=== PATIENT | female | born 1980 | race Caucasian/White ===

== ENCOUNTER → 2016-04-05 | Outpatient (CLI) | payer BC, MEDICAID ==
[~2016-04-05] MED LIST: /PANT40TA PO; ACET50TA PO; ANTACHW5 PO; ANUS2.5C2 TOP; COLA50CA3 PO; IBUP600T26 PO; IBUP80TA PO; LOPERAMIDE PO; MOM30SS PO; PNV-CAP5 PO; PROTPAK PO; SUBO8TA PO
[2016-04-05 14:05] LABS: BASO % 0.4 % (0.0-1.0); EOS # 0.2 K/mm3 (0.0-0.50); EOS % 2.6 % (0.0-3.0); LARGE UNSTAINED CELL # 0.1 K/mm3 (0.0-0.4); LARGE UNSTAINED CELL % 2.3 % (0.0-4.0); LYMPH # 1.2 K/mm3 (1.5-4.5); LYMPH % 20.7 % (24.0-44.0); MEAN CORPUSCULAR HEMOGLOBIN 27.8 pg (27.0-33.0); MEAN CORPUSCULAR HGB CONC 32.7 g/dl (32.0-36.5); MEAN CORPUSCULAR VOLUME 84.9 fl (80.0-96.0); MONO # 0.3 K/mm3 (0.0-0.8); MONO % 5.7 % (0.0-5.0); NEUTROPHILS % 68.2 % (36.0-66.0); PLATELET COUNT, AUTOMATED 328 k/mm3 (150-450); RED CELL DISTRIBUTION WIDTH 13.7 % (11.5-14.5); WHITE BLOOD COUNT 5.8 K/mm3 (4.0-10.0)
[2016-04-05 14:21] LABS: ALBUMIN 4.1 GM/DL (3.2-5.2); ALBUMIN/GLOBULIN RATIO 1.11 (1.00-1.93); ALKALINE PHOSPHATASE 82 U/L (45-117); ALT/SGPT 83 U/L (12-78); ANION GAP 8 MEQ/L (8-16); AST/SGOT 45 U/L (15-37); BILIRUBIN,TOTAL 0.5 MG/DL (0.2-1.0); BLOOD UREA NITROGEN 11 MG/DL (7-18); CALCIUM LEVEL 9.4 MG/DL (8.5-10.1); CARBON DIOXIDE LEVEL 27 MEQ/L (21-32); CHLORIDE LEVEL 104 MEQ/L (98-107); CREATININE FOR GFR 0.71 MG/DL (0.55-1.02); GLOMERULAR FILTRATION RATE > 60.0 (>60); GLUCOSE, FASTING 85 MG/DL (70-105); POTASSIUM SERUM 4.1 MEQ/L (3.5-5.1); SODIUM LEVEL 139 MEQ/L (136-145); TOTAL PROTEIN 7.8 GM/DL (6.4-8.2)
[2016-04-09 00:06] LABS: HEPATITIS C QUANTITATION 123460 IU/mL (.); HEPATITIS C VIRUS GENOTYPE 1b (.)
== END ==
LOC: M SMT 10:38
PROVIDERS: ATTEND Internal Medicine Infectious Disease
DX: B18.2 Chronic viral hepatitis C (principal)

== ENCOUNTER → 2016-04-05 | Outpatient (CLI) | payer BC, MEDICAID | LOC: M SMT 10:34 | PROVIDERS: ATTEND Advanced Practice Midwife | DX: N91.0 Primary amenorrhea (principal) ==

== ENCOUNTER → 2016-04-07 | Outpatient (REF) | payer BC, MEDICAID | LOC: M LABSMT 13:23 | PROVIDERS: ATTEND Internal Medicine Infectious Disease | DX: B18.2 Chronic viral hepatitis C (principal) ==

== ENCOUNTER → 2016-04-07 | Outpatient (REF) | payer BC, MEDICAID | LOC: M LABSMT 13:22 | PROVIDERS: ATTEND Advanced Practice Midwife | DX: N91.0 Primary amenorrhea (principal) ==

== ENCOUNTER → 2016-04-25 | Outpatient (CLI) | payer BC, MEDICAID ==
[2016-04-25 15:43] LABS: BASO # 0.1 K/mm3 (0.0-0.2); BASO % 1.5 % (0.0-1.0); EOS # 0.1 K/mm3 (0.0-0.50); EOS % 1.6 % (0.0-3.0); LARGE UNSTAINED CELL # 0.1 K/mm3 (0.0-0.4); LARGE UNSTAINED CELL % 1.7 % (0.0-4.0); LYMPH # 1.4 K/mm3 (1.5-4.5); LYMPH % 14.6 % (24.0-44.0); MEAN CORPUSCULAR HEMOGLOBIN 27.9 pg (27.0-33.0); MEAN CORPUSCULAR VOLUME 84.5 fl (80.0-96.0); MONO # 0.5 K/mm3 (0.0-0.8); NEUTROPHILS # 6.5 K/mm3 (1.8-7.7); NEUTROPHILS % 74.6 % (36.0-66.0); PLATELET COUNT, AUTOMATED 294 k/mm3 (150-450); RED CELL DISTRIBUTION WIDTH 15.1 % (11.5-14.5)
[2016-04-26 09:48] LABS: CONTROL LINE INT CTR LINE PRESENT; HIV SCRN NEGATIVE (NEGATIVE); HIV SCRN1 NEGATIVE (NEGATIVE)
[2016-04-26 15:16] LABS: HBsAg Prenatal NEGATIVE (NEGATIVE); WHITE BLOOD COUNT 8.6 K/mm3 (4.0-10.0)
== END ==
LOC: M LAB 14:36
PROVIDERS: ATTEND Advanced Practice Midwife
DX: Z34.81 Encounter for supervision of other normal pregnancy, first trimester (principal)

== ENCOUNTER → 2016-06-02 | Outpatient (CLI) | payer BC | LOC: M SMT 10:14 | PROVIDERS: ATTEND Advanced Practice Midwife | DX: O09.521 Supervision of elderly multigravida, first trimester (principal) ==

== ENCOUNTER 2016-06-30 13:02 | Day surgery (SDC) | payer BC ==
[2016-06-30] MEDS ORDERED: NEXI20CA PO (14:00)
[2016-06-30] MEDS ORDERED: PRENTAB52 PO (14:00)
[2016-06-30] MEDS ORDERED: FIOR1CAP PO (14:00)
[2016-06-30] MEDS ORDERED: LIDOCAINE 1% SDV INJ 30 ML VIAL As Ordered ONE (16:46)
[2016-06-30 17:13] LABS: MEAN CORPUSCULAR HGB CONC 33.7 g/dl (32.0-36.5); RED CELL DISTRIBUTION WIDTH 13.5 % (11.5-14.5); WHITE BLOOD COUNT 6.2 K/mm3 (4.0-10.0)
[2016-06-30] MEDS ORDERED: fentaNYL 100 MCG/2 ML INJECTION (J3010) As Ordered ONE (17:24)
[2016-06-30] MEDS ORDERED: MIDAZOLAM INJ 2 MG/2 ML VIAL (J2250) As Ordered ONE (17:24)
[2016-06-30] MEDS ORDERED: PROPOFOL 200 MG/20 ML VIAL As Ordered ONE (17:24)
[2016-06-30] MEDS ORDERED: ONDANSETRON 4MG/2ML VIAL (J2405) As Ordered ONE (17:24)
[2016-06-30] MEDS ORDERED: LIDOCAINE 2% INJ 100 MG/5 ML SDV (FOR ANES.) As Ordered ONE (17:25)
[2016-06-30] MEDS ORDERED: dexameTHASONE 4 MG/ML 1ML VIAL (J1100) As Ordered ONE (17:25)
[2016-06-30] MEDS ORDERED: KETOROLAC 60 MG/2 ML VIAL (J1885) As Ordered ONE (17:25)
[2016-06-30] MEDS ORDERED: RHOGAM 300 MCG (1500 IU) INJ (J2790) IM SCH (18:00)
[2016-06-30] MEDS ORDERED: ACETAMINOPHEN TAB 650MG DOSE (2X325MG) As Ordered ONE (18:13)
[2016-06-30] MEDS ORDERED: ONDANSETRON 4MG/2ML VIAL (J2405) IV PRN (18:30)
[2016-06-30] MEDS ORDERED: METOCLOPRAMIDE INJ 10MG/2ML VIAL (J2765) IV PRN (18:30)
[2016-06-30] MEDS ORDERED: fentaNYL 100 MCG/2 ML INJECTION (J3010) IV PRN (18:30)
[2016-06-30] MEDS ORDERED: ACETAMINOPHEN TAB 650MG DOSE (2X325MG) PO SCH (18:30)
[2016-06-30] MEDS ORDERED: LR 1,000 ML IV SCH (18:30)
[2016-06-30] MEDS: PERCOCET 5MG/325MG TAB PO PRN ×2 (18:58→19:30)
[2016-06-30] MEDS ORDERED: ePHEDrine SULFATE 25 MG/5 ML(5MG/ML) SYRINGE As Ordered ONE (19:36)
--- NOTE | 2016-06-30 20:48 | RO ---
DATE OF PROCEDURE: 06/30/2016 PREPROCEDURE DIAGNOSIS: Intrauterine embryonic demise. POSTPROCEDURE DIAGNOSIS: Intrauterine embryonic demise. PROCEDURE PERFORMED: Dilatation with sharp suction curettage. SURGEON: Yecenia Jaramillo MD MANAGER ELECTRICAL: None. ANESTHESIA: General endotracheal anesthesia. ESTIMATED BLOOD LOSS: 100 mL. IV FLUIDS: 800 mL. URINE OUTPUT: 25 mL of lactated Ringer solution. SPECIMENS: Intrauterine contents. DESCRIPTION OF PROCEDURE: After informed consent was obtained and written consent was reviewed, the patient was brought to the operating room where general endotracheal anesthesia was obtained. She was then placed in the lithotomy position and was prepped and draped in a normal sterile fashion. A time-out in the operating room was then performed, identifying the patient, procedure to be performed, as well as drug allergies. A bivalve speculum was placed revealing the cervix, the anterior lip of the cervix was grasped with a single toothed tenaculum. The uterus was then sounded to 14 cm. It was then sequentially dilated using Lucila dilators. A #12 suction curette was then advanced through the cervix os to the level of the fundus. This was attached to suction. Suction was deployed, and the uterus was curetted in a 360 degree fashion. A large amount of tissue was obtained. The suction curette was then removed. A Xavier Stone forceps were then advanced through the cervical os where there was tissue, which was teased from the cervical os and that was sent as well to pathology. A sharp curette was then advanced through the cervical os to the level of the fundus and the uterus was curetted in a 360 degree fashion. A third pass with the suction curette was then performed, productive of only a minimum amount of blood. The instruments were then removed from the patient's vagina. Single toothed tenaculum was removed. The tenaculum sites were noted to be hemostatic. Speculum was removed. In and out catheter was then performed productive of 25 mL of clear urine. The patient was then taken out of lithotomy position and was awakened from general anesthesia and taken to recovery in stable condition. Counts were correct.
[2016-06-30 22:00] VITALS: BP 125/69
[2016-06-30 22:30] VITALS: BP 106/66
[2016-06-30 23:00] VITALS: BP 102/61
[2016-06-30] MEDS: KETOROLAC 30 MG/ML VIAL (J1885) IV SCH (23:02)
[2016-07-01] VITALS: BP 99/57
[2016-07-01] MEDS: PERCOCET 5MG/325MG TAB PO PRN ×2 (00:26→09:06)
[2016-07-01 01:00] VITALS: BP 103/56
[2016-07-01 02:00] VITALS: BP 100/58
[2016-07-01 03:00] VITALS: BP 101/58
[2016-07-01] MEDS: KETOROLAC 30 MG/ML VIAL (J1885) IV SCH (05:07)
[2016-07-01 06:00] VITALS: BP 97/54
[2016-07-01 06:06] VITALS: BP 100/58
[2016-07-01] MEDS ORDERED: IBUP800T23 PO (07:35)
[2016-07-01] MEDS ORDERED: PERCOCET PO (07:37)
== END 2016-07-01 09:25 | disposition home or self-care (01) ==
LOC: M SDC 13:02 → M MSPAV 21:44 → M SDC 07-01 09:25
PROVIDERS: ATTEND Obstetrics & Gynecology
DX: O02.1 Missed abortion (principal); J45.909 Unspecified asthma, uncomplicated; B18.2 Chronic viral hepatitis C; K21.9 Gastro-esophageal reflux disease without esophagitis; D86.9 Sarcoidosis, unspecified; Z86.59 Personal history of other mental and behavioral disorders

== ENCOUNTER 2016-07-06 22:38 | Emergency (ER) | payer BC, MEDICAID ==
[~2016-07-06] VITALS: Ht 157.5 cm; Wt 65.8 kg
[~2016-07-06 22:38] MED LIST changes: -PERC5TAB6 PO; -TRAM50TA2 PO
[2016-07-06] MEDS ORDERED: TRAM50TA2 PO (22:49)
[2016-07-07] MEDS ORDERED: NS 1,000 ML IV ONE
[2016-07-07 00:20] LABS: BASO % 0.2 % (0.0-1.0); EOS # 0.3 K/mm3 (0.0-0.50); EOS % 4.4 % (0.0-3.0); LARGE UNSTAINED CELL # 0.1 K/mm3 (0.0-0.4); LARGE UNSTAINED CELL % 1.4 % (0.0-4.0); LYMPH # 1.2 K/mm3 (1.5-4.5); LYMPH % 15.9 % (24.0-44.0); MEAN CORPUSCULAR HEMOGLOBIN 27.9 pg (27.0-33.0); MEAN CORPUSCULAR HGB CONC 31.7 g/dl (32.0-36.5); MEAN CORPUSCULAR VOLUME 88.1 fl (80.0-96.0); MONO # 0.4 K/mm3 (0.0-0.8); MONO % 6.2 % (0.0-5.0); NEUTROPHILS # 4.9 K/mm3 (1.8-7.7); NEUTROPHILS % 71.9 % (36.0-66.0); PLATELET COUNT, AUTOMATED 319 k/mm3 (150-450); RED CELL DISTRIBUTION WIDTH 14.4 % (11.5-14.5); WHITE BLOOD COUNT 6.8 K/mm3 (4.0-10.0)
[2016-07-07] MEDS ORDERED: MORPHINE 4 MG/ML 1ML SYRINGE IV ONE (01:00)
[2016-07-07 01:20] LABS: ANION GAP 6 MEQ/L (8-16); BLOOD UREA NITROGEN 6 MG/DL (7-18); CARBON DIOXIDE LEVEL 27 MEQ/L (21-32); CHLORIDE LEVEL 108 MEQ/L (98-107); CREATININE FOR GFR 0.59 MG/DL (0.55-1.02); GLOMERULAR FILTRATION RATE > 60.0 (>60); GLUCOSE, FASTING 82 MG/DL (70-105); HCG, SERUM QUANTITATIVE 70 MIU/ML; POTASSIUM SERUM 3.5 MEQ/L (3.5-5.1); SODIUM LEVEL 141 MEQ/L (136-145)
[2016-07-07] MEDS ORDERED: PERC5TAB6 PO (01:42)
[2016-07-07] MEDS ORDERED: miSOPROStol 200 MCG TAB (S0191) PR ONE (01:45)
[2016-07-07 02:08] VITALS: BP 134/86
== END 2016-07-07 02:10 | disposition home or self-care (01) ==
LOC: M ED 07-07 00:04
DX: N92.0 Excessive and frequent menstruation with regular cycle (principal)

== ENCOUNTER → 2016-07-06 | Outpatient (CLI) | payer BC, MEDICAID ==
[~2016-07-06] MED LIST changes: +FIOR1CAP PO; +IBUP800T23 PO; +NEXI20CA PO; +PERC5TAB6 PO; +PERCOCET PO; +PRENTAB52 PO; +TRAM50TA2 PO
--- NOTE | 2016-07-06 16:25 | REP ---
PELVIC ULTRASOUND: Real-time sonographic evaluation of the pelvis was performed utilizing transabdominal and endovaginal technique. The bladder is empty. The uterus is enlarged measuring 13.4 x 8.3 x 11.2 cm. A large amount of complex echotexture within the endometrial cavity is consistent with hematoma status-post dilatation and curettage. Some degree of retained products of conception can not be excluded. Right ovary could not be visualized. Left ovary measures 2.4 x 1.6 x 1.9 cm, with no torsion. There is blood flow seen in the left ovary with duplex Doppler evaluation, RI of 0.59. No free fluid is seen. IMPRESSION: Large amount of heterogenous echotexture in the endometrial cavity, likely represents clot but some degree of retained products of conception can not be excluded. Normal left ovary with no torsion. Right ovary could not be visualized. Signed by Esa Marquez MD 07/07/2016 03:19 P
== END ==
LOC: M RAD 15:25
PROVIDERS: ATTEND Obstetrics & Gynecology
DX: N85.2 Hypertrophy of uterus (principal); R10.32 Left lower quadrant pain

== ENCOUNTER → 2016-07-17 | Outpatient (REF) | payer BC, MEDICAID ==
[~2016-07-17] MED LIST changes: +PERC5TAB6 PO; +TRAM50TA2 PO
[2016-07-17 13:32] LABS: MEAN CORPUSCULAR HEMOGLOBIN 27.2 pg (27.0-33.0); MEAN CORPUSCULAR HGB CONC 31.1 g/dl (32.0-36.5); MEAN CORPUSCULAR VOLUME 87.5 fl (80.0-96.0); RED CELL DISTRIBUTION WIDTH 13.2 % (11.5-14.5); WHITE BLOOD COUNT 4.4 K/mm3 (4.0-10.0)
== END ==
LOC: M LABSMT 12:54
PROVIDERS: ATTEND Obstetrics & Gynecology
DX: O02.1 Missed abortion (principal)

== ENCOUNTER 2016-07-28 13:04 | Emergency (ER) | payer BC, MEDICAID ==
[~2016-07-28] VITALS: Ht 160 cm; Wt 63.5 kg
[2016-07-28 13:04] VITALS: BP 164/95
[2016-07-28] MEDS ORDERED: OXYCODONE (13:13)
[2016-07-28] MEDS ORDERED: ONDANSETRON 4MG/2ML VIAL (J2405) IV ONE (13:45)
[2016-07-28] MEDS ORDERED: NS 1,000 ML IV ONE (13:45)
[2016-07-28] MEDS ORDERED: MORPHINE 4 MG/ML 1ML SYRINGE IV PRN (13:45)
[2016-07-28 14:20] LABS: BASO % 0.8 % (0.0-1.0); EOS # 0.3 K/mm3 (0.0-0.50); EOS % 6.8 % (0.0-3.0); LARGE UNSTAINED CELL # 0.1 K/mm3 (0.0-0.4); LARGE UNSTAINED CELL % 2.2 % (0.0-4.0); LYMPH # 0.9 K/mm3 (1.5-4.5); LYMPH % 19.2 % (24.0-44.0); MEAN CORPUSCULAR HEMOGLOBIN 26.3 pg (27.0-33.0); MEAN CORPUSCULAR HGB CONC 31.1 g/dl (32.0-36.5); MEAN CORPUSCULAR VOLUME 84.6 fl (80.0-96.0); MONO # 0.3 K/mm3 (0.0-0.8); NEUTROPHILS # 2.8 K/mm3 (1.8-7.7); NEUTROPHILS % 64.1 % (36.0-66.0); PLATELET COUNT, AUTOMATED 281 k/mm3 (150-450); RED CELL DISTRIBUTION WIDTH 13.3 % (11.5-14.5); WHITE BLOOD COUNT 4.3 K/mm3 (4.0-10.0)
[2016-07-28 14:37] LABS: ANION GAP 5 MEQ/L (8-16); BLOOD UREA NITROGEN 5 MG/DL (7-18); CALCIUM LEVEL 8.7 MG/DL (8.5-10.1); CARBON DIOXIDE LEVEL 25 MEQ/L (21-32); CHLORIDE LEVEL 111 MEQ/L (98-107); CREATININE FOR GFR 0.62 MG/DL (0.55-1.02); GLOMERULAR FILTRATION RATE > 60.0 (>60); GLUCOSE, FASTING 87 MG/DL (70-105); POTASSIUM SERUM 4.2 MEQ/L (3.5-5.1); SODIUM LEVEL 141 MEQ/L (136-145)
[2016-07-28 15:21] LABS: HCG, SERUM QUANTITATIVE 3 MIU/ML
--- NOTE | 2016-07-28 19:31 | REP ---
PELVIC ULTRASOUND: Real-time sonographic evaluation of the pelvis was performed utilizing transabdominal and endovaginal technique. The urinary bladder is collapsed. The uterus measures 8.2 x 5.4 x 6.9 cm. Endometrial thickness is 9 mm. Right ovary measures 2.4 x 2.7 x 1.7 cm. Left ovary measures 4.5 x 3.9 x 3.7 cm and contains a complex cyst measuring 3.1 x 3.2 x 3.4 cm. There is trace free fluid. There is no evidence of ovarian torsion with blood flow seen in each ovary with duplex Doppler evaluation, RI right ovary 0.55 and left ovary 0.35. IMPRESSION: Complex cyst left ovary 3.4 cm in maximum diameter. No torsion. Trace free fluid. Signed by Esa Marquez MD 08/01/2016 03:58 P
== END 2016-07-28 15:53 | disposition home or self-care (01) ==
LOC: M ED 13:39
DX: N83.202 Unspecified ovarian cyst, left side (principal); J45.909 Unspecified asthma, uncomplicated; N30.10 Interstitial cystitis (chronic) without hematuria; G40.909 Epilepsy, unspecified, not intractable, without status epilepticus; N73.9 Female pelvic inflammatory disease, unspecified; K76.9 Liver disease, unspecified; F41.9 Anxiety disorder, unspecified; F32.9 Major depressive disorder, single episode, unspecified; D75.9 Disease of blood and blood-forming organs, unspecified; Z86.14 Personal history of Methicillin resistant Staphylococcus aureus infection; Z79.899 Other long term (current) drug therapy
CPT/HCPCS: 76830; 76856; 80048; 81001; 84702; 85025; 93976; 96374; 96375; 99282; J2405

== ENCOUNTER → 2016-08-09 | Outpatient (CLI) | payer BC, MEDICAID ==
[~2016-08-09] MED LIST changes: +OXYCODONE
[2016-08-09 12:47] LABS: FOLLICLE STIMULATING HORMONE 8.4 mIU/mL; LUTEINIZING HORMONE 6.6 mIU/mL
[2016-08-09 12:50] LABS: FREE T4 1.04 NG/DL (0.76-1.46)
--- NOTE | 2016-08-09 13:26 | REP ---
Hysterosonography: History: Recurrent loss. Procedure: Transvaginal sonography is performed at real time and in my presence during the injection of saline through an endometrial catheter. The endometrial catheter was placed by the referring ordnance handler Dr. Jaramillo. Multiple sonographic images are acquired. Findings: There is a irregular somewhat linear hyperechoic structure projecting into the endometrial fluid from the right fundal wall of the endometrial cavity consistent with a small synechia. This measures approximately 8 mm in greatest dimension. No mass or polyp is seen. Impression: Small 8 mm echogenic structure projecting into the right fundal endometrial cavity consistent with a small synechia. Signed by Grupo Bashir MD 08/09/2016 01:31 P
== END ==
LOC: M RADPRO 11:34
PROVIDERS: ATTEND Obstetrics & Gynecology
DX: N96 Recurrent pregnancy loss (principal)

== ENCOUNTER → 2016-08-15 | Outpatient (REF) | payer BC, MEDICAID | LOC: M LAB REF 12:07 | PROVIDERS: ATTEND Physician Assistant Medical | DX: J02.9 Acute pharyngitis, unspecified (principal) ==

== ENCOUNTER 2016-09-11 10:37 | Emergency (ER) | payer BC, MEDICAID ==
[~2016-09-11] VITALS: Ht 160 cm; Wt 61.5 kg
[~2016-09-11 10:37] MED LIST changes: +IBUP1TAB7 PO; -IBUP800T23 PO; +PERC5TAB12 PO; -PERC5TAB6 PO
[2016-09-11] MEDS ORDERED: ONDA4TAB6 (10:48)
[2016-09-11] MEDS ORDERED: BUTA-198 (10:48)
[2016-09-11] MEDS ORDERED: NS 500 ML IV ONE (13:45)
[2016-09-11] MEDS ORDERED: MORPHINE 2 MG/ML 1ML SYRINGE IV ONE (13:45)
[2016-09-11 14:28] LABS: CONTROL LINE HCG INT CTR LINE PRESENT
[2016-09-11 14:31] LABS: BASO % 0.7 % (0.0-1.0); EOS # 0.1 K/mm3 (0.0-0.50); EOS % 1.8 % (0.0-3.0); LARGE UNSTAINED CELL # 0.1 K/mm3 (0.0-0.4); LARGE UNSTAINED CELL % 1.5 % (0.0-4.0); LYMPH # 2.2 K/mm3 (1.5-4.5); LYMPH % 32.3 % (24.0-44.0); MEAN CORPUSCULAR HEMOGLOBIN 24.9 pg (27.0-33.0); MEAN CORPUSCULAR HGB CONC 30.8 g/dl (32.0-36.5); MEAN CORPUSCULAR VOLUME 80.9 fl (80.0-96.0); MONO # 0.5 K/mm3 (0.0-0.8); NEUTROPHILS # 3.7 K/mm3 (1.8-7.7); NEUTROPHILS % 56.8 % (36.0-66.0); PLATELET COUNT, AUTOMATED 329 k/mm3 (150-450); RED CELL DISTRIBUTION WIDTH 15.3 % (11.5-14.5); WHITE BLOOD COUNT 6.5 K/mm3 (4.0-10.0)
[2016-09-11 14:36] LABS: ALBUMIN/GLOBULIN RATIO 1.21 (1.00-1.93); ALKALINE PHOSPHATASE 67 U/L (45-117); ALT/SGPT 23 U/L (12-78); ANION GAP 4 MEQ/L (8-16); AST/SGOT 15 U/L (15-37); BILIRUBIN,DIRECT < 0.1 MG/DL (0.0-0.2); BILIRUBIN,TOTAL 0.4 MG/DL (0.2-1.0); BLOOD UREA NITROGEN 9 MG/DL (7-18); CARBON DIOXIDE LEVEL 31 MEQ/L (21-32); CHLORIDE LEVEL 104 MEQ/L (98-107); CREATININE FOR GFR 0.65 MG/DL (0.55-1.02); GLOMERULAR FILTRATION RATE > 60.0 (>60); GLUCOSE, FASTING 89 MG/DL (70-105); POTASSIUM SERUM 3.5 MEQ/L (3.5-5.1); SODIUM LEVEL 139 MEQ/L (136-145); TOTAL PROTEIN 7.3 GM/DL (6.4-8.2)
[2016-09-11] MEDS ORDERED: OXYC1TAB23 PO (15:09)
[2016-09-11] MEDS ORDERED: IBUP-1114 PO (15:09)
--- NOTE | 2016-09-11 15:26 | REP ---
PELVIC ULTRASOUND: Real-time sonographic evaluation of the pelvis performed utilizing transabdominal and endovaginal technique. The bladder measures 0.8 x 1.7 x 3.9 cm. The uterus measures 8.6 x 6.0 x 5.7 cm. Endometrial thickness is 15 mm. There is no endometrial fluid collection. The right ovary measures 2.4 x 1.9 x 2.0 cm. Left ovary measures 3.9 x 3.0 x 2.6 cm. Small cyst or dominant follicle in the left ovary has a maximum diameter of 2.6 cm. There is no other evidence of adnexal mass or free fluid. There is no evidence of ovarian torsion, with blood flow seen in each ovary with duplex Doppler evaluation. IMPRESSION: Small cyst or dominant follicle left ovary 2.6 cm in maximum diameter. No free fluid or torsion. Signed by Esa Marquez MD 09/11/2016 08:20 P
[2016-09-11] MEDS ORDERED: KETOROLAC 30 MG/ML VIAL (J1885) IV ONE (15:30)
[2016-09-11 15:34] VITALS: BP 138/86
[2016-10-24] MEDS ORDERED: NEXI40CA PO (13:21)
[2016-10-24] MEDS ORDERED: TRIA1CR TOP (13:21)
[2016-10-24] MEDS ORDERED: VENL37.598 PO (13:21)
== END 2016-09-11 15:36 | disposition home or self-care (01) ==
LOC: M ED 11:37
DX: N83.292 Other ovarian cyst, left side (principal); D86.89 Sarcoidosis of other sites; N30.10 Interstitial cystitis (chronic) without hematuria; Z79.3 Long term (current) use of hormonal contraceptives; Z79.899 Other long term (current) drug therapy
CPT/HCPCS: 76830; 76856; 80048; 80076; 81001; 83690; 84703; 85025; 87086; 87210; 87491; 87591; 93976; 96374; 96375; 99284; J1885

== ENCOUNTER 2016-10-05 09:02 | Emergency (ER) | payer BC, MEDICAID ==
[~2016-10-05] VITALS: Ht 157.5 cm; Wt 61.3 kg
[~2016-10-05 09:02] MED LIST changes: +BUTA-198; +IBUP-1114 PO; +ONDA4TAB6; +OXYC1TAB23 PO
[2016-10-05 10:54] VITALS: BP 141/78
[2016-10-24] MEDS ORDERED: NEXI40CA PO (13:21)
[2016-10-24] MEDS ORDERED: TRIA1CR TOP (13:21)
[2016-10-24] MEDS ORDERED: VENL37.598 PO (13:21)
== END 2016-10-05 11:00 | disposition home or self-care (01) ==
LOC: M ED 09:02
DX: F32.9 Major depressive disorder, single episode, unspecified (principal); K90.0 Celiac disease; Z79.899 Other long term (current) drug therapy

== ENCOUNTER 2016-11-02 08:04 | Outpatient (CLI) | payer BC, MEDICAID ==
[~2016-11-02] VITALS: Ht 160 cm; Wt 58.5 kg
[~2016-11-02 08:04] MED LIST changes: +NEXI40CA PO; +TRIA1CR TOP; +VENL37.598 PO
[2016-11-02] MEDS ORDERED: NS 1,000 ML IV SCH (08:15)
[2016-11-02] MEDS ORDERED: LIDOCAINE 2% INJ 100 MG/5 ML SDV (FOR ANES.) As Ordered ONE (10:21)
[2016-11-02] MEDS ORDERED: PROPOFOL 200 MG/20 ML VIAL As Ordered ONE ×2 (10:21→10:27)
--- NOTE | 2016-11-02 10:48 | ROOR ---
Patient Name: Maryanne Quiñones Procedure Date: 11/02/2016 10:14 AM Date of : 1980 Age: 36 Room: [facility] Gender: Female Note Status: Finalized Procedure: Upper GI endoscopy Indications: Suspected celiac disease Providers: Navin Roe MD Referring MD: SHAYAN CALDERA MD Requesting Provider: Medicines: Monitored Anesthesia Care Complications: No immediate complications. Procedure: Pre-Anesthesia Assessment: - Prior to the procedure, a History and Physical was performed, and patient medications and allergies were reviewed. The patient is competent. The risks and benefits of the procedure and the sedation options and risks were discussed with the patient. All questions were answered and informed consent was obtained. Patient identification and proposed procedure were verified by the physician, the nurse and the checkerer hand in the procedure room. Mental Status Examination: alert and oriented. Airway Examination: normal oropharyngeal airway and neck mobility. Respiratory Examination: clear to auscultation. CV Examination: normal. Prophylactic Antibiotics: The patient does not require prophylactic antibiotics. Prior Anticoagulants: The patient has taken no previous anticoagulant or antiplatelet agents. ASA Grade Assessment: II - A patient with mild systemic disease. After reviewing the risks and benefits, the patient was deemed in satisfactory condition to undergo the procedure. The anesthesia plan was to use monitored anesthesia care (MAC). Immediately prior to administration of medications, the patient was re-assessed for adequacy to receive sedatives. The heart rate, respiratory rate, oxygen saturations, blood pressure, adequacy of pulmonary ventilation, and response to care were monitored throughout the procedure. The physical status of the patient was re-assessed after the procedure. The Endoscope was introduced through the mouth, and advanced to the second part of duodenum. The upper GI endoscopy was accomplished without difficulty. The patient tolerated the procedure well. Findings: LA Grade A (one or more mucosal breaks less than 5 mm, not extending between tops of 2 mucosal folds) esophagitis with no bleeding was found in the distal esophagus. Biopsies were taken with a cold forceps for histology. Two biopsies were obtained with cold forceps for histology in the middle third of the esophagus. Verification of patient identification for the specimen was done by the physician and nurse using the patient's name, date and medical record number. Estimated blood loss was minimal. Diffuse mild inflammation characterized by erythema and granularity was found in the gastric body and in the gastric antrum. Biopsies were taken with a cold forceps for Helicobacter pylori testing. No gross lesions were noted in the duodenal bulb and in the second portion of the duodenum. Biopsies for histology were taken with a cold forceps for evaluation of celiac disease. Impression: - LA Grade A reflux esophagitis. Biopsied. - Gastritis. Biopsied. - No gross lesions in the duodenal bulb and in the second portion of the duodenum. Biopsied. - Biopsies performed in the middle third of the esophagus. Recommendation: - Patient has a contact number available for emergencies. The signs and symptoms of potential delayed complications were discussed with the patient. Return to normal activities tomorrow. Written discharge instructions were provided to the patient. - Resume previous diet. - Continue present medications. - Await pathology results. - Telephone GI clinic for pathology results in 1 week. Navin Roe MD Navin Roe MD 11/02/2016 10:47:19 AM This report has been signed electronically. Number of Addenda: 0 Note Initiated On: 11/02/2016 10:14 AM Estimated Blood Loss: Estimated blood loss was minimal.
[2016-11-02] MEDS ORDERED: ONDANSETRON 4MG/2ML VIAL (J2405) As Ordered ONE (10:57)
[2016-11-02 11:15] VITALS: BP 144/93
[2016-11-03] MEDS ORDERED: ZOFR8TAB4 PO (08:26)
[2016-11-03] MEDS ORDERED: AMIT25TA PO (08:26)
[2016-11-03] MEDS ORDERED: TOPA50TA8 PO (11:08)
== END 2016-11-02 11:25 | disposition home or self-care (01) ==
LOC: M OPP 08:04
PROVIDERS: ATTEND Internal Medicine Gastroenterology
DX: R12 Heartburn (principal); K21.0 Gastro-esophageal reflux disease with esophagitis; K29.70 Gastritis, unspecified, without bleeding; R21 Rash and other nonspecific skin eruption; F32.9 Major depressive disorder, single episode, unspecified; J45.909 Unspecified asthma, uncomplicated; D86.9 Sarcoidosis, unspecified; D64.9 Anemia, unspecified; Z87.442 Personal history of urinary calculi; B18.2 Chronic viral hepatitis C; Z87.891 Personal history of nicotine dependence; Z79.899 Other long term (current) drug therapy; Z80.8 Family history of malignant neoplasm of other organs or systems
CPT/HCPCS: 43239; 88305; J2405

== ENCOUNTER 2016-11-03 08:08 | Emergency (ER) | payer BC, MEDICAID ==
[~2016-11-03] VITALS: Ht 160 cm; Wt 58.2 kg
[2016-11-03] MEDS ORDERED: ZOFR8TAB4 PO (08:26)
[2016-11-03] MEDS ORDERED: AMIT25TA PO (08:26)
[2016-11-03 09:51] LABS: EOS # 0.1 K/mm3 (0.0-0.50); EOS % 2.1 % (0.0-3.0); LARGE UNSTAINED CELL # 0.1 K/mm3 (0.0-0.4); LARGE UNSTAINED CELL % 1.9 % (0.0-4.0); LYMPH # 0.7 K/mm3 (1.5-4.5); LYMPH % 20.3 % (24.0-44.0); MEAN CORPUSCULAR HEMOGLOBIN 26.2 pg (27.0-33.0); MEAN CORPUSCULAR HGB CONC 32.5 g/dl (32.0-36.5); MEAN CORPUSCULAR VOLUME 80.6 fl (80.0-96.0); MONO # 0.2 K/mm3 (0.0-0.8); MONO % 4.9 % (0.0-5.0); NEUTROPHILS # 2.6 K/mm3 (1.8-7.7); NEUTROPHILS % 69.9 % (36.0-66.0); PLATELET COUNT, AUTOMATED 264 k/mm3 (150-450); RED CELL DISTRIBUTION WIDTH 15.9 % (11.5-14.5); WHITE BLOOD COUNT 3.7 K/mm3 (4.0-10.0)
--- NOTE | 2016-11-03 09:59 | REP ---
CT Head without contrast HISTORY: Headache COMPARISON: 01/05/2011 There is no intraparenchymal hemorrhage, acute infarct, mass or midline shift. The ventricular system is normal in appearance. There is no extra cerebral collection. There is no fracture. The visualized sinuses are clear. IMPRESSION: There is no intracranial lesion. Signed by Luis Fernando Marcus MD 11/03/2016 09:50 A
[2016-11-03 10:15] LABS: ERYTHROCYTE SEDIMENTATION RATE 13 mm/hr (0-20)
[2016-11-03] MEDS ORDERED: KETOROLAC 30 MG/ML VIAL (J1885) IV ONE (10:15)
[2016-11-03] MEDS ORDERED: METOCLOPRAMIDE INJ 10MG/2ML VIAL (J2765) IV ONE (10:15)
[2016-11-03] MEDS ORDERED: NS 1,000 ML IV ONE (10:15)
[2016-11-03 10:19] LABS: ANION GAP 6 MEQ/L (8-16); BLOOD UREA NITROGEN 6 MG/DL (7-18); CALCIUM LEVEL 8.6 MG/DL (8.5-10.1); CARBON DIOXIDE LEVEL 27 MEQ/L (21-32); CHLORIDE LEVEL 109 MEQ/L (98-107); CREATININE FOR GFR 0.58 MG/DL (0.55-1.02); GLOMERULAR FILTRATION RATE > 60.0 (>60); GLUCOSE, FASTING 84 MG/DL (70-105); POTASSIUM SERUM 4.5 MEQ/L (3.5-5.1); SODIUM LEVEL 142 MEQ/L (136-145)
[2016-11-03] MEDS ORDERED: TOPA50TA8 PO (11:08)
[2016-11-03] MEDS ORDERED: TOPIRAMATE (TopAMAX) 25 MG TAB PO ONE (11:15)
[2016-11-03 11:22] VITALS: BP 149/86
== END 2016-11-03 11:25 | disposition home or self-care (01) ==
LOC: M ED 08:08
DX: G43.909 Migraine, unspecified, not intractable, without status migrainosus (principal); Z79.899 Other long term (current) drug therapy
CPT/HCPCS: 70450; 80048; 85025; 85652; 86140; 96374; 96375; 99283; J1885; J2765

== ENCOUNTER → 2016-11-08 | Outpatient (REF) | payer BC, MEDICAID ==
[~2016-11-08] MED LIST changes: +AMIT25TA PO; +ASPI1TAB PO; +BUPR2SUB SL; +DICL10TA PO; +FOLI1TAB4 PO; +LEVOTAB10 PO; +MACR100C43 PO; +PREN1TAB11 PO; +TOPA50TA8 PO; +ZOFR8TAB4 PO
== END ==
LOC: M LAB REF 17:40
PROVIDERS: ATTEND Advanced Practice Midwife
DX: Z12.4 Encounter for screening for malignant neoplasm of cervix (principal)

== ENCOUNTER → 2016-11-24 | Outpatient (CLI) | payer BC, MEDICAID | LOC: M SMT 08:03 | PROVIDERS: ATTEND Obstetrics & Gynecology | DX: Z32.01 Encounter for pregnancy test, result positive (principal) ==

== ENCOUNTER → 2017-01-03 | Outpatient (CLI) | payer MEDICAID ==
[2017-01-03 13:39] LABS: MEAN CORPUSCULAR HGB CONC 32.3 g/dl (32.0-36.5); MEAN CORPUSCULAR VOLUME 86.7 fl (80.0-96.0); RED CELL DISTRIBUTION WIDTH 15.9 % (11.5-14.5); WHITE BLOOD COUNT 5.6 10^3/uL (4.0-10.0)
[2017-01-03 15:42] LABS: ALBUMIN 3.3 GM/DL (3.2-5.2); ALBUMIN/GLOBULIN RATIO 1.18 (1.00-1.93); ALKALINE PHOSPHATASE 53 U/L (45-117); ALT/SGPT 44 U/L (12-78); ANION GAP 6 MEQ/L (8-16); AST/SGOT 28 U/L (15-37); BILIRUBIN,TOTAL 0.4 MG/DL (0.2-1.0); BLOOD UREA NITROGEN 8 MG/DL (7-18); CALCIUM LEVEL 8.8 MG/DL (8.5-10.1); CARBON DIOXIDE LEVEL 26 MEQ/L (21-32); CHLORIDE LEVEL 106 MEQ/L (98-107); CREATININE FOR GFR 0.45 MG/DL (0.55-1.02); GLOMERULAR FILTRATION RATE > 60.0 (>60); GLUCOSE, FASTING 87 MG/DL (70-105); HCG, SERUM QUANTITATIVE 168057 MIU/ML; POTASSIUM SERUM 4.2 MEQ/L (3.5-5.1); SODIUM LEVEL 138 MEQ/L (136-145); TOTAL PROTEIN 6.1 GM/DL (6.4-8.2)
[2017-01-03 16:02] LABS: BASO % 0.7 % (0.0-1.0); EOS # 0.2 10^3/uL (0.0-0.50); EOS % 3.1 % (0.0-3.0); IMMATURE GRANULOCYTE % 0.4 % (0-0); LYMPH # 0.9 10^3/uL (1.5-4.5); MONO # 0.4 10^3/uL (0.0-0.8); MONO % 7.9 % (0.0-5.0); NEUTROPHILS % 71.9 % (36.0-66.0)
== END ==
LOC: M SMT 08:28
PROVIDERS: ATTEND Family Medicine
DX: F11.20 Opioid dependence, uncomplicated (principal)

== ENCOUNTER → 2017-01-17 | Outpatient (REF) | payer MEDICAID ==
[2017-01-17 11:47] LABS: BASO % 0.5 % (0.0-1.0); EOS # 0.2 10^3/uL (0.0-0.50); EOS % 3.2 % (0.0-3.0); IMMATURE GRANULOCYTE % 0.2 % (0-0); LYMPH # 1.1 10^3/uL (1.5-4.5); LYMPH % 18.8 % (24.0-44.0); MEAN CORPUSCULAR HEMOGLOBIN 28.8 pg (27.0-33.0); MEAN CORPUSCULAR HGB CONC 33.1 g/dl (32.0-36.5); MEAN CORPUSCULAR VOLUME 87.2 fl (80.0-96.0); MONO # 0.4 10^3/uL (0.0-0.8); NEUTROPHILS # 3.9 10^3/uL (1.8-7.7); NEUTROPHILS % 70.3 % (36.0-66.0); PLATELET COUNT, AUTOMATED 250 10^3/uL (150-450); RED CELL DISTRIBUTION WIDTH 15.5 % (11.5-14.5); WHITE BLOOD COUNT 5.6 10^3/uL (4.0-10.0)
[2017-01-17 13:42] LABS: HBsAg Prenatal NEGATIVE (NEGATIVE)
== END ==
LOC: M LABDRAW1 10:38
PROVIDERS: ATTEND Obstetrics & Gynecology
DX: Z36.89 Encounter for other specified antenatal screening (principal); Z3A.11 11 weeks gestation of pregnancy

== ENCOUNTER 2017-01-31 11:29 | Emergency (ER) | payer MEDICAID ==
[~2017-01-31] VITALS: Ht 160 cm; Wt 59.1 kg
[~2017-01-31 11:29] MED LIST changes: -ASPI1TAB PO; -BUPR2SUB SL; -DICL10TA PO; -FOLI1TAB4 PO; -LEVOTAB10 PO; -MACR100C43 PO; -PREN1TAB11 PO
[2017-01-31] MEDS ORDERED: PREN1TAB11 PO (11:43)
[2017-01-31] MEDS ORDERED: ASPI1TAB PO (11:43)
[2017-01-31] MEDS ORDERED: LEVOTAB10 PO (11:43)
[2017-01-31] MEDS ORDERED: FOLI1TAB4 PO (11:43)
[2017-01-31] MEDS ORDERED: BUPR2SUB SL (11:43)
[2017-01-31] MEDS ORDERED: DICL10TA PO (11:43)
[2017-01-31] MEDS ORDERED: ONDANSETRON 4MG/2ML VIAL (J2405) IV ONE (13:00)
[2017-01-31] MEDS ORDERED: NS 1,000 ML IV ONE (13:00)
[2017-01-31 13:26] LABS: BASO % 0.7 % (0.0-1.0); EOS # 0.1 10^3/uL (0.0-0.50); EOS % 2.1 % (0.0-3.0); IMMATURE GRANULOCYTE % 0.3 % (0-0); LYMPH # 1.4 10^3/uL (1.5-4.5); LYMPH % 22.5 % (24.0-44.0); MEAN CORPUSCULAR HEMOGLOBIN 29.4 pg (27.0-33.0); MEAN CORPUSCULAR VOLUME 86.6 fl (80.0-96.0); MONO # 0.4 10^3/uL (0.0-0.8); MONO % 7.3 % (0.0-5.0); NEUTROPHILS # 4.1 10^3/uL (1.8-7.7); NEUTROPHILS % 67.1 % (36.0-66.0); PLATELET COUNT, AUTOMATED 251 10^3/uL (150-450); RED CELL DISTRIBUTION WIDTH 14.5 % (11.5-14.5); WHITE BLOOD COUNT 6.1 10^3/uL (4.0-10.0)
[2017-01-31] MEDS ORDERED: NITROFURANTOIN (MACROBID) 100 MG CAP PO ONE (14:45)
[2017-01-31 14:59] LABS: ANION GAP 8 MEQ/L (8-16); BLOOD UREA NITROGEN 7 MG/DL (7-18); CALCIUM LEVEL 8.1 MG/DL (8.5-10.1); CARBON DIOXIDE LEVEL 25 MEQ/L (21-32); CHLORIDE LEVEL 108 MEQ/L (98-107); CREATININE FOR GFR 0.34 MG/DL (0.55-1.02); GLOMERULAR FILTRATION RATE > 60.0 (>60); GLUCOSE, FASTING 70 MG/DL (70-105); POTASSIUM SERUM 3.7 MEQ/L (3.5-5.1); SODIUM LEVEL 141 MEQ/L (136-145)
[2017-01-31] MEDS ORDERED: MACR100C43 PO (15:16)
[2017-01-31 15:19] VITALS: BP 119/68
== END 2017-01-31 15:21 | disposition home or self-care (01) ==
LOC: M ED 11:29
DX: N39.0 Urinary tract infection, site not specified (principal); J45.909 Unspecified asthma, uncomplicated; B18.2 Chronic viral hepatitis C; Z79.899 Other long term (current) drug therapy; Z79.82 Long term (current) use of aspirin; Z87.891 Personal history of nicotine dependence
CPT/HCPCS: 36415; 80048; 81001; 83690; 85025; 87086; 96374; 99284; J2405

== ENCOUNTER → 2017-03-07 | Outpatient (CLI) | payer OTHER ==
[~2017-03-07] MED LIST changes: +ASPI1TAB PO; +BUPR2SUB SL; +DICL10TA PO; +FOLI1TAB4 PO; +LEVOTAB10 PO; +MACR100C43 PO; +PREN1TAB11 PO
--- NOTE | 2017-03-07 10:45 | REP ---
Obstetric ultrasound for anatomy: There is a single intrauterine gestation. position is variable. motion and cardiac activity. The heart rate is 147 beats per minute. The placenta is anterior. There is no placenta previa or abruptio. Placenta demonstrates grade zero maturity. Subjectively the amniotic fluid volume is normal. The cervix measures 4.2 cm in length. Gestational Age: By LMP: 18 w 6.0 NEHA 08/04/2017 By First US: None By Today's US: 18 w 5.0 NEHA of 08/03/2017 Weight: 269 gm/ 0.0 lbs, 9.0 oz Wt% 62 % for 18 w 4.0 d The following anatomic structures are identified and are unremarkable: Intracranial lateral ventricles, choroid plexus, cisterna magna, cerebellum, face, upper lip, facial profile, lungs, four-chamber heart, cardiac right and left ventricular outflow tracts, diaphragm, stomach, cord insertion, three-vessel cord, kidneys, bladder, spine and upper lower extremities. No anomalies are identified. Signed by Esa Zayas MD 03/07/2017 10:36 A
== END ==
LOC: M SMT 08:14
PROVIDERS: ATTEND Specialist
DX: Z34.82 Encounter for supervision of other normal pregnancy, second trimester (principal)

== ENCOUNTER → 2017-03-13 | Outpatient (CLI) | payer OTHER ==
[2017-03-13 18:11] LABS: ALBUMIN 3.2 GM/DL (3.2-5.2); ALBUMIN/GLOBULIN RATIO 1.07 (1.00-1.93); ALKALINE PHOSPHATASE 53 U/L (45-117); ALT/SGPT 25 U/L (12-78); ANION GAP 7 MEQ/L (8-16); AST/SGOT 21 U/L (7-37); BILIRUBIN,TOTAL 0.4 MG/DL (0.2-1.0); BLOOD UREA NITROGEN 7 MG/DL (7-18); CALCIUM LEVEL 8.4 MG/DL (8.5-10.1); CARBON DIOXIDE LEVEL 28 MEQ/L (21-32); CHLORIDE LEVEL 105 MEQ/L (98-107); CREATININE FOR GFR 0.47 MG/DL (0.55-1.02); GLOMERULAR FILTRATION RATE > 60.0 (>60); GLUCOSE, FASTING 87 MG/DL (70-105); POTASSIUM SERUM 3.9 MEQ/L (3.5-5.1); SODIUM LEVEL 140 MEQ/L (136-145); TOTAL PROTEIN 6.2 GM/DL (6.4-8.2)
== END ==
LOC: M SMT 14:44
PROVIDERS: ATTEND Obstetrics & Gynecology
DX: Z34.82 Encounter for supervision of other normal pregnancy, second trimester (principal)

== ENCOUNTER 2017-04-24 14:06 | Outpatient (CLI) | payer OTHER ==
[2017-04-24 15:34] LABS: HEMATOCRIT 33.4 % (36.0-47.0); HEMOGLOBIN 11.4 g/dl (12.0-16.0); MEAN CORPUSCULAR HEMOGLOBIN 31.6 pg (27.0-33.0); MEAN CORPUSCULAR HGB CONC 34.1 g/dl (32.0-36.5); MEAN CORPUSCULAR VOLUME 92.5 fl (80.0-96.0); PLATELET COUNT, AUTOMATED 254 10^3/uL (150-450); RED BLOOD COUNT 3.61 10^6/uL (4.00-5.40); RED CELL DISTRIBUTION WIDTH 13.3 % (11.5-14.5); WHITE BLOOD COUNT 6.4 10^3/uL (4.0-10.0)
[2017-04-24 16:24] LABS: INFLUENZA A AMPLIFICATION NEGATIVE (NEGATIVE); INFLUENZA B AMPLIFICATION NEGATIVE (NEGATIVE)
[2017-04-24] MEDS ORDERED: OSELTAMIVIR PHOSPHATE 75 MG CAP (TAMIFLU) PO ×2 (21:00)
== END 2017-04-24 16:50 | disposition home or self-care (01) ==
LOC: M LDO 14:06
DX: O99.89 Other specified diseases and conditions complicating pregnancy, childbirth and the puerperium (principal); Z3A.25 25 weeks gestation of pregnancy; B18.2 Chronic viral hepatitis C; R10.9 Unspecified abdominal pain; R42 Dizziness and giddiness
CPT/HCPCS: 85027

== ENCOUNTER → 2017-05-07 | Outpatient (CLI) | payer OTHER ==
[2017-05-07 13:40] LABS: HEMATOCRIT 34.9 % (36.0-47.0); HEMOGLOBIN 11.7 g/dl (12.0-16.0); MEAN CORPUSCULAR HGB CONC 33.5 g/dl (32.0-36.5); MEAN CORPUSCULAR VOLUME 95.4 fl (80.0-96.0); PLATELET COUNT, AUTOMATED 246 10^3/uL (150-450); RED BLOOD COUNT 3.66 10^6/uL (4.00-5.40); RED CELL DISTRIBUTION WIDTH 13.7 % (11.5-14.5); WHITE BLOOD COUNT 7.9 10^3/uL (4.0-10.0)
[2017-05-07 14:24] LABS: GLUCOSE CHALLENGE TEST 1 HOUR 80 MG/DL (LESS THAN 140)
[2017-05-08 08:41] LABS: TYPE AND SCREEN 1 1
== END ==
LOC: M SMT 08:27
PROVIDERS: Pediatrics
DX: Z34.82 Encounter for supervision of other normal pregnancy, second trimester (principal)
CPT/HCPCS: 82950

== ENCOUNTER → 2017-06-12 | Outpatient (CLI) | payer OTHER ==
[2017-06-12 13:30] LABS: HEMATOCRIT 36.2 % (36.0-47.0); HEMOGLOBIN 12.4 g/dl (12.0-16.0); MEAN CORPUSCULAR HEMOGLOBIN 32.5 pg (27.0-33.0); MEAN CORPUSCULAR HGB CONC 34.3 g/dl (32.0-36.5); PLATELET COUNT, AUTOMATED 239 10^3/uL (150-450); RED BLOOD COUNT 3.81 10^6/uL (4.00-5.40); RED CELL DISTRIBUTION WIDTH 13.4 % (11.5-14.5); WHITE BLOOD COUNT 7.8 10^3/uL (4.0-10.0)
[2017-06-12 13:44] LABS: ALBUMIN/GLOBULIN RATIO 0.91 (1.00-1.93); ALKALINE PHOSPHATASE 111 U/L (45-117); ALT/SGPT 18 U/L (12-78); AST/SGOT 17 U/L (7-37); BILIRUBIN,DIRECT 0.3 MG/DL (0.0-0.2); BILIRUBIN,TOTAL 0.9 MG/DL (0.2-1.0); TOTAL PROTEIN 6.3 GM/DL (6.4-8.2)
== END ==
LOC: M SMT 11:04
DX: O26.893 Other specified pregnancy related conditions, third trimester (principal); Z3A.00 Weeks of gestation of pregnancy not specified
CPT/HCPCS: 80076

== ENCOUNTER 2017-07-16 11:56 | Inpatient (IN) | payer OTHER ==
[2017-07-16] MEDS: miSOPROStol 50 MCG 1/2 TAB (S0191) PO ×2 (13:17→17:25)
[2017-07-16 13:24] LABS: HEMATOCRIT 30.7 % (36.0-47.0); HEMOGLOBIN 10.8 g/dl (12.0-15.5); MEAN CORPUSCULAR HGB CONC 35.2 g/dl (32.0-36.5); MEAN CORPUSCULAR VOLUME 93.9 fl (80.0-96.0); PLATELET COUNT, AUTOMATED 172 10^3/uL (150-450); RED BLOOD COUNT 3.27 10^6/uL (4.00-5.40); RED CELL DISTRIBUTION WIDTH 13.2 % (11.5-14.5); WHITE BLOOD COUNT 6.1 10^3/uL (4.0-10.0)
[2017-07-16] MEDS ORDERED: OXYTOCIN 30 UNITS IN 0.9% NaCl 500ML IV BAG (J2590) As Ordered (21:23)
[2017-07-16] MEDS: LR 1,000 ML IV (21:36)
[2017-07-16] MEDS: OXYTOCIN DRIP 30 UNITS in APPROPRIATE DILUENT 1 EA IV (21:36)
[2017-07-16] MEDS ORDERED: FENTANYL 2MCG/ML ROPIVACAINE 0.2% IN 0.9% NACL 200ML IVBAG As Ordered (22:11)
[2017-07-17] MEDS ORDERED: DOCUSATE SODIUM 100 MG CAP PO (02:30)
[2017-07-17] MEDS ORDERED: MEASLES,MUMPS,RUBELLA VACCINE INJ (MMR-II) (90707) SC (02:30)
[2017-07-17] MEDS ORDERED: DIBUCAINE 1% OINTMENT 30GM TOP (02:30)
[2017-07-17] MEDS ORDERED: ONDANSETRON 4MG/2ML VIAL (J2405) IV (02:30)
[2017-07-17] MEDS ORDERED: RHOGAM 300 MCG (1500 IU) INJ (J2790) IM (02:30)
[2017-07-17] MEDS ORDERED: ACETAMINOPHEN 500 MG TAB PO (02:30)
[2017-07-17] MEDS ORDERED: METHYLERGONOVINE MALEATE 0.2 MG TAB PO (02:30)
[2017-07-17] MEDS: OXYTOCIN DRIP 30 UNITS in APPROPRIATE DILUENT 1 EA IV (02:52)
[2017-07-17] MEDS: IBUPROFEN 600 MG TAB PO ×3 (03:10→20:33)
[2017-07-17] MEDS: PRENATAL VITAMINS CHEWABLE TABLET PO (09:00)
[2017-07-17] MEDS: BUPRENORPHINE/NALOXONE 2-0.5MG SUBLINGUAL TABLET(SUBOXONE) SL (09:00)
[2017-07-18] MEDS: PRENATAL VITAMINS CHEWABLE TABLET PO (09:29)
[2017-07-18] MEDS: BUPRENORPHINE/NALOXONE 2-0.5MG SUBLINGUAL TABLET(SUBOXONE) SL (09:29)
[2017-07-18] MEDS: IBUPROFEN 600 MG TAB PO (09:56)
== END 2017-07-18 11:00 | disposition home or self-care (01) | DRG 560 ==
LOC: M LDI 11:56 → M OBS 07-17 05:00
PROVIDERS: Advanced Practice Midwife
PROC: 3E033VJ Introduction of Other Hormone into Peripheral Vein, Percutaneous Approach (ICD-10-PCS; 2017-07-16)
PROC: 10E0XZZ Delivery of Products of Conception, External Approach (ICD-10-PCS; principal; 2017-07-17)
DX: O26.62 Liver and biliary tract disorders in childbirth (principal); K83.1 Obstruction of bile duct; O98.42 Viral hepatitis complicating childbirth; O09.523 Supervision of elderly multigravida, third trimester; Z37.0 Single live birth; Z3A.37 37 weeks gestation of pregnancy; B18.2 Chronic viral hepatitis C; Z79.899 Other long term (current) drug therapy

== ENCOUNTER 2017-08-12 11:41 | Emergency (ER) | payer OTHER | END 2017-08-12 14:05 | disposition home or self-care (01) | LOC: M ED 11:41 | DX: L03.113 Cellulitis of right upper limb (principal); J45.909 Unspecified asthma, uncomplicated; K21.9 Gastro-esophageal reflux disease without esophagitis; B19.20 Unspecified viral hepatitis C without hepatic coma; D64.9 Anemia, unspecified; F41.9 Anxiety disorder, unspecified; F33.9 Major depressive disorder, recurrent, unspecified; N73.9 Female pelvic inflammatory disease, unspecified; Z87.19 Personal history of other diseases of the digestive system; Z79.899 Other long term (current) drug therapy | CPT/HCPCS: 93971 ==

== ENCOUNTER 2017-08-13 09:28 | Emergency (ER) | payer OTHER ==
[2017-08-13 10:50] LABS: BASO # 0.1 10^3/uL (0.0-0.2); BASO % 1.3 % (0.0-1.0); EOS # 0.5 10^3/uL (0.0-0.50); EOS % 8.7 % (0.0-3.0); HEMATOCRIT 39.8 % (36.0-47.0); HEMOGLOBIN 13.7 g/dl (12.0-15.5); IMMATURE GRANULOCYTE % 0.4 % (0-3.0); LYMPH # 1.2 10^3/uL (1.5-4.5); LYMPH % 22.5 % (24.0-44.0); MEAN CORPUSCULAR HEMOGLOBIN 32.1 pg (27.0-33.0); MEAN CORPUSCULAR HGB CONC 34.4 g/dl (32.0-36.5); MEAN CORPUSCULAR VOLUME 93.2 fl (80.0-96.0); MONO # 0.4 10^3/uL (0.0-0.8); MONO % 7.5 % (0.0-5.0); NEUTROPHILS # 3.1 10^3/uL (1.8-7.7); NEUTROPHILS % 59.6 % (36.0-66.0); PLATELET COUNT, AUTOMATED 204 10^3/uL (150-450); RED BLOOD COUNT 4.27 10^6/uL (4.00-5.40); RED CELL DISTRIBUTION WIDTH 11.4 % (11.5-14.5); WHITE BLOOD COUNT 5.2 10^3/uL (4.0-10.0)
[2017-08-13] MEDS: NS 1,000 ML IV (11:03)
[2017-08-13 11:27] LABS: ANION GAP 2 MEQ/L (8-16); BLOOD UREA NITROGEN 6 MG/DL (7-18); CALCIUM LEVEL 8.5 MG/DL (8.5-10.1); CARBON DIOXIDE LEVEL 34 MEQ/L (21-32); CHLORIDE LEVEL 107 MEQ/L (98-107); CREATININE FOR GFR 0.69 MG/DL (0.55-1.30); GLOMERULAR FILTRATION RATE > 60.0 (>60); GLUCOSE, FASTING 79 MG/DL (70-100); POTASSIUM SERUM 4.2 MEQ/L (3.5-5.1); SODIUM LEVEL 143 MEQ/L (136-145)
== END 2017-08-13 11:47 | disposition home or self-care (01) ==
LOC: M ED 09:28
DX: L03.113 Cellulitis of right upper limb (principal); J45.909 Unspecified asthma, uncomplicated; B18.2 Chronic viral hepatitis C; K90.0 Celiac disease; K21.9 Gastro-esophageal reflux disease without esophagitis; F41.9 Anxiety disorder, unspecified; Z79.2 Long term (current) use of antibiotics; Z98.890 Other specified postprocedural states; Z87.19 Personal history of other diseases of the digestive system; Z86.69 Personal history of other diseases of the nervous system and sense organs; Z79.899 Other long term (current) drug therapy
CPT/HCPCS: 80048

== ENCOUNTER → 2017-09-19 | Outpatient (REF) | payer OTHER ==
[2017-09-19 11:51] LABS: ALBUMIN 3.3 GM/DL (3.2-5.2); ALBUMIN/GLOBULIN RATIO 1.22 (1.00-1.93); ALKALINE PHOSPHATASE 75 U/L (45-117); ALT/SGPT 85 U/L (12-78); AST/SGOT 61 U/L (7-37); BILIRUBIN,DIRECT 0.2 MG/DL (0.0-0.2); BILIRUBIN,TOTAL 0.7 MG/DL (0.2-1.0)
== END ==
LOC: M SFHCPLAZ 09:48
DX: B18.2 Chronic viral hepatitis C (principal)
CPT/HCPCS: 80076

== ENCOUNTER → 2017-10-08 | Outpatient (REF) | payer OTHER | LOC: M SFHCPLAZ 08:43 | DX: B18.2 Chronic viral hepatitis C (principal) ==

== ENCOUNTER → 2017-10-08 | Outpatient (REF) | payer OTHER ==
[2017-10-08 12:26] LABS: ALBUMIN 3.3 GM/DL (3.2-5.2); ALBUMIN/GLOBULIN RATIO 1.14 (1.00-1.93); ALKALINE PHOSPHATASE 86 U/L (45-117); ALT/SGPT 37 U/L (12-78); AST/SGOT 25 U/L (7-37); BILIRUBIN,DIRECT 0.1 MG/DL (0.0-0.2); BILIRUBIN,TOTAL 0.4 MG/DL (0.2-1.0); TOTAL PROTEIN 6.2 GM/DL (6.4-8.2)
[2017-10-11 14:41] LABS: HEPATITIS C QUANTITATION HCV Not Detected IU/mL (.)
== END ==
LOC: M LABDRAW1 08:58
DX: B18.2 Chronic viral hepatitis C (principal)

== ENCOUNTER → 2017-10-19 | Outpatient (CLI) | payer OTHER | LOC: M WUC 16:37 | DX: M25.521 Pain in right elbow (principal) | CPT/HCPCS: 73080 ==

== ENCOUNTER → 2017-10-25 | Outpatient (REF) | payer OTHER ==
[2017-10-25 16:11] LABS: BASO # 0.1 10^3/uL (0.0-0.2); BASO % 1.2 % (0.0-1.0); EOS # 0.3 10^3/uL (0.0-0.50); EOS % 6.6 % (0.0-3.0); HEMOGLOBIN 12.7 g/dl (12.0-15.5); LYMPH # 1.3 10^3/uL (1.5-4.5); LYMPH % 31.2 % (24.0-44.0); MEAN CORPUSCULAR HEMOGLOBIN 31.1 pg (27.0-33.0); MEAN CORPUSCULAR HGB CONC 34.3 g/dl (32.0-36.5); MEAN CORPUSCULAR VOLUME 90.7 fl (80.0-96.0); MONO # 0.4 10^3/uL (0.0-0.8); MONO % 8.7 % (0.0-5.0); NEUTROPHILS # 2.2 10^3/uL (1.8-7.7); NEUTROPHILS % 52.3 % (36.0-66.0); PLATELET COUNT, AUTOMATED 236 10^3/uL (150-450); RED BLOOD COUNT 4.08 10^6/uL (4.00-5.40); RED CELL DISTRIBUTION WIDTH 11.5 % (11.5-14.5); WHITE BLOOD COUNT 4.2 10^3/uL (4.0-10.0)
[2017-10-25 16:35] LABS: ALBUMIN 3.2 GM/DL (3.2-5.2); ALBUMIN/GLOBULIN RATIO 1.19 (1.00-1.93); ALKALINE PHOSPHATASE 71 U/L (45-117); ALT/SGPT 33 U/L (12-78); ANION GAP 5 MEQ/L (8-16); AST/SGOT 21 U/L (7-37); BILIRUBIN,TOTAL 0.4 MG/DL (0.2-1.0); BLOOD UREA NITROGEN 8 MG/DL (7-18); CALCIUM LEVEL 8.4 MG/DL (8.5-10.1); CARBON DIOXIDE LEVEL 31 MEQ/L (21-32); CHLORIDE LEVEL 105 MEQ/L (98-107); CREATININE FOR GFR 0.64 MG/DL (0.55-1.30); FREE T3 2.4 PG/ML (2.2-4.0); FREE T4 0.76 NG/DL (0.76-1.46); GLOMERULAR FILTRATION RATE > 60.0 (>60); GLUCOSE, FASTING 83 MG/DL (70-100); POTASSIUM SERUM 4.2 MEQ/L (3.5-5.1); SODIUM LEVEL 141 MEQ/L (136-145); TOTAL PROTEIN 5.9 GM/DL (6.4-8.2)
[2017-10-26 08:57] LABS: THYROID PEROXIDASE ANTIBODY < 28.0 U/ML (<60.0)
[2017-10-27 14:10] LABS: THRYOGLOBULIN ANTIBODIES (ATA) < 1.0 IU/mL (0.0-0.9); THYROGLOBULIN QUANTITATIVE 14.6 ng/mL (1.5-38.5)
[2017-10-30 00:07] LABS: THYROID STIMULATING IMMUNOGLOB <0.10 IU/L (0.00-0.55)
== END ==
LOC: M LABDRAW1 15:49
DX: R53.83 Other fatigue (principal)
CPT/HCPCS: 84443

== ENCOUNTER 2017-11-03 11:58 | Emergency (ER) | payer OTHER | END 2017-11-03 12:51 | disposition home or self-care (01) | LOC: M ED 11:58 | DX: K62.89 Other specified diseases of anus and rectum (principal); G89.29 Other chronic pain; R10.9 Unspecified abdominal pain; Z79.899 Other long term (current) drug therapy | CPT/HCPCS: 99282 ==

== ENCOUNTER → 2017-11-15 | Outpatient (CLI) | payer OTHER | LOC: M RAD 06:37 | DX: R10.30 Lower abdominal pain, unspecified (principal); Z90.49 Acquired absence of other specified parts of digestive tract | CPT/HCPCS: 76700 ==

== ENCOUNTER → 2017-11-16 | Outpatient (CLI) | payer OTHER | LOC: M RAD 11:01 | DX: R10.30 Lower abdominal pain, unspecified (principal) | CPT/HCPCS: 76856 ==

== ENCOUNTER 2017-11-23 06:48 | Day surgery (SDC) | payer OTHER ==
[2017-11-23] MEDS ORDERED: LIDOCAINE 2% INJ 100 MG/5 ML SDV (FOR ANES.) As Ordered (06:59)
[2017-11-23] MEDS ORDERED: PROPOFOL 200 MG/20 ML VIAL As Ordered ×2 (06:59→07:51)
[2017-11-23] MEDS: NS 1,000 ML IV (07:13)
== END 2017-11-23 08:27 | disposition home or self-care (01) ==
LOC: M OPP 06:48
DX: K92.1 Melena (principal); K64.8 Other hemorrhoids; K57.32 Diverticulitis of large intestine without perforation or abscess without bleeding; Z86.19 Personal history of other infectious and parasitic diseases; K90.0 Celiac disease; K21.9 Gastro-esophageal reflux disease without esophagitis; R12 Heartburn; D64.9 Anemia, unspecified; Z86.14 Personal history of Methicillin resistant Staphylococcus aureus infection; L30.9 Dermatitis, unspecified; F41.9 Anxiety disorder, unspecified; F32.9 Major depressive disorder, single episode, unspecified; G43.909 Migraine, unspecified, not intractable, without status migrainosus; F43.10 Post-traumatic stress disorder, unspecified; R56.9 Unspecified convulsions; J45.909 Unspecified asthma, uncomplicated; D86.9 Sarcoidosis, unspecified; R91.8 Other nonspecific abnormal finding of lung field; R06.83 Snoring; Z87.891 Personal history of nicotine dependence; F19.21 Other psychoactive substance dependence, in remission; Z79.899 Other long term (current) drug therapy
CPT/HCPCS: 45378

== ENCOUNTER → 2018-01-22 | Outpatient (CLI) | payer OTHER | LOC: M WUC 16:30 | DX: R05 Cough (principal); S29.012A Strain of muscle and tendon of back wall of thorax, initial encounter; X58.XXXA Exposure to other specified factors, initial encounter; Y92.89 Other specified places as the place of occurrence of the external cause | CPT/HCPCS: 71101 ==

== ENCOUNTER → 2018-03-06 | Outpatient (CLI) | payer OTHER ==
[2018-03-06 14:03] LABS: CONTROL LINE MONO RF C INT CTR LINE PRESENT; MONO REFLEX EBV COMP NEGATIVE (NEGATIVE)
[2018-03-06 14:34] LABS: ALBUMIN 3.6 GM/DL (3.2-5.2); ALBUMIN/GLOBULIN RATIO 1.29 (1.00-1.93); ALKALINE PHOSPHATASE 90 U/L (45-117); ALT/SGPT 27 U/L (12-78); AST/SGOT 20 U/L (7-37); BILIRUBIN,DIRECT < 0.1 MG/DL (0.0-0.2); BILIRUBIN,TOTAL 0.3 MG/DL (0.2-1.0); TOTAL PROTEIN 6.4 GM/DL (6.4-8.2)
[2018-03-06 14:53] LABS: HEPATITIS C VIRUS ABY INDEX > 11.0 INDEX (<0.8)
[2018-03-11 14:12] LABS: HCV RNA NAA QUALITATIVE Negative (Negative)
== END ==
LOC: M SMT 08:51
DX: B19.20 Unspecified viral hepatitis C without hepatic coma (principal); R59.0 Localized enlarged lymph nodes
CPT/HCPCS: 80076

== ENCOUNTER 2018-04-24 08:21 | Day surgery (SDC) | payer OTHER ==
[~2018-04-24] VITALS: Ht 160 cm; Wt 64.9 kg
[~2018-04-24 08:21] MED LIST changes: +BACT800T5 PO; +BETA0.053 EX; +BUPREN/NALOX; +CLEO300C2 PO; +COLA100C5 PO; +CVS8.6TA5 PO; +EFFE75CA2 PO; +EUCR2OIN; +EUCR2OIN EX; +FOLI1TAB11 PO; -FOLI1TAB4 PO; +GLYCOPYRROLATE INJ 0.2 MG/ML 2 ML VIAL As Ordered ONE; +IMIT50TA PO; +LIDOCAINE 2% INJ 100 MG/5 ML SDV (FOR ANES.) As Ordered ONE; +MAGN250T7 PO; +MAPA500T2 PO; +MAVY1TAB; +MIDAZOLAM INJ 2 MG/2 ML VIAL (J2250) As Ordered ONE; +MIRA3350 PO; +NEOSTIGMINE 10 MG/10 ML VIAL (J2710) As Ordered ONE; +ONDANSETRON 4MG/2ML VIAL (J2405) As Ordered ONE; +PANT40TA3; +PROPOFOL 200 MG/20 ML VIAL As Ordered ONE; +PROT1TAB2 PO; +ROCURONIUM BROMIDE 50 MG/5 ML VIAL As Ordered ONE; +SUBO2MIS SL; +SUBO8MIS SL; +TOPA100T12 PO; +TYLE325T5 PO; +VENL37.52 PO; +VENL75CA47 PO; +VITA500T PO; +ZOFR4TAB16 PO; +ZOFR8TAB22 PO; -ZOFR8TAB4 PO; +dexameTHASONE 4 MG/ML 1ML VIAL (J1100) As Ordered ONE; +fentaNYL 100 MCG/2 ML INJECTION (J3010) As Ordered ONE
[2018-04-24 08:47] LABS: HEMATOCRIT 36.7 % (36.0-47.0); HEMOGLOBIN 12.2 g/dl (12.0-15.5); MEAN CORPUSCULAR HEMOGLOBIN 28.7 pg (27.0-33.0); MEAN CORPUSCULAR HGB CONC 33.2 g/dl (32.0-36.5); MEAN CORPUSCULAR VOLUME 86.4 fl (80.0-96.0); PLATELET COUNT, AUTOMATED 264 10^3/uL (150-450); RED BLOOD COUNT 4.25 10^6/uL (4.00-5.40); WHITE BLOOD COUNT 3.8 10^3/uL (4.0-10.0)
[2018-04-24] MEDS ORDERED: AMOX500C PO (09:16)
[2018-04-24 09:32] LABS: URINE PREG TEST NEGATIVE (NEGATIVE)
[2018-04-24] MEDS ORDERED: BUPIVACAINE HCL 0.25% 30 ML VIAL As Ordered ONE (10:09)
[2018-04-24] MEDS ORDERED: LR 1,000 ML IV ONE (10:15)
[2018-04-24] MEDS ORDERED: OXYC1TAB23 PO (10:15)
[2018-04-24] MEDS ORDERED: IBUP-1022 PO (10:17)
[2018-04-24] MEDS ORDERED: KETOROLAC 60 MG/2 ML VIAL (J1885) As Ordered ONE (10:50)
[2018-04-24] MEDS ORDERED: HYDROMORPHONE HCL 0.5 MG/ 0.5 ML SYRINGE (J1170 PER 1) IV PRN (11:45)
[2018-04-24] MEDS ORDERED: PERCOCET 5MG/325MG TAB PO PRN ×2 (11:45)
[2018-04-24] MEDS ORDERED: LR 1,000 ML IV SCH ×2 (11:45)
[2018-04-24] MEDS ORDERED: ONDANSETRON 4MG/2ML VIAL (J2405) IV PRN (11:45)
[2018-04-24] MEDS: fentaNYL 100 MCG/2 ML INJECTION (J3010) IV PRN ×4 (11:48→12:08)
[2018-04-24 14:00] VITALS: BP 156/89
--- NOTE | 2018-04-24 14:47 | RO ---
DATE OF PROCEDURE: 04/24/2018 PREPROCEDURE DIAGNOSIS: Undesired fertility. POSTPROCEDURE DIAGNOSIS: Undesired fertility. PROCEDURE: Laparoscopic left salpingectomy. SURGEON: Luis Fernando Guthrie MD AIRCRAFT INSTRUMENT REPAIRER: ANESTHESIA: General endotracheal. ESTIMATED BLOOD LOSS: 10 mL. URINE OUTPUT: 50 mL. FINDINGS: Normal pelvis, surgically absent right fallopian tube from prior surgery, normal upper abdomen. DESCRIPTION OF PROCEDURE: The patient was taken to the operating room where general endotracheal anesthesia was induced. She was prepped and draped in a sterile fashion in the dorsal lithotomy position. Rutherford catheter was placed. A sponge stick was placed in the vagina. A periumbilical incision was made with a scalpel. A Veress needle was placed through this incision while tenting up on the skin of the abdomen. The intra-abdominal location of the Veress needle was assessed with the use of a saline filled syringe. A pneumoperitoneum was created. The Veress needle was removed. A 5 mm trocar was placed through this incision. Two 5 mm suprapubic ports were placed under direct visualization without difficulty. A 5 mm scope was used. The left fallopian was grasped with the fimbriated end. A LigaSure device was used to coagulate and incise broad ligament attachments to the tube. The tube was amputated near its origin. The tube was removed through the suprapubic port. Pneumoperitoneum was released and all instruments were removed. The skin was closed with #4-0 Monocryl subcuticular sutures. Sponge, instrument and needle counts were correct. [facility]
== END 2018-04-24 14:25 | disposition home or self-care (01) ==
LOC: M SDC 08:21
PROVIDERS: ATTEND Specialist
DX: Z30.2 Encounter for sterilization (principal); G43.909 Migraine, unspecified, not intractable, without status migrainosus; K57.30 Diverticulosis of large intestine without perforation or abscess without bleeding; K21.9 Gastro-esophageal reflux disease without esophagitis; R39.15 Urgency of urination; K90.0 Celiac disease; L30.9 Dermatitis, unspecified; M12.9 Arthropathy, unspecified; F32.9 Major depressive disorder, single episode, unspecified; F43.10 Post-traumatic stress disorder, unspecified; J45.909 Unspecified asthma, uncomplicated; R06.83 Snoring; T88.59XD Other complications of anesthesia, subsequent encounter; Z79.899 Other long term (current) drug therapy; Z79.891 Long term (current) use of opiate analgesic; Z87.891 Personal history of nicotine dependence; Z86.19 Personal history of other infectious and parasitic diseases; Z86.2 Personal history of diseases of the blood and blood-forming organs and certain disorders involving the immune mechanism; Z86.14 Personal history of Methicillin resistant Staphylococcus aureus infection; Z86.59 Personal history of other mental and behavioral disorders
CPT/HCPCS: 36415; 58661; 84703; 85027; 88302; J1100; J1885; J2250; J2405; J2710; J3010

== ENCOUNTER → 2018-05-15 | Outpatient (CLI) | payer OTHER ==
[~2018-05-15] MED LIST changes: +AMOX500C PO; -GLYCOPYRROLATE INJ 0.2 MG/ML 2 ML VIAL As Ordered ONE; +IBUP-1022 PO; -LIDOCAINE 2% INJ 100 MG/5 ML SDV (FOR ANES.) As Ordered ONE; -MIDAZOLAM INJ 2 MG/2 ML VIAL (J2250) As Ordered ONE; -NEOSTIGMINE 10 MG/10 ML VIAL (J2710) As Ordered ONE; -ONDANSETRON 4MG/2ML VIAL (J2405) As Ordered ONE; -PROPOFOL 200 MG/20 ML VIAL As Ordered ONE; -ROCURONIUM BROMIDE 50 MG/5 ML VIAL As Ordered ONE; -dexameTHASONE 4 MG/ML 1ML VIAL (J1100) As Ordered ONE; -fentaNYL 100 MCG/2 ML INJECTION (J3010) As Ordered ONE
--- NOTE | 2018-05-17 10:09 | SLEEPHOME ---
DATE OF STUDY: 05/15/2018 ORDERED BY: Dr. Jiménez Diagnostic home sleep testing was performed due to concern for the obstructive sleep apnea syndrome in this patient with excessive somnolence and nonrestorative sleep and snoring who has comorbidities of asthma and sarcoidosis. For testing, a nocturnal T3 respiratory monitoring device was used. Continuous record was made of pulse, oxygen saturation, airflow, chest and abdominal strain and body position. 9 hours and 59 minutes of data were reviewed. Of these, 6 hours and 13 minutes were marked time in bed. During the interval marked time in bed there were 59 respiratory events identified of 10 seconds in duration or greater for a respiratory event index of 9.7. The events were both obstructive and central, all told there were 30 of 59 respiratory events in the central and mixed category. The patient's baseline pulse rate was not recorded as the oximetry probe became dislodged. Saturation was not recorded either. Testing was performed in both supine and nonsupine positions. IMPRESSION: Abnormal home sleep testing with repetitive respiratory events and respiratory event index of 9.5 is consistent with the obstructive sleep apnea syndrome. RECOMMENDATIONS: Based on the frequency of central and mixed apneas, a more complex disorder may be present and referral for formal sleep evaluation and in laboratory pressure titration are recommended. cc: Mabel Peters DO
== END ==
LOC: M SLEEP HO 12:32
PROVIDERS: ATTEND Internal Medicine Pulmonary Disease
DX: G47.30 Sleep apnea, unspecified (principal)

== ENCOUNTER → 2018-05-15 | Outpatient (CLI) | payer OTHER ==
--- NOTE | 2018-05-16 04:26 | REP ---
Clinical: Sarcoidosis. Technique: Axial noncontrast images from the thoracic inlet to the upper abdomen with coronal and sagittal re-formations. Automated dose lowering technique and adjustments according to patient size were utilized during acquisition. Comparison: 07/06/2015 Findings: The bilateral lung irby are relatively well aerated, symmetric and essentially clear. A small area of scarring is identified in the right apex (images 16-21). No acute consolidation, significant nodule or mass lesion appreciated. Tracheobronchial tree is patent. No obvious axillary, hilar, or mediastinal adenopathy. Thoracic aorta, pulmonary vasculature and heart/pericardium appear normal. Surrounding musculoskeletal structures are intact. Limited upper abdomen demonstrates normal bilateral adrenal glands. Impression: No acute mediastinal or pleuroparenchymal process appreciated. Electronically Signed by Ramon Suárez MD 05/16/2018 04:17 A
== END ==
LOC: M RAD 13:15
PROVIDERS: ATTEND Internal Medicine Pulmonary Disease
DX: D86.0 Sarcoidosis of lung (principal)

== ENCOUNTER → 2018-06-07 | Outpatient (CLI) | payer OTHER ==
--- NOTE | 2018-06-11 16:17 | SLEEPCENT ---
DATE OF PROCEDURE: 06/07/2018 ORDERED BY: Joanna Jiménez MD Nocturnal polysomnography was performed for the titration of pressure therapy in this patient with obstructive sleep apnea syndrome based on clinical grounds supported by home testing revealing a respiratory event index of 9.4. For testing the patient was fit with a Respironics Meche View full face mask of small size; 5 cm of water pressure were applied to the circuit and the lights were extinguished. 8 hours and 9 minutes of data were reviewed. There were 426 minutes of sleep identified. Sleep latency was mildly prolonged at 10.5 minutes. Rapid eye movement (REM) latency was normal at 98 minutes. Sleep architecture was fair. Poor progression was noted later in the study. Overall sleep efficiency was 89%. The electrocardiogram showed a sinus rhythm with an average heart rate of 80 beats per minute. EEG showed normal waveforms for awake and sleep. Respiratory events were reasonably palliated with 6 cm of water and remaining measures of sleep physiology were fairly normal. IMPRESSION: Obstructive sleep apnea syndrome (G47.33). RECOMMENDATIONS: Nightly use of pressure therapy 6 cm of water.
== END ==
LOC: M SLEEP 19:31
PROVIDERS: ATTEND Internal Medicine Pulmonary Disease
DX: G47.33 Obstructive sleep apnea (adult) (pediatric) (principal)

== ENCOUNTER → 2018-07-25 | Outpatient (CLI) | payer OTHER ==
[~2018-07-25] MED LIST changes: -/PANT40TA PO; -ACET50TA PO; -ASPI1TAB PO; +ASPI81TA26 PO; -CVS8.6TA5 PO; +MAPA500T17 PO; +SENN-85 PO; +TRIA0.1C60 TOP; -TRIA1CR TOP
[2018-07-25 19:05] LABS: BASO # 0.1 10^3/uL (0.0-0.2); BASO % 1.1 % (0.0-1.0); EOS # 0.4 10^3/uL (0.0-0.50); EOS % 9.1 % (0.0-3.0); HEMATOCRIT 33.5 % (36.0-47.0); HEMOGLOBIN 10.5 g/dl (12.0-15.5); LYMPH # 1.1 10^3/uL (1.5-4.5); LYMPH % 24.7 % (24.0-44.0); MEAN CORPUSCULAR HEMOGLOBIN 26.9 pg (27.0-33.0); MEAN CORPUSCULAR HGB CONC 31.3 g/dl (32.0-36.5); MEAN CORPUSCULAR VOLUME 85.7 fl (80.0-96.0); MONO # 0.5 10^3/uL (0.0-0.8); MONO % 11.5 % (0.0-5.0); NEUTROPHILS # 2.5 10^3/uL (1.8-7.7); NEUTROPHILS % 53.4 % (36.0-66.0); PLATELET COUNT, AUTOMATED 274 10^3/uL (150-450); RED BLOOD COUNT 3.91 10^6/uL (4.00-5.40); WHITE BLOOD COUNT 4.6 10^3/uL (4.0-10.0)
[2018-07-25 19:21] LABS: ALBUMIN 3.4 GM/DL (3.2-5.2); ALT/SGPT 25 U/L (12-78); BILIRUBIN,TOTAL 0.3 MG/DL (0.2-1.0); BLOOD UREA NITROGEN 7 MG/DL (7-18); CALCIUM LEVEL 8.4 MG/DL (8.5-10.1); CARBON DIOXIDE LEVEL 30 MEQ/L (21-32); CHLORIDE LEVEL 107 MEQ/L (98-107); CREATININE FOR GFR 0.58 MG/DL (0.55-1.30); GLOMERULAR FILTRATION RATE > 60.0 (>60); GLUCOSE, FASTING 89 MG/DL (70-100); SODIUM LEVEL 140 MEQ/L (136-145); TOTAL PROTEIN 6.3 GM/DL (6.4-8.2)
== END ==
LOC: M LABDRWAD 16:17
PROVIDERS: ATTEND Family Medicine
DX: R53.83 Other fatigue (principal)

== ENCOUNTER → 2018-08-15 | Outpatient (CLI) | payer OTHER ==
--- NOTE | 2018-08-15 10:17 | REP ---
RIGHT ELBOW, FOUR VIEWS: HISTORY: Swelling. There is no acute fracture or dislocation. The joint space is normal in appearance. IMPRESSION: There is no acute fracture or dislocation. Electronically Signed by Luis Fernando Marcus MD 08/15/2018 10:25 A
== END ==
LOC: M SMT 08:49 → M WUC 08:49
PROVIDERS: ATTEND Family Medicine
DX: R22.31 Localized swelling, mass and lump, right upper limb (principal)

== ENCOUNTER → 2019-01-02 | Outpatient (CLI) | payer OTHER ==
[~2019-01-02] MED LIST changes: +ARMO250T PO; +FERR325T3 PO; +FLUO10CA8 PO; +MOVA1TAB2 PO; +PRED10TA2 PO
--- NOTE | 2019-01-06 09:46 | EEG ---
DATE OF EE01/02/2019 REFERRING PHYSICIAN: Dr. Joanna Jiménez DIAGNOSIS: Transient alteration of illness. EEG# [id number] HISTORY: Patient is a 39-year-old woman who has history of sleep apnea and uses continuous positive airway pressure (CPAP). She becomes extremely tired in the day and continues to fall asleep while driving and daily activities. This EEG was done to rule out epileptic potential. She is currently taking Claritin, Protonix, Provigil. TECHNICAL DESCRIPTION: This digital EEG was recorded by 21 scalp ear and two EKG electrodes and was reviewed in bipolar and referential montages following reformatting in 10-20 international electrode placement system. INTERPRETATION: The patient was noted to be in awake and drowsy states during this EEG. Resting awake background rhythm consisted of well-formed posterior dominant rhythm with anterior/posterior gradient comprising of 11 Hz alpha activity measuring 15-80 microvolts in amplitude which was symmetric and reactive to eye opening. Attenuation of posterior dominant rhythm was seen during transition into drowsiness. Anteriorly low voltage and mixed frequency activity was noted. Stage I and II sleep were reviewed and were symmetric bilaterally. Hyperventilation elicited mild theta slowing of background rhythm. Photic stimulation elicited symmetric photic driving especially at mid frequencies. EKG revealed normal sinus rhythm. No focal, lateralizing or epileptiform abnormalities were seen. No clinical or electrographic seizures were recorded. CONCLUSION: This EEG in awake, drowsy states, stage I and II sleep is within normal limits.
== END ==
LOC: M SLEEP 08:16
PROVIDERS: ATTEND Internal Medicine Pulmonary Disease
DX: R40.4 Transient alteration of awareness (principal); G47.33 Obstructive sleep apnea (adult) (pediatric); G47.10 Hypersomnia, unspecified

== ENCOUNTER → 2019-01-14 | Outpatient (CLI) | payer OTHER ==
--- NOTE | 2019-01-20 08:42 | SLEEPMSLT ---
DATE OF POLYSOMNOGRAPHY : 01/14/2019 REFERRING PHYSICIAN: Dr. Puga INTERPRETATION: Overnight polysomnography was performed for evaluation of excessive daytime sleepiness. A total 8 hours and 39 minutes of data was reviewed with total sleep time 489 minutes with normal sleep onset latency and high sleep efficiency. The oxygen saturation remained 92% or above throughout the study. Minimal snoring was noted. EEG remained normal throughout. EKG revealed normal sinus rhythm. There were no significant respiratory arousals, respiratory events or periodic limb movements of sleep. CONCLUSION: Minimal snoring, no polysomnographic evidence of sleep apnea or periodic limb movements of sleep. DATE OF MULTIPLE SLEEP LATENCY TEST: 01/15/2019 REFERRING PHYSICIAN: Dr. Puga INTERPRETATION: After overnight polysomnography a multiple sleep latency test was performed and patient was given four nap opportunities and patient fell asleep in all four naps with mean sleep latency 1.5 minutes, and patient had rapid eye movement (REM) sleep in second and third naps. CONCLUSION: This is an abnormal multiple sleep latency test consistent with excessive daytime sleepiness such as seen in narcolepsy. Clinical correlation is recommended.
== END ==
LOC: M SLEEP 19:16
PROVIDERS: ATTEND Physician Assistant Medical
DX: G47.10 Hypersomnia, unspecified (principal)

== ENCOUNTER → 2019-02-05 | Outpatient (CLI) | payer OTHER ==
[2019-02-05 14:54] LABS: BASO % 1.3 % (0.0-1.0); EOS % 1.3 % (0.0-3.0); HEMOGLOBIN 12.1 g/dl (12.0-15.5); MEAN CORPUSCULAR HEMOGLOBIN 29.7 pg (27.0-33.0); MEAN CORPUSCULAR HGB CONC 32.7 g/dl (32.0-36.5); MEAN CORPUSCULAR VOLUME 90.7 fl (80.0-96.0); MONO # 0.2 10^3/uL (0.0-0.8); MONO % 7.1 % (0.0-5.0); NEUTROPHILS # 1.7 10^3/uL (1.5-8.5); PLATELET COUNT, AUTOMATED 272 10^3/uL (150-450); RED BLOOD COUNT 4.08 10^6/uL (4.00-5.40)
[2019-02-05 14:55] LABS: ALBUMIN 4.1 GM/DL (3.2-5.2); ALT/SGPT 23 U/L (12-78); BILIRUBIN,TOTAL 0.6 MG/DL (0.2-1.0); BLOOD UREA NITROGEN 6 MG/DL (7-18); CALCIUM LEVEL 9.2 MG/DL (8.5-10.1); CARBON DIOXIDE LEVEL 29 MEQ/L (21-32); CHLORIDE LEVEL 106 MEQ/L (98-107); CREATININE FOR GFR 0.67 MG/DL (0.55-1.30); GLOMERULAR FILTRATION RATE > 60.0 (>60); GLUCOSE, FASTING 95 MG/DL (70-100); IRON (FE) 93 UG/DL (50-170); PERCENT SATURATION 34.7 % (13.2-45.0); POTASSIUM SERUM 3.8 MEQ/L (3.5-5.1); SODIUM LEVEL 140 MEQ/L (136-145); TOTAL IRON BINDING CAPACITY 268 UG/DL (250-450); TOTAL PROTEIN 7.2 GM/DL (6.4-8.2)
[2019-02-05 15:03] LABS: TOTAL 25(OH) VITAMIN D 22.1 NG/ML (30.0-100.0); VITAMIN B12 LEVEL 664 PG/ML (247-911)
== END ==
LOC: M WUC 12:34
PROVIDERS: ATTEND Family Medicine
DX: R53.83 Other fatigue (principal); D50.9 Iron deficiency anemia, unspecified; G47.419 Narcolepsy without cataplexy

== ENCOUNTER → 2019-02-05 | Outpatient (CLI) | payer OTHER ==
[2019-02-05 14:48] LABS: BASO % 1.3 % (0.0-1.0); EOS # 0.1 10^3/uL (0.0-0.5); HEMATOCRIT 35.8 % (36.0-47.0); HEMOGLOBIN 12.1 g/dl (12.0-15.5); LYMPH % 33.2 % (24.0-44.0); MEAN CORPUSCULAR HEMOGLOBIN 30.2 pg (27.0-33.0); MEAN CORPUSCULAR HGB CONC 33.8 g/dl (32.0-36.5); MEAN CORPUSCULAR VOLUME 89.3 fl (80.0-96.0); MONO # 0.2 10^3/uL (0.0-0.8); MONO % 7.6 % (0.0-5.0); NEUTROPHILS # 1.7 10^3/uL (1.5-8.5); NEUTROPHILS % 55.6 % (36.0-66.0); PLATELET COUNT, AUTOMATED 281 10^3/uL (150-450); RED BLOOD COUNT 4.01 10^6/uL (4.00-5.40)
[2019-02-05 14:52] LABS: HEMATOCRIT 35.8 % (36.0-47.0)
[2019-02-05 15:02] LABS: ALT/SGPT 21 U/L (12-78); BILIRUBIN,TOTAL 0.6 MG/DL (0.2-1.0); BLOOD UREA NITROGEN 6 MG/DL (7-18); CALCIUM LEVEL 9.2 MG/DL (8.5-10.1); CARBON DIOXIDE LEVEL 29 MEQ/L (21-32); CHLORIDE LEVEL 105 MEQ/L (98-107); CREATININE FOR GFR 0.68 MG/DL (0.55-1.30); FREE T3 2.4 PG/ML (2.2-4.0); FREE T4 0.99 NG/DL (0.76-1.46); GLOMERULAR FILTRATION RATE > 60.0 (>60); GLUCOSE, FASTING 99 MG/DL (70-100); POTASSIUM SERUM 3.8 MEQ/L (3.5-5.1); SODIUM LEVEL 140 MEQ/L (136-145); TOTAL PROTEIN 7.1 GM/DL (6.4-8.2)
[2019-02-05 15:05] LABS: THYROGLOBULIN ANTIBODY < 15.0 U/ML (<60.0); THYROID PEROXIDASE ANTIBODY < 28.0 U/ML (<60.0); TOTAL 25(OH) VITAMIN D 23.8 NG/ML (30.0-100.0); VITAMIN B12 LEVEL 697 PG/ML (247-911)
== END ==
LOC: M WUC 12:20
PROVIDERS: ATTEND Nurse Practitioner Pediatrics
DX: F41.1 Generalized anxiety disorder (principal); F33.1 Major depressive disorder, recurrent, moderate; K90.0 Celiac disease; D86.0 Sarcoidosis of lung; D86.89 Sarcoidosis of other sites

== ENCOUNTER → 2019-11-11 | Outpatient (CLI) | payer BC ==
[~2019-11-11] MED LIST changes: +ADDE1TAB14 PO; +ADDE30CA3 PO; +FLUO10CA16 PO; -FLUO10CA8 PO; -MOVA1TAB2 PO; +NALO25TA PO; +OXYC1TAB23; +PANT40TA29; -PANT40TA3; +PITO17.8 PO; +PREVTAB2; +RITA10TA PO; +VITA-243 PO; -VITA500T PO
--- NOTE | 2019-12-23 09:50 | REP ---
PELVIC ULTRASOUND FOR PELVIC PAIN INCLUDING TRANSABDOMINAL, ENDOVAGINAL, AND DOPPLER ULTRASOUND ASSESSMENT Delay in reporting results from hospital computer system malfunction from [employer]. COMPARISON: None. FINDINGS: The uterus is anteverted and normal size measuring 8.0 x 4.5 x 6.0 cm. There is a mild heterogeneity of the myometrium, possibly representing a diffusely fibroid uterus. No distinct focal fibroids are identified. The endometrium is not thickenrd measuring 7 mm. The endometrium has a trilaminar appearance compatible with the proliferative phase of the menstrual cycle. The right ovary measures 2.7 x 2.2 x 2.1 cm and is normal size. There is no dominant mass or cyst. There are multiple small follicles. There is vascular flow with the Doppler resistive index of the parenchymal arteries measuring 0.58. The left ovary measures 2.4 x 1.8 x 1.8 cm and is normal size. There is no dominant mass or cyst. There are multiple small follicles. There is vascular flow with the Doppler resistive index in the parenchymal arteries measuring 0.46. There is no free fluid in the pelvis. IMPRESSION: Essentially negative pelvic ultrasound except that the myometrium is mildly heterogeneous. MTDD
== END ==
LOC: M WHC 11:28
PROVIDERS: ATTEND Specialist
DX: R10.2 Pelvic and perineal pain (principal)

== ENCOUNTER → 2020-04-20 | Outpatient (REF) | payer BC, OTHER ==
[~2020-04-20] MED LIST changes: -AMIT25TA PO; +AMIT25TA17 PO
== END ==
LOC: M SFHCWAGY 13:41
PROVIDERS: ATTEND Nurse Practitioner Family
DX: R35.0 Frequency of micturition (principal)

== ENCOUNTER 2020-05-20 12:23 | Emergency (ER) | payer OTHER, BC ==
[~2020-05-20] VITALS: Ht 160 cm; Wt 46.1 kg
--- OUTSIDE RECORDS SUMMARY | 2020-05-20 12:31 | CCD | Summary of Care ---
Author Author [facility] Address Unknown Phone Unavailable Care Team Providers Care Store Warehouse Associate Name Role Phone FranMabel PCP Reason for Visit * Reason Comments Insomnia Encounter Details Care Team Description Date Type Department Lino Noonan MD [facility] [place] [address] Primary narcolepsy without cataplexy (Pr imary Dx) 04/02/2020 Telemedicine [facility] Neurology a [address] 4[address], [address] [place] [address] Allergies Comments Active Allergy Reactions Severity Noted Date Kidney Stones Armodafinil Other (See Medium 07/22/2019 Comments) documented as of this encounter (statuses as of 04/02/2020) Medications End Date Status Medication Sig Dispensed Refills Start Date Active Crisaborole (EUCRISA) 2 % Apply 0 OINT topically as needed Active Pantoprazole Sodium 40 MG Take 40 mg by 0 Oral Tablet Delayed mouth as Release (PROTONIX) needed Active Ondansetron HCl 4 MG Oral Take 4 mg by 0 Tablet (ZOFRAN) mouth every 8 (eight) hours as needed for Nausea Active Wakix 17.8 MG Oral Tablet Take 2 0 07/24 tablets by 0 mouth daily Active Amphetamine-Dextroampheta Take 1 tablet 30 tablet 0 mine 10 MG Oral Tablet by mouth 0 (ADDERALL (10MG)) daily , Max Daily Dose: 10 mg Additional Information Patient not taking. Reported on 09/17/2019 12:47 PM Active Albuterol Sulfate HFA 108 Inhale 2 0 05/24 (90 Base) MCG/ACT puffs into 0 Inhalation Aerosol the lungs as Solution (PROVENTIL HFA) needed Active Amphetamine-Dextroampheta Take 1 tablet 30 tablet 0 mine 10 MG Oral Tablet by mouth 0 (ADDERALL (10MG)) daily , Max Daily Dose: 10 mg Additional Information Patient not taking. Reported on 12/29/2019 10:21 AM Active Methylphenidate HCl 10 MG Take one tab 15 tablet 0 Oral Tablet (RITALIN) in AM on 0 weekends (2 days), as needed Active Methylphenidate HCl ER Take 1 30 capsule 0 (LA) 20 MG Oral Capsule capsule by 0 Extended Release 24 Hour mouth every (Ritalin LA) morning , Max Daily Dose: 20 mg Active Methylphenidate HCl 10 MG Take 1 tablet 30 tablet 0 Oral Tablet (Ritalin) by mouth 0 daily Every afternoon, Max Daily Dose: 10 mg Active Methylphenidate HCl ER Take 1 30 capsule 0 (LA) 30 MG Oral Capsule capsule by 0 Extended Release 24 Hour mouth every (RITALIN LA) morning , Max Daily Dose: 30 mg 03/01/2021 Active Solriamfetol HCl 75 MG Take 1 tablet 15 tablet 0 1 Oral Tablet by mouth 0 (SUNOSI)Indications: daily , Max Narcolepsy Daily Dose: 75 mg Indications: Recurring Sleep Episodes During the Day Active Amphetamine-Dextroampheta Take 1 tablet 30 tablet 0 mine 20 MG Oral Tablet by mouth 0 (ADDERALL) daily In the afternoon, Max Daily Dose: 20 mg Active Amphetamine-Dextroamphet Take 1 30 capsule 0 1 ER 30 MG Oral Capsule capsule by 0 Extended Release 24 Hour mouth every (ADDERALL XR (30MG)) morning , Max Daily Dose: 30 mg 03/11/2021 Active Solriamfetol HCl 150 MG Take 1 tablet 30 tablet 5 Oral Tablet by mouth 0 (SUNOSI)Indications: daily , Max Narcolepsy Daily Dose: 150 mg Indications: Recurring Sleep Episodes During the Day 05/02/2020 Active Amphetamine-Dextroampheta Take 1 tablet 30 tablet 0 mine 10 MG Oral Tablet by mouth 1 (ADDERALL (10MG)) daily , Max Daily Dose: 10 mg 04/02/2020 Discontinued (Reorder) Amphetamine-Dextroampheta Take 1 tablet 30 tablet 0 mine 10 MG Oral Tablet by mouth 0 (ADDERALL (10MG)) daily , Max Daily Dose: 10 mg documented as of this encounter (statuses as of 04/02/2020) Active Problems Problem Noted Date Apnea 06/06/2019 Primary narcolepsy without cataplexy 06/06/2019 documented as of this encounter (statuses as of 04/02/2020) Social History Date Tobacco Use Types Packs/Day Years Used Never Smoker Smokeless Tobacco: Never Used Drinks/Week oz/Week Comments Alcohol Use Not Currently Sex Assigned at Date Recorded Not on file Date Recorded COVID-19 Exposure Response 04/02/2020 7:59 AM EST In the last month, have you been in contact with Erika ble to assess someone who was confirmed or suspected to have Coronavirus / COVID-19? documented as of this encounter Last Filed Vital Signs Not on filedocumented in this encounter Patient Instructions * Patient Instructions* Keon Jay MD - 04/02/2020 11:15 AM EST ASSESSMENT 1. Compliant with CPAP 6 cm H2O 2. Sleepiness has improved modestly 3. No cataplexy 4. Might consider Xyway in future. PLAN 1. Continue CPAP= 6 cm 2. Continue Pitolisant 75 mg in am 3. Stop Adderall xr 30 mg in am 4. Start Adderall ir 10 mg in morning (prescription sent) to cover morning com mute. 5. Continue Adderall ir 20 mg in afternoon. 6. RTC July 2020 documented in this encounter Progress Notes * Keon Jay MD - 04/02/2020 11:15 AM EST After connecting through [employer], patient was identified by name and date of b irth. Patient was then informed that this was a Telehealth visit and that the ex am was being conducted confidentially over secure lines. All setup measures to a ssure confidentiality such as closing doors were taken. Patient acknowledged con sent and understanding of privacy and security of the Telehealth visit, and gave permission to have the rest of the clinical team be present if needed. I inform ed the patient that I have reviewed the record in [facility] and presented the opportu nity for the patient to ask questions regarding the visit today. The patient agr eed to participate. Reason for Visit:Follow up for narcolepsy and sleep apnea Last visit:12/29/2019 Goes to bed at [id number], applies CPAP =6 cm (Pt is 100% compliant) . Falls as leep in 5 minutes . Short awakenings during the night .No snores . No la pses in respiration . No restlessness at night . Vivid dreams as before . No talking, walking in sleep . No grinding of teeth . Occasional jerking of legs . Gets up at 0600 feeling refreshed. Takes pitolisant 75 mg and S unosi 150 mg at 6 AM. She stopped taking adderall xr 30 mg in morning since it m akes her very jittery. No headaches on awakening . Sleepiness during daytime h ours . Takes Adderall 20 mg in afternoon. Occasionally falling asleep talkin g to people, on the phone, not driving . Naps 5 days/week , last 15 min at 1 130. No cataplexy. EPWORTH SLEEPINESS SCALE Chance of dozing or falling asleep: 0 1 2 3 Sitting and reading -2 Watching TV -2 Sitting inactive in public place -1 Passenger in a car for one hour -3 Lying down in afternoon -3 Sitting and talking to someone 0 Sitting quietly after lunch (no alcohol) -2 Stopping for few minutes in traffic while driving -1 ESS =14 (last 16) REVIEW OF SYSTEMS: Completed and attached PAST MEDICAL HISTORY: Past Medical History: Diagnosis Date Rectal prolapse PAST SURGICAL HISTORY Past Surgical History: Procedure Laterality Date STOMACH SURGERY 12/03/2019 rectal prolaspe repair PAST SOCIAL HISTORY: Social History Socioeconomic History Marital status: Spouse name: Not on file Number of children: Not on file Years of education: Not on file Highest education level: Not on file Occupational History Not on file Social Needs Financial resource strain: Not on file Food insecurity Worry: Not on file Inability: Not on file Transportation needs Medical: Not on file Non-medical: Not on file Tobacco Use Smoking status: Never Smoker Smokeless tobacco: Never Used Substance and Sexual Activity Alcohol use: Not Currently Drug use: Not Currently Sexual activity: Yes Partners: Male Lifestyle Physical activity Days per week: Not on file Minutes per session: Not on file Stress: Not on file Relationships Social connections Talks on phone: Not on file Gets together: Not on file Attends confucianism service: Not on file Active member of club or organization: Not on file Attends meetings of clubs or organizations: Not on file Relationship status: Not on file Intimate partner violence Fear of current or ex partner: Not on file Emotionally abused: Not on file Physically abused: Not on file Forced sexual activity: Not on file Other Topics Concern Not on file Social History Narrative Not on file FAMILY HISTORY: Family History Problem Relation Age of Onset Hypertension Mother Rheum arthritis Mother Cancer Mother skin Heart disease Father Hypertension Father High cholesterol Father No Known Problems Sister No Known Problems Sister ALLERGIES: --------- Allergies Allergen Reactions Armodafinil Other (See Comments) Kidney Stones MEDICATIONS Current Outpatient Medications Medication Sig Dispense Refill Albuterol Sulfate HFA 108 (90 Base) MCG/ACT Inhalation Aerosol Solution ( PROVENTIL HFA) Inhale 2 puffs into the lungs as needed Amphetamine-Dextroamphet ER 30 MG Oral Capsule Extended Release 24 Hour ( ADDERALL XR (30MG)) Take 1 capsule by mouth every morning , Max Daily Dose: 30 m g 30 capsule 0 Amphetamine-Dextroamphetamine 10 MG Oral Tablet (ADDERALL (10MG)) Take 1 tablet by mouth daily , Max Daily Dose: 10 mg (Patient not taking: Reported on ) 30 tablet 0 Amphetamine-Dextroamphetamine 10 MG Oral Tablet (ADDERALL (10MG)) Take 1 tablet by mouth daily , Max Daily Dose: 10 mg (Patient not taking: Reported on ) 30 tablet 0 Amphetamine-Dextroamphetamine 10 MG Oral Tablet (ADDERALL (10MG)) Take 1 tablet by mouth daily , Max Daily Dose: 10 mg (Patient not taking: Reported on ) 30 tablet 0 Amphetamine-Dextroamphetamine 20 MG Oral Tablet (ADDERALL) Take 1 tablet by mouth daily In the afternoon, Max Daily Dose: 20 mg 30 tablet 0 Crisaborole (EUCRISA) 2 % OINT Apply topically as needed Methylphenidate HCl 10 MG Oral Tablet (RITALIN) Take one tab in AM on (2 days), as needed 15 tablet 0 Methylphenidate HCl 10 MG Oral Tablet (Ritalin) Take 1 tablet by mouth da nadya Every afternoon, Max Daily Dose: 10 mg 30 tablet 0 Methylphenidate HCl ER (LA) 20 MG Oral Capsule Extended Release 24 Hour ( Ritalin LA) Take 1 capsule by mouth every morning , Max Daily Dose: 20 mg 30 cap annita 0 Methylphenidate HCl ER (LA) 30 MG Oral Capsule Extended Release 24 Hour ( RITALIN LA) Take 1 capsule by mouth every morning , Max Daily Dose: 30 mg 30 cap annita 0 Ondansetron HCl 4 MG Oral Tablet (ZOFRAN) Take 4 mg by mouth every 8 (eig ht) hours as needed for Nausea Pantoprazole Sodium 40 MG Oral Tablet Delayed Release (PROTONIX) Take 40 mg by mouth as needed Solriamfetol HCl 150 MG Oral Tablet (SUNOSI) Take 1 tablet by mouth daily , Max Daily Dose: 150 mg Indications: Recurring Sleep Episodes During the Day 30 tablet 5 Solriamfetol HCl 75 MG Oral Tablet (SUNOSI) Take 1 tablet by mouth daily , Max Daily Dose: 75 mg Indications: Recurring Sleep Episodes During the Day 15 tablet 0 Wakix 17.8 MG Oral Tablet Take 2 tablets by mouth daily No current facility-administered medications for this visit. EXAM INSPECTION: General exam : comfortable at rest, alert and oriented, HEENT : normal; EOM normal. Conjunctivae are clear, not pale, not congested. Oropharynx is normal. Extremities : There is no edema Neuro INSPECTION General: AxO x 3 Speech: normal fluency, comprehension and repetition CN: I: not tested II: Pupils equal III, IV, : EOMI, normal palpebral fissure V: v1, v2, v3: normal pin prick, light touch (per patient) VII: symmetrical face b/l, no facial droop VIII: normal b/l hearing, no nystagmus IX, X: symmetrical elevation of pharyngeal arches, no dysphonia or dysphagia (pe r patient) XI: normal shoulder shrug b/l, symmetrical head turn XII: tongue protrudes in midline, no atrophy or fasciculations, no weakness Motor: No abnormal movements Sensory: intact to light touch (per patient). Tingling in toes Coordination: Normal FNF, HKS Gait: normal gait ASSESSMENT 1. Compliant with CPAP 6 cm H2O 2. Sleepiness has improved modestly 3. No cataplexy 4. Might consider Xyway in future. PLAN 1. Continue CPAP= 6 cm 2. Continue Pitolisant 75 mg in am 3. Stop Adderall xr 30 mg in am 4. Start Adderall ir 10 mg in morning (prescription sent) to cover morning com mute. 5. Continue Adderall ir 20 mg in afternoon. 6. RTC July 2020 Patient was seen and discussed with Dr. Noonan, who agrees with the above asse ssment and plan. I saw and evaluated the patient. I agree with the findings and the plan of care as documented in the resident's note. Jin Noonan MD documented in this encounter Plan of Treatment Health Maintenance Due Date Last Done Comments MMR Vaccines (1 of - 1982 Standard series) Varicella Vaccines (1 of 1982 2 - 2-dose childhood series) DTaP,Tdap,and Td Vaccines 01/02/1988 (1 - Tdap) HIV Screening 1994 Cervical Cancer Screening 2002 5 years Influenza Vaccine 12/25/2019 Pneumococcal Vaccine: 65+ 2046 Years (1 of 1 - PPSV23) HIB Vaccines Aged Out No longer eligible based on patient's age to complete this topic Hepatitis A Vaccines Aged Out No longer eligibl e based on patient's age to complete this topic Hepatitis B Vaccines Aged Out No longer eligibl e based on patient's age to complete this topic IPV Vaccines Aged Out No longer eligible based on patient's age to complete this topic Pneumococcal Vaccine: Aged Out No longer eligib le based on patient's age to Pediatrics (0 to 5 Years) complete this topic and At-Risk Patients (6 to 64 Years) documented as of this encounter Results Not on filedocumented in this encounter Visit Diagnoses Diagnosis Primary narcolepsy without cataplexy - Primary documented in this encounter
--- OUTSIDE RECORDS SUMMARY | 2020-05-20 12:31 | CCD ---
Author Author [facility] Organization [facility] Address Unknown Phone Unavailable Care Team Providers Care Energy And Conservation Technician Name Role Phone Genet Gann Unavailable PROBLEMS Type Condition ICD9-CM Code LDR24-CY Code Onset Dates Condition S tatus SNOMED Code Notes Problem UTI (urinary tract infection) N39.0 Active 68 849294 Problem Episodic cluster headache, not intractable G44.019 Active 054567029 Problem Chronic hepatitis C B18.2 Active 883879875 Problem Gastroesophageal reflux disease without esophagitis K21.9 Active 430463234 Problem Narcotic dependence, in remission F19.21 Active 148842711 Problem OAB (overactive bladder) N32.81 Active 6177474 02 ALLERGIES Allergen (clinical drug ingredient) Drug/Non Drug Allergy do cumented on EMR Reaction Allergy Type Onset Date Status Environmental? eyes swell Non Drug Allergy Acti ve ENCOUNTERS from 1981 to 2020-04-22 Encounter Location Date Provider Diagnosis [facility] [address] [place] [id number] Mar, Genet Dawkinsney Urinary frequency R3 5.0 ; Pelvic pressure in female R10.2 and Vaginal odor N89.8 IMMUNIZATIONS Vaccine Route Administration Date Status Hepatitis A Adult 1.0mL (Havrix) IM Intramuscular Dec 08, 2013 Administered Hepatitis A Adult 1.0mL (Havrix) IM Intramuscular June 09, 2013 Administered Influenza (6mo & up) Fluzone IM Intramuscular Dec 08, 2013 Ad ministered SOCIAL HISTORY Tobacco Use: Social History Observation Description Date Details (start date - stop date) Former Smoker Sex Assigned At : Social History Observation Description Sex Assigned At Unknown Education: Question Answer Notes Level of Education: Finished High School Cheondoism: Question Answer Notes Cheondoism 33 None Sexual Hx: Question Answer Notes Had sex in the last 12 months (vaginal, oral, or anal)? Yes LMP: 02/2016 with Men only Use protection? No Alcohol Screening: Question Answer Notes Did you have a drink containing alcohol in the past year? No Points 0 Interpretation Negative Tobacco Use: Question Answer Notes Are you a: former smoker How long has it been since you last smoked? 6-12 months REASON FOR REFERRAL No Information VITAL SIGNS Weight 102 lbs Mar, Weight-kg 46.27 kg Mar, Height 62 in Mar, BMI 18.65 kg/m2 Mar, Blood pressure systolic 104 mm Hg Mar, Blood pressure diastolic 73 mm Hg Mar, MEDICATIONS Medication SIG (Take, Route, Frequency, Duration) Notes Start Da te End Date Status Suboxone 8-2 MG (Schedule III Drug) DISSOLVE 1.25 FILM UNDER THE TONGUE DAILY MAXIMUM DAILY DOSE 1.25 FILM Sublingual for 29 Not-Taking Adderall 20 MG 1 tablet Orally Twice a day Active Sunosi 150 MG 1 tablet in the morning Orally Once a day Active Effexor XR 37.5 MG 1 capsule with food Orally Once a day Not-Taking Mavyret 8 Week Carton 100 mg / 40 mg 3 tab Orally Once Daily for 28 day(s) Not-Taking Levocetirizine Dihydrochloride 5 MG 1 tablet in the evening Oral ly Once a day Not-Taking Wakix 17.8 MG 2 tablet in the morning Orally Once a day Active Cipro 500 MG 1 tablet Orally every 12 hrs for 3 days 2020 Active Protonix 40 MG TAKE ONE TABLET BY MOUTH EVERY DAY for 30 Not-Taking Zofran 4 MG 1 tablet Orally Once a day Active Imitrex 25 mg 1 tablet as needed for heada susan/migrane Orally one tablet PRN at onset of migraine, may take additional tab 2 hours later, MDD 2 tabs for 14 day(s) Jan, Active Adderall XR 20 MG 1 capsule in the morning Orally Once a day Active Effexor XR 75 MG 1 capsule with food Orally Once a day Not-Taking PROCEDURES No Information RESULTS Component Value Reference Range Urinalysis, no Micro Reviewed date:04/20/2020 11:11:37 Interpretation:Negative Performing Lab:[facility], [place] [address] Spec gravity 1.025 1.002 - 1.035 pH 5 5.0 - 9.0 Leukocyte neg Negative - Nitrate neg Negative - Protein trace Negative - mg/dl Glucose normal Negative - mg/dl Ketones neg Negative - mg/dl Urobili normal Normal - mg/dl Bilirubin neg Negative - Blood neg Negative - Internal QC Acceptable (Y/N) yes WET PREP Reviewed date:04/20/2020 10:57:39 Interpretation:Normal Performing Lab:[facility], [place] [address] whiff n Clue Cells n PH 4.5 Trichomoniads n WET PREP Hypae n Lactobacillus pos RBC n WBC pos URINE CULTURE Reviewed date:04/21/2020 16:10:09 Interpretation:Negative Performing Lab:[facility], [facility] [address] [facility] [id number] , ,[place] [address] REASON FOR VISIT INF? MEDICAL (GENERAL) HISTORY Type Description Date Medical History asthma Medical History Esophageal reflux Medical History sarcoidosis involving lung and liver SP mediastinoscopy Medical History chronic hepatitis C genotype 1B viral load less than 800,000 treated for 2 months with interferon and ribavirin 2006, 09/17/2017 Mavyret for 8 weeks Medical History history of IV drug use Medical History Migraines Dr Mcdowell Medical History Seasonal allergies Surgical History laparotomy- R tube removed Surgical History mediastinal Biopsy Dr Darell Valles 2006 Surgical History gallbladder removed Surgical History urethra stretched Surgical History EGD and colonoscopy Dr Cordero 2011 Surgical History Leep 01/2015 Surgical History rectal prolapse repair 12/13 Surgical History ectopic in left tube apparentl y tube absent 2001 Hospitalization History surgery related Hospitalization History related to childbirth x2 Hospitalization History rectal prolapse repair Goals Section No Information Health Concerns No Information MEDICAL EQUIPMENT No Information MENTAL STATUS No Information FUNCTIONAL STATUS No Information ASSESSMENTS Encounter Date Diagnosis Assessment Notes Treatment Notes Treatm ent Clinical Notes Mar, Urinary frequency (ICD-10 - R35.0) Side effects and usage of med discussed ,take OTC IB or tylenol for pain .ER if severe pain or worsening symptoms Mar, Pelvic pressure in female (ICD-10 - R10.2) Mar, Vaginal odor (ICD-10 - N89.8) PLAN OF TREATMENT Medication Medication Name Sig Start Date Stop Date Cipro 500 MG 1 tablet Orally every 12 hrs for 3 days Mar, Treatment Notes Assessment Notes Clinical Notes Urinary frequency Side effects and usa ge of med discussed ,take OTC IB or tylenol for pain .ER if severe pain or worsening symptoms Insurance Providers Payer Name Payer Address Payer Phone Insured Name Patient Relati onship to Insured Coverage Start Date Coverage End Date [employer] PPO [id number] [id number] [place] self
--- OUTSIDE RECORDS SUMMARY | 2020-05-20 12:32 | CCD ---
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 Objective 2: Maryanne will identify in therapy underlying motives and reinforcement of negative behavior she wishes to change (behavior of compulsive over eating). Objective 3: Maryanne will learn and implement strategy of challenging destorted belief system that she needs to compulsively eat when tempted to engage in compulsive overeating. Objective 4: Maryanne will develope and implement positive daily coping strategies and utilize them on a daily basis to cope with anxiety and depressive symptoms. Objective 5: Maryanne will report a decrease in PHQ-9 and YADY-7 score of 2 points within 90 days MH New Patient with Grace Gunter [facility] 07/16/2018 Behavioral Health Treatment Duration 90 days MH New P atient with Grace Gunter [facility] 07/16/2018 Behavioral Health Treatment Frequency six sessions/12w eeks New Patient with Grace Gunter [facility] 07/16/2018 Behavioral Health Treatment Plan Initiated 07/16/2018 M H New Patient with Grace Gunter [facility] 07/16/2018 Ordered Clinical summary transmitted to referring provider electronically or receiving provider electronically through [employer] Same Day Acute with Mabel L Ray DO 06/20/2018 Return to the clinic if condition worsens or new sympt oms arise Same Day Acute with Mabel L Ray DO 06/20/2018 Ordered Clinical summary transmitted to referring provider electronically or receiving provider electronically through [employer] [facility] SUBOXONE with Mabel L Ray DO 05/31/2018 Ordered return to the clinic if condition worsens or n ew symptoms arise SUBOXONE with Mabel L Ray DO 05/31/2018 Ordered Clinical summary transmitted to referring provider electronically or receiving provider electronically through [employer] SUBOXONE with Mabel L Ray DO 05/02/2018 Ordered return to the clinic if condition worsens or n ew symptoms arise SUBOXONE with Mabel L Ray DO 05/02/2018 Ordered Clinical summary transmitted to referring provider electronically or receiving provider electronically through [employer] SUBOXONE with Mabel L Ray DO 04/04/2018 Ordered return to the clinic if condition worsens or n ew symptoms arise SUBOXONE with Mabel L Ray DO 04/04/2018 Ordered Clinical summary transmitted to referring provider electronically or receiving provider electronically through [employer] [facility] SUBOXONE with Mabel L Ray DO 03/06/2018 Ordered return to the clinic if condition worsens or n ew symptoms arise SUBOXONE with Mabel L Ray DO 03/06/2018 Ordered Clinical summary transmitted to referring provider electronically or receiving provider electronically through [employer] [facility] SUBOXONE with Mabel L Ray DO 02/06/2018 Ordered return to the clinic if condition worsens or n ew symptoms arise SUBOXONE with Mabel L Ray DO 02/06/2018 Ordered Clinical summary transmitted to referring provider electronically or receiving provider electronically through [employer] [facility] SUBOXONE with Mabel L Ray DO 01/09/2018 Ordered return to the clinic if condition worsens or n ew symptoms arise SUBOXONE with Mabel L Ray DO 01/09/2018 Ordered Clinical summary transmitted to referring provider electronically or receiving provider electronically through [employer] [facility] SUBOXONE with Mabel L Ray DO 12/19/2017 Ordered return to the clinic if condition worsens or n ew symptoms arise SUBOXONE with Mabel L Ray DO 12/19/2017 Ordered Clinical summary transmitted to referring provider electronically or receiving provider electronically through [employer] [facility] SUBOXONE with Mable L Ray DO 11/21/2017 Ordered return to the clinic if condition worsens or n ew symptoms arise SUBOXONE with Mabel L Ray DO 11/21/2017 Ordered Clinical summary transmitted to referring provider electronically or receiving provider electronically through [employer] [facility] SUBOXONE with Mabel L Ray DO 10/24/2017 Ordered return to the clinic if condition worsens or n ew symptoms arise SUBOXONE with Mabel L Ray DO 10/24/2017 Ordered Clinical summary transmitted to referring provider electronically or receiving provider electronically through [employer] [facility] SUBOXONE with Mabel L Ray DO 09/27/2017 Ordered return to the clinic if condition worsens or n ew symptoms arise SUBOXONE with Mabel L Ray DO 09/27/2017 Ordered Clinical summary transmitted to referring provider electronically or receiving provider electronically through [employer] [facility] SUBOXONE with Mabel L Ray DO 08/29/2017 Ordered return to the clinic if condition worsens or n ew symptoms arise SUBOXONE with Mabel L Ray DO 08/29/2017 Ordered Clinical summary transmitted to referring provider electronically or receiving provider electronically through [employer] [facility] SUBOXONE with Mabel L Ray DO 08/15/2017 Ordered return to the clinic if condition worsens or n ew symptoms arise SUBOXONE with Mabel L Ray DO 08/15/2017 Ordered Clinical summary transmitted to referring provider electronically or receiving provider electronically through [employer] [facility] SUBOXONE with Mabel L Ray DO 07/04/2017 Ordered return to the clinic if condition worsens or n ew symptoms arise SUBOXONE with Mabel L Ray DO 07/04/2017 Instructions for patient The Buprenor phine-Naloxone program was described in detail, including starting buprenorphine-naloxone at a dose equivalent to how much opioid has been used and the plan for decreasing the dose gradually over time. Overall plan is to decrease medication every 4-8 weeks until down to maintenance of one 8-2mg tablet or film, then hanging out on that for 3-6 months and then decreasing again gradually to get down to one 2-0.5mg tablet or film. The 2-0.5mg dose can be maintained until a decision is made to get off buprenorphine-naloxone altogether, at which time dose will be decreased every 4- 8 weeks until off. After care with naltrexone/vivitrol also discussed. Counseled that there will be a urine drug screen with most visits. Visits will be weekly to begin with and less frequent with time once urine drug screens are clean, down to every 3 weeks once on one 8-2mg buprenorphine-naloxone and then 4 weeks when down to one 2-0.5mg tablet or film. Urine drug screens will be observed until they are clean, then random. Be acutely aware of the four ways of being kicked out of the program: 1) Test positive for methadone on a urine drug screen; 2) No-show for appointment; 3) Failure to attain consistently clean urine drug screens over time; 4) Selling or facilitating the sale of controlled substances of any kind. This program strongly encourages participation in shelly th a formal outpatient group chemical dependence program (such as [facility], [facility], [facility], [place] or [facility]) and attending Narcotics Anonymous (NA) or Alcoholics Anonymous (AA) meetings. Please be advised that some medical insurance (such as [place] [employer] and [facility] Medicaid) require outpatient drug treatment for them to agree to pay for your buprenorphine-naloxone. Even if not required, though, the success rate for staying drug free is the best with the combination of buprenorphine-naloxone, NA meetings and outpatient drug treatment groups. Most outpatient drug treatment programs are 6 months long, then you graduate. [facility], an exception, continues for as long as you are on buprenorphine-naloxone, since it is only one day a week. Also counseled that attending NA meetings is a requirement and attending outpatient drug rehab, such as at [facility], [place], [facility] or [facility] is a strong recommendation. Given zero dollar copay card (if using name brand medication) and patient education material SUBOXONE with Mabel L Ray DO 06/06/2017 Ordered Clinical summary transmitted to referring provider electronically or receiving provider electronically through [employer] SUBOXONE with Mabel L Ray DO 06/06/2017 Ordered return to the clinic if condition worsens or n ew symptoms arise SUBOXONE with Mabel L Ray DO 06/06/2017 Ordered Clinical summary transmitted to referring provider electronically or receiving provider electronically through [employer] [facility] SUBOXONE with Mabel L Ray DO 05/09/2017 Ordered return to the clinic if condition worsens or n ew symptoms arise SUBOXONE with Mabel L Ray DO 05/09/2017 Ordered return to the clinic if condition worsens or n ew symptoms arise SUBOXONE with Mabel L Ray DO 04/18/2017 Ordered return to the clinic if condition worsens or n ew symptoms arise SUBOXONE with Mabel L Ray DO 03/21/2017 Ordered return to the clinic if condition worsens or n ew symptoms arise SUBOXONE with Mabel L Ray DO 02/21/2017 Ordered return to the clinic if condition worsens or n ew symptoms arise SUBOXONE with Mabel L Ray DO 01/24/2017 Ordered return to the clinic if condition worsens or n ew symptoms arise SUBOXONE with Mabel L Ray DO 01/10/2017 Instructions for patient The Buprenor phine-Naloxone program was described in detail, including starting buprenorphine-naloxone at a dose equivalent to how much opioid has been used and the plan for decreasing the dose gradually over time. Overall plan is to decrease medication every 4-8 weeks until down to maintenance of one 8-2mg tablet or film, then hanging out on that for 3-6 months and then decreasing again gradually to get down to one 2-0.5mg tablet or film. The 2-0.5mg dose can be maintained until a decision is made to get off buprenorphine-naloxone altogether, at which time dose will be decreased every 4- 8 weeks until off. After care with naltrexone/vivitrol also discussed. Counseled that there will be a urine drug screen with most visits. Visits will be weekly to begin with and less frequent with time once urine drug screens are clean, down to every 3 weeks once on one 8-2mg buprenorphine-naloxone and then 4 weeks when down to one 2-0.5mg tablet or film. Urine drug screens will be observed until they are clean, then random. Be acutely aware of the four ways of being kicked out of the program: 1) Test positive for methadone on a urine drug screen; 2) No-show for appointment; 3) Failure to attain consistently clean urine drug screens over time; 4) Selling or facilitating the sale of controlled substances of any kind. This program strongly encourages participation in shelly th a formal outpatient group chemical dependence program (such as [facility], [facility], [facility], [facility] or [facility]) and attending Narcotics Anonymous (NA) or Alcoholics Anonymous (AA) meetings. Please be advised that some medical insurance (such as [place] Medicaid and [facility] Medicaid) require outpatient drug treatment for them to agree to pay for your buprenorphine-naloxone. Even if not required, though, the success rate for staying drug free is the best with the combination of buprenorphine-naloxone, NA meetings and outpatient drug treatment groups. Most outpatient drug treatment programs are 6 months long, then you graduate. [facility], an exception, continues for as long as you are on buprenorphine-naloxone, since it is only one day a week. Also counseled that attending NA meetings is a requirement and attending outpatient drug rehab, such as at [facility], [facility] or [facility] is a strong recommendation. Given zero dollar copay card (if using name brand medication) and patient education material SUBOXONE with Mabel Peters DO 01/03/2017 Ordered return to the clinic if condition worsens or n ew symptoms arise SUBOXONE with Mabel Peters DO 01/03/2017 Instructions for patient The Buprenor phine-Naloxone program was described in detail, including starting buprenorphine-naloxone at a dose equivalent to how much opioid has been used and the plan for decreasing the dose gradually over time. Overall plan is to decrease medication every 4-8 weeks until down to maintenance of one 8-2mg tablet or film, then hanging out on that for 3-6 months and then decreasing again gradually to get down to one 2-0.5mg tablet or film. The 2-0.5mg dose can be maintained until a decision is made to get off buprenorphine-naloxone altogether, at which time dose will be decreased every 4- 8 weeks until off. After care with naltrexone/vivitrol also discussed. Counseled that there will be a urine drug screen with most visits. Visits will be weekly to begin with and less frequent with time once urine drug screens are clean, down to every 3 weeks once on one 8-2mg buprenorphine-naloxone and then 4 weeks when down to one 2-0.5mg tablet or film. Urine drug screens will be observed until they are clean, then random. Be acutely aware of the four ways of being kicked out of the program: 1) Test positive for methadone on a urine drug screen; 2) No-show for appointment; 3) Failure to attain consistently clean urine drug screens over time; 4) Selling or facilitating the sale of controlled substances of any kind. This program strongly encourages participation in shelly th a formal outpatient group chemical dependence program (such as [facility], [facility], [facility], [facility] or [facility]) and attending Narcotics Anonymous (NA) or Alcoholics Anonymous (AA) meetings. Please be advised that some medical insurance (such as [place] [employer] and [facility] Medicaid) require outpatient drug treatment for them to agree to pay for your buprenorphine-naloxone. Even if not required, though, the success rate for staying drug free is the best with the combination of buprenorphine-naloxone, NA meetings and outpatient drug treatment groups. Most outpatient drug treatment programs are 6 months long, then you graduate. [facility], an exception, continues for as long as you are on buprenorphine-naloxone, since it is only one day a week. Also counseled that attending NA meetings is a requirement and attending outpatient drug rehab, such as at [facility], [place], [facility] or [facility] is a strong recommendation. Given zero dollar copay card (if using name brand medication) and patient education material SUBOXONE with Mabel Peters DO 12/27/2016 Ordered return to the clinic if condition worsens or n ew symptoms arise SUBOXONE with Mabel Peters DO 12/27/2016 Assessments Includes: Assessments for all patient encounters Findings Encounter Date Opioid dependence Sublocade was admi nistered subcutaneously into the right lower quadrant of patient's abdomen. She was advised to call with any injection site reaction including pain, bruising or redness at the site. She was scheduled to come back for her next Sublocade injection in 4 weeks Sublocade with Mabel Peters DO 02/25/2020 Raynaud's syndrome I reviewed iesha washington's medication list and do not believe any of her current prescribed medications that she is taking could be causing the symptoms. I advised that she has a syndrome called Raynaud's. I explained the importance of keeping her hands and feet warm enough, at all times, even when inside this may require her to wear gloves. We talked about wearing very good warm socks and good footwear. I advised she could start amlodipine 5 mg once a day to help with the symptoms but if the medication starts to make her dizzy or lightheaded she needs to stop taking it and let me know Telephonic Encounter with Mabel Peters DO 02/17/2020 Opioid dependence Patient Cody blocade was administered in the left lower quadrant of her abdomen subcutaneously in the office today. She tolerated the injection well. She was advised to call the office if she experiences any side effects such as redness, pain or severe bruising at the injection site. She was advised to contact the office with any withdrawal symptoms or any illicit drug use prior to her next visit Sublocade with Mabel Peters DO 01/21/2020 Anemia Patient receives iron infusions through [facility] SUBOXONE with Mabel Peters DO 01/08/2020 Narcolepsy Patient is followed at [facility] by narcolepsy specialist and is on stimulant medication for this condition SUBOXONE with Mabel Peters DO 01/08/2020 Opioid dependence You have been advise d how to take your suboxone film: DO NOT take more or less than what has been prescribed to you. 1) Moisten your mouth by taking a sip of water 2) Open the foil pouch 3) Hold the film between 2 fingers on the outside edges 4) Place the film under your tongue (If taking more than one film, place the second film on the opposite side) 5) Leave the films in place until completely dissolved 6) DO not chew, swallow or talk until the film has completely dissolved 7) If you miss a dose of your suboxone, skip it and take the next dose the next time you are due to have your suboxone (DO NOT double up on your dose) 8) DO NOT stop your medicaiton all of a sudden without consulting me, you could become very sick from withdrawl symptoms Injecting Suboxone could lead to serious withdrawl symptoms. Injecting Suboxone or combining Suboxone with alcohol or benzodiazepines or sedatives (xanax, ativan, valium, ect) could lead to overdose, loss of consciousness and . If you become or start while on suboxone, you must let me know. Taking suboxone before driving or operating machFligooery could lead to an accident causing injury or to yourself or someone else. Make sure you know how it makes you feel before you drive or operate machienery. Keep your suboxone out of the reach of children. They could if they ingest it by accident. Patient is very interested in the Sublocade shot. I advised the plan will be for her to take Suboxone for 2 weeks while we get the Sublocade injection approved by her insurance. She would prefer Sublocade because she was able to taper off of the Sublocade before. She really prefers not to be on anything but found that she needed to take something when she found herself having withdrawal symptoms after recently being treated for pain control after her rectal surgery. SUBOXONE with Mabel Peters DO 01/08/2020 Rectal prolapse Chart Update with Rosanne Lake NP 12/04 Iron deficiency anemia Medication Order with Mabel Peters DO 11/25/2019 Cervicalgia Chronic Disease Follow-up with Mabel Peters DO 09/16/2019 Chronic daily headache Chronic Disease Follow-up with Mabel Peters DO 09/16/2019 Depression : stable, denies thoughts of harm to self/o thers Chronic Disease Follow-up with Mabel Peters DO 09/16/2019 Drug-induced constipation : pt reports improvement Chr onic Disease Follow-up with Mabel Peters DO 09/16/2019 Eczema : increased sx but managed with current medicat ion creams Chronic Disease Follow-up with Mabel Peters DO 09/16/2019 Migraine headache : Patient requested a referral to her current neurologist so he can help with her migraine headaches Chronic Disease Follow-up with Mabel Peters DO 09/16/2019 Myalgia and myositis Patient is agreeab le to having lab work done due to having an increase in muscle pains recently Chronic Disease Follow-up with Mabel Peters DO 09/16/2019 Narcolepsy : still an issue, sees neurol juanita 09/17/19 Greater than 40 minutes spent in the office and coordinating care Chronic Disease Follow-up with Mabel Peters DO 09/16/2019 Occipital neuralgia I believe patient's worsening headaches over the past 3 weeks are actually due to occipital neuralgia. I explained the disease process for this disorder. Patient admitted that her previous neurologist has given her injections for this condition in the past. I recommended physical therapy to try to relieve the compression coming from her neck and the muscle tension in her neck. I advised that if her headaches are not significantly better after 2 to 3 weeks of physical therapy then she needs to call my office and at that point she may need to be referred for injections for occipital neuralgia at either pain management or neurology Chronic Disease Follow-up with Mabel Peters DO 09/16/2019 Rectal prolapse : Patient was re-referred to aminah ravi for management Chronic Disease Follow-up with Mabel Peters DO 09/16/2019 Dermatitis Primary Care Telehealth FaceTime with Cindy Lake NP 07/16/2019 Headache syndromes Primary Care Telehealth FaceTime with Cindy Lake NP 07/16/2019 Asthmatic bronchitis Acute with Mabel Peters DO 06/11/2019 Narcolepsy I advised patient that I believe she has a viral bronchitis. Given her history of asthma I stressed the importance of using her rescue inhaler every 4 hours for any shortness of breath, wheezing or coughing. I advised that she rest and drink plenty of fluids. I advised that if she develops any worsening respiratory symptoms to go directly to the emergency room and if she is not better by the end of the week to come back for reevaluation. She was advised to continue her Adderall for her narcolepsy. She saw her narcolepsy specialist at [facility] recently but she was not happy with that visit because he wanted her to have an overnight sleep study at his sleep lab. She is already done a home sleep study and because she lives far away and does not have transportation and has young children at home having an overnight sleep study is going to be very difficult for her. She may request a referral to an alternate narcolepsy specialist in hopes that they will not require her to have an overnight sleep study Acute with Mabel Peters DO 06/11/2019 Obstructive sleep apnea Acute with Mabel Peters DO 0 Hypersomnia Medication Follow-up with Mabel Pop O 05/08/2019 Narcolepsy adderall is helping; has f/u at [facility] next month. I'm hoping that the specialist will help her to be able to find another medication that will be helpful since she is losing too much weight on Adderall. So far, she has tried and failed on modafinil, methylphenidate, xyrem, armodafinil, solriamfetol for her narcolepsy Medication Follow-up with Mabel Peters DO 05/08/2019 Obstructive sleep apnea managed by pulmonary Medicati on Follow-up with Mabel Peters DO 05/08/2019 Opioid dependence in remission; of MAT since Dec 2018 Medication Follow-up with Mabel Peters DO 05/08/2019 Narcolepsy At this point I feel rene ent's nausea vomiting, weight loss and loss of appetite is due to her Adderall. I have decided to change her medication to Ritalin 20 mg twice a day since she has tried 10 mg twice a day in the past without symptom relief for her narcolepsy. At this point, patient has ultra so tried and failed on modafinil, Sunosi, armodafinil and now Adderall as potential treatments for her narcolepsy. She needs to see a narcolepsy specialist which I will place a referral for. She has a follow-up appointment with me in approximately 2 to 3 weeks. She was advised to call or come back to the office with any new or worsening concerns before then Walk-In with Mabel Peters DO 03/28/2019 Vomiting Walk-In with Mabel Peters DO 03/28/2019 Narcolepsy Chart Update with Mabel Peters DO 2018 Anxiety disorder NOS Behavioral Health- Discontin ue Services with Grace Gunter [facility] 01/28/2019 Behavioral Health Treatment Plan Behavioral Health- Di scontinue Services with Grace PETERSW 01/28/2019 Depression Behavioral Health- Discontinue Services with Grace Gunter [facility] 01/28/2019 Anemia Sublocade with Mabel Peters DO 9 Fatigue Sublocade with Mabel Freddie Peters DO 9 Iron deficiency anemia Sublocade with Mabel L Ray DO 2018 Narcolepsy Sublocade with Mabel L Ray DO 9 Opioid dependence Patient was given a Sublocade injection today in her right upper quadrant of her abdomen. She was advised to call with any side effects or with withdrawal symptoms over the next 4 weeks. She will continue to follow- up with neurology for her narcolepsy and epilepsy work-up. She is aware she is not allowed to drive until her excessive daytime sleepiness improves. She has been taken out of work and right now there is no plan for her to return to work. I did ask her to have her lab work rechecked because that has not been checked in a while and she was found to be anemic in the past. Greater than 40 minutes spent [id number] and coordinating care today. Sublocade with Mabel Freddie Peters DO 12/25/2018 Epilepsy and recurrent seizures Chart Update with Mabel hogan DO 12/05/2018 Narcolepsy Sublocade with Mabel Ravi Fran DO 9 Obstructive sleep apnea Sublocade with Mabel Freddie Peters DO 11/20 Opioid dependence Patient has a CPAP machine which she is working with her neurologist to have titrated. She is also working with neurology to find a treatment plan for her narcolepsy. Patient was given her Sublocade injection in the office today. She was advised to call with any symptoms of an injection site reaction. She was advised to call with any withdrawal symptoms. The plan will be to administer her second Sublocade injection in 4 weeks. Sublocade with Mabel Freddie Peters DO 11/20/2018 Anxiety disorder NOS Behavioral Health 2 Wk Follow-up with Donn Gunter [facility] 11/12/2018 Behavioral Health Treatment Plan Behavioral Health 2 W k Follow-up with Grace Gunter [facility] 11/12/2018 Depression Behavioral Health 2 Wk Follow-up with Duglas Gunter [facility] 11/12/2018 Hematuria Symptoms improving since they initially started 3 weeks ago. May have passed a stone which would explain hematuria. I advised she contact my office if she has any worsening flank pain at which point she will need a CT to look for a stone SUBOXONE with Mabel Freddie Peters DO 10/25/2018 Opioid dependence Withdrawl symptoms uncontrolled on 6mg suboxne daily. Advised she increase dose to 8mg daily. Will plan for sublocade next visit since suboxone doesnt' seem to be working well for her and she is unable to wean down on the dose. SUBOXONE with Mabel Freddie Fran DO 10/25/2018 Anxiety disorder NOS Behavioral Health 2 Wk Follow-up with Donn Gunter [facility] 10/04/2018 Behavioral Health Treatment Plan Behavioral Health 2 W k Follow-up with Grace Gunter [facility] 10/04/2018 Depression Behavioral Health 2 Wk Follow-up with Duglas Gunter [facility] 10/04/2018 Binge eating disorder Psych 6 wk Follow up with Annalisa choi NP 10/03/2018 Moderate recurrent major depression Psych 6 wk Follow up with Annalisa Aldridgere [facility] 10/03/2018 Depression SUBOXONE with Mabel L Fran DO 09/27/2018 Hypersomnia SUBOXONE with Mabel L Ray DO 09/27/2018 Iron deficiency anemia SUBOXONE with Mabel L Fran DO 019 Nontropical (celiac) sprue SUBOXONE with Mabel L Ray DO 07/2018 Opioid dependence Patient will akua nue her 6 mg dose of Suboxone. She will refrain from illicit drug use while in this program. Her hypersomnia and daytime somnolence has improved since being started on a stimulant medication by her head silverman. She is receiving her last iron transfusion today by hematology for her iron deficiency anemia. She is currently not being compliant with her celiac diet, and was encouraged to try to be more compliant with this type of diet because I think she will feel better if she can adhere to a celiac diet. I explained her that celiac's disease has mood symptoms associated with it as well and may be contributing to her depression. SUBOXONE with Mabel Freddie Peters DO 09/27/2018 Anxiety disorder NOS Behavioral Health 1 Month Fo llow-up with Grace Gunter [facility] 09/13/2018 Behavioral Health Treatment Plan Behavioral Health 1 M onth Follow-up with Grace Gunter [facility] 09/13/2018 Depression Behavioral Health 1 Month Follow-up with Grace Gunter [facility] 09/13/2018 Anxiety disorder NOS Behavioral Health 1 Month Fo llow-up with Grace Gunter [facility] 08/30/2018 Behavioral Health Treatment Plan Behavioral Health 1 M onth Follow-up with Grace Gunter [facility] 08/30/2018 Depression Behavioral Health 1 Month Follow-up with Grace Gunter [facility] 08/30/2018 Depression SUBOXONE with Mabel Peters DO 08/29/2018 Drug-induced constipation SUBOXONE with Mabel Peters DO 08/2018 Iron deficiency anemia Patient is go ing to be referred to GI in [place] to see if they can help with her chronic constipation and rectal prolapse. Colorectal has refused to help with this when she saw them in February 2018. Patient's depression and anxiety are now being managed by behavioral health. She has been taken off her Effexor and now is only on Prozac. She has an upcoming appointment with hematology for an iron transfusion for her iron deficiency anemia. Patient's armodafinil is helping with her narcolepsy but she feels that it wears off before the end of the day. I advised that she increase the dose to 250 mg once a day. Patient will continue 6 mg of Suboxone daily and I will see her back in 4 weeks. Greater than 40 minutes spent [id number] and coordinating care SUBOXONE with Mabel Peters DO 08/29/2018 Narcolepsy SUBOXONE with Mabel Peters DO 08/29/2018 Opioid dependence SUBOXONE with Mabel Peters DO 08/2018 Binge eating disorder Psych Evaluation with Annalisa Messer [facility] 08/22/2018 Moderate recurrent major depression Psych Evaluation with Jami Messer [facility] 08/22/2018 Assessment of skin lump on the right upper arm Medicat ion Order with Mabel Peters DO 08/06/2018 Assessment of skin lump on the right upper arm Chart U pdate with Mabel Peters DO 07/31/2018 Iron deficiency anemia Chart Update with Mabel Peters DO 05/2018 Assessment of dysuria UA neg in office today. No sx of UTI. Possible vaginitis SUBOXONE with Mabel Peters DO 07/25/2018 Assessment of skin lump on the right upp er arm Advised ultrasound of RUE nodule appreciated near anticubital fossa. Possible sarcoid nodule, or calcified scar tissue SUBOXONE with Mabel Peters DO 07/25/2018 Chronic constipation Has tried and fail ed multiple medications for this, has seen GI, nothing helping SUBOXONE with Mabel Peters DO 07/25/2018 Depression Is now seeing counselor and has psychiatric appt at the end of this month. Trying to wean off Effexor due to drug interactions with other meds SUBOXONE with Mabel Peters DO 07/25/2018 Fatigue will check labs today, including mono SUBOXONE with Mabel Ravi Ray DO 07/25/2018 Narcolepsy Advsied she start Provigil once daily to help with narcolepsy symptoms. Nothing else has helped. She is falling asleep while driving which is dangerous. Advised her of possible SANDERSON such as anxiety, insomnia, SANDERSON, abdominal pain, decreased appetite. >40 min spent [id number] and coordinating care. 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 I advised that her excessive daytime sleepiness is likely due to a drug interactions between her Suboxone, Topamax and Effexor. I advised that I believe she needs to stop the Topamax immediately and wean herself down on her Effexor to 37.5 mg for 1 week and then off. I then think we need to reassess her excessive fatigue and depressive symptoms to see what the next best step is. If she still is having narcolepsy, she may benefit from a stimulant medication daily like Provigil. I am also get her get her back into counseling for depression hopefully. Patient was advised not to drive if she feels she cannot stay awake while enough to drive Same Day Acute with Mabel Ravi Ray DO 06/20/2018 Obstructive sleep apnea Same Day Acute with Mabel L Ray DO 06/20/2018 Anxiety disorder of unknown (axis III) etiology SUBOXONE wit h Mabel Peters DO 05/31/2018 Depression SUBOXONE with Mabel L Ray DO 05/31/2018 Drug-induced constipation SUBOXONE with Mabel L Ray DO 10/2018 Obstructive sleep apnea SUBOXONE with Mabel L Ray DO 2018 Opioid dependence Patient will refrain from illicit drug use while in this program and will take her Suboxone as prescribed. Patient will continue to follow with pulmonary to be set up on a CPAP machine for her sleep apnea. Patient will continue Movantik for her drug-induced constipation. Patient will continue her Effexor for her anxiety and depression. Patient is requested a referral to mental health in [place] since she had difficulty with her appointment here to see mental health today. SUBOXONE with Mabel L Ray DO 05/31/2018 Drug-induced constipation SUBOXONE with Mabel L Ray DO 09/2018 Opioid dependence I advised patient that we will try lactulose for constipation. Her insurance is requiring her to try this medication before they will approve paying for Movantik or Amitiza. I advised that I think this medication is going to give her stomach pain and diarrhea. I advised her to only take 15 mL once a day and to stop it for any severe abdominal pain or excessive diarrhea. Patient will continue taking 6 mg of Suboxone daily. She will refrain from illicit drug use while in this program. I will see her back in 1 month. SUBOXONE with Mabel L Ray DO 05/02/2018 Rectal prolapse SUBOXONE with Mabel L Ray DO 05/02/2018 Chronic constipation SUBOXONE with Mabel L Ray DO 9 Depression SUBOXONE with Mabel L Ray DO 04/04/2018 Fatigue SUBOXONE with Mabel L Ray DO 04/04/2018 Opioid dependence SUBOXONE with Mabel L Ray DO 04/04/2018 Opioid dependence You have been advise d how to take your suboxone film: DO NOT take more or less than what has been prescribed to you. 1) Moisten your mouth by taking a sip of water 2) Open the foil pouch 3) Hold the film between 2 fingers on the outside edges 4) Place the film under your tongue (If taking more than one film, place the second film on the opposite side) 5) Leave the films in place until completely dissolved 6) DO not chew, swallow or talk until the film has completely dissolved 7) If you miss a dose of your suboxone, skip it and take the next dose the next time you are due to have your suboxone (DO NOT double up on your dose) 8) DO NOT stop your medicaiton all of a sudden without consulting me, you could become very sick from withdrawl symptoms Injecting Suboxone could lead to serious withdrawl symptoms. Injecting Suboxone or combining Suboxone with alcohol or benzodiazepines or sedatives (xanax, ativan, valium, ect) could lead to overdose, loss of consciousness and . If you become or start while on suboxone, you must let me know. Taking suboxone before driving or operating [employer] could lead to an accident causing injury or to yourself or someone else. Make sure you know how it makes you feel before you drive or operate [employer]. Keep your suboxone out of the reach of children. They could if they ingest it by accident. I explained patient that I am not comfortable prescribing another medication for her fatigue. Her fatigue is likely multifactorial. She has 5 children and works a full-time job. She has a chronic medical conditions which likely contribute to her fatigue. She recently got over mono. I advised that she see psychiatry to see if the fatigue was actually the result of untreated depressio n. Patient denies any other signs or symptoms of depression. Patient will continue 6 mg of Suboxone daily and I will see her back in 4 weeks. SUBOXONE with Mabel Peters DO 04/04/2018 Opioid dependence You have been advise d how to take your suboxone film: DO NOT take more or less than what has been prescribed to you. 1) Moisten your mouth by taking a sip of water 2) Open the foil pouch 3) Hold the film between 2 fingers on the outside edges 4) Place the film under your tongue (If taking more than one film, place the second film on the opposite side) 5) Leave the films in place until completely dissolved 6) DO not chew, swallow or talk until the film has completely dissolved 7) If you miss a dose of your suboxone, skip it and take the next dose the next time you are due to have your suboxone (DO NOT double up on your dose) 8) DO NOT stop your medicaiton all of a sudden without consulting me, you could become very sick from withdrawl symptoms Injecting Suboxone could lead to serious withdrawl symptoms. Injecting Suboxone or combining Suboxone with alcohol or benzodiazepines or sedatives (xanax, ativan, valium, ect) could lead to overdose, loss of consciousness and . If you become or start while on suboxone, you must let me know. Taking suboxone before driving or operating machienery could lead to an accident causing injury or to yourself or someone else. Make sure you know how it makes you feel before you drive or operate machienery. Keep your suboxone out of the reach of children. They could if they ingest it by accident. Patient will continue 8 mg of Suboxone and I will see her back in 4 weeks. She will refrain from illicit drug use while in this program. SUBOXONE with Mabel Peters DO 03/06/2018 Chronic constipation SUBOXONE with Mabel Peters DO 8 Opioid dependence You have been advise d how to take your suboxone film: DO NOT take more or less than what has been prescribed to you. 1) Moisten your mouth by taking a sip of water 2) Open the foil pouch 3) Hold the film between 2 fingers on the outside edges 4) Place the film under your tongue (If taking more than one film, place the second film on the opposite side) 5) Leave the films in place until completely dissolved 6) DO not chew, swallow or talk until the film has completely dissolved 7) If you miss a dose of your suboxone, skip it and take the next dose the next time you are due to have your suboxone (DO NOT double up on your dose) 8) DO NOT stop your medicaiton all of a sudden without consulting me, you could become very sick from withdrawl symptoms Injecting Suboxone could lead to serious withdrawl symptoms. Injecting Suboxone or combining Suboxone with alcohol or benzodiazepines or sedatives (xanax, ativan, valium, ect) could lead to overdose, loss of consciousness and . If you become or start while on suboxone, you must let me know. Taking suboxone before driving or operating machienery could lead to an accident causing injury or to yourself or someone else. Make sure you know how it makes you feel before you drive or operate machienery. Keep your suboxone out of the reach of children. They could if they ingest it by accident. Patient asked me to try to get her Emilie Tis approved by her insurance company. I advised I would try. Apparently, the colorectal surgeon she saw try to do a prior off for a but it was denied. Patient will continue her current dose of Suboxone. She cannot wean her dose at this time because she is too overwhelmed with her children. I will see her in 1 month and she will call me before then with any new or worsening symptoms. SUBOXONE with Mabel Peters DO 02/06/2018 Rectal prolapse SUBOXONE with Mabel Peters DO 02/06/2018 Opioid dependence You have been advise d how to take your suboxone film: DO NOT take more or less than what has been prescribed to you. 1) Moisten your mouth by taking a sip of water 2) Open the foil pouch 3) Hold the film between 2 fingers on the outside edges 4) Place the film under your tongue (If taking more than one film, place the second film on the opposite side) 5) Leave the films in place until completely dissolved 6) DO not chew, swallow or talk until the film has completely dissolved 7) If you miss a dose of your suboxone, skip it and take the next dose the next time you are due to have your suboxone (DO NOT double up on your dose) 8) DO NOT stop your medicaiton all of a sudden without consulting me, you could become very sick from withdrawl symptoms Injecting Suboxone could lead to serious withdrawl symptoms. Injecting Suboxone or combining Suboxone with alcohol or benzodiazepines or sedatives (xanax, ativan, valium, ect) could lead to overdose, loss of consciousness and . If you become or start while on suboxone, you must let me know. Taking suboxone before driving or operating [employer] could lead to an accident causing injury or to yourself or someone else. Make sure you know how it makes you feel before you drive or operate [employer]. Keep your suboxone out of the reach of children. They could if they ingest it by accident. Patient will continue 8 mg of Suboxone daily. She will refrain from illicit drug use while in this program. I will see her back in 4 weeks. Her plan is to wean to 6 mg next month. SUBOXONE with Mabel Peters DO 01/09/2018 Assessment of solitary pulmonary nodule seen on PET scan 12/06/17; followed by thoracic surgery SUBOXONE with Mabel Peters DO 12/19/2017 Ingrowing toenail Patient has multiple ingrowing nails on both feet. Would like to see jesus, whom she has seen before for them SUBOXONE with Mabel Peters DO 12/19/2017 Opioid dependence You have been advise d how to take your suboxone film: DO NOT take more or less than what has been prescribed to you. 1) Moisten your mouth by taking a sip of water 2) Open the foil pouch 3) Hold the film between 2 fingers on the outside edges 4) Place the film under your tongue (If taking more than one film, place the second film on the opposite side) 5) Leave the films in place until completely dissolved 6) DO not chew, swallow or talk until the film has completely dissolved 7) If you miss a dose of your suboxone, skip it and take the next dose the next time you are due to have your suboxone (DO NOT double up on your dose) 8) DO NOT stop your medicaiton all of a sudden without consulting me, you could become very sick from withdrawl symptoms Injecting Suboxone could lead to serious withdrawl symptoms. Injecting Suboxone or combining Suboxone with alcohol or benzodiazepines or sedatives (xanax, ativan, valium, ect) could lead to overdose, loss of consciousness and . If you become or start while on suboxone, you must let me know. Taking suboxone before driving or operating machienery could lead to an accident causing injury or to yourself or someone else. Make sure you know how it makes you feel before you drive or operate machienery. Keep your suboxone out of the reach of children. They could if they ingest it by accident. Patient will refrain from illicit drug use while this program. She will continue 8 mg of Suboxone daily. I will see her back in 3 weeks because I am not here in 4. SUBOXONE with Mabel Peters DO 12/19/2017 Rectal prolapse Recently saw GI and had a colonoscopy, they didnt' have any recommendations for her. Will refer to her colorectal to see if they can help her SUBOXONE with Mabel Peters DO 12/19/2017 Chronic constipation Patient does not w ant anything more for her constipation at this point. She has to do cleanout for colonoscopy later this week, and states that should resolve her constipation SUBOXONE with Mabel L Ray DO 11/21/2017 Lung mass SUBOXONE with Mabeldomo Peters DO 11/21/2017 Opioid dependence You have been advise d how to take your suboxone film: DO NOT take more or less than what has been prescribed to you. 1) Moisten your mouth by taking a sip of water 2) Open the foil pouch 3) Hold the film between 2 fingers on the outside edges 4) Place the film under your tongue (If taking more than one film, place the second film on the opposite side) 5) Leave the films in place until completely dissolved 6) DO not chew, swallow or talk until the film has completely dissolved 7) If you miss a dose of your suboxone, skip it and take the next dose the next time you are due to have your suboxone (DO NOT double up on your dose) 8) DO NOT stop your medicaiton all of a sudden without consulting me, you could become very sick from withdrawl symptoms Injecting Suboxone could lead to serious withdrawl symptoms. Injecting Suboxone or combining Suboxone with alcohol or benzodiazepines or sedatives (xanax, ativan, valium, ect) could lead to overdose, loss of consciousness and . If you become or start while on suboxone, you must let me know. Taking suboxone before driving or operating machienery could lead to an accident causing injury or to yourself or someone else. Make sure you know how it makes you feel before you drive or operate machienery. Keep your suboxone out of the reach of children. They could if they ingest it by accident. Patient is not able to wean her Suboxone dose at this time. She will continue 8 mg daily. I will see her back in 4 weeks. She will refrain from illicit drug use while in this program. Greater than 40 minutes spent [id number] and coordinating care today. SUBOXONE with Mabel Peters DO 11/21/2017 Rectal prolapse Is being evaluated by Carlie Thakur. Patient states that she will not be getting surgery yet, that surgery would be a last resort SUBOXONE with Mabel Peters DO 11/21/2017 Sarcoidosis History of, new lung mass s een on CT scan done at [facility] about 2 weeks ago. I have really made referrals to pulmonology and thoracic surgery for potential biopsy of this mass. Patient has had to have masses biopsied in the past which were confirmed to be sarcoid lesions SUBOXONE with Mabel Peters 11/21/2017 Bursitis of elbow I advised the patient take Aleve twice a day instead of prescription strength ibuprofen 4 times a day. I think that this will be better for her stomach symptoms. She is also finding relief from an elbow sleeve SUBOXONE with Mabel Peters 10/24/2017 Depression Currently well controlled on Effexor SUBOXONE wi th Mabel Peters DO 10/24/2017 Fatigue Patient wants her thyroid check ed so I advised that it is okay to do this SUBOXONE with Mabel Peters 10/24/2017 Opioid dependence You have been advise d how to take your suboxone film: DO NOT take more or less than what has been prescribed to you. 1) Moisten your mouth by taking a sip of water 2) Open the foil pouch 3) Hold the film between 2 fingers on the outside edges 4) Place the film under your tongue (If taking more than one film, place the second film on the opposite side) 5) Leave the films in place until completely dissolved 6) DO not chew, swallow or talk until the film has completely dissolved 7) If you miss a dose of your suboxone, skip it and take the next dose the next time you are due to have your suboxone (DO NOT double up on your dose) 8) DO NOT stop your medicaiton all of a sudden without consulting me, you could become very sick from withdrawl symptoms Injecting Suboxone could lead to serious withdrawl symptoms. Injecting Suboxone or combining Suboxone with alcohol or benzodiazepines or sedatives (xanax, ativan, valium, ect) could lead to overdose, loss of consciousness and . If you become or start while on suboxone, you must let me know. Taking suboxone before driving or operating [employer] could lead to an accident causing injury or to yourself or someone else. Make sure you know how it makes you feel before you drive or operate [employer]. Keep your suboxone out of the reach of children. They could if they ingest it by accident. I advised the patient that her Suboxone may be causing her headaches and I recommended she wean her dose from 10 mg daily to 80 mg daily. She is agreeable to doing this. SUBOXONE with Mabel Peters DO 10/24/2017 Cellulitis of the right arm Hx of MRSA in the past, advised Bactrim twice daily for 10 days. Advised her to call if not improving SUBOXONE with Mabel Peters DO 09/27/2017 Depression Currently controlled on Effe xor daily. Patient is happy that she is now back to work SUBOXONE with Mabel Peters DO 09/27/2017 Eczema Advised to limit contact wtih de tergents and water during the day. 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 Advisd if she cannot get this to clear up, she is going to keep getting cellulitis SUBOXONE with Mabel Peters DO 09/27/2017 Hepatitis, C virus currently on treatment SUBOXONE with Marlene Peters DO 09/27/2017 Opioid dependence You have been advise d how to take your suboxone film: DO NOT take more or less than what has been prescribed to you. 1) Moisten your mouth by taking a sip of water 2) Open the foil pouch 3) Hold the film between 2 fingers on the outside edges 4) Place the film under your tongue (If taking more than one film, place the second film on the opposite side) 5) Leave the films in place until completely dissolved 6) DO not chew, swallow or talk until the film has completely dissolved 7) If you miss a dose of your suboxone, skip it and take the next dose the next time you are due to have your suboxone (DO NOT double up on your dose) 8) DO NOT stop your medicaiton all of a sudden without consulting me, you could become very sick from withdrawl symptoms Injecting Suboxone could lead to serious withdrawl symptoms. Injecting Suboxone or combining Suboxone with alcohol or benzodiazepines or sedatives (xanax, ativan, valium, ect) could lead to overdose, loss of consciousness and . If you become or start while on suboxone, you must let me know. Taking suboxone before driving or operating [employer] could lead to an accident causing injury or to yourself or someone else. Make sure you know how it makes you feel before you drive or operate [employer]. Keep your suboxone out of the reach of children. They could if they ingest it by accident. Patient was advised to continue 10mg suboxone daily. I will see her back in 4 weeks. SUBOXONE with Mabel Peters DO 09/27/2017 Cellulitis of the right arm Completely reoslved since last visit. I advised I think her residual pain in her right forearm is a tendonitis. I adivsed rest, ice and ibuprofen as needed. I will check DDimer to make sure no blood clot. Patient had an ultrasound of her RUE at urgent care when initially seen for cellulitis which was neg for blood clot she tells me SUBOXONE with Mabel Peters DO 08/29/2017 Depression Improving. Patient requeste d to incraese her effexor to 112.5mg daily. Advised to call with any worsening depression or side effects listed below, as discussed in office today SUBOXONE with Mabel Peters DO 08/29/2017 Hepatitis, C virus will check labs and will refer to infectious disease in [place] for treatment SUBOXONE with Mabel Peters DO 08/29/2017 Opioid dependence You have been advise d how to take your suboxone film: DO NOT take more or less than what has been prescribed to you. 1) Moisten your mouth by taking a sip of water 2) Open the foil pouch 3) Hold the film between 2 fingers on the outside edges 4) Place the film under your tongue (If taking more than one film, place the second film on the opposite side) 5) Leave the films in place until completely dissolved 6) DO not chew, swallow or talk until the film has completely dissolved 7) If you miss a dose of your suboxone, skip it and take the next dose the next time you are due to have your suboxone (DO NOT double up on your dose) 8) DO NOT stop your medicaiton all of a sudden without consulting me, you could become very sick from withdrawl symptoms Injecting Suboxone could lead to serious withdrawl symptoms. Injecting Suboxone or combining Suboxone with alcohol or benzodiazepines or sedatives (xanax, ativan, valium, ect) could lead to overdose, loss of consciousness and . If you become or start while on suboxone, you must let me know. Taking suboxone before driving or operating [employer] could lead to an accident causing injury or to yourself or someone else. Make sure you know how it makes you feel before you drive or operate [employer]. Keep your suboxone out of the reach of children. They could if they ingest it by accident. Patient was advised to increase her suboxone from 8mg daily to 10mg daily. Plan is to wean dose back down in 3mo. She was advised to refrain from any illicit drug use while in this program. I will see her back in 4 weeks. SUBOXONE with Mabel Peters DO 08/29/2017 Pain in right arm SUBOXONE with Mabel Freddie Peters DO 08/29/2017 Cellulitis of the right arm resolving; continue bactrim twice daily until entire prescription has been completed SUBOXONE with Mabel Peters DO 08/15/2017 Depression Patient requested her Effexo r to be increased today. Hx of depression in the past. Denies any thoughts of suicide or homicide. [place] [facility] taking care of her children SUBOXONE with Mabel Peters DO 08/15/2017 Opioid dependence You have been advise d how to take your suboxone film: DO NOT take more or less than what has been prescribed to you. 1) Moisten your mouth by taking a sip of water 2) Open the foil pouch 3) Hold the film between 2 fingers on the outside edges 4) Place the film under your tongue (If taking more than one film, place the second film on the opposite side) 5) Leave the films in place until completely dissolved 6) DO not chew, swallow or talk until the film has completely dissolved 7) If you miss a dose of your suboxone, skip it and take the next dose the next time you are due to have your suboxone (DO NOT double up on your dose) 8) DO NOT stop your medicaiton all of a sudden without consulting me, you could become very sick from withdrawl symptoms Injecting Suboxone could lead to serious withdrawl symptoms. Injecting Suboxone or combining Suboxone with alcohol or benzodiazepines or sedatives (xanax, ativan, valium, ect) could lead to overdose, loss of consciousness and . If you become or start while on suboxone, you must let me know. Taking suboxone before driving or operating [employer] could lead to an accident causing injury or to yourself or someone else. Make sure you know how it makes you feel before you drive or operate [employer]. Keep your suboxone out of the reach of children. They could if they ingest it by accident. Patient was advised to take suboxone 8mg daily because she is no longer and is not . She was advised not to use any illicit drugs while in this program. I will see her back in 2 weeks. Her dose was increased due to increased risk of relapse since increased stress since delivery and skin infection SUBOXONE with Mabel Peters DO 08/15/2017 Opioid dependence You have been advise d how to take your suboxone film: DO NOT take more or less than what has been prescribed to you. 1) Moisten your mouth by taking a sip of water 2) Open the foil pouch 3) Hold the film between 2 fingers on the outside edges 4) Place the film under your tongue (If taking more than one film, place the second film on the opposite side) 5) Leave the films in place until completely dissolved 6) DO not chew, swallow or talk until the film has completely dissolved 7) If you miss a dose of your suboxone, skip it and take the next dose the next time you are due to have your suboxone (DO NOT double up on your dose) 8) DO NOT stop your medicaiton all of a sudden without consulting me, you could become very sick from withdrawl symptoms Injecting Suboxone could lead to serious withdrawl symptoms. Injecting Suboxone or combining Suboxone with alcohol or benzodiazepines or sedatives (xanax, ativan, valium, ect) could lead to overdose, loss of consciousness and . If you become or start while on suboxone, you must let me know. Taking suboxone before driving or operating [employer]ienery could lead to an accident causing injury or to yourself or someone else. Make sure you know how it makes you feel before you drive or operate machienery. Keep your suboxone out of the reach of children. They could if they ingest it by accident. Patient will continue 5mg buprenorphine daily. I will see her back in 4 weeks. SUBOXONE with Mabel Peters DO 07/04/2017 wiill be induced in the next 2 weeks SUBOXONE wit h Mabel Peters DO 07/04/2017 Opioid dependence You have been advise d how to take your suboxone film: DO NOT take more or less than what has been prescribed to you. 1) Moisten your mouth by taking a sip of water 2) Open the foil pouch 3) Hold the film between 2 fingers on the outside edges 4) Place the film under your tongue (If taking more than one film, place the second film on the opposite side) 5) Leave the films in place until completely dissolved 6) DO not chew, swallow or talk until the film has completely dissolved 7) If you miss a dose of your suboxone, skip it and take the next dose the next time you are due to have your suboxone (DO NOT double up on your dose) 8) DO NOT stop your medicaiton all of a sudden without consulting me, you could become very sick from withdrawl symptoms Injecting Suboxone could lead to serious withdrawl symptoms. Injecting Suboxone or combining Suboxone with alcohol or benzodiazepines or sedatives (xanax, ativan, valium, ect) could lead to overdose, loss of consciousness and . If you become or start while on suboxone, you must let me know. Taking suboxone before driving or operating machienery could lead to an accident causing injury or to yourself or someone else. Make sure you know how it makes you feel before you drive or operate machienery. Keep your suboxone out of the reach of children. They could if they ingest it by accident. Patient will continue 5mg buprenorphine daily. I will see her back in 4 weeks. SHe will refrain from any illicit drug use while in this program. SUBOXONE with Mabel Peters DO 06/06/2017 seeing OB provider SUBOXONE with Mabel Peters DO 06/06/2017 Opioid dependence You have been advise d how to take your suboxone film: DO NOT take more or less than what has been prescribed to you. 1) Moisten your mouth by taking a sip of water 2) Open the foil pouch 3) Hold the film between 2 fingers on the outside edges 4) Place the film under your tongue (If taking more than one film, place the second film on the opposite side) 5) Leave the films in place until completely dissolved 6) DO not chew, swallow or talk until the film has completely dissolved 7) If you miss a dose of your suboxone, skip it and take the next dose the next time you are due to have your suboxone (DO NOT double up on your dose) 8) DO NOT stop your medicaiton all of a sudden without consulting me, you could become very sick from withdrawl symptoms Injecting Suboxone could lead to serious withdrawl symptoms. Injecting Suboxone or combining Suboxone with alcohol or benzodiazepines or sedatives (xanax, ativan, valium, ect) could lead to overdose, loss of consciousness and . If you become or start while on suboxone, you must let me know. Taking suboxone before driving or operating machienery could lead to an accident causing injury or to yourself or someone else. Make sure you know how it makes you feel before you drive or operate machienery. Keep your suboxone out of the reach of children. They could if they ingest it by accident. I advised she continue taking 5mg of buprenorphine daily. I will see her back in 4 weeks. She will refrain from any illicit drug use while in this program. SUBOXONE with Mabel Peters DO 05/09/2017 27 weeks; following with OB provider SUBOXONE janet h Mabel Peters DO 05/09/2017 Diarrhea Likely due to recent use of co conut oil as a laxative. Advised she eat a bland diet and drink plenty of fluids and let me know if she doesn't improve in 2-3 days SUBOXONE with Mabel Peters DO 04/18/2017 Eustachian tube dysfunction of the right ear Adivsed flonase nasal spray daily both nostrils until resolved. Advised her not to stick anything in her ears SUBOXONE with Mabel Peters DO 04/18/2017 Opioid dependence You have been advise d how to take your suboxone film: DO NOT take more or less than what has been prescribed to you. 1) Moisten your mouth by taking a sip of water 2) Open the foil pouch 3) Hold the film between 2 fingers on the outside edges 4) Place the film under your tongue (If taking more than one film, place the second film on the opposite side) 5) Leave the films in place until completely dissolved 6) DO not chew, swallow or talk until the film has completely dissolved 7) If you miss a dose of your suboxone, skip it and take the next dose the next time you are due to have your suboxone (DO NOT double up on your dose) 8) DO NOT stop your medicaiton all of a sudden without consulting me, you could become very sick from withdrawl symptoms Injecting Suboxone could lead to serious withdrawl symptoms. Injecting Suboxone or combining Suboxone with alcohol or benzodiazepines or sedatives (xanax, ativan, valium, ect) could lead to overdose, loss of consciousness and . If you become or start while on suboxone, you must let me know. Taking suboxone before driving or operating machienery could lead to an accident causing injury or to yourself or someone else. Make sure you know how it makes you feel before you drive or operate machienery. Keep your suboxone out of the reach of children. They could if they ingest it by accident. Patient is willing to wean her dose to 5mg of suboxone daily. I will see her back in 4 weeks. She will refrain from illicit drug use while in this program. SUBOXONE with Mabel Peters DO 04/18/2017 Currently 24 weeks, managed by OB in [facility] own SUBOXONE with Mabel Freddie Peters DO 04/18/2017 Opioid dependence You have been advise d how to take your suboxone film: DO NOT take more or less than what has been prescribed to you. 1) Moisten your mouth by taking a sip of water 2) Open the foil pouch 3) Hold the film between 2 fingers on the outside edges 4) Place the film under your tongue (If taking more than one film, place the second film on the opposite side) 5) Leave the films in place until completely dissolved 6) DO not chew, swallow or talk until the film has completely dissolved 7) If you miss a dose of your suboxone, skip it and take the next dose the next time you are due to have your suboxone (DO NOT double up on your dose) 8) DO NOT stop your medicaiton all of a sudden without consulting me, you could become very sick from withdrawl symptoms Injecting Suboxone could lead to serious withdrawl symptoms. Injecting Suboxone or combining Suboxone with alcohol or benzodiazepines or sedatives (xanax, ativan, valium, ect) could lead to overdose, loss of consciousness and . If you become or start while on suboxone, you must let me know. Taking suboxone before driving or operating machienery could lead to an accident causing injury or to yourself or someone else. Make sure you know how it makes you feel before you drive or operate machienery. Keep your suboxone out of the reach of children. They could if they ingest it by accident. Patient will continue 6mg buprenorphine daily. I will see her back in 4 weeks. She will consider weaning to 5mg buprenorphine next visit. She will refrain from any illicit drug use while in this program. SUBOXONE with Mabel Peters DO 03/21/2017 currently managed by OB provider SUBOXONE with Germán Peters DO 03/21/2017 Arthralgia of the right knee/patella/tib ia/fibula ; likely has a medical meniscal injury/ possible small tear. I advsied knee strengthening exercises at home. NO NSAIDS due to . No imaging would be indicated at this point SUBOXONE with Mabel Peters DO 02/21/2017 GERD advised Zantac twice daily; iesha washing[place] requested nexium or prilosec as she has been taking this OTC in mary past, and I advised her that nexium and prilosec are not safe in SUBOXONE with Mabel Petesr DO 02/21/2017 Opioid dependence You have been advise d how to take your suboxone film: DO NOT take more or less than what has been prescribed to you. 1) Moisten your mouth by taking a sip of water 2) Open the foil pouch 3) Hold the film between 2 fingers on the outside edges 4) Place the film under your tongue (If taking more than one film, place the second film on the opposite side) 5) Leave the films in place until completely dissolved 6) DO not chew, swallow or talk until the film has completely dissolved 7) If you miss a dose of your suboxone, skip it and take the next dose the next time you are due to have your suboxone (DO NOT double up on your dose) 8) DO NOT stop your medicaiton all of a sudden without consulting me, you could become very sick from withdrawl symptoms Injecting Suboxone could lead to serious withdrawl symptoms. Injecting Suboxone or combining Suboxone with alcohol or benzodiazepines or sedatives (xanax, ativan, valium, ect) could lead to overdose, loss of consciousness and . If you become or start while on suboxone, you must let me know. Taking suboxone before driving or operating [employer] could lead to an accident causing injury or to yourself or someone else. Make sure you know how it makes you feel before you drive or operate [employer]. Keep your suboxone out of the reach of children. They could if they ingest it by accident. Patient will continue 6mg buprenorphine daily. I will see her back in 4 weeks. She plans to wean her dose to 4mg before delivery to reduce chances of withdrawl syndrome as much as possible. She will refrain from any illicit drug use while in this program. SUBOXONE with Mabel Peters DO 02/21/2017 managed by OB provider SUBOXONE with Mabel Peters DO 02/21/2017 Opioid dependence You have been advise d how to take your suboxone film: DO NOT take more or less than what has been prescribed to you. 1) Moisten your mouth by taking a sip of water 2) Open the foil pouch 3) Hold the film between 2 fingers on the outside edges 4) Place the film under your tongue (If taking more than one film, place the second film on the opposite side) 5) Leave the films in place until completely dissolved 6) DO not chew, swallow or talk until the film has completely dissolved 7) If you miss a dose of your suboxone, skip it and take the next dose the next time you are due to have your suboxone (DO NOT double up on your dose) 8) DO NOT stop your medicaiton all of a sudden without consulting me, you could become very sick from withdrawl symptoms Injecting Suboxone could lead to serious withdrawl symptoms. Injecting Suboxone or combining Suboxone with alcohol or benzodiazepines or sedatives (xanax, ativan, valium, ect) could lead to overdose, loss of consciousness and . If you become or start while on suboxone, you must let me know. Taking suboxone before driving or operating [employer] could lead to an accident causing injury or to yourself or someone else. Make sure you know how it makes you feel before you drive or operate [employer]. Keep your suboxone out of the reach of children. They could if they ingest it by accident. Patient will continue 6mg buprenorphine daily. I will see her back in 4 weeks. She will refrain from any illicit drug use while in this program. SUBOXONE with Mabel Peters DO 01/24/2017 Acute pharyngitis Advised rest, plenty of fluids and tylenol as needed. If not better in 1 week, patient advised to call my office SUBOXONE with Mabel Peters DO 01/10/2017 Opioid dependence You have been advise d how to take your suboxone film: DO NOT take more or less than what has been prescribed to you. 1) Moisten your mouth by taking a sip of water 2) Open the foil pouch 3) Hold the film between 2 fingers on the outside edges 4) Place the film under your tongue (If taking more than one film, place the second film on the opposite side) 5) Leave the films in place until completely dissolved 6) DO not chew, swallow or talk until the film has completely dissolved 7) If you miss a dose of your suboxone, skip it and take the next dose the next time you are due to have your suboxone (DO NOT double up on your dose) 8) DO NOT stop your medicaiton all of a sudden without consulting me, you could become very sick from withdrawl symptoms Injecting Suboxone could lead to serious withdrawl symptoms. Injecting Suboxone or combining Suboxone with alcohol or benzodiazepines or sedatives (xanax, ativan, valium, ect) could lead to overdose, loss of consciousness and . If you become or start while on suboxone, you must let me know. Taking suboxone before driving or operating [employer] could lead to an accident causing injury or to yourself or someone else. Make sure you know how it makes you feel before you drive or operate [employer]. Keep your suboxone out of the reach of children. They could if they ingest it by accident. Patient was advised to refrain from any illict drug use while in this program. I will see her back in 2 weeks. She will continue taking buprenorphine 6mg daily. SUBOXONE with Mabel Peters DO 01/10/2017 ; 11 weeks, managed by OB provider SUBOXONE with Elliott Peters DO 01/10/2017 Opioid dependence You have been advise d how to take your suboxone film: DO NOT take more or less than what has been prescribed to you. 1) Moisten your mouth by taking a sip of water 2) Open the foil pouch 3) Hold the film between 2 fingers on the outside edges 4) Place the film under your tongue (If taking more than one film, place the second film on the opposite side) 5) Leave the films in place until completely dissolved 6) DO not chew, swallow or talk until the film has completely dissolved 7) If you miss a dose of your suboxone, skip it and take the next dose the next time you are due to have your suboxone (DO NOT double up on your dose) 8) DO NOT stop your medicaiton all of a sudden without consulting me, you could become very sick from withdrawl symptoms Injecting Suboxone could lead to serious withdrawl symptoms. Injecting Suboxone or combining Suboxone with alcohol or benzodiazepines or sedatives (xanax, ativan, valium, ect) could lead to overdose, loss of consciousness and . If you become or start while on suboxone, you must let me know. Taking suboxone before driving or operating [employer] could lead to an accident causing injury or to yourself or someone else. Make sure you know how it makes you feel before you drive or operate [employer]ien[employer]. Keep your suboxone out of the reach of children. They could if they ingest it by accident. Patient will continue 6mg buprenorphine daily. she will refrain from inna illicit drug use while in this program. I will see her back next day. SUBOXONE with Mabel Peters DO 01/03/2017 about 10 weeks SUBOXONE with Mabel Peters DO 12/24 Opioid dependence You have been advise d how to take your suboxone film: DO NOT take more or less than what has been prescribed to you. 1) Moisten your mouth by taking a sip of water 2) Open the foil pouch 3) Hold the film between 2 fingers on the outside edges 4) Place the film under your tongue (If taking more than one film, place the second film on the opposite side) 5) Leave the films in place until completely dissolved 6) DO not chew, swallow or talk until the film has completely dissolved 7) If you miss a dose of your suboxone, skip it and take the next dose the next time you are due to have your suboxone (DO NOT double up on your dose) 8) DO NOT stop your medicaiton all of a sudden without consulting me, you could become very sick from withdrawl symptoms Injecting Suboxone could lead to serious withdrawl symptoms. Injecting Suboxone or combining Suboxone with alcohol or benzodiazepines or sedatives (xanax, ativan, valium, ect) could lead to overdose, loss of consciousness and . If you become or start while on suboxone, you must let me know. Taking suboxone before driving or operating [employer]ien[employer] could lead to an accident causing injury or to yourself or someone else. Make sure you know how it makes you feel before you drive or operate [employer]. Keep your suboxone out of the reach of children. They could if they ingest it by accident. Patient was adivsed to start on 6mg buprenorpine daily. I will see her back in 1 week. She will refrain from any illicit drug use while in this program. >50 min spent [id number] and coordinating care today, most of which was spent on the phone with the pharmacists at two pharmacies trying to figure out how to get her buprenorphine covered and pharmacists stating it will need a prior auth. Patient does't have $ to cover more than one day of this prescription. SUBOXONE with Mabel Peters DO 12/27/2016 Post-traumatic stress disorder advised referral for gregg ramey SUBOXONE with Mabel Peters DO 12/27/2016 patient is seeing OB/ RESEARCH SCIENTIST through [facility] SUBOXONE with Mabel Peters DO 12/27/2016 Instructions Instructions not supported for this document typeNo Instructions Recorded Medical Equipment - Implanted Devices Includes: Current and historical DevicesNo Medical Equipment Recorded Medications Includes: Current and historical Medications Current Medications (continue as prescribed) Imitrex 25 MG Oral Tablet 02/25/2020 Provider: Mabel Peters DO Diagnosis: as directed; 1 tab PO at onset of migraine, may repeat dose in 2 hours, MDD=2 Sublocade 100 MG/0.5ML Subcutaneous Solution Prefilled Syrin ge 02/25/2020 Provider: Mabel Pteers DO Diagnosis: as directed; 100mg SC Q28 days to be administered in physici an office Ondansetron 8 MG Oral Tablet Disintegrating 02/25/2020 Provider: Mabel Peters DO Diagnosis: as directed; 1 tab PO Q8hr PRN nausea amLODIPine Besylate 5 MG Oral Tablet 02/17/2020 Pro vider: Mabel Peters DO Diagnosis: once a day Amphetamine-Dextroamphet ER 30 MG Oral Capsule Extende d Release 24 Hour 02/09/2020 Provider: Diagnosis: Amphetamine-Dextroamphetamine 20 MG Oral Tablet 02/09/2020 Provider: Diagnosis: Wakix 17.8 MG Oral Tablet 02/04/2020 Provider: Diagnosis: Sublocade 300 MG/1.5ML Subcutaneous Solution Prefilled Syrin ge 01/12/2020 Provider: Mabel Peters DO Diagnosis: as directed; 1.5ML SC in physician office, MDD=1.5mL Ventolin HFA 108 (90 Base) MCG/ACT Inhalation Aerosol Soluti on 06/11/2019 Provider: Mabel Peters DO Diagnosis: Unspecified asthma, uncomplicated as directed; 2 puffs INH Q4hr PRN SOB/ coughing Eucrisa 2% External Ointment 11/21/2017 Provider: Diagnosis: Past Medications on file Methylphenidate HCl ER (XR) 30 MG Oral Capsule Extende d Release 24 Hour 01/21/2020 - 02/17/2020 Provider: Diagnosis: Ondansetron 8 MG Oral Tablet Disintegrating 01/13/2020 - 04/2019 Provider: Roasnne Lake NP Diagnosis: as directed; 1 tab PO Q8hr PRN nausea Imitrex 25 MG Oral Tablet 01/13/2020 - 02/25/2020 Provider: Rosanne Lake NP Diagnosis: as directed; 1 tab PO at onset of migraine, may repeat dose in 2 hours, MDD=2 Betamethasone Dipropionate 0.05% External Cream 01/13/2020 - 02/12/2020 Provider: Rosanne Lake NP Diagnosis: Dermatitis, unspecif ied as directed; apply twice daily for 2 weeks then use sparring ly as needed Methylphenidate HCl 10 MG Oral Tablet 01/09/2020 - 0 Provider: Diagnosis: Linzess 145 MCG Oral Capsule 01/08/2020 - 02/17/2020 Provide r: Diagnosis: Suboxone 8-2 MG Sublingual Film 01/08/2020 - 01/22/2020 Prov ider: Mabel Peters DO Diagnosis: as directed; dissolve 1.5 films under tongue daily: MDD=12mg Amphetamine-Dextroamphet ER 30 MG Oral Capsule Extende d Release 24 Hour 12/23/2019 - 02/17/2020 Provider: Diagnosis: Methylphenidate HCl 10 MG Oral Tablet 12/23/2019 - 0 Provider: Diagnosis: Amphetamine-Dextroamphetamine 20 MG Oral Tablet 12/15/2019 - 02/17/2020 Provider: Diagnosis: Ondansetron 8 MG Oral Tablet Disintegrating 12/09/2019 - Provider: Rosanne Lake STORE PROMOTER Diagnosis: as directed; 1 tab PO Q8hr PRN nausea Iron 325 (65 Fe) MG Oral Tablet 11/25/2019 - 11/25/2019 Prov ider: Mabel Peters DO Diagnosis: twice a day Imitrex 25 MG Oral Tablet 09/17/2019 - 01/13/2020 Provider: Mabel Peters DO Diagnosis: as directed; 1 tab PO at onset of migraine, may repeat dose in 2 hours, MDD=2 Ondansetron 8 MG Oral Tablet Disintegrating 09/17/2019 - Provider: Mabel Peters DO Diagnosis: as directed; 1 tab PO Q8hr PRN nausea Protriptyline HCl 5 MG Oral Tablet 08/22/2019 - 09/16/2019 P rovider: Diagnosis: at lunch time per neurology Pitolisant HCl 17.8 MG Oral Tablet 08/22/2019 - 02/17/2020 P rovider: Diagnosis: per neurology Betamethasone Dipropionate 0.05% External Cream 07/16/2019 - 01/13/2020 Provider: Rosanne Lake NP Diagnosis: Dermatitis, unspecif ied as directed; apply twice daily for 2 weeks then use sparring ly as needed Nuvigil 150 MG Oral Tablet 07/14/2019 - 08/22/2019 Provider: Diagnosis: prescribed by neurology at [facility] Adderall XR 20 MG Oral Capsule Extended Release 24 Hour 11/2019 - 07/14/2019 Provider: Mabel Peters DO Diagnosis: twice a day; MDD=2; Albuterol Sulfate 108 (90 Base) MCG/ACT Inhalation Aerosol Powder Breath Activated 06/11/2019 - 02/17/2020 Provider: Diagnosis: inhaler 90 mcg PRN for coughing/wheezing from ALR Ondansetron 8 MG Oral Tablet Disintegrating 05/30/2019 - Provider: Mabel Peters DO Diagnosis: as directed; 1 tab PO Q8hr PRN nausea Adderall XR 20 MG Oral Capsule Extended Release 24 Hour 07/2019 - 07/03/2019 Provider: Mabel Peters DO Diagnosis: twice a day; MDD=2; please fill 06/05/19 Adderall XR 20 MG Oral Capsule Extended Release 24 Hour 04/26 - 05/29/2019 Provider: Mabel Peters DO Diagnosis: twice a day; MDD=2; please fill 05/07/19 Adderall XR 20 MG Oral Capsule Extended Release 24 Hour 03/26 - 05/06/2019 Provider: Mabel Peters DO Diagnosis: twice a day; MDD=2; Ritalin 20 MG Oral Tablet 03/28/2019 - 04/08/2019 Provider: Mabel Peters DO 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 twice a day; with food, MDD=2 Adderall XR 20 MG Oral Capsule Extended Release 24 Hour 1206/2018 - 04/08/2019 Provider: Mabel Peters DO Diagnosis: twice a day; MDD=2; do not fill until 03/08/19 PROzac 20 MG Oral Capsule 02/12/2019 - 03/28/2019 Provider: Diagnosis: Xyrem 500 MG/ML Oral Solution 02/12/2019 - 03/28/2019 Provid er: Diagnosis: total of 2.25gm twice daily Adderall XR 20 MG Oral Capsule Extended Release 24 Hour 01/24 - 02/26/2019 Provider: Mabel Peters DO Diagnosis: twice a day; MDD=2 PROzac 10 MG Oral Capsule 01/30/2019 - 02/12/2019 Provider: Diagnosis: Ritalin 10 MG Oral Tablet 01/30/2019 - 02/07/2019 Provider: Diagnosis: Sublocade 100 MG/0.5ML Subcutaneous Solution Prefilled Syringe 12/25/2018 - 03/28/2019 Provider: Mabel Peters DO Diagnosis: as directed; to be injected SC at my office Armodafinil 250MG Oral Tablet 11/20/2018 - 01/30/2019 Provid er: Diagnosis: Sublocade 300MG/1.5ML Subcutaneous Solution Prefilled Syringe 11/20/2018 - 12/25/2018 Provider: Mabel Peters DO Diagnosis: as directed; to be administered SC in office Claritin 10MG Oral Capsule 11/20/2018 - 03/28/2019 Provider: Mabel Peters DO Diagnosis: once a day Solriamfetol 150MG Oral Tablet 11/17/2018 - 11/20/2018 Provi mag: Diagnosis: predniSONE 20MG Oral Tablet 11/14/2018 - 12/25/2018 Provider : Diagnosis: Modafinil 200MG Oral Tablet 11/01/2018 - 11/20/2018 Provider : Diagnosis: Sublocade 300MG/1.5ML Subcutaneous Solution Prefilled Syringe 10/28/2018 - 11/20/2018 Provider: Mabel Peters DO Diagnosis: as directed; to be administered SC in office Levocetirizine Dihydrochloride 5MG Oral Tablet 10/25/2018 - 03/28/2019 Provider: Diagnosis: Suboxone 8-2MG Sublingual Film 10/25/2018 - 11/20/2018 Provi mag: Mabel Peters DO Diagnosis: Opioid dependence, u ncomplicated once a day; dissolve 1 film under tongue daily; MDD=8mg Provigil 200MG Oral Tablet 10/25/2018 - 11/01/2018 Provider: Diagnosis: MiraLax Oral Packet 10/22/2018 - 03/28/2019 Provider: Diagnosis: per GI Linzess 290MCG Oral Capsule 10/22/2018 - 03/28/2019 Provider : Diagnosis: per GI PROzac 20MG Oral Capsule 10/03/2018 - 12/25/2018 Provider: Annalisa MURDOCK Diagnosis: one daily MDD 20 mg Provigil 100MG Oral Tablet 09/27/2018 - 10/25/2018 Provider: Diagnosis: prescribed by Dr. Jiménez Suboxone 8-2MG Sublingual Film 09/27/2018 - 12/30/2018 Provi mag: Mabel Peters DO Diagnosis: Dissolve 3/4 film under tongue daily. MDD=6mg Venofer 20MG/ML Intravenous Solution 09/19/2018 - 10/25/2018 Provider: Diagnosis: 3 times weekly infusions; follows with hematology-Dr. Jv garcia Provigil 100MG Oral Tablet 09/17/2018 - 09/27/2018 Provider: Diagnosis: prescribed by Dr. Jiménez Ondansetron 4MG Oral Tablet Disintegrating 08/30/2018 - 05/2019 Provider: Diagnosis: 1 tab every 8hs PRN for nausea-by neurology Suboxone 8-2MG Sublingual Film 08/29/2018 - 09/27/2018 Provi mag: Mabel Peters DO Diagnosis: Dissolve 3/4 film under tongue daily. MDD=6mg Armodafinil 250MG Oral Tablet 08/29/2018 - 09/27/2018 Provid er: Mabel Peters DO Diagnosis: once a day; MDD=1 Suboxone 8-2MG Sublingual Film 08/22/2018 - 08/29/2018 Provi mag: Scotty De Jesus MD Diagnosis: Dissolve 3/4 film under tongue daily. MDD=6mg [id number] PROzac 10MG Oral Capsule 08/22/2018 - 10/14/2018 Provider: Annalisa MURDOCK Diagnosis: one daily MDD 10 mg Suboxone 8-2 MG SL FILM 08/22/2018 - 12/30/2018 Provider: Diagnosis: Once a day, Dissolve 3/4 film under tongue daily. 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 once a day; QAM; MDD=1 Suboxone 8-2MG Sublingual Film 07/25/2018 - 12/30/2018 Provi mag: Mabel Peters DO Diagnosis: once a day; dissolve 3/4 film under tongue daily; MDD=6mg; Effexor XR 37.5MG Oral Capsule Extended Release 24 Hour 06/24 - 08/01/2018 Provider: Mabel Peters DO Diagnosis: once a day Effexor XR 37.5MG Oral Capsule Extended Release 24 Hour 0 11/2018 - 08/29/2018 Provider: Mabel Peters DO Diagnosis: once a day; tapering dose Suboxone 8-2MG Sublingual Film 06/20/2018 - 07/25/2018 Provi mag: Mabel Peters DO Diagnosis: once a day; dissolve 3/4 film under ton urszula daily; MDD=6mg; do not fill until 06/27/18 Effexor XR 37.5MG Oral Capsule Extended Release 24 Hour 05/25 - 08/29/2018 Provider: Mabel L Ray DO Diagnosis: once a day; for taper Levocetirizine Dihydrochloride 5MG Oral Tablet 06/17/2018 - 11/20/2018 Provider: Diagnosis: SUMAtriptan Succinate 50MG Oral Tablet 06/16/2018 - 03/28/19 20 Provider: Diagnosis: Suboxone 8-2MG Sublingual Film 05/31/2018 - 06/20/2018 Provi mag: Mabel Peters DO Diagnosis: once a day; dissolve 3/4 film under tongue daily; MDD=6mg Movantik 25MG Oral Tablet 05/27/2018 - 10/25/2018 Provider: Mabel Peters DO Diagnosis: Opioid dependence, u ncomplicated once a day Movantik 25 MG OR TABS 05/27/2018 - 06/20/2018 Provider: Diagnosis: Opioid dependence, u ncomplicated Suboxone 8-2MG Sublingual Film 05/02/2018 - 05/31/2018 Provi mag: Mabel Peters DO Diagnosis: once a day; dissolve 3/4 film under tongue daily; MDD=6mg Lactulose 10GM/15ML Oral Solution 05/02/2018 - 06/20/2018 Pr ovider: Mabel Peters DO Diagnosis: Drug induced constip ation as directed; 15mL PO daily PRN constipation Amoxicillin 500MG Oral Capsule 04/18/2018 - 08/29/2018 Provi mag: Keven Dumont DDS Diagnosis: take 1 tab every 8 hours until gone Ibuprofen 800MG Oral Tablet 04/12/2018 - 03/28/2019 Provider : Keven Dumont DDS Diagnosis: take 1 tab every 6-8 hours as needed for pain Suboxone 8-2MG Sublingual Film 04/04/2018 - 05/02/2018 Provi mag: Mabel Peters DO Diagnosis: once a day; dissolve 1 film under tongue daily; MDD=8mg Colace 100MG Oral Capsule 04/04/2018 - 07/25/2018 Provider: Mabel Peters DO Diagnosis: twice a day Colace 100MG Oral Capsule 04/04/2018 - 04/04/2018 Provider: Mabel Peters DO Diagnosis: twice a day Movantik 25MG Oral Tablet 03/30/2018 - 05/02/2018 Provider: Mabel Peters DO Diagnosis: once a day Suboxone 8-2MG Sublingual Film 03/06/2018 - 04/04/2018 Provi mag: Mabeldomo Peters DO Diagnosis: once a day; dissolve 1 film under tongue daily; MDD=8mg Suboxone 8-2MG Sublingual Film 02/06/2018 - 03/06/2018 Provi mag: Mabel Peters Diagnosis: once a day; dissolve 1 film under tongue daily; MDD=8mg EQ Senna-S 8.6-50MG Oral Tablet 02/06/2018 - 06/20/2018 Prov ider: Mabel Peters DO Diagnosis: Opioid dependence, u ncomplicated 2 twice a day Amitiza 24MCG Oral Capsule 02/06/2018 - 04/04/2018 Provider: Mabel Peters DO Diagnosis: Constipation, unspec ified twice a day Effexor XR 75MG Oral Capsule Extended Release 24 Hour 2017 - 07/02/2018 Provider: Mabel Peters DO Diagnosis: once a day; Suboxone 8-2MG Sublingual Film 01/09/2018 - 02/06/2018 Provi mag: Mabel Ravi Fran BORREGO Diagnosis: once a day; dissolve 1 film under tongue daily; MDD=8mg Topiramate 100MG Oral Tablet 01/08/2018 - 06/20/2018 Provide r: Diagnosis: Topiramate 25MG Oral Tablet 01/08/2018 - 02/06/2018 Provider : Diagnosis: Suboxone 8-2MG Sublingual Film 12/19/2017 - 01/09/2018 Provi mag: Mabel Ravi Fran BORREGO Diagnosis: once a day; dissolve 1 film under tongue daily; MDD=8mg Suboxone 8-2MG Sublingual Film 11/21/2017 - 12/19/2017 Provi mag: Mabel Freddie Peters DO Diagnosis: once a day; dissolve 1 film under tongue daily; MDD=8mg CVS Senna 8.6MG Oral Tablet 11/21/2017 - 07/25/2018 Provider : Diagnosis: Previfem 0.25-35MG-MCG Oral Tablet 11/16/2017 - 06/20/2018 P rovider: Diagnosis: Suboxone 8-2MG Sublingual Film 10/24/2017 - 11/21/2017 Provi mag: Mabel Peters DO Diagnosis: once a day; dissolve 1 film under tongue daily; MDD=8mg Protonix 40MG Oral Tablet Delayed Release 10/24/2017 - 09/15 Provider: Diagnosis: Bactrim DS 800-160MG Oral Tablet 09/27/2017 - 10/18/2017 Pro vider: Mabel Peters DO Diagnosis: Cellulitis of right upper limb twice a day with food Suboxone 8-2MG Sublingual Film 09/27/2017 - 10/24/2017 Provi mag: Mabel Freddie Fran BORREGO Diagnosis: once a day; dissolve 1.25 film under tongue daily; MDD=10mg Effexor XR 75MG Oral Capsule Extended Release 24 Hour 2017 - 02/06/2018 Provider: Mabel Peters DO Diagnosis: once a day; with 37.5mg dose for total of 112mg daily Effexor XR 37.5MG Oral Capsule Extended Release 24 Hour 07/2017 - 12/19/2017 Provider: Mabel Peters DO Diagnosis: as directed; with 75mg dose for total of 112.5mg daily Mavyret 100-40MG Oral Tablet 09/13/2017 - 11/21/2017 Provide r: Diagnosis: 3 pills QHS Effexor XR 37.5MG Oral Capsule Extended Release 24 Hour 08/2017 - 09/27/2017 Provider: Mabel Peters DO Diagnosis: as directed; with 75mg dose for total of 112.5mg daily Suboxone 8-2MG Sublingual Film 08/29/2017 - 09/27/2017 Provi mag: Mabel Peters DO Diagnosis: once a day; dissolve 1.25 film under tongue daily; MDD=10mg Suboxone 8-2MG Sublingual Film 08/15/2017 - 08/29/2017 Provi mag: Mabel Peters DO Diagnosis: once a day; dissolve 1 film under tongue daily; MDD=8mg Effexor XR 75MG Oral Capsule Extended Release 24 Hour 2017 - 09/27/2017 Provider: Mabel Peters DO Diagnosis: once a day Sulfamethoxazole-Trimethoprim 400-80MG Oral Tablet - 08/29/2017 Provider: Diagnosis: Buprenorphine HCl 2MG Sublingual Tablet Sublingual - 10/25/2018 Provider: Mabel Peters DO Diagnosis: as directed; dissovle 2.5 tabs under tongue daily; MDD=5mg; Effexor XR 37.5MG Oral Capsule Extended Release 24 Hour 06/24 - 08/29/2017 Provider: Mabel Peters DO Diagnosis: once a day; do not start until after delivery Buprenorphine HCl 2MG Sublingual Tablet Sublingual - 07/18/2017 Provider: Mabel Peters DO Diagnosis: as directed; dissovle 2.5 tabs under tongue daily; MDD=5mg; Buprenorphine HCl 2MG Sublingual Tablet Sublingual 07/04/2017 Provider: Mabel Peters DO Diagnosis: as directed; dissovle 2.5 tabs under tongue daily; MDD=5mg; Buprenorphine HCl 2MG Sublingual Tablet Sublingual 06/06/2017 Provider: Mabel Peters DO Diagnosis: as directed; dissovle 2.5 tabs under ton urszula daily; MDD=5mg; do not fill until 05/16/17 Buprenorphine HCl 2MG Sublingual Tablet Sublingual 05/09/2017 Provider: Mabel Peters DO Diagnosis: as directed; dissovle 2.5 tabs under ton urszula daily; MDD=5mg; do not fill until 05/16/17 Buprenorphine HCl 2MG Sublingual Tablet Sublingual 05/09/2017 Provider: Mabel Peters DO Diagnosis: as directed; dissovle 2.5 tabs under tongue daily; MDD=5mg Aspirin 81MG Oral Tablet Delayed Release 04/18/2017 - 2017 Provider: Diagnosis: Buprenorphine HCl 2MG Sublingual Tablet Sublingual 04/18/2017 Provider: Mabel Peters DO Diagnosis: as directed; dissovle 3 tabs under tongue daily; MDD=6mg Buprenorphine HCl 2MG Sublingual Tablet Sublingual - 03/21/2017 Provider: Mabel Peters DO Diagnosis: as directed; dissovle 3 tabs under tongue daily; MDD=6mg Buprenorphine HCl 2MG Sublingual Tablet Sublingual 02/21/2017 Provider: Mabel Peters DO Diagnosis: as directed; dissovle 3 tabs under tongue daily; MDD=6mg Zantac 150MG Oral Tablet 02/21/2017 - 11/21/2017 Provider: Mabel Peters DO Diagnosis: twice a day Buprenorphine HCl 2MG Sublingual Tablet Sublingual - 02/21/2017 Provider: Mabel Peters DO Diagnosis: as directed; dissovle 3 tabs under tongue daily; MDD=6mg MiraLax Oral Powder 01/10/2017 - 12/19/2017 Provider: Mabel Peters DO Diagnosis: as directed; 17gm PO daily dissolved in 8oz of water daily Buprenorphine HCl 2MG Sublingual Tablet Sublingual - 01/24/2017 Provider: Mabel Peters DO Diagnosis: as directed; dissovle 3 tabs under tongue daily; MDD=6mg Leeton Saline Nasal Gel 01/10/2017 - 03/28/2019 Provider: Mabel Peters DO Diagnosis: as directed; 2 sprays each nostril tid PRN Colace 100MG Oral Capsule 01/10/2017 - 04/04/2018 Provider: Mabel Peters DO Diagnosis: twice a day Buprenorphine HCl 2MG Sublingual Tablet Sublingual - 01/10/2017 Provider: Mabel Peters DO Diagnosis: as directed; dissovle 3 tabs under tongue daily; MDD=6mg MiraLax Oral Powder 01/03/2017 - 01/10/2017 Provider: Mabel Peters DO Diagnosis: as directed; 17gm PO daily dissolved in 8oz of water daily Colace 100MG Oral Capsule 01/03/2017 - 01/10/2017 Provider: Mabel Peters DO Diagnosis: twice a day Buprenorphine HCl 2MG Sublingual Tablet, sublingual 12/29/19 - 10/25/2018 Provider: Mabel Peters DO Diagnosis: Opioid dependence, u ncomplicated as directed: dissolve 3 tabs under tongue daily MDD=6mg Buprenorphine HCl 2 MG SL SUBL 12/28/2016 - 10/25/2018 Provi mag: Diagnosis: Opioid dependence, u ncomplicated as directed: dissolve 3 tabs under tongue daily MDD=6mg HM Vitamin B6 100MG Oral Tablet 12/27/2016 - 08/29/2017 Prov ider: Diagnosis: Buprenorphine HCl 2MG Sublingual Tablet, sublingual 12/28/19 - 01/03/2017 Provider: Mabel Peters DO Diagnosis: as directed; dissovle 3 tabs under tongue daily; MDD=6mg Diclegis 10-10MG Oral Tablet, enteric coated 12/27/2016 - Provider: Yecenia Jaramillo MD OBGYN Diagnosis: 2 at bedtime and one at the start of the day Levocetirizine Dihydrochloride 5MG Oral Tablet 12/27/2016 - 10/25/2018 Provider: Diagnosis: Betamethasone Dipropionate 0.05% External Cream 12/27/2016 - 03/28/2019 Provider: Diagnosis: Buprenorphine HCl 2MG Sublingual Tablet, sublingual 12/28/19 17 - 12/27/2016 Provider: Mabel Peters DO Diagnosis: as directed; dissovle 3 tabs under tongue daily; MDD=6mg Unisom 25MG Oral Tablet 12/27/2016 - 08/29/2017 Provider: Diagnosis: Folic Acid 800MCG Oral Tablet 12/27/2016 - 08/29/2017 Provid er: Diagnosis: OTC /Folic Acid Oral Tablet 12/27/2016 - 08/29/2017 Prov ider: Diagnosis: OTC Omeprazole Magnesium 20.6 (20 Base)MG Oral Capsule, de layed-release 12/27/2016 - 08/29/2017 Provider: Diagnosis: OTC Aspirin 81MG Oral Tablet, chewable 12/27/2016 - 04/18/2017 P evonder: Diagnosis: OTC Acetaminophen 500MG Oral Tablet 12/27/2016 - 03/28/2019 Prov ider: Diagnosis: as needed OTC Medications Administered Includes: Administered Medications in patient's chart Medications Administered Diagnosis Date Provi mag Sublocade 300 MG/1.5ML SC SOSY 02/25/2020 Mabel Peters DO RLQ Sublocade 300 MG/1.5ML SC SOSY 01/21/2020 Mabel Peters DO LLQ abd Sublocade 300 MG/1.5ML SC SOSY 12/25/2018 Mabel Peters DO RUQ Sublocade 300 MG/1.5ML SC SOS Opioid dependence, uncomplicate d 11/20/2018 Mabel Peters DO RLQ abd Vital Signs Includes: Vital Signs from 02/24/2019 through 02/25/2020 Vital Name 02/25/2020 03:18P 02/17/2020 07:59A 01/21/2020 03:56P 01/08/2020 10:41A 09/16/2019 10:13A Blood Pressure Sitting L 110/70 116/78 124/88 BP Cuff Size Regular Regular Regular Regular Pulse Rate-Sitting (bpm) 80 92 81 78 Respiration Rate (breaths/min) 17 18 16 16 Temp-Tympanic (F) 98.5 97.4 97.4 Weight (lb) 107 103.5 107 114 Pain Level 0 0 0 5 4 Oxygen Saturation (%) 99 99 97 97 Flow Rate (l/min) (None (Room Air)) (None (Room Air)) ( None (Room Air)) (None (Room Air)) FiO2 (%) 21 21 21 21 Blood Pressure Sitting R 118/80 Pulse Rhythm Regular Temp-Temporal 97.6 Height (in) 62.5 Body Mass Index (kg/m2) 2 0.5 Body Surface Area (m2) 1. 51 Note: Unable to obtain all vitals due to covid 19 pandemic Temperature assessed by anaesthetic technician. Suresh KHAN Temperature assessment done by Bo ravi LPN Vital Name 07/16/2019 10:14A 06/11/2019 02:56P 05/08/2019 04:34P 03/28/2019 08:52A Blood Pressure Sitting L 128/78 112/84 128/78 BP Cuff Size Regular Regular Large Pulse Rate-Sitting (bpm) 83 83 87 Respiration Rate (breaths/min) 18 18 18 Temp-Tympanic (F) 98.5 98 98.3 Weight (lb) 108 113 120.6 Pain Level 7 0 0 0 Oxygen Saturation (%) 99 98 98 Flow Rate (l/min) (None (Room Air)) (None (Room Air)) ( None (Room Air)) FiO2 (%) 21 21 21 Pulse Rhythm Regular Results Includes: Results from 02/24/2019 through 02/25/2020 [facility] Toxicology Results [facility] Ordered by Mabel Peters DO on 01/21/2020 Collected: 01/21/2020 Reported: 01/31/2020 [address] [facility], [address], [place], [address] Creatinine 171.5 mg/dL (>20.00) N (Normal) Nitrite 177.6 mcg/mL (<200) N (Normal) pH 7.0 (4.50 - 9.00) N (Normal) Barbiturates 0 ng/mL (200) N (Normal) Benzodiazepines 0 ng/mL (50) N (Normal) Cocaine Metabolites 0 ng/mL (150) N (Normal) Meprobamate 0 ng/mL (100) N (Normal) Tramadol 0 ng/mL (100) N (Normal) Meperidine Metabolite 0 ng/mL (100) N (Normal) Fentanyl 0 ng/mL (2) N (Normal) Methadone 0 ng/mL (150) N (Normal) Opiates - Basic 0 ng/mL (100) N (Normal) Oxycodone/Oxymorphone 0 ng/mL (100) N (Normal) 6-Acetylmorphine (Heroin) 0 ng/mL (10) N (Normal) Phencyclidine (PCP) 0 ng/mL (25) N (Normal) Propoxyphene 0 ng/mL (300) N (Normal) Marijuana Metabolite 0 ng/mL (20) N (Normal) Amphetamine 0 ng/mL (300/100) A (Abnormal) Note: Inconsistent Prescribed drug was n ot detected. Methamphetamine 0 ng/mL (300/100) N (Normal) Methylphenidate Metabolite >1500 ng/mL (10) N (Normal) Note: Consistent Prescribed drug was det ected. Gabapentin 0 ng/mL (500) N (Normal) Pregabalin 0 ng/mL (500) N (Normal) Tapentadol 0 ng/mL (100) N (Normal) MDA 0 ng/mL (300/200) N (Normal) MDMA 0 ng/mL (300/200) N (Normal) MDEA 0 ng/mL (300/200) N (Normal) Norbuprenorphine 981.4 ng/mL (5) N (Normal) Note: Consistent Prescribed drug was det ected. Buprenorphine 522.2 ng/mL (5) N (Normal) Note: Consistent Prescribed drug was det ected. Reviewed by Mabel Peters DO on 0; All test results are final unless otherwise noted. [facility] Toxicology Results [facility] Ordered by Mabel Peters DO on 01/08/2020 Collected: 01/08/2020 Reported: 01/13/[address] [place] [address], [address], [place], [address] Amphetamine 2579 ng/mL (100) N (Normal) Note: Consistent Prescribed drug was det ected. Methamphetamine 0 ng/mL (100) N (Normal) Methylphenidate Metabolite 11.9 ng/mL (10) N (Normal) Note: Consistent Prescribed drug was det ected. Reviewed by Mabel Peters DO on 0; All test results are final unless otherwise noted. CBC w/ Auto Diff [facility] Ordered by Mabel Peters DO on 09/16/[address] [facility], [place], [address] Collected: 11/21/2019 Reported: 11/21/2019 tel:[phone] BASO # (AUTO) 0.05 10\\^3/uL (0.00-0.20) N (Normal) Note: Responsible Observer: BASO # (AUTO ) BASO # (AUTO) 100.1500 (A) BASO % (AUTO) 1.0 % (0.0-2.0) N (Normal) Note: Responsible Observer: BASO % (AUTO ) BASO % (AUTO) 100.1250 (A) EOS # (AUTO) 0.19 10\\^3/uL (0.00-1.10) N (Normal) Note: Responsible Observer: EOS # (AUTO) EOS # (AUTO) 100.1450 (A) EOS % (AUTO) 3.9 % (0.0-11.0) N (Normal) Note: Responsible Observer: EOS % (AUTO) EOS % (AUTO) 100.1200 (A) GRAN # (AUTO) 2.97 10\\^3/uL (1.50-6.50) N (Normal) Note: Responsible Observer: GRAN # (AUTO ) GRAN #(AUTO) 100.1325 (A) GRAN % (AUTO) 60.9 % (42.0-75.0) N (Normal) Note: Responsible Observer: GRAN % (AUTO ) GRAN % (AUTO) 100.1000 (A) HEMATOCRIT 34.1 % (35.0-46.0) L (Low) Note: Responsible Observer: HCT HEMATOCR IT 100.0400 (A) HEMOGLOBIN 11.5 G/DL (11.5-15.6) N (Normal) Note: Responsible Observer: HGB HEMOGLOB IN 100.0300 (A) IG # (AUTO) 0.0 10\\^3/uL (<0.5) None Note: Responsible Observer: IG # (AUTO) IG # (AUTO) 100.1260 (A) LYMPH # (AUTO) 1.3 k/uL (1.0-5.0) N (Normal) Note: Responsible Observer: LYMPH # (AUT O) LYMPH # (AUTO) 100.1350 (A) LYMPH % (AUTO) 26.8 % (20.0-51.0) N (Normal) Note: Responsible Observer: LYMPH % (AUT O) LYMPH % (AUTO) 100.1100 (A) MCH 28.3 PG (27.0-34.0) N (Normal) Note: Responsible Observer: MCH MCH 100 .0600 (A) MCHC 33.7 G/DL (32-36) N (Normal) Note: Responsible Observer: MCHC MCHC 1 00.0650 (A) MCV 84.0 FL (80.0-100.0) N (Normal) Note: Responsible Observer: MCV MCV 100 .0550 (A) MONO # (AUTO) 0.36 k/uL (0.20-1.50) N (Normal) Note: Responsible Observer: MONO # (AUTO ) MONO # (AUTO) 100.1400 (A) MONO % (AUTO) 7.4 % (2.0-15.0) N (Normal) Note: Responsible Observer: MONO % (AUTO ) MONO% (AUTO) 100.1150 (A) MPV 10.2 FL (8.7-13.2) N (Normal) Note: Responsible Observer: MPV MPV 100 .0950 (A) PLATELET COUNT 257 10\\^3/uL (130-400) N (Normal) Note: Responsible Observer: PLT PLATELET COUNT 100.0850 (A) RED BLOOD COUNT 4.06 10\\^6/uL (3.90-5.20) N (Normal) Note: Responsible Observer: RBC RED BLOO D COUNT 100.0250 (A) RDW 13.1 % (11.5-14.5) N (Normal) Note: Responsible Observer: RDW RDW 100 .0700 (A) WHITE BLOOD COUNT 4.88 10\\^3/uL (4.00-10.50) N (Normal) Note: Responsible Observer: WBC WHITE BL OOD COUNT 100.0150 (A) Reviewed by Mabel Peters DO on 0; All test results are final unless otherwise noted. COMPREHENSIVE METABOLIC PANEL [facility] Ordered by Mabel Peters DO on 09/16/[address] [place], [address] Collected: 11/21/2019 Reported: 11/21/2019 tel:[phone] Note: Has Patient Fasted For The Past 12 Hours? N ALB/GLOB RATIO 2.3 G/DL (1.0-3.0) N (Normal) Note: Responsible Observer: A/G RATIO AL B/GLOB RATIO 300.4100 (A) ALBUMIN 3.9 G/DL (3.0-5.1) N (Normal) Note: Responsible Observer: ALB ALBUMIN 300.3900 (A) ALKALINE PHOSPHATASE 49 U/L (40-140) N (Normal) Note: Responsible Observer: ALK PHOS ALK JACI PHOSPHATASE 300.3110 (A) ALT 12 U/L (5-48) N (Normal) Note: Responsible Observer: ALT/SGPT ALT 300.3100 (A) AST 11 U/L (5-40) N (Normal) Note: Responsible Observer: AST/SGOT AST 300.3050 (A) BUN/CREAT RATIO 15 (8-36) N (Normal) Note: Responsible Observer: BUN/CREAT RA TREVER BUN/CREAT RATIO 300.0450 (A) BILIRUBIN,TOTAL 0.3 MG/DL (0.1-1.3) N (Normal) Note: Responsible Observer: TOTAL BILI T OTAL BILIRUBIN 300.2700 (A) BLOOD UREA NITRO 9 MG/DL (7-25) N (Normal) Note: Responsible Observer: BUN BLOOD UR EA NITROGEN 300.0350 (A) CA 8.8 MG/DL (8.7-10.5) N (Normal) Note: Responsible Observer: CA CALCIUM 300.2200 (A) CHLORIDE 105 MEQ/L (94-110) N (Normal) Note: Responsible Observer: CL CHLORIDE 300.0200 (A) CARBON DIOXIDE 27 MEQ/L (22-33) N (Normal) Note: Responsible Observer: CO2 CARBON D IOXIDE 300.0250 (A) CREATININE 0.6 MG/DL (0.6-1.4) N (Normal) Note: Responsible Observer: CREAT CREATI NINE 300.0400 (A) ANION GAP 13 (5-16) N (Normal) Note: Responsible Observer: ANION GAP AN ION GAP 300.0300 (A) GFR > 90.0 ML/MIN None Note: Stage G1 - Normal or high kidney function The GFR is an estimate of the Glomerular Filtration Rate. It is an aid to assess a patient's renal function. It is not a conclusive diagnosis of kidney disease. GFR normal is >=90 The MDRD GFR calculation is considered valid between the ages of 18 and 75 years only.Responsible Observer: GFR GFR 300.0410 (A) GLOBULIN 1.7 G/DL (1.5-3.5) N (Normal) Note: Responsible Observer: GLOB GLOBULI N 300.4050 (A) GLUCOSE 88 MG/DL (70-100) N (Normal) Note: Responsible Observer: GLU GLUCOSE 300.0500 (A) POTASSIUM 3.9 MEQ/L (3.5-5.3) N (Normal) Note: Responsible Observer: K POTASSIUM 300.0150 (A) SODIUM 141 MEQ/L (135-145) N (Normal) Note: Responsible Observer: NA SODIUM 3 00.0100 (A) TOTAL PROTEIN 5.6 G/DL (5.9-8.3) L (Low) Note: Responsible Observer: TP TOTAL PRO TEIN 300.3750 (A) Reviewed by Mabel Peters DO on 0; All test results are final unless otherwise noted. IRON [facility] Ordered by Mabel Peters DO on 09/16/[address] [place], [address] Collected: 11/21/2019 Reported: 11/21/2019 tel:[phone] Note: Has Patient Fasted For The Past 12 Hours? N IRON 37 UG/DL (35-150) N (Normal) Note: Responsible Observer: FE IRON 300 .2400 (A) Reviewed by Mabel Peters DO on 0; All test results are final unless otherwise noted. CREATINE KINASE [facility] Ordered by Mabeldomo Peters DO on 09/16/[address] [place], [address] Collected: 11/21/2019 Reported: 11/21/2019 tel:[phone] Note: Has Patient Fasted For The Past 12 Hours? N CREATINE KINASE 53 U/L (0-265) N (Normal) Note: Responsible Observer: CK CREATINE KINASE 300.3300 (A) Reviewed by Mabel Peters DO on 0; All test results are final unless otherwise noted. [facility] Ordered by Mabeldomo Peters DO on 09/16/[address] [place], [address] Collected: 11/21/2019 Reported: 11/21/2019 tel:[phone] Note: Has Patient Fasted For The Past 12 Hours? N TSH 2.088 uIU/ML (0.470-4.200) N (Normal) Note: Patients should not be tested for 72 hours post fluorescein dye angiography. A false depression of result may occur.Responsible Observer: TSH TSH 300.5500 (A) Reviewed by Mabel Peters DO on 0; All test results are final unless otherwise noted. Lyme Total Ab w/ Reflex,S [facility] Ordered by Mabeldomo Peters DO on 09/16/[address] [place], [address] Collected: 11/21/2019 Reported: 11/24/2019 tel:[phone] Lyme IgG/IgM Ab,S <0.91 ISR (0.00-0.90) None Note: N egative <0.91 Equivocal 0.91 - 1.09 Positive >1.09 Performed at: RN - [facility] [address] [id number] Transitional Nurse: Maria Luisa Juarez MD, Phone: [phone] CDC Recommendations for Lyme Disease Testing 1.The Western Blot should not be run without first performing an EIA or IFA. 2.The Western Blot should not be run if the EIA or IFA tests are negative. 3.A positive IgM Western Blot is only meaningful during the first 4 weeks of illness 4.If the patient has been ill for longer than 4-6 weeks and the IgG Western Blot test is negative, it is unlikely that the patient has Lyme disease, even if the IgM immunoblot is positive.Responsible Observer: Lyme IgG/IgM Ab Lyme IgG/IgM Ab,S [id number] 326.2625 (A) Reviewed by Maebl Peters DO on 0; All test results are final unless otherwise noted. Reported Physicians [facility] Ordered by Mabel Freddie Peters DO on 09/16/[address] [place], [address] Collected: 11/21/2019 Reported: 11/24/2019 tel:[phone] Reported Physicians See Note None Note: Reported Physicians:Ordering: Mabel Peters LAtjaylinding: Mabel Peters Reviewed by Mabel Peters DO on 0; All test results are final unless otherwise noted. CBC w/ Auto Diff [facility] Ordered by Mabel Peters DO on 04/04/[address] [place], [address] Collected: 03/28/2019 Reported: 03/28/2019 tel:[phone] BASO # (AUTO) 0.05 10\\^3/uL (0.00-0.20) N (Normal) Note: Responsible Observer: BASO # (AUTO ) BASO # (AUTO) 100.1500 (A) BASO % (AUTO) 1.3 % (0.0-2.0) N (Normal) Note: Responsible Observer: BASO % (AUTO ) BASO % (AUTO) 100.1250 (A) EOS # (AUTO) 0.20 10\\^3/uL (0.00-1.10) N (Normal) Note: Responsible Observer: EOS # (AUTO) EOS # (AUTO) 100.1450 (A) EOS % (AUTO) 5.2 % (0.0-11.0) N (Normal) Note: Responsible Observer: EOS % (AUTO) EOS % (AUTO) 100.1200 (A) GRAN # (AUTO) 2.31 10\\^3/uL (1.50-6.50) N (Normal) Note: Responsible Observer: GRAN # (AUTO ) GRAN #(AUTO) 100.1325 (A) GRAN % (AUTO) 59.6 % (42.0-75.0) N (Normal) Note: Responsible Observer: GRAN % (AUTO ) GRAN % (AUTO) 100.1000 (A) HEMATOCRIT 36.8 % (35.0-46.0) N (Normal) Note: Responsible Observer: HCT HEMATOCR IT 100.0400 (A) HEMOGLOBIN 12.8 G/DL (11.5-15.6) N (Normal) Note: Responsible Observer: HGB HEMOGLOB IN 100.0300 (A) IG # (AUTO) 0.0 10\\^3/uL (<0.5) None Note: Responsible Observer: IG # (AUTO) IG # (AUTO) 100.1260 (A) IG % (AUTO) 0.3 % (1.00-5.00) None Note: Responsible Observer: IG % (AUTO) IG % (AUTO) 100.1255 (A) LYMPH # (AUTO) 1.0 k/uL (1.0-5.0) N (Normal) Note: Responsible Observer: LYMPH # (AUT O) LYMPH # (AUTO) 100.1350 (A) LYMPH % (AUTO) 25.8 % (20.0-51.0) N (Normal) Note: Responsible Observer: LYMPH % (AUT O) LYMPH % (AUTO) 100.1100 (A) MCH 30.2 PG (27.0-34.0) N (Normal) Note: Responsible Observer: MCH MCH 100 .0600 (A) MCHC 34.8 G/DL (32-36) N (Normal) Note: Responsible Observer: MCHC MCHC 1 00.0650 (A) MCV 86.8 FL (80.0-100.0) N (Normal) Note: Responsible Observer: MCV MCV 100 .0550 (A) MONO # (AUTO) 0.30 k/uL (0.20-1.50) N (Normal) Note: Responsible Observer: MONO # (AUTO ) MONO # (AUTO) 100.1400 (A) MONO % (AUTO) 7.8 % (2.0-15.0) N (Normal) Note: Responsible Observer: MONO % (AUTO ) MONO% (AUTO) 100.1150 (A) MPV 10.6 FL (8.7-13.2) N (Normal) Note: Responsible Observer: MPV MPV 100 .0950 (A) PLATELET COUNT 256 10\\^3/uL (130-400) N (Normal) Note: Responsible Observer: PLT PLATELET COUNT 100.0850 (A) RED BLOOD COUNT 4.24 10\\^6/uL (3.90-5.20) N (Normal) Note: Responsible Observer: RBC RED BLOO D COUNT 100.0250 (A) RDW 11.9 % (11.5-14.5) N (Normal) Note: Responsible Observer: RDW RDW 100 .0700 (A) WHITE BLOOD COUNT 3.87 10\\^3/uL (4.00-10.50) L (Low) Note: Responsible Observer: WBC WHITE BL OOD COUNT 100.0150 (A) Reviewed by Mabel Peters DO on 0; All test results are final unless otherwise noted. COMPREHENSIVE METABOLIC PANEL [facility] Ordered by Mabel Peters DO on 04/04/[address], [place], [address] Collected: 03/28/2019 Reported: 03/28/2019 tel:[phone] Note: Has Patient Fasted For The Past 12 Hours? N ALB/GLOB RATIO 2.4 G/DL (1.0-2.7) N (Normal) Note: Responsible Observer: A/G RATIO AL B/GLOB RATIO 300.4100 (A) ALBUMIN 4.0 G/DL (3.0-5.1) N (Normal) Note: Responsible Observer: ALB ALBUMIN 300.3900 (A) ALKALINE PHOSPHATASE 60 U/L (40-140) N (Normal) Note: Responsible Observer: ALK PHOS ALK JACI PHOSPHATASE 300.3110 (A) ALT 16 U/L (5-48) N (Normal) Note: Responsible Observer: ALT/SGPT ALT 300.3100 (A) AST 11 U/L (5-40) N (Normal) Note: Responsible Observer: AST/SGOT AST 300.3050 (A) BUN/CREAT RATIO 11 (8-36) N (Normal) Note: Responsible Observer: BUN/CREAT RA TREVER BUN/CREAT RATIO 300.0450 (A) BILIRUBIN,TOTAL 0.4 MG/DL (0.1-1.3) N (Normal) Note: Responsible Observer: TOTAL BILI T OTAL BILIRUBIN 300.2700 (A) BLOOD UREA NITRO 7 MG/DL (7-25) N (Normal) Note: Responsible Observer: BUN BLOOD UR EA NITROGEN 300.0350 (A) CA 9.2 MG/DL (8.7-10.5) N (Normal) Note: Responsible Observer: CA CALCIUM 300.2200 (A) CHLORIDE 108 MEQ/L (94-110) N (Normal) Note: Responsible Observer: CL CHLORIDE 300.0200 (A) CARBON DIOXIDE 27 MEQ/L (22-33) N (Normal) Note: Responsible Observer: CO2 CARBON D IOXIDE 300.0250 (A) CREATININE 0.6 MG/DL (0.6-1.4) N (Normal) Note: Responsible Observer: CREAT CREATI NINE 300.0400 (A) ANION GAP 11 (5-16) N (Normal) Note: Responsible Observer: ANION GAP AN ION GAP 300.0300 (A) GFR > 90.0 ML/MIN None Note: Stage G1 - Normal or high kidney function GFR normal is >=90 The MDRD GFR calculation is considered valid between the ages of 18 and 75 years only. The GFR is an estimate of the Glomerular Filtration Rate. It is considered accurate in evaluating patients with Chronic Kidney Disease,but may underestimate kidney function in Healthy Patients.Responsible Observer: GFR GFR 300.0410 (A) GLOBULIN 1.7 G/DL (1.5-3.5) N (Normal) Note: Responsible Observer: GLOB GLOBULI N 300.4050 (A) GLUCOSE 100 MG/DL (70-100) N (Normal) Note: Responsible Observer: GLU GLUCOSE 300.0500 (A) POTASSIUM 4.1 MEQ/L (3.5-5.3) N (Normal) Note: Responsible Observer: K POTASSIUM 300.0150 (A) SODIUM 142 MEQ/L (135-145) N (Normal) Note: Responsible Observer: NA SODIUM 3 00.0100 (A) TOTAL PROTEIN 5.7 G/DL (5.9-8.3) L (Low) Note: Responsible Observer: TP TOTAL PRO TEIN 300.3750 (A) Reviewed by Mabel Peters DO on 0; All test results are final unless otherwise noted. [facility] Ordered by Mabel Peters DO on 04/04/[address] [place], [address] Collected: 03/28/2019 Reported: 03/28/2019 tel:[phone] Note: Has Patient Fasted For The Past 12 Hours? N MAGNESIUM 1.9 mg/dl (1.8-2.4) N (Normal) Note: Responsible Observer: MG MAGNESIUM 300.2350 (A) Reviewed by Mabel Peters DO on 0; All test results are final unless otherwise noted. Reported Physicians [facility] Ordered by Mabeldomo Peters DO on 04/04/[address] [place], [address] Collected: 03/28/2019 Reported: 03/28/2019 tel:[phone] Reported Physicians See Note None Note: Reported Physicians:Ordering: Mabel Peters LAttending: Mabel Peters Reviewed by Mabel Peters DO on 0; All test results are final unless otherwise noted. History of Present Illness History of Present Illness not supported for this document typeNo History of Present Illness Recorded Social History Description Last Updated No secondhand cigarette smoke exposure 02/25/2020 Smoking status 02/25/2020 : Former smoker 02/25/2020 Not a smoker Greater than 30 pack years 01/21/2020 Procedures and Surgical/Medical History Includes: Procedures from 02/24/2019 through 02/25/2020 Procedures CPT-4 Diagnosis Performing Provider Service Location Service Date Influenza virus vaccine, preservative free, 6 months and up [address] Encounter for immunization Mabel Peters DO [facility] 01/21/2020 Immunization Administration (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, [place] [address] Encounter for immunization Mabel Peters DO [facility] 01/21/2020 Surgical History Last Updated History of excision of rectal procidentia 12/03/2019 History of tubal ligation 04/24/2018 01/21/2020 Medical History Last Updated History of asthma 01/21/2020 Family History Includes: Family History in patient's chartNo Family History Recorded Review of Systems Review of Systems not supported for this document typeNo Review of Systems Recorded Mental Status Mental Status not supported for this document type Description Oriented to time, place, and person Functional Status Functional Status not supported for this document typeNo Functional Status Recorded Physical Exam Physical Exam not supported for this document typeNo Physical Exam Recorded Immunizations Includes: Immunizations in patient's chart Vaccine Dose # Date Site Reaction(s) Status Source Influenza 1 12/19/2017 Right Deltoid Complete (Administere d) [facility] Influenza, seasonal, injectable 1 01/21/2020 Left Deltoid Complete (Administered) [facility] Allergies Includes: Active, inactive, and resolved Allergies Substance Type Reaction Effective Status Lactulose 10 GM/15ML Oral Solution Allergy abdominal pain, blo ating 05/16/2018 Active Encounters Includes: Encounters from 02/24/2019 through 02/25/2020 Encounter Provider Location Date Diagnosis Sublocade Mabel Peters DO [facility] 02/25/2020 Opioid De pendence Telephonic Encounter Mabeldomo Peters [facility] 02/17/2020 R aynaud's Syndrome Chart Update Rosanne Lake NP 01/29/2020 Sublocade Mabeldomo Peters [facility] 01/21/2020 Opioid De pendence Medication Order Mabel Peters DO 01/12/2020 SUBOXONE Mabeldomo Peters [facility] 01/08/2020 Opioid De pendence, Anemia, Narcolepsy Chart Update Mabeldomo Peters DO 01/06/2020 Chart Update Mabeldomo Peters DO 12/26/2019 Chart Update Rosanne Lake NP 12/09/2019 Chart Update Rosanne Lake NP 12/09/2019 Chart Update Rosanne Lake NP 12/05/2019 Rectal Prol apse Correspondence Mabel Peters DO 11/28/2019 Medication Order Mabel Peters DO 11/25/2019 Iron Def iciency Anemia Correspondence Mabel Peters DO 10/07/2019 Medication Order Mabeldomo Peters DO 09/17/2019 Chronic Disease Follow-up Mabeldomo Peters [facility] 0 Constipation Drug-induced, Depression, Eczema, Migraine Headache, Narcolepsy, Rectal Prolapse, Chronic Daily Headache, Myalgia and Myositis, Cervicalgia, Neuralgia Occipital Chart Prep Leatha Heard 08/15/2019 Primary Care Telehealth FaceTime Rosanne Lake [facility] 0 07/16/2019 Dermatitis, Headache Syndromes Medication Order Mabel Peters 07/03/2019 Acute Mabeldomo Peters [facility] 06/11/2019 Narcoleps y, Nonorganic Sleep Apnea Obstructive, Asthmatic Bronchitis Chart Update Rosanne Lake NP 06/06/2019 Medication Order Mabeldomo Peters DO 05/30/2019 Chart Update Mabel Peters DO 05/13/2019 Medication Follow-up Mabeldomo Peters [facility] 05/08/2019 S leep Disorder Hypersomnia, Narcolepsy, Nonorganic Sleep Apnea Obstructive, Opioid Dependence Chart Prep Leatha Heard 05/06/2019 Medication Order Mabeldomo Peters DO 05/06/2019 Medication Order Mabeldomo Peters DO 04/08/2019 Walk-In Mabeldomo Peters [facility] 03/28/2019 Narcoleps y, Vomiting Insurance Includes: Active Insurance Policies Plan Name Member ID Group # Subscriber Relationship Effective Da usman 1 - [employer] Plan [id number] Maryanne Walton elf 03/26/2019 - Unknown Advance Directives Includes: Current Advance Directives Directive Pat Aware Third Republican Effective Date Reviewed Status packet given Pt Bill of Rights, Priv Prac, Ad Dir Yes 05/08/2019 Current and Verified Note: Pt declined AD packet Ebola Screening Performed Yes 01/21/2020 Current and Verified Note: Within the last month, have you traveled outside of the [place]? 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 Onset 12/27/2016 Behavioral Health Treatment Plan Onset 07/16/2018 Depression Onset 12/27/2016 Opioid Dependence Onset 12/27/2016 nicotine Dependence Added 06/20/2018 Goals Includes: Active Goals Goal: Prevent relapsing on opiates Added 06/20/2018 by Provider Health Concern: Opioid Dependence Behavioral Health Treatment Plan Added 07/18/2018 by Provider Health Concerns: Anxiety Disorder of Unknown (axis Iii) Etiology, Behavioral Health Treatment Plan, Depression Interventions Includes: Interventions for active Goals Medications as prescribed; risks, benefi ts, side effects and alternatives discussed ( Suboxone ). Added 06/20/2018 Goal: Goal: Prevent relapsing on opiates Continue with addiction counseling. Added 06/20/2018 Goal: Goal: Prevent relapsing on opiates Be compliant with medication and keeping follow up appointments. Added 06/20/2018 Goal: Goal: Prevent relapsing on opiates Behavioral Health Treatment Plan Initiat ed: 07/16/18 Added 07/18/2018 Goal: Behavioral Health Treatment Plan Behavioral Health Treatment Duration: 90 days Added 07/18/2018 Goal: Behavioral Health Treatment Plan Behavioral Health Treatment Frequency: b iweekly Added 07/18/2018 Goal: Behavioral Health Treatment Plan Behavioral Health Treatment Plan Updated : 09/13/18 continue biweekly Added 09/14/2018 Goal: Behavioral Health Treatment Plan Behavioral Health Treatment Plan Discont inued: 01/27/19 Added 01/28/2019 Goal: Behavioral Health Treatment Plan Evaluations & Outcomes Includes: Evaluations & Outcomes for active Goals Goal is in progress. Added 06/20/2018 - In Progress Goal: Goal: Prevent relapsing on opiates
--- OUTSIDE RECORDS SUMMARY | 2020-05-20 12:35 | CCD ---
Author Author [facility] Organization [facility] Address Unknown Phone Unavailable Support Name Relationship Address Phone Jovanni Cedilloten Next Of Kin Unknown Unavailable [employer] Next Of Kin [address] [place] [address] JOVANNI QUIÑONES Next Of Kin [address] [place] [address] [employer] Next Of Kin [address] [place] [address] [employer] Next Of Kin [address] [place] [address] Jenny Ratliff DDS Next Of Kin [address] [place], [place] [id number] pivit Next Of Kin [address] [place] [address] Unavailable PIVOT Next Of Kin [address] [place] [address] REYNOLD TOUSSAINT Next Of Kin [address] [place] [address] [facility] Next Of Kin [address] [place] [address] ABE ZARCO Next Of Kin [address] [place] [id number] Juan Jose Vilchis Next Of Kin [address] [place] [address] [facility] [employer] Next Of Kin [address] [place] [address] [employer] Next Of Kin [address] [place] [address] SMC* Next Of Kin [address] [place] [address] LG QUIÑONES Next Of Kin [address] [place] [address] MISAEL MUHAMMAD Next Of Kin [address] [place] [address] LG QUIÑONES Next Of Kin Unknown Jovanni Quiñones ECON Unknown [phone] LG QUIÑONES ECON [address] [place] [address] [phone] Scooby TOUSSAINT ECON [address] [place] [address] Care Team Providers Care Char Filter Tank Tender Head Name Role Phone Leatha Heard Unavailable MARCIAL JANG MD Unavailable Unavailable MARCIAL JANG MD Unavailable Unavailable MARCIAL JANG MD Unavailable Unavailable MARCIAL JANG MD Unavailable Unavailable MARCIAL JANG MD Unavailable Unavailable MARCIAL JANG MD Unavailable Unavailable MARCIAL JANG MD Unavailable Unavailable MARCIAL JANG MD Unavailable Unavailable MARCIAL JANG MD Unavailable Unavailable MARCIAL JANG MD Unavailable Unavailable MARCIAL JANG MD Unavailable Unavailable MARCIAL JANG MD Unavailable Unavailable MARCIAL JANG MD Unavailable Unavailable MARCIAL JANG MD Unavailable Unavailable MARCIAL JANG MD Unavailable Unavailable MARCIAL JANG MD Unavailable Unavailable MARCIAL JANG MD Unavailable Unavailable MARCIAL JANG MD Unavailable Unavailable MARCIAL JANG MD Unavailable Unavailable MARCIAL JANG MD Unavailable Unavailable MARCIAL JANG MD Unavailable Unavailable MARCIAL JANG MD Unavailable Unavailable MARCIAL JANG MD Unavailable Unavailable MARCIAL JANG MD Unavailable Unavailable MARCIAL JANG MD Unavailable Unavailable MARCIAL JANG MD Unavailable Unavailable MARCIAL JANG MD Unavailable Unavailable MARCIAL JANG MD Unavailable Unavailable MARCIAL JANG MD Unavailable Unavailable Tim BLCAK, S Subhanir Unavailable Tim BLACK, S Subhanir Unavailable Tim BLACK, S Subhanir Unavailable Tim BLACK, S Subhanir Unavailable Tim BLACK, S Subhanir Unavailable [place] AEMT Unavailable Unavailable [place] AEMT Unavailable Unavailable Jaya, A Rosanne AEMT Unavailable Unavailable Jaya, A Rosanne AEMT Unavailable Unavailable [place], A Rosanne AEMT Unavailable Unavailable [place], A Rosanne AEMT Unavailable Unavailable [place], A Rosanne AEMT Unavailable Unavailable [place], A Rosanne AEMT Unavailable Unavailable [place], A Rosanne AEMT Unavailable Unavailable Jaya, A Rosanne AEMT Unavailable Unavailable [place], A Rosanne AEMT Unavailable Unavailable Jaya, A Rosanne AEMT Unavailable Unavailable [place], A Rosanne AEMT Unavailable Unavailable [place], A Rosanne AEMT Unavailable Unavailable [place], A Rosanne AEMT Unavailable Unavailable [place], A Rosanne AEMT Unavailable Unavailable [place], A Rosanne AEMT Unavailable Unavailable Jaya, A Rosanne AEMT Unavailable Unavailable Jaya, A Rosanne AEMT Unavailable Unavailable Jaya, A Rosanne AEMT Unavailable Unavailable Jaya, A Rosanne AEMT Unavailable Unavailable [place], A Rosanne AEMT Unavailable Unavailable Ray, L Mabel Unavailable Unavailable Ray, L Mabel Unavailable Unavailable Ray, L Mabel Unavailable Unavailable Ray, L Mabel Unavailable Unavailable Ray, L Mabel Unavailable Unavailable Ray, L Mabel Unavailable Unavailable Ray, L Mabel Unavailable Unavailable Ray, L Mabel Unavailable Unavailable Ray, L Mabel Unavailable Unavailable Ray, L Mabel Unavailable Unavailable Ray, L Mabel Unavailable Unavailable Ray, L Mabel Unavailable Unavailable Ray, L Mabel Unavailable Unavailable Ray, L Mabel Unavailable Unavailable Ray, L Mabel Unavailable Unavailable Ray, L Mabel Unavailable Unavailable Ray, L Mabel Unavailable Unavailable Ray, L Mabel Unavailable Unavailable Ray, L Mabel Unavailable Unavailable Ray, L Mabel Unavailable Unavailable Ray, L Mabel Unavailable Unavailable Ray, L Mabel Unavailable Unavailable Ray, L Mabel Unavailable Unavailable Ray, L Mabel Unavailable Unavailable Ray, L Mabel Unavailable Unavailable Ray, L Mabel Unavailable Unavailable Ray, L Mabel Unavailable Unavailable Ray, L Mabel Unavailable Unavailable Ray, L Mabel Unavailable Unavailable Ray, L Mabel Unavailable Unavailable Ray, L Mabel Unavailable Unavailable Ray, L Mabel Unavailable Unavailable Ray, L Mabel Unavailable Unavailable Ray, L Mabel Unavailable Unavailable Ray, L Mabel Unavailable Unavailable Ray, L Mabel Unavailable Unavailable Ray, L Mabel Unavailable Unavailable Ray, L Mabel Unavailable Unavailable Ray, L Mabel Unavailable Unavailable Ray, L Mabel Unavailable Unavailable Ray, L Mabel Unavailable Unavailable Ray, L Mabel Unavailable Unavailable Ray, L Mabel Unavailable Unavailable Ray, L Mabel Unavailable Unavailable Ray, L Mabel Unavailable Unavailable Ray, L Mabel Unavailable Unavailable Ray, L Mabel Unavailable Unavailable Ray, L Mabel Unavailable Unavailable Ray, L Mabel Unavailable Unavailable Ray, L Mabel Unavailable Unavailable Ray, L Mabel Unavailable Unavailable Ray, L Mabel Unavailable Unavailable Ray, L Mabel Unavailable Unavailable Ray, L Mabel Unavailable Unavailable Ray, L Mabel Unavailable Unavailable Ray, L Mabel Unavailable Unavailable Ray, L Mabel Unavailable Unavailable Ray, L Mabel Unavailable Unavailable Ray, L Mabel Unavailable Unavailable Ray, L Mabel Unavailable Unavailable Ray, L Mabel Unavailable Unavailable Ray, L Mabel Unavailable Unavailable Ray, L Mabel Unavailable Unavailable Ray, L Mabel Unavailable Unavailable Ray, L Mabel Unavailable Unavailable Ray, L Mabel Unavailable Unavailable Ray, L Mabel Unavailable Unavailable Ray, L Mabel Unavailable Unavailable Ray, L Mabel Unavailable Unavailable Ray, L Mabel Unavailable Unavailable Ray, L Mabel Unavailable Unavailable Ray, L Mabel Unavailable Unavailable Dille, E Jenny DDS Unavailable Unavailable Dille, E Jenny DDS Unavailable Unavailable Dille, E Jenny DDS Unavailable Unavailable Dille, E Jenny DDS Unavailable Unavailable Mary Jane, A Malik BLACK Unavailable Unavailable Mary Jane, A Malik MD Unavailable Unavailable Mary Jane, A Malik BLACK Unavailable Unavailable Mary Jane, A Malik BLACK Unavailable Unavailable Mary Jane, A Malik MD Unavailable Unavailable Mary Jane, A Malik MD Unavailable Unavailable Mary Jane, A Malik MD Unavailable Unavailable Mary Jane, A Malik MD Unavailable Unavailable Mary Jane, A Malik MD Unavailable Unavailable Mary Jane, A Malik BLACK Unavailable Unavailable Mary Jane, A Malik BLACK Unavailable Unavailable Mary Jane, A Malik BLACK Unavailable Unavailable Mary Jane, A Malik BLACK Unavailable Unavailable Mary Jane, A Malik MD Unavailable Unavailable Mary Jane, A Malik MD Unavailable Unavailable Mary Jane, A Malik MD Unavailable Unavailable Mary Jane, A Malik MD Unavailable Unavailable Mary Jane, A Malik MD Unavailable Unavailable Mary Jane, A Malik MD Unavailable Unavailable Mary Jane, A Malik MD Unavailable Unavailable Mary Jane, A Malik MD Unavailable Unavailable Mary Jane, A Malik MD Unavailable Unavailable Mary Jane, A Malik MD Unavailable Unavailable Mary Jane, A Malik MD Unavailable Unavailable Mary Jane, A Malik MD Unavailable Unavailable Mary Jane, A Malik MD Unavailable Unavailable Mary Jane, A Malik MD Unavailable Unavailable Mary Jane, A Malik MD Unavailable Unavailable Mary Jane, A Malik MD Unavailable Unavailable Mary Jane, A Malik MD Unavailable Unavailable Mary Jane, A Malik MD Unavailable Unavailable Mary Jane, A Malik MD Unavailable Unavailable Mary Jane, A Malik MD Unavailable Unavailable Mary Jane, A Malik MD Unavailable Unavailable Mary Jane, A Malik MD Unavailable Unavailable Mary Jane, A Malik MD Unavailable Unavailable Mary Jane, A Malik MD Unavailable Unavailable Mary Jane, A Malik MD Unavailable Unavailable Mary Jane, A Malik MD Unavailable Unavailable Mary Jane, A Malik MD Unavailable Unavailable Mary Jane, A Malik MD Unavailable Unavailable Mary Jane, A Malik MD Unavailable Unavailable Mary Jane, A Malik MD Unavailable Unavailable Mary Jane, A Malik MD Unavailable Unavailable Mary Jane, A Malik MD Unavailable Unavailable Mary Jane, A Malik MD Unavailable Unavailable Mary Jane, A Malik MD Unavailable Unavailable Mary Jane, A Malik MD Unavailable Unavailable Mary Jane, A Malik MD Unavailable Unavailable Mary Jane, A Malik MD Unavailable Unavailable Mary Jane, A Malik MD Unavailable Unavailable Mary Jane, A Malik MD Unavailable Unavailable Mary Jane, A Malik MD Unavailable Unavailable Mary Jane, A Malik MD Unavailable Unavailable Mary Jane, A Malik MD Unavailable Unavailable Mary Jane, A Malik MD Unavailable Unavailable Mary Jane, A Malik MD Unavailable Unavailable Mary Jane, A Malik MD Unavailable Unavailable Mary Jane, A Malik MD Unavailable Unavailable Mary Jane, A Malik MD Unavailable Unavailable Mary Jane, A Malik MD Unavailable Unavailable Mary Jane, A Malik MD Unavailable Unavailable Mary Jane, A Malik MD Unavailable Unavailable Mary Jane, A Malik MD Unavailable Unavailable Mary Jane, A Malik MD Unavailable Unavailable Mary Jane, A Malik MD Unavailable Unavailable Mary Jane, A Malik MD Unavailable Unavailable Mary Jane, A Malik MD Unavailable Unavailable Mary Jane, A Malik MD Unavailable Unavailable Mary Jane, A Malik MD Unavailable Unavailable Mary Jane, A Malik MD Unavailable Unavailable Mary Jane, A Malik MD Unavailable Unavailable Mary Jane, A Malik MD Unavailable Unavailable Mary Jane, A Malik MD Unavailable Unavailable Mary Jane, A Malik MD Unavailable Unavailable Mary Jane, A Malik MD Unavailable Unavailable Mary Jane, A Malik MD Unavailable Unavailable Mary Jane, A Malik MD Unavailable Unavailable Mary Jane, A Malik MD Unavailable Unavailable Mary Jane, A Malik MD Unavailable Unavailable Mary Jane, A Malik MD Unavailable Unavailable Mary Jane, A Malik MD Unavailable Unavailable Mary Jane, A Malik MD Unavailable Unavailable Mary Jane, A Malik MD Unavailable Unavailable Mary Jane, A Malik MD Unavailable Unavailable Mary Jane, A Malik MD Unavailable Unavailable Mary Jane, A Malik MD Unavailable Unavailable Mary Jane, A Malik MD Unavailable Unavailable Mary Jane, A Malik MD Unavailable Unavailable Mary Jane, A Malik MD Unavailable Unavailable Mary Jane, A Malik MD Unavailable Unavailable Mary Jane, A Malik MD Unavailable Unavailable Mary Jane, A Malik MD Unavailable Unavailable Mary Jane, A Malik MD Unavailable Unavailable Mary Jane, A Malik MD Unavailable Unavailable Mary Jane, A Malik MD Unavailable Unavailable Mary Jane, A Malik MD Unavailable Unavailable Mary Jane, A Malik MD Unavailable Unavailable Mary Jane, A Malik MD Unavailable Unavailable Mary Jane, A Malik MD Unavailable Unavailable Mary Jane, A Malik MD Unavailable Unavailable Mary Jane, A Malik MD Unavailable Unavailable Mary Jane, A Malik MD Unavailable Unavailable Mary Jane, A Malik MD Unavailable Unavailable Mary Jane, A Malik MD Unavailable Unavailable Mary Jane, A Malik MD Unavailable Unavailable Mary Jane, A Malik MD Unavailable Unavailable Mary Jane, A Malik MD Unavailable Unavailable Mary Jane, A Malik MD Unavailable Unavailable Mary Jane, A Malik MD Unavailable Unavailable Mary Jane, A Malik MD Unavailable Unavailable Mary Jane, A Malik MD Unavailable Unavailable Mary Jane, A Malik MD Unavailable Unavailable Mary Jane, A Malik MD Unavailable Unavailable Mary Jane, A Malik MD Unavailable Unavailable Mary Jane, A Malik MD Unavailable Unavailable Mary Jane, A Malik MD Unavailable Unavailable Mary Jane, A Malik MD Unavailable Unavailable Mary Jane, A Malik MD Unavailable Unavailable Mary Jane, A Malik MD Unavailable Unavailable Mary Jane, A Malik MD Unavailable Unavailable Mary Jane, A Malik MD Unavailable Unavailable Mary Jane, A Malik MD Unavailable Unavailable Mary Jane, A Malik MD Unavailable Unavailable Mary Jane, A Malik MD Unavailable Unavailable Mary Jane, A Malik MD Unavailable Unavailable Mary Jane, A Malik MD Unavailable Unavailable Mary Jane, A Amlik MD Unavailable Unavailable Mary Jane, A Malik MD Unavailable Unavailable Mary Jane, A Malik MD Unavailable Unavailable Mary Jane, A Malik MD Unavailable Unavailable Mary Jane, A Malik MD Unavailable Unavailable Mary Jane, A Malik MD Unavailable Unavailable Mary Jane, A Malik MD Unavailable Unavailable Mary Jane, A Malik MD Unavailable Unavailable Mary Jane, A Malik MD Unavailable Unavailable Mary Jane, A Malik MD Unavailable Unavailable Mary Jane, A Malik MD Unavailable Unavailable Mary Jane, A Malik MD Unavailable Unavailable Mary Jane, A Malik MD Unavailable Unavailable Mary Jane, A Mailk MD Unavailable Unavailable Mary Jane, A Malik MD Unavailable Unavailable Mary Jane, A Malik MD Unavailable Unavailable Mary Jane, A Malik MD Unavailable Unavailable Mary Jane, A Malik MD Unavailable Unavailable Mary Jane, A Malik MD Unavailable Unavailable Mary Jane, A Malik MD Unavailable Unavailable Mary Jane, A Malik MD Unavailable Unavailable Mary Jane, A Malik MD Unavailable Unavailable Mary Jane, A Malik MD Unavailable Unavailable Mary Jane, A Malik MD Unavailable Unavailable Mary Jane, A Malik MD Unavailable Unavailable Mary Jane, A Malik MD Unavailable Unavailable Mary Jane, A Malik MD Unavailable Unavailable Mary Jane, A Malik MD Unavailable Unavailable Mary Jane, A Malik MD Unavailable Unavailable Mary Jane, A Malik MD Unavailable Unavailable Mary Jane, A Malik MD Unavailable Unavailable Mary Jane, A Malik MD Unavailable Unavailable Mary Jane, A Malik MD Unavailable Unavailable Ray, L Mabel Unavailable Unavailable Ray, L Mabel Unavailable Unavailable Ray, L Mabel Unavailable Unavailable Ray, L Mabel Unavailable Unavailable Ray, L Mabel Unavailable Unavailable Ray, L Mabel Unavailable Unavailable Ray, L Mabel Unavailable Unavailable Ray, L Mabel Unavailable Unavailable Ray, L Mabel Unavailable Unavailable Ray, L Mabel Unavailable Unavailable Ray, L Mabel Unavailable Unavailable Ray, L Mabel Unavailable Unavailable Ray, L Mabel Unavailable Unavailable Ray, L Mabel Unavailable Unavailable Ray, L Mabel Unavailable Unavailable Ray, L Mabel Unavailable Unavailable Ray, L Mabel Unavailable Unavailable Ray, L Mabel Unavailable Unavailable Ray, L Mabel Unavailable Unavailable Ray, L Mabel Unavailable Unavailable Ray, L Mabel Unavailable Unavailable Ray, L Mabel Unavailable Unavailable Ray, L Mabel Unavailable Unavailable Ray, L Mabel Unavailable Unavailable Ray, L Mabel Unavailable Unavailable Ray, L Mabel Unavailable Unavailable Ray, L Mabel Unavailable Unavailable Ray, L Mabel Unavailable Unavailable Ray, L Mabel Unavailable Unavailable Ray, L Mabel Unavailable Unavailable Ray, L Mabel Unavailable Unavailable Ray, L Mabel Unavailable Unavailable Ray, L Mabel Unavailable Unavailable Ray, L Mabel Unavailable Unavailable Ray, L Mabel Unavailable Unavailable Ray, L Mabel Unavailable Unavailable Ray, L Mabel Unavailable Unavailable Ray, L Mabel Unavailable Unavailable Ray, L Mabel Unavailable Unavailable Ray, L Mabel Unavailable Unavailable Ray, L Mabel Unavailable Unavailable Ray, L Mabel Unavailable Unavailable Ray, L Mabel Unavailable Unavailable Ray, L Mabel Unavailable Unavailable Ray, L Mabel Unavailable Unavailable Ray, L Mabel Unavailable Unavailable Ray, L Mabel Unavailable Unavailable Ray, L Mabel Unavailable Unavailable Ray, L Mabel Unavailable Unavailable Ray, L Mabel Unavailable Unavailable Ray, L Mabel Unavailable Unavailable Ray, L Mabel Unavailable Unavailable Ray, L Mabel Unavailable Unavailable Ray, L Mabel Unavailable Unavailable Ray, L Mabel Unavailable Unavailable Ray, L Mabel Unavailable Unavailable Ray, L Mabel Unavailable Unavailable Ray, L Mabel Unavailable Unavailable Ray, L Mabel Unavailable Unavailable Ray, L Mabel Unavailable Unavailable Ray, L Mabel Unavailable Unavailable Ray, L Mabel Unavailable Unavailable Ray, L Mabel Unavailable Unavailable Ray, L Mabel Unavailable Unavailable Ray, L Mabel Unavailable Unavailable Ray, L Mabel Unavailable Unavailable Ray, L Mabel Unavailable Unavailable Ray, L Mabel Unavailable Unavailable Ray, L Mabel Unavailable Unavailable Ray, L Mabel Unavailable Unavailable Ray, L Mabel Unavailable Unavailable Ray, L Mabel Unavailable Unavailable Re-disclosure Warning The records that you are about to access may contain information from federally-assisted alcohol or drug abuse programs. If such information is present, then the following federally mandated warning applies: This information has been disclosed to you from records protected by federal confidentiality rules (42 CFR part 2). The federal rules prohibit you from making any further disclosure of this information unless further disclosure is expressly permitted by the written consent of the person to whom it pertains or as otherwise permitted by 42 CFR part 2. A general authorization for the release of medical or other information is NOT sufficient for this purpose. The Federal rules restrict any use of the information to criminally investigate or prosecute any alcohol or drug abuse patient.The records that you are about to access may contain highly sensitive health information, the redisclosure of which is protected by Article 27-F of the [facility] Public Health law. If you continue you may have access to information: Regarding HIV / AIDS; Provided by facilities licensed or operated by the [facility] Office of Mental Health; or Provided by the [facility] Office for People With Developmental Disabilities. If such information is present, then the following [facility] mandated warning applies: This information has been disclosed to you from confidential records which are protected by state law. State law prohibits you from making any further disclosure of this information without the specific written consent of the person to whom it pertains, or as otherwise permitted by law. Any unauthorized further disclosure in violation of state law may result in a fine or snf sentence or both. A general authorization for the release of medical or other information is NOT sufficient authorization for further disc losure. Advance Directives Directive Description Aquatics Instructor Loom Starter Status Observation Descr iption Data Source(s) Ebola Screening Performed completed Ebol a Screening Performed MARK ANTHONY ([facility]) Note: Within the last month, have you tr aveled outside of the [place]? -NO Ebola Screening Performed completed Ebol a Screening Performed MARK ANTHONY ([facility]) Note: Within the last month, have you tr aveled outside of the [place]? -NO Ebola Screening Performed completed Ebol a Screening Performed MARK ANTHONY ([facility] Note: Within the last month, have you tr aveled outside of the [place]? -NO Ebola Screening Performed completed Ebol a Screening Performed MARK ANTHONY ([facility]) Note: Within the last month, have you tr aveled outside of the [place]? -NO packet given Pt Bill of Rights, Priv Prac, Ad Dir completed packet given Pt Bill of Rights, Priv Prac, Ad Dir MARK ANTHONY ([facility]) Note: Pt declined AD packet Ebola Screening Performed completed Ebol a Screening Performed MARK ANTHONY ([facility]) Note: Within the last month, have you tr aveled outside of the [place]? -NO Ebola Screening Performed completed Ebol a Screening Performed MARK ANTHONY ([facility]) Note: Within the last month, have you tr aveled outside of the [place]? -NO Allergies and Adverse Reactions Type Description Substance Reaction Status Data Source(s ) DRUG INGREDI ARMODAFINIL ARMODAFINIL Other Med [facility] Drug Class NO KNOWN ALLERGIES NO KNOWN ALLERGIES [facility] Family History Family Member Name Family Member Gender Family Member Status Date o f Status Description Data Source(s) Unknown Unknown Problem MEDENT ([facility]) Encounters Encounter Providers Location Date Indications Data Source(s ) Outpatient Attender: MARCIAL JANG MD 08/13/2020 12:00: 00 AM [facility] [id number] [facility] [address] 04/20/2020 12:00:00 AM EST eCW1 ([facility]) Outpatient Attender: MARCIAL JANG MD [id number] 12:00:00 AM EST - 04/02/2020 02:25:25 PM EST Narcolepsy without cataplexy [facility] Narcolepsy without cataplexy Outpatient<td ID="encounterTypeDescripti onID0">Sublocade</td><td>Mabel Freddie Peters DO</td><td>[facility]</td><td>02/25/2020</td><td><content ID="encounterDiagnosisID0-0">Opioid Dependence</content></td> Attender: [facility] 02/25/2020 03:20:00 PM EST - 02/25/2020 11:59:00 PM EST Opioid Dependence MARK ANTHONY ([facility]) Opioid Dependence Outpatient<td ID="encounterTypeDescripti onID1">Telephonic Encounter</td><td>Mabeldomo Peters DO</td><td>[facility]</td><td>02/17/2020</td><td><content ID="encounterDiagnosisID1-0"> Raynaud's Syndrome</content></td> Attender: [facility] 02/17/2020 07:53:00 AM EST - 02/17/2020 09:14:35 AM EST Raynaud's SyndromeRaynaud's Syndrome MARK ANTHONY ([facility]) Raynaud's Syndrome Raynaud's Syndrome Unknown<td ID="encounterTypeDescriptionI D2">Chart Update</td><td>Rosanne Lake NP</td><td></td><td>01/29/2020</td><td></td> Attender: Rosanne Lake NP 01/29/2020 05:15:00 PM EST - 01/29/2020 11:59:00 PM EST MARK ANTHONY ([facility]) Outpatient Attender: Jenny PANIAGUA 01/26/2020 02:14:00 P M EST [facility] Outpatient<td ID="encounterTypeDescripti onID3">Sublocade</td><td>Mabel Peters DO</td><td>[facility]</td><td>01/21/2020</td><td><content ID="encounterDiagnosisID3-0">Opioid Dependence</content></td> Attender: Mabel Peters [facility] 01/21/2020 03:38:00 PM EDT - 01/21/2020 04:30:10 PM EDT Opioid DependenceOpioid DependenceOpioid DependenceOpioid Dependence MARK ANTHONY ([facility]) Opioid Dependence Opioid Dependence Opioid Dependence Opioid Dependence Outpatient Attender: Jenny Ratliff [facility] 01/20/2020 10:04:01 A M EDT [facility] Outpatient Attender: Jenny Ratliff [facility] 01/20/2020 09:24:00 A M EDT [facility] Outpatient<td ID="encounterTypeDescripti onID4">Medication Order</td><td>Mabel Peters DO</td><td></td><td>01/12/2020</td><td></td> Attender: Mabel Peters 01/12/2020 05:21:00 PM EDT - 01/12/2020 11:59:00 PM EDT JUNTURA ([facility]) Outpatient<td ID="encounterTypeDescripti onID5">SUBOXONE</td><td>Mabel Peters DO</td><td>[facility]</td><td>01/08/2020</td><td><content ID="encounterDiagnosisID5-0">Opioid Dependence</content>, <content ID="encounterDiagnosisID5-1">Anemia</content>, <content ID="encounterDiagnosisID5-2">Narcolepsy</content></td> Attender: Mabel Peters [facility] 01/08/2020 10:33:00 AM EDT - 01/08/2020 11:17:07 AM ED T AnemiaAnemiaAnemiaAnemiaAnemiaNarcolepsyNarcolepsyNarcolepsyNarcolepsyNarcolepsy DependenceOpioid DependenceOpioid DependenceOpioid DependenceOpioid Dependence MARK ANTHONY ([facility]) Anemia Anemia Anemia Anemia Anemia Narcolepsy Narcolepsy Narcolepsy Narcolepsy Narcolepsy Opioid Dependence Opioid Dependence Opioid Dependence Opioid Dependence Opioid Dependence Unknown<td ID="encounterTypeDescriptionI D6">Chart Update</td><td>Mabel Ravi Fran DO</td><td></td><td>01/06/2020</td><td></td> Attender: Mabeldomo Peters 01/06/2020 05:27:00 PM EDT - 01/06/2020 11:59:00 PM EDT MARK ANTHONY ([facility]) Outpatient Attender: MARCIAL JANG MD [id number] 12:00:00 AM EDT - 12/29/2019 11:28:09 AM EDT Narcolepsy without cataplexy [facility] Narcolepsy without cataplexy Unknown<td ID="encounterTypeDescriptionI D7">Chart Update</td><td>Mabel Freddie Peters DO</td><td></td><td>12/26/2019</td><td></td> Attender: Mabeldomo Peters 12/26/2019 06:45:00 PM EDT - 12/26/2019 11:59:00 PM EDT MARK ANTHONY ([facility]) Office Visit Attender: Malik Hinton MD [place] 12/26/2019 10:00:00 AM EDT MEDENT ([facility]) Outpatient Attender: Jenny TORREZ 12/26/2019 07:23:00 A M EDT [facility] Outpatient Attender: Jenny TORREZ 12/25/2019 10:17:01 A M EDT [facility] Outpatient Attender: Jenny TORREZ 12/25/2019 09:31:01 A M EDT [facility] Outpatient Attender: Jenny TORREZ 12/25/2019 08:51:00 A M EDT [facility] Outpatient Attender: Jenny TORREZ 12/25/2019 08:46:00 A M EDT [facility] Outpatient Attender: Jenny TORREZ 12/25/2019 08:21:01 A M EDT [facility] Outpatient Attender: Jenny TORREZ 12/25/2019 07:33:01 A M EDT [facility] Outpatient Attender: Jenny Ratliff DDS [facility] 12/25/2019 07:29:00 A M EDT [facility] Unknown<td ID="encounterTypeDescriptionI D8">Chart Update</td><td>Rosanne Lake NP</td><td></td><td>12/09/2019</td><td></td> Attender: Rosanne Lake NP 12/09/2019 04:38:00 PM EDT - 12/09/2019 11:59:00 PM EDT MARK ANTHONY ([facility]) Unknown<td ID="encounterTypeDescriptionI D9">Chart Update</td><td>Rosanne Lake NP</td><td></td><td>12/09/2019</td><td></td> Attender: Rosanen Lake NP 12/09/2019 08:02:00 AM EDT - 12/09/2019 11:59:00 PM EDT MARK ANTHONY ([facility]) Unknown<td ID="encounterTypeDescriptionI D10">Chart Update</td><td>Rosanne Lake NP</td><td></td><td>12/05/2019</td><td><content ID="ahjdlxsrhQltwphdekRL34- 0">Rectal Prolapse</content></td> Attender: Rosanne Lake NP 0 12/05/2019 11:33:00 AM EDT - 12/05/2019 11:59:00 PM EDT Rectal ProlapseRectal ProlapseRectal ProlapseRectal ProlapseRectal ProlapseRectal ProlapseRectal ProlapseRectal ProlapseRectal ProlapseRectal Prolapse MARK ANTHONY ([facility]) Rectal Prolapse Rectal Prolapse Rectal Prolapse Rectal Prolapse Rectal Prolapse Rectal Prolapse Rectal Prolapse Rectal Prolapse Rectal Prolapse Rectal Prolapse Unknown<td ID="encounterTypeDescriptionI D11">Correspondence</td><td>Mabel Peters DO</td><td></td><td>11/28/2019</td><td></td> Attender: Mabel Peters 11/28/2019 01:51:00 PM EDT - 11/28/2019 11:59:00 PM EDT [facility] Office Visit Attender: Malik Hinton MD [place] 11/28/2019 12:00:00 PM EDT MED[facility] ([facility]) Outpatient Referrer: Malik Hinton MD MOB-MOB.PAT 2019 10:23:53 AM EDT - 11/28/2019 11:19:50 AM EDT [facility] Outpatient Attender: Malik Hinton MDReferrer: Malik Hinton MD MOB-MOB.PAT 11/28/2019 09:10:28 AM EDT - 11/28/2019 10:15:51 AM EDT [facility] Outpatient<td ID="encounterTypeDescripti onID12">Medication Order</td><td>Mabel Ravi Fran DO</td><td></td><td>11/25/2019</td><td><content ID="pmdqaofslKfojxrdbhMW29-5">Iron Deficiency Anemia</content></td> Attender: Mabel Peters 11/25/2019 08:01:00 AM EDT - 11/25/2019 11:59:00 PM EDT Iron Deficiency AnemiaIron Deficiency AnemiaIron Deficiency AnemiaIron Deficiency AnemiaIron Deficiency AnemiaIron Deficiency AnemiaIron Deficiency AnemiaIron Deficiency AnemiaIron Deficiency AnemiaIron Deficiency AnemiaIron Deficiency Anemia MARK ANTHONY ([facility] Iron Deficiency Anemia Iron Deficiency Anemia Iron Deficiency Anemia Iron Deficiency Anemia Iron Deficiency Anemia Iron Deficiency Anemia Iron Deficiency Anemia Iron Deficiency Anemia Iron Deficiency Anemia Iron Deficiency Anemia Iron Deficiency Anemia Inpatient Attender: Wilner Mejía DAttender: Malik Hinton MDAdmitter: Malik Hinton MD [id number] 11/24/2019 03:39:28 PM EDT - 12/06/2019 01:53:00 PM EDT [facility] Patient discharged. Outpatient Attender: Mabel Peters 11/21/2019 02:28:00 PM EDT Lab [facility] Lab Outpatient Attender: MARCIAL JANG MD 11/14/2019 12:00: 00 AM T [facility] Outpatient Attender: Malik Cuello 11/07/2019 01:00:00 P M EDT MEDENT ([facility]) Outpatient Attender: MARCIAL JANG MD [id number] 12:00:00 AM EDT - 10/20/2019 10:09:38 AM EDT Narcolepsy without cataplexy [facility] Narcolepsy without cataplexy Unknown<td ID="encounterTypeDescriptionI D13">Correspondence</td><td>Mabel Freddie Ray DO</td><td></td><td>10/07/2019</td><td></td> Attender: Mabel Peters 10/07/2019 07:35:00 AM EDT - 10/07/2019 11:59:00 PM EDT JUNTURA ([facility]) Outpatient<td ID="encounterTypeDescripti onID14">Medication Order</td><td>Mabel Peters DO</td><td></td><td>09/17/2019</td><td></td> Attender: Mabel Peters 09/17/2019 08:48:00 AM EDT - 09/17/2019 11:59:00 PM EDT JUNTURA ([facility]) Outpatient Attender: MARCIAL JANG MD [id number] 12:00:00 AM EDT - 09/17/2019 01:53:46 PM EDT Narcolepsy without cataplexy [facility] Narcolepsy without cataplexy Outpatient<td ID="encounterTypeDescripti onID15">Chronic Disease Follow- up</td><td>Mabel Peters DO</td><td>[facility]</td><td>09/16/2019</td><td><content ID="ebvqrwtmgHqhkjnmcxZA38-2"> Constipation Drug-induced</content>, <content ID="voofiyeuiApujfpwtfLC33- 1">Depression</content>, <content ID="xgizhcdosJkkxwypmdFU99- 2">Eczema</content>, <content ID="qfptwgeoqYldhitqloPL46-1">Migraine Headache</content>, <content ID="qscihpwzyEoconokknDL59-7">Narcolepsy</content>, <content ID="jmurpnabcKdjawlxusOX71-1">Rectal Prolapse</content>, <content ID="csezbhendEpjgputwsRU20-7">Chronic Daily Headache</content>, <content ID="cghzyhwsuShasyjaflDF54-7">Myalgia and Myositis</content>, <content ID="ocmdcyggeGuycmdsaqPU86-6">Cervicalgia</content>, <content ID="bsuxypvisTmallamcjCG02-6">Neuralgia Occipital</content></td> Attender: Mabel Peters [facility] 09/16/2019 09:51:00 AM EDT - 09/16/2019 12:02:41 PM EDT Neuralgia OccipitalCervicalgiaMyalgia an d MyositisChronic Daily HeadacheNeuralgia OccipitalCervicalgiaMyalgia and MyositisChronic Daily HeadacheNeuralgia OccipitalCervicalgiaMyalgia and MyositisChronic Daily HeadacheNeuralgia OccipitalCervicalgiaMyalgia and MyositisChronic Daily HeadacheNeuralgia OccipitalCervicalgiaMyalgia and MyositisChronic Daily HeadacheNeuralgia OccipitalCervicalgiaMyalgia and MyositisChronic Daily HeadacheNeuralgia OccipitalCervicalgiaMyalgia and MyositisChronic Daily HeadacheNeuralgia OccipitalCervicalgiaMyalgia and MyositisChronic Daily HeadacheNeuralgia OccipitalCervicalgiaMyalgia and MyositisChronic Daily HeadacheNeuralgia OccipitalCervicalgiaMyalgia and MyositisChronic Daily HeadacheNeuralgia OccipitalCervicalgiaMyalgia and MyositisChronic Daily HeadacheNeuralgia OccipitalCervicalgiaMyalgia and MyositisChronic Daily HeadacheMigraine HeadacheMigraine HeadacheMigraine HeadacheMigraine Headache Migraine HeadacheMigraine HeadacheMigraine HeadacheMigraine HeadacheMigraine HeadacheMigraine HeadacheMigraine HeadacheMigraine HeadacheNarcolepsyNarcolepsyNarcolepsyNarcolepsyNarcolepsyNarcolepsyNarc olepsyNarcolepsyNarcolepsyNarcolepsyNarcolepsyNarcolepsyConstipation Drug- inducedConstipation Drug-inducedConstipation Drug-inducedConstipation Drug- inducedConstipation Drug-inducedConstipation Drug-inducedConstipation Drug-inducedConstipation Drug-inducedConstipation Drug-inducedConstipation Drug- inducedConstipation Drug-inducedConstipation Drug-inducedRectal ProlapseRectal ProlapseRectal ProlapseRectal ProlapseRectal ProlapseRectal ProlapseRectal ProlapseRectal ProlapseRectal ProlapseRectal ProlapseRectal ProlapseRectal ProlapseEczemaEczemaEczemaEczemaEczemaEczemaEczemaEczemaEczemaEczemaEczemaEczema DepressionDepressionDepressionDepressionDepressionDepressionDepressionDepression DepressionDepressionDepressionDepression MARK ANTHONY ([facility]) Neuralgia Occipital Cervicalgia Myalgia and Myositis Chronic Daily Headache Neuralgia Occipital Cervicalgia Myalgia and Myositis Chronic Daily Headache Neuralgia Occipital Cervicalgia Myalgia and Myositis Chronic Daily Headache Neuralgia Occipital Cervicalgia Myalgia and Myositis Chronic Daily Headache Neuralgia Occipital Cervicalgia Myalgia and Myositis Chronic Daily Headache Neuralgia Occipital Cervicalgia Myalgia and Myositis Chronic Daily Headache Neuralgia Occipital Cervicalgia Myalgia and Myositis Chronic Daily Headache Neuralgia Occipital Cervicalgia Myalgia and Myositis Chronic Daily Headache Neuralgia Occipital Cervicalgia Myalgia and Myositis Chronic Daily Headache Neuralgia Occipital Cervicalgia Myalgia and Myositis Chronic Daily Headache Neuralgia Occipital Cervicalgia Myalgia and Myositis Chronic Daily Headache Neuralgia Occipital Cervicalgia Myalgia and Myositis Chronic Daily Headache Migraine Headache Migraine Headache Migraine Headache Migraine Headache Migraine Headache Migraine Headache Migraine Headache Migraine Headache Migraine Headache Migraine Headache Migraine Headache Migraine Headache Narcolepsy Narcolepsy Narcolepsy Narcolepsy Narcolepsy Narcolepsy Narcolepsy Narcolepsy Narcolepsy Narcolepsy Narcolepsy Narcolepsy Constipation Drug-induced Constipation Drug-induced Constipation Drug-induced Constipation Drug-induced Constipation Drug-induced Constipation Drug-induced Constipation Drug-induced Constipation Drug-induced Constipation Drug-induced Constipation Drug-induced Constipation Drug-induced Constipation Drug-induced Rectal Prolapse Rectal Prolapse Rectal Prolapse Rectal Prolapse Rectal Prolapse Rectal Prolapse Rectal Prolapse Rectal Prolapse Rectal Prolapse Rectal Prolapse Rectal Prolapse Rectal Prolapse Eczema Eczema Eczema Eczema Eczema Eczema Eczema Eczema Eczema Eczema Eczema Eczema Depression Depression Depression Depression Depression Depression Depression Depression Depression Depression Depression Depression Outpatient Attender: MARCIAL JANG MD 08/22/2019 12:00: 00 AM [facility] Outpatient Attender: MARCIAL JANG MD [id number] 12:00:00 AM EDT - 08/20/2019 04:34:23 PM EDT Narcolepsy without cataplexy [facility] Narcolepsy without cataplexy Unknown<td ID="encounterTypeDescriptionI D16">Chart Prep</td><td>Leatha Heard</td><td></td><td>08/15/2019</td><td></td> Attender: Leatha Heard 08/15/2019 04:04:00 PM EDT - 08/15/2019 11:59:00 PM EDT JUNTURA ([facility]) Outpatient Attender: MARCIAL JANG MD 07/30/2019 12:00: 00 AM [facility] Outpatient<td ID="encounterTypeDescripti onID17">Primary Care Telehealth FaceTime</td><td>Rosanne Lake NP</td><td>[facility]</td><td>07/16/2019</td><td><content ID="rfrprsqsfWjvbdmcsxBK28- 0">Dermatitis</content>, <content ID="lhxpvxctyWkmpwnhshIX77-2">Headache Syndromes</content></td> Attender: Rosanne Lake NP [facility] 07/16/2019 10:30:00 AM EDT - 07/16/2019 10:36:33 AM EDT Headache SyndromesHeadache SyndromesHeadache SyndromesHeadache SyndromesHeadache SyndromesHeadache SyndromesHeadache SyndromesHeadache SyndromesHeadache SyndromesHeadache SyndromesHeadache SyndromesHeadache SyndromesHeadache SyndromesDermatitis DermatitisDermatitisDermatitisDermatitisDermatitisDermatitisDermatitisDermatitis DermatitisDermatitisDermatitisDermatitis MARK ANTHONY ([facility]) Headache Syndromes Headache Syndromes Headache Syndromes Headache Syndromes Headache Syndromes Headache Syndromes Headache Syndromes Headache Syndromes Headache Syndromes Headache Syndromes Headache Syndromes Headache Syndromes Headache Syndromes Dermatitis Dermatitis Dermatitis Dermatitis Dermatitis Dermatitis Dermatitis Dermatitis Dermatitis Dermatitis Dermatitis Dermatitis Dermatitis Outpatient Attender: MARCIAL JANG MD [id number] 12:00:00 AM EDT - 07/14/2019 09:52:50 AM EDT [facility] Outpatient<td ID="encounterTypeDescripti onID18">Medication Order</td><td>Mabel Peters DO</td><td></td><td>07/03/2019</td><td></td> Attender: Mabel Peters 07/03/2019 12:22:00 PM EDT - 07/03/2019 11:59:00 PM EDT [facility]) Outpatient Attender: Jenny PANIAGUA 07/01/2019 09:01:01 P M EDT [facility] Outpatient<td ID="encounterTypeDescripti onID19">Acute</td><td>Mabel Peters DO</td><td>[facility]</td><td>06/11/2019</td><td><content ID="mxeauqchrBfmxnobsgQY83-2">Narcolepsy</content>, <content ID="mjehtouplJotayxigcXH08-4">Nonorganic Sleep Apnea Obstructive</content>, <content ID="wzaqgsdofLegpgovkhBL38-9">Asthmatic Bronchitis</content></td> Attender: Mabel Peters [facility] 06/11/2019 02:47:00 PM EDT - 06/11/2019 03:40:45 PM EDT Asthmatic BronchitisAsthmatic Bronchitis Asthmatic BronchitisAsthmatic BronchitisAsthmatic BronchitisAsthmatic BronchitisAsthmatic BronchitisAsthmatic BronchitisAsthmatic BronchitisAsthmatic BronchitisAsthmatic BronchitisAsthmatic BronchitisAsthmatic BronchitisAsthmatic BronchitisNarcolepsyNarcolepsyNarcolepsyNarcolepsyNarcolepsyNarcolepsyNarcolepsy NarcolepsyNarcolepsyNarcolepsyNarcolepsyNarcolepsyNarcolepsyNarcolepsyNonorganic Sleep Apnea ObstructiveNonorganic Sleep Apnea ObstructiveNonorganic Sleep Apnea ObstructiveNonorganic Sleep Apnea ObstructiveNonorganic Sleep Apnea ObstructiveNonorganic Sleep Apnea ObstructiveNonorganic Sleep Apnea Obstruc tiveNonorganic Sleep Apnea ObstructiveNonorganic Sleep Apnea ObstructiveNonorganic Sleep Apnea ObstructiveNonorganic Sleep Apnea ObstructiveNonorganic Sleep Apnea ObstructiveNonorganic Sleep Apnea ObstructiveNonorganic Sleep Apnea Obstructive MARK ANTHONY ([facility]) Asthmatic Bronchitis Asthmatic Bronchitis Asthmatic Bronchitis Asthmatic Bronchitis Asthmatic Bronchitis Asthmatic Bronchitis Asthmatic Bronchitis Asthmatic Bronchitis Asthmatic Bronchitis Asthmatic Bronchitis Asthmatic Bronchitis Asthmatic Bronchitis Asthmatic Bronchitis Asthmatic Bronchitis Narcolepsy Narcolepsy Narcolepsy Narcolepsy Narcolepsy Narcolepsy Narcolepsy Narcolepsy Narcolepsy Narcolepsy Narcolepsy Narcolepsy Narcolepsy Narcolepsy Nonorganic Sleep Apnea Obstructive Nonorganic Sleep Apnea Obstructive Nonorganic Sleep Apnea Obstructive Nonorganic Sleep Apnea Obstructive Nonorganic Sleep Apnea Obstructive Nonorganic Sleep Apnea Obstructive Nonorganic Sleep Apnea Obstructive Nonorganic Sleep Apnea Obstructive Nonorganic Sleep Apnea Obstructive Nonorganic Sleep Apnea Obstructive Nonorganic Sleep Apnea Obstructive Nonorganic Sleep Apnea Obstructive Nonorganic Sleep Apnea Obstructive Nonorganic Sleep Apnea Obstructive Unknown<td ID="encounterTypeDescriptionI D20">Chart Update</td><td>Rosanne Lake NP</td><td></td><td>06/06/2019</td><td></td> Attender: Rosanne Lake NP 06/06/2019 10:52:00 AM EDT - 06/06/2019 11:59:00 PM EDT [facility] Outpatient Attender: MARCIAL JANG MDReferrer: Mabel vail [id number] 06/06/2019 12:00:00 AM EDT - 06/06/2019 09:40:34 AM EDT Apnea, not elsewhere classified [facility] Apnea, not elsewhere classified Outpatient<td ID="encounterTypeDescripti onID21">Medication Order</td><td>Mabel Peters DO</td><td></td><td>05/30/2019</td><td></td> Attender: Mabel Peters 05/30/2019 07:53:00 AM EST - 05/30/2019 11:59:00 PM EST MARK ANTHONY ([facility]) Unknown<td ID="encounterTypeDescriptionI D22">Chart Update</td><td>Mabel Peters DO</td><td></td><td>05/13/2019</td><td></td> Attender: Mabel Peters 05/13/2019 07:52:00 AM EST - 05/13/2019 11:59:00 PM EST MARK ANTHONY ([facility]) Outpatient<td ID="encounterTypeDescripti onID23">Medication Follow- up</td><td>Mabel Peters DO</td><td>[facility]</td><td>05/08/2019</td><td><content ID="gysqixdreMnvjsdkcqWW42-0">Sleep Disorder Hypersomnia</content>, <content ID="buwlbgrxkEwcevepoxLV41- 1">Narcolepsy</content>, <content ID="ijmyqbawrXrfjtzxvbXH65-7">Nonorganic Sleep Apnea Obstructive</content>, <content ID="fzfrjnrjpEuqqhtcgcJW88-6">Opioid Dependence</content></td> Attender: Mabel Fran [facility] 05/08/2019 04:27:00 PM EST - 05/08/2019 05:05:58 PM EST Sleep Disorder HypersomniaSleep Disorder HypersomniaSleep Disorder HypersomniaSleep Disorder HypersomniaSleep Disorder HypersomniaSleep Disorder HypersomniaSleep Disorder HypersomniaSleep Disorder HypersomniaSleep Disorder HypersomniaSleep Disorder HypersomniaSleep Disorder HypersomniaSleep Disorder HypersomniaSleep Disorder HypersomniaSleep Disorder HypersomniaSleep Disorder HypersomniaSleep Disorder HypersomniaSleep Disorder HypersomniaNarcolepsyNarcolepsyNarcolepsy NarcolepsyNarcolepsyNarcolepsyNarcolepsyNarcolepsyNarcolepsyNarcolepsyNarcolepsy NarcolepsyNarcolepsyNarcolepsyNarcolepsyNarcolepsyNarcolepsyNonorganic Sleep Apnea ObstructiveNonorganic Sleep Apnea ObstructiveNonorganic Sleep Apnea ObstructiveNonorganic Sleep Apnea ObstructiveNonorganic Sleep Apnea ObstructiveNonorganic Sleep Apnea ObstructiveNonorganic Sleep Apnea ObstructiveNonorganic Sleep Apnea ObstructiveNonorganic Sleep Apnea Obstruc tiveNonorganic Sleep Apnea ObstructiveNonorganic Sleep Apnea ObstructiveNonorganic Sleep Apnea ObstructiveNonorganic Sleep Apnea ObstructiveNonorganic Sleep Apnea ObstructiveNonorganic Sleep Apnea ObstructiveNonorganic Sleep Apnea ObstructiveNonorganic Sleep Apnea Obstructive Opioid DependenceOpioid DependenceOpioid DependenceOpioid DependenceOpioid DependenceOpioid DependenceOpioid DependenceOpioid DependenceOpioid DependenceOpioid DependenceOpioid DependenceOpioid DependenceOpioid DependenceOpioid DependenceOpioid DependenceOpioid DependenceOpioid Dependence MARK ANTHONY ([facility]) Sleep Disorder Hypersomnia Sleep Disorder Hypersomnia Sleep Disorder Hypersomnia Sleep Disorder Hypersomnia Sleep Disorder Hypersomnia Sleep Disorder Hypersomnia Sleep Disorder Hypersomnia Sleep Disorder Hypersomnia Sleep Disorder Hypersomnia Sleep Disorder Hypersomnia Sleep Disorder Hypersomnia Sleep Disorder Hypersomnia Sleep Disorder Hypersomnia Sleep Disorder Hypersomnia Sleep Disorder Hypersomnia Sleep Disorder Hypersomnia Sleep Disorder Hypersomnia Narcolepsy Narcolepsy Narcolepsy Narcolepsy Narcolepsy Narcolepsy Narcolepsy Narcolepsy Narcolepsy Narcolepsy Narcolepsy Narcolepsy Narcolepsy Narcolepsy Narcolepsy Narcolepsy Narcolepsy Nonorganic Sleep Apnea Obstructive Nonorganic Sleep Apnea Obstructive Nonorganic Sleep Apnea Obstructive Nonorganic Sleep Apnea Obstructive Nonorganic Sleep Apnea Obstructive Nonorganic Sleep Apnea Obstructive Nonorganic Sleep Apnea Obstructive Nonorganic Sleep Apnea Obstructive Nonorganic Sleep Apnea Obstructive Nonorganic Sleep Apnea Obstructive Nonorganic Sleep Apnea Obstructive Nonorganic Sleep Apnea Obstructive Nonorganic Sleep Apnea Obstructive Nonorganic Sleep Apnea Obstructive Nonorganic Sleep Apnea Obstructive Nonorganic Sleep Apnea Obstructive Nonorganic Sleep Apnea Obstructive Opioid Dependence Opioid Dependence Opioid Dependence Opioid Dependence Opioid Dependence Opioid Dependence Opioid Dependence Opioid Dependence Opioid Dependence Opioid Dependence Opioid Dependence Opioid Dependence Opioid Dependence Opioid Dependence Opioid Dependence Opioid Dependence Opioid Dependence Unknown<td ID="encounterTypeDescriptionI D24">Chart Prep</td><td>Leatha Heard</td><td></td><td>05/06/2019</td><td></td> Attender: Leatha Heard 05/06/2019 02:41:00 PM EST - 05/06/2019 11:59:00 PM EST MARK ANTHONY [facility] Outpatient<td ID="encounterTypeDescripti onID25">Medication Order</td><td>Mabel Peters DO</td><td></td><td>05/06/2019</td><td></td> Attender: Mabel Peters 05/06/2019 12:20:00 PM EST - 05/06/2019 11:59:00 PM EST MARK ANTHONY ([facility] Outpatient<td ID="encounterTypeDescripti onID26">Medication Order</td><td>Mabel Ravi Fran DO</td><td></td><td>04/08/2019</td><td></td> Attender: Mabel Fran 04/08/2019 10:16:00 AM EST - 04/08/2019 11:59:00 PM EST MARK ANTHONY ([facility]) Outpatient Attender: Mabel Fran 03/28/2019 09:52:00 AM EST lab [facility] lab Outpatient<td ID="encounterTypeDescripti onID27">Walk-In</td><td>Mabel Ravi Fran DO</td><td>[facility]</td><td>03/28/2019</td><td><content ID="ujspzzcgbGlydszmscMG20-7">Narcolepsy</content>, <content ID="pknkrtxwxNeeglbyryKJ11-2">Vomiting</content></td> Attender: Mabel Fran [facility] 03/28/2019 08:38:00 AM EST - 03/28/2019 09:38:32 AM ES T VomitingVomitingVomitingVomitingVomitingVomitingVomitingVomitingVomitingVomiting lepsyNarcolepsyNarcolepsyNarcolepsyNarcolepsy NarcolepsyNarcolepsyNarcolepsyNarcolepsyNarcolepsyNarcolepsyNarcolepsyNarcolepsy MARK ANTHONY ([facility]) Vomiting Vomiting Vomiting Vomiting Vomiting Vomiting Vomiting Vomiting Vomiting Vomiting Vomiting Vomiting Vomiting Vomiting Vomiting Vomiting Vomiting Vomiting Narcolepsy Narcolepsy Narcolepsy Narcolepsy Narcolepsy Narcolepsy Narcolepsy Narcolepsy Narcolepsy Narcolepsy Narcolepsy Narcolepsy Narcolepsy Narcolepsy Narcolepsy Narcolepsy Narcolepsy Narcolepsy Immunizations Vaccine Date Status Description Data Source(s) IIV3. This is one of two codes replacing CVX 15, which is being retired. 01/21/2020 04:24:00 PM EDT completed Influenza, seasonal, injectable 1 01/21/2020 Left Deltoid Complete (Administered) [facility] MARK ANTHONY ([facility]) Medications Medication Brand Name Start Date Product Form Dose Route Admi nistrative Instructions Pharmacy Instructions Status Indications Reaction Description Data Source(s) 20 mg 05/17/2020 12:00:00 AM EST capsule,extended releas e 24hr 30 TAKE ONE CAPSULE BY MOUTH EVERY MORNING MAXIMUM DAILY DOSE = 1 TAKE ONE CAPSULE BY MOUTH EVERY MORNING MAXIMUM DAILY DOSE = 1 SOLD: 05/17/2020 [facility] 20 mg 05/07/2020 12:00:00 AM EST tablet 24 TAKE ONE TABLET BY MOUTH EVERY DAY IN THE AFTERNOON MAXIMUM DAILY DOSE = 1 TABLET TAKE ONE TABLET BY MOUTH EVERY DAY IN THE AFTERNOON MAXIMUM DAILY DOSE = 1 TABLET SOLD: 05/07/2020 [facility] 20 mg 05/07/2020 12:00:00 AM EST tablet 6 TAKE ONE TABLET BY MOUTH EVERY DAY IN THE AFTERNOON MAXIMUM DAILY DOSE = 1 TABLET TAKE ONE TABLET BY MOUTH EVERY DAY IN THE AFTERNOON MAXIMUM DAILY DOSE = 1 TABLET SOLD: 05/07/2020 [facility] Ciprofloxacin 500 MG Oral Tablet [Cipro] Cipro 500 MG Cipro 500 MG 04/20/2020 12:00:00 AM EST 1.0 {tablet} active Ci pro 500 MG eCW1 ([facility]) 500 mg 04/20/2020 12:00:00 AM EST tablet 6 TAKE ONE TABLET BY MOUTH EVERY 12 HOURS TAKE ONE TABLET BY MOUTH EVERY 12 HOURS SOLD: 04/20/2020 [facility] 20 mg 04/17/2020 12:00:00 AM EST capsule,extended releas e 24hr 30 TAKE ONE CAPSULE BY MOUTH EVERY MORNING, MAXIMUM DAILY DOSE = 1 CAPSULE TAKE ONE CAPSULE BY MOUTH EVERY MORNING, MAXIMUM DAILY DOSE = 1 CAPSULE SOLD: 04/17/2020 [facility] Amphetamine aspartate 5 MG / Amphetamine Sulfate 5 MG / Dextroamphetamine saccharate 5 MG / Dextroamphetamine Sulfate 5 MG Oral Tablet 20 mg DEXTROAMPHETAMINE SULF-SACCHARATE/AMPHETAMINE SULF-ASPARTATE 04/07/2020 12:00:00 AM EST tablet 30 TAKE ONE TABLET BY MOUTH EVERY DAY IN AFTERNOON, MAXIMUM DAILY DOSE = 1 TABLET TAKE ONE TABLET BY MOUTH EVERY DAY IN THE [facility], MAXIMUM DAILY DOSE = 1 TABLET SOLD: 04/07/2020 [facility] 10 mg 04/02/2020 12:00:00 AM EST tablet 30 TAKE ONE TABLET BY MOUTH EVERY DAY, MAXIMUM DAILY DOSE = 1 TABLET TAKE ONE TABLET BY MOUTH EVERY DAY, MAXI MUM DAILY DOSE = 1 TABLET SOLD: 04/03/2020 [facility] Amphetamine aspartate 2.5 MG / Amphetami ne Sulfate 2.5 MG / Dextroamphetamine saccharate 2.5 MG / Dextroamphetamine Sulfate 2.5 MG Oral Tablet Amphetamine- Dextroamphetamine 10 MG Oral Tablet (ADDERALL (10MG)) Amphetamine- Dextroamphetamine 10 MG Oral Tablet (ADDERALL (10MG)) 04/02/2020 12:00:00 AM EST 10 mg Oral active Take 1 t ablet by mouth daily , Max Daily Dose: 10 mg [facility] 150 mg 03/22/2020 12:00:00 AM EST tablet 30 TAKE ONE TABLET BY MOUTH EVERY DAY, MAXIMUM DAILY DOSE = 1 TABLET TAKE ONE TABLET BY MOUTH EVERY DAY, MAXI MUM DAILY DOSE = 1 TABLET SOLD: 03/22/2020 [facility] 150 mg 03/22/2020 12:00:00 AM EST tablet 30 TAKE ONE TABLET BY MOUTH EVERY DAY, MAXIMUM DAILY DOSE = 1 TABLET TAKE ONE TABLET BY MOUTH EVERY DAY, MAXI MUM DAILY DOSE = 1 TABLET SOLD: 04/20/2020 [facility] 150 mg 03/22/2020 12:00:00 AM EST tablet 30 TAKE ONE TABLET BY MOUTH EVERY DAY, MAXIMUM DAILY DOSE = 1 TABLET TAKE ONE TABLET BY MOUTH EVERY DAY, MAXI MUM DAILY DOSE = 1 TABLET SOLD: 05/19/2020 [facility] Solriamfetol HCl 150 MG Oral Tablet (SUNOSI) [id number] 12:00:00 AM EST 150 mg Oral active Narcolepsy Take 1 tablet by mouth daily , Max Daily Dose: 150 mg Indications: Recurring Sleep Episodes During the Day [facility] Narcolepsy 20 mg 03/09/2020 12:00:00 AM EST tablet 30 TAKE ONE TABLET BY MOUTH EVERY DAY IN AFTERNOON, MAXIMUM DAILY DOSE = 1 TABLET TAKE ONE TABLET BY MOUTH EVERY DAY IN AFTERNOON, MAXIMUM DAILY DOSE = 1 TABLET SOLD: 03/09/2020 [facility] 30 mg 03/09/2020 12:00:00 AM EST capsule,extended releas e 24hr 30 TAKE ONE CAPSULE BY MOUTH EVERY MORNING, MAXIMUM DAILY DOSE = 1 CAPSULE TAKE ONE CAPSULE BY MOUTH EVERY MORNING, MAXIMUM DAILY DOSE = 1 CAPSULE SOLD: 03/09/2020 [facility] Solriamfetol HCl 75 MG Oral Tablet (SUNOSI) [id number] 03/02/2020 12:00:00 AM EST 75 mg Oral active Narcolepsy Take 1 ta blet by mouth daily , Max Daily Dose: 75 mg Indications: Recurring Sleep Episodes During the Day [facility] Narcolepsy 24 HR Amphetamine aspartate 7.5 MG / Amp hetamine Sulfate 7.5 MG / Dextroamphetamine saccharate 7.5 MG / Dextroamphetamine Sulfate 7.5 MG Extended Release Oral Capsule Amphetamine-Dextroamphet ER 30 MG Oral Capsule Extended Release 24 Hour (ADDERALL XR (30MG)) Amphetamine-Dextroamphet ER 30 MG Oral Capsule Extended Release 24 Hour (ADDERALL XR (30MG)) 03/02/2020 12:00:00 AM EST 30 mg Oral active Take 1 c apsule by mouth every morning , Max Daily Dose: 30 mg [facility] Amphetamine aspartate 5 MG / Amphetamine Sulfate 5 MG / Dextroamphetamine saccharate 5 MG / Dextroamphetamine Sulfate 5 MG Oral Tablet Amphetamine- Dextroamphetamine 20 MG Oral Tablet (ADDERALL) Amphetamine-Dextroamphetamine 20 MG Oral Tablet (ADDERALL) 03/02/2020 12:00:00 AM EST 20 mg Oral active Take 1 tablet by mouth daily In the afternoon, Max Naheed ly Dose: 20 mg [facility] 75 mg 03/02/2020 12:00:00 AM EST tablet 15 TAKE ONE TABLET BY MOUTH EVERY DAY, MAXIMUM DAILY DOSE = 1 TABLET TAKE ONE TABLET BY MOUTH EVERY DAY, MAXI MUM DAILY DOSE = 1 TABLET SOLD: 03/03/2020 [facility] 25 mg 02/26/2020 12:00:00 AM EST tablet 10 DIRECTED 1 TABLET BY MOUTH AT ONSET OF MIGRAINE MAY REPEAT DOSE IN 2 HOURS MAXIMUM DAILY DOSE = 2 DIRECTED 1 TABLET BY MOUTH AT ONSET OF MIGRAINE MAY REPEAT DOSE IN 2 HOURS MAXIMUM DAILY DOSE = 2 SOLD: 02/28/2020 [facility] 25 mg 02/26/2020 12:00:00 AM EST tablet 10 DIRECTED 1 TABLET BY MOUTH AT ONSET OF MIGRAINE MAY REPEAT DOSE IN 2 HOURS MAXIMUM DAILY DOSE = 2 DIRECTED 1 TABLET BY MOUTH AT ONSET OF MIGRAINE MAY REPEAT DOSE IN 2 HOURS MAXIMUM DAILY DOSE = 2 SOLD: 04/19/2020 [facility] Sublocade 100 MG/0.5ML Subcutaneous Solution Prefilled Syringe Sublocade 100 MG/0.5ML Subcutaneous Solution Prefilled Syringe 02/25/2020 12:00:00 AM EST active 0.5 ML buprenorphine 200 MG/ML Prefilled Syringe [Sublocade] MARK ANTHONY ([facility]) 8 mg 02/25/2020 12:00:00 AM EST tablet,disintegrating [address] ONE TABLET UNDER THE TONGUE EVERY 8 HOURS NEEDED FOR NAUSEA PLACE ONE TABLET UNDER THE TONGUE EVERY 8 HOURS NEEDED FOR NAUSEA SOLD: 05/11/2020 [facility] 8 mg 02/25/2020 12:00:00 AM EST tablet,disintegrating [address] ONE TABLET UNDER THE TONGUE EVERY 8 HOURS NEEDED FOR NAUSEA PLACE ONE TABLET UNDER THE TONGUE EVERY 8 HOURS NEEDED FOR NAUSEA SOLD: 05/02/2020 [facility] 8 mg 02/25/2020 12:00:00 AM EST tablet,disintegrating [address] ONE TABLET UNDER THE TONGUE EVERY 8 HOURS NEEDED FOR NAUSEA PLACE ONE TABLET UNDER THE TONGUE EVERY 8 HOURS NEEDED FOR NAUSEA SOLD: 04/05/2020 [facility] 8 mg 02/25/2020 12:00:00 AM EST tablet,disintegrating [address] ONE TABLET UNDER THE TONGUE EVERY 8 HOURS NEEDED FOR NAUSEA PLACE ONE TABLET UNDER THE TONGUE EVERY 8 HOURS NEEDED FOR NAUSEA SOLD: 02/28/2020 [facility] 8 mg 02/25/2020 12:00:00 AM EST tablet,disintegrating [address] ONE TABLET UNDER THE TONGUE EVERY 8 HOURS NEEDED FOR NAUSEA PLACE ONE TABLET UNDER THE TONGUE EVERY 8 HOURS NEEDED FOR NAUSEA SOLD: 03/22/2020 [facility] Sublocade 300 MG/1.5ML SC SOSY Sublocade 300 MG/1.5ML SC SOS Y 02/25/2020 12:00:00 AM EST completed 1.5 ML buprenorphine 200 MG/ML Prefilled Syringe [Sublocade] MARK ANTHONY ([facility]) Medication administered onsite RLQ 8 mg 02/25/2020 12:00:00 AM EST tablet,disintegrating [address] ONE TABLET UNDER THE TONGUE EVERY 8 HOURS NEEDED FOR NAUSEA PLACE ONE TABLET UNDER THE TONGUE EVERY 8 HOURS NEEDED FOR NAUSEA SOLD: 04/19/2020 [facility] Ondansetron 8 MG Disintegrating Oral Tab let Ondansetron 8 MG Oral Tablet Disintegrating Ondansetron 8 MG Oral Tablet Disintegrating 02/25/2020 12:00:00 AM EST active ondansetron 8 MG Disintegrating Oral Tablet MARK ANTHONY ([facility]) Sumatriptan 25 MG Oral Tablet [Imitrex] Imitrex 25 MG Oral Tablet Imitrex 25 MG Oral Tablet 02/25/2020 12:00:00 AM EST active sumatriptan 25 MG Oral Tablet [Imitrex] MARK ANTHONY ([facility]) 5 mg 02/18/2020 12:00:00 AM EST tablet 30 TAKE ONE TABLET BY MOUTH EVERY DAY TAKE ONE TABLET BY MOUTH EVERY DAY SOLD: 02/28/2020 [facility] Amlodipine 5 MG Oral Tablet amLODIPine Besylate 5 MG O ral Tablet amLODIPine Besylate 5 MG Oral Tablet 02/17/2020 12:00:00 AM EST 1 active amlodipine 5 MG Oral Tablet MARK ANTHONY ([facility]) 20 mg 02/09/2020 12:00:00 AM EST tablet 30 TAKE 1 TABLET BY MOUTH DAILY IN THE AFTERNOON MAXIMUM DAILY DOSE = 1 TAKE 1 TABLET BY MOUTH DAILY IN THE AFTERNOON MAXIMUM DAILY DOSE = 1 SOLD: 02/09/2020 [facility] 24 HR Amphetamine aspartate 7.5 MG / Amp hetamine Sulfate 7.5 MG / Dextroamphetamine saccharate 7.5 MG / Dextroamphetamine Sulfate 7.5 MG Extended Release Oral Capsule Amphetamine-Dextroamphet ER 30 MG Oral Capsule Extended Release 24 Hour Amphetamine-Dextroamphet ER 30 MG Oral C apsule Extended Release 24 Hour 02/09/2020 12:00:00 AM EST 1 active 24 HR amphetamine aspartate 7.5 MG / amphetamine sulfate 7.5 MG / dextroamphetamine saccharate 7.5 MG / dextroamphetamine sulfate 7.5 MG Extended Release Oral Capsule MARK ANTHONY ([facility]) Amphetamine aspartate 5 MG / Amphetamine Sulfate 5 MG / Dextroamphetamine saccharate 5 MG / Dextroamphetamine Sulfate 5 MG Oral Tablet Amphetamine- Dextroamphetamine 20 MG Oral Tablet Amphetamine-Dextroamphetamine 20 MG Oral Tablet 02/09/2020 12:00:00 AM EST 1 active amphetamine aspartate 5 MG / amphetamine sulfate 5 MG / dextroamphetamine saccharate 5 MG / dextroamphetamine sulfate 5 MG Oral Tablet MARK ANTHONY ([facility]) 30 mg 02/09/2020 12:00:00 AM EST capsule,extended releas e 24hr 30 TAKE ONE CAPSULE BY MOUTH EVERY MORNING MAXIMUM DAILY DOSE = 1 TAKE ONE CAPSULE BY MOUTH EVERY MORNING MAXIMUM DAILY DOSE = 1 SOLD: 02/09/2020 [facility] 17.8 MG Oral Tablet [facility] 17.8 MG Oral Tablet 02/04/2020 1 2:00:00 AM EST 2 active pitolisant 17.8 MG Oral Tablet [[facility]] [facility]UNTURA ([facility]) Sublocade 300 MG/1.5ML SC SOSY Sublocade 300 MG/1.5ML SC SOS Y 01/21/2020 12:00:00 AM EDT completed 1.5 ML buprenorphine 200 MG/ML Prefilled Syringe [Sublocade] JUNTURA ([facility]) Medication administered onsite LLQ abd Methylphenidate HCl ER (XR) 30 MG Oral Capsule Extende d Release 24 Hour Methylphenidate HCl ER (XR) 30 MG Oral Capsule Extended Release 24 Hour 01/21/2020 12:00:00 AM EDT aborted 40/60 Release 24 HR methylphenidate hydrochloride 30 MG Extended Release Oral Capsule [facility] ([facility]) Methylphenidate HCl ER (LA) 30 MG Oral C apsule Extended Release 24 Hour (RITALIN LA) [id number] 01/17/2020 12:00:00 AM EDT 30 mg Oral acti ve Take 1 capsule by mouth every morning , Max Daily Dose: 30 mg [facility] 30 mg 01/17/2020 12:00:00 AM EDT capsule,ER biphasic 50- 50 30 TAKE ONE CAPSULE BY MOUTH EVERY DAY IN THE MORNING MAXIMUM DAILY DOSE = 1 CAPSULE TAKE ONE CAPSULE BY MOUTH EVERY DAY IN THE MORNING MAXIMUM DAILY DOSE = 1 CAPSULE SOLD: 01/19/2020 [facility] 25 mg 01/14/2020 12:00:00 AM EDT tablet 10 TAKE ONE TABLET BY MOUTH AT ONSET OF MIGRAINE, MAY REPEAT DOSE IN 2 HOURS DIRECTED MAXIMUM DAILY DOSE = 2 TABLETS TAKE ONE TABLET BY MOUTH AT ONSET OF LUIS NOE, MAY REPEAT DOSE IN 2 HOURS DIRECTED MAXIMUM DAILY DOSE = 2 TABLETS SOLD: 01/17/2020 [facility] 0.05 % 01/14/2020 12:00:00 AM EDT cream 15 APPLY TO AFFECTED AREA(S) TWO TIMES A DAY FOR 2 WEEKS THEN USE SPARINGLY NEEDED DIRECTED APPLY TO AFFECTED AREA(S) TWO TIMES A DAY FOR 2 WEEKS THEN USE SPARINGLY NEEDED DIRECTED SOLD: 01/17/2020 [facility] Sumatriptan 25 MG Oral Tablet [Imitrex] Imitrex 25 MG Oral Tablet Imitrex 25 MG Oral Tablet 01/13/2020 12:00:00 AM EDT aborte d sumatriptan 25 MG Oral Tablet [Imitrex] MARK ANTHONY ([facility]) 8 mg 01/13/2020 12:00:00 AM EDT tablet,disintegrating 1 0 DISSOLVE ONE TABLET BY MOUTH EVERY 8 HOURS NEEDED FOR NAUSEA DIRECTED DISSOLVE ONE TABLET BY MOUTH EVERY 8 HOURS NEEDED FOR NAUSEA DIRECTED SOLD: 01/17/2020 [facility] Betamethasone 0.5 MG/ML Topical Cream Be tamethasone Dipropionate 0.05% External Cream Betamethasone Dipropionate 0.05% External Cream 2019 12:00:00 AM EDT completed betamethasone 0.5 MG/ML Topical Cream MARK ANTHONY ([facility]) Ondansetron 8 MG Disintegrating Oral Tab let Ondansetron 8 MG Oral Tablet Disintegrating Ondansetron 8 MG Oral Tablet Disintegrating 01/13/2020 12:00:00 AM EDT aborted ondansetron 8 MG Disintegrating Oral Tablet MARK ANTHONY ([facility]) Sublocade 300 MG/1.5ML Subcutaneous Solution Prefilled Syringe Sublocade 300 MG/1.5ML Subcutaneous Solution Prefilled Syringe 01/12/2020 12:00:00 AM EDT active 1.5 ML buprenorphine 200 MG/ML Prefilled Syringe [Sublocade] MARK ANTHONY ([facility]) Methylphenidate HCl ER (LA) 20 MG Oral C apsule Extended Release 24 Hour (Ritalin LA) [id number] 01/09/2020 12:00:00 AM EDT 20 mg Oral acti ve Take 1 capsule by mouth every morning , Max Daily Dose: 20 mg [facility] Methylphenidate Hydrochloride 10 MG Oral Tablet Methylphenidate HCl 10 MG Oral Tablet (Ritalin) Methylphenidate HCl 10 MG Oral Tablet (Ritalin) 2019 12:00:00 AM EDT 10 mg Oral active Take 1 tablet by mouth daily Every afternoon, Max Daily Dose: 10 mg [facility] 10 mg 01/09/2020 12:00:00 AM EDT tablet 30 TAKE ONE TABLET BY MOUTH EVERY AFTERNOON MAXIMUM DAILY DOSE = 1 TAKE ONE TABLET BY MOUTH EVERY AFTERNOON MAXIMUM DAILY DOSE = 1 SOLD: 01/09/2020 [facility] Methylphenidate Hydrochloride 10 MG Oral Tablet Methylphenidate HCl 10 MG Oral Tablet Methylphenidate HCl 10 MG Oral Tablet 01/09/2020 12:00:00 AM EDT aborted methylphenidate hydrochlorid e 10 MG Oral Tablet MARK ANTHONY ([facility]) 20 mg 01/09/2020 12:00:00 AM EDT capsule,ER biphasic 50- 50 30 TAKE ONE CAPSULE BY MOUTH EVERY MORNING MAXIMUM DAILY DOSE = 1 TAKE ONE CAPSULE BY MOUTH EVERY MORNING MAXIMUM DAILY DOSE = 1 SOLD: 01/09/2020 [facility] linaclotide 0.145 MG Oral Capsule [Linzess] Linzess 14 5 MCG Oral Capsule [facility]ess 145 MCG Oral Capsule 01/08/2020 12:00:00 AM EDT 1 aborted linaclotide 0.145 MG Oral Capsule [Linzess] MARK ANTHONY ([facility]) Buprenorphine 8 MG / Naloxone 2 MG Oral Strip [Suboxone] Suboxone 8-2 MG Sublingual Film Suboxone 8-2 MG Sublingual Film 01/08/2020 12:00:00 AM EDT completed buprenorphine 8 MG / naloxone 2 MG Sublingual Film [Suboxone] MARK ANTHONY ([facility]) 8-2 mg 01/08/2020 12:00:00 AM EDT film 21 DISSOLVE 1 & 1/2 FILMS UNDER THE TONGUE DAILY DIRECTED MAXIMUM DAILY DOSE = 1 & 1/2 FILMS DISSOLVE 1 & 1/2 FILMS UNDER THE TONGUE DAILY DIRECTED MAXIMUM DAILY DOSE = 1 & 1/2 FILMS SOLD: 01/08/2020 [facility] 145 mcg 12/27/2019 12:00:00 AM EDT capsule 30 TAKE ONE CAPSULE BY MOUTH EVERY MORNING 30 MINUTES BEFORE MEAL TAKE ONE CAPSULE BY MOUTH EVERY MORNING 30 MINUTES BEFORE MEAL SOLD: 01/04/2020 [facility] linaclotide 0.145 MG Oral Capsule [Linzess] [facility]zess 04/2019 12:00:00 AM EDT ORAL active MED[facility] ( [facility]) Methylphenidate Hydrochloride 10 MG Oral Tablet Methylphenidate HCl 10 MG Oral Tablet Methylphenidate HCl 10 MG Oral Tablet 12/23/2019 12:00:00 AM EDT aborted methylphenidate hydrochlorid e 10 MG Oral Tablet MARK ANTHONY ([facility]) 24 HR Amphetamine aspartate 7.5 MG / Amp hetamine Sulfate 7.5 MG / Dextroamphetamine saccharate 7.5 MG / Dextroamphetamine Sulfate 7.5 MG Extended Release Oral Capsule Amphetamine-Dextroamphet ER 30 MG Oral Capsule Extended Release 24 Hour Amphetamine-Dextroamphet ER 30 MG Oral C apsule Extended Release 24 Hour 12/23/2019 12:00:00 AM EDT 1 aborted 24 HR amphetamine aspartate 7.5 MG / amphetamine sulfate 7.5 MG / dextroamphetamine saccharate 7.5 MG / dextroamphetamine sulfate 7.5 MG Extended Release Oral Capsule MARK ANTHONY ([facility]) 30 mg 12/23/2019 12:00:00 AM EDT capsule,extended releas e 24hr 30 TAKE ONE CAPSULE BY MOUTH EVERY MORNING, MAXIMUM DAILY DOSE = 1 CAPSULE TAKE ONE CAPSULE BY MOUTH EVERY MORNING, MAXIMUM DAILY DOSE = 1 CAPSULE SOLD: 12/23/2019 [facility] 10 mg 12/23/2019 12:00:00 AM EDT tablet 8 TAKE 1 TABLET BY MOUTH IN THE MORNING ON WEEKENDS (2 DAYS) NEEDED MAXIMUM DAILY DOSE = 1 TAKE 1 TABLET BY MOUTH IN THE MORNING ON WEEKENDS (2 DAYS) NEEDED MAXIMUM DAILY DOSE = 1 SOLD: 12/23/2019 [facility] Methylphenidate Hydrochloride 10 MG Oral Tablet Methylphenidate HCl 10 MG Oral Tablet (RITALIN) Methylphenidate HCl 10 MG Oral Tablet (RITALIN) 2019 12:00:00 AM EDT active Take one tab in AM on weekends (2 days), as needed [facility] 24 HR Amphetamine aspartate 7.5 MG / Amp hetamine Sulfate 7.5 MG / Dextroamphetamine saccharate 7.5 MG / Dextroamphetamine Sulfate 7.5 MG Extended Release Oral Capsule Amphetamine-Dextroamphet ER 30 MG Oral Capsule Extended Release 24 Hour (ADDERALL XR (30MG)) Amphetamine-Dextroamphet ER 30 MG Oral Capsule Extended Release 24 Hour (ADDERALL XR (30MG)) 12/22/2019 12:00:00 AM EDT 30 mg Oral active Take 1 c apsule by mouth every morning , Max Daily Dose: 30 mg [facility] 20 mg 12/15/2019 12:00:00 AM EDT tablet 30 TAKE ONE TABLET BY MOUTH ONCE DAILY IN THE AFTERNOON MAXIMUM DAILY DOSE = 1 TABLET TAKE ONE TABLET BY MOUTH ONCE DAILY IN THE AFTERNOON MAXIMUM DAILY DOSE = 1 TABLET SOLD: 12/15/2019 [facility] Amphetamine aspartate 5 MG / Amphetamine Sulfate 5 MG / Dextroamphetamine saccharate 5 MG / Dextroamphetamine Sulfate 5 MG Oral Tablet Amphetamine- Dextroamphetamine 20 MG Oral Tablet (ADDERALL) Amphetamine-Dextroamphetamine 20 MG Oral Tablet (ADDERALL) 12/15/2019 12:00:00 AM EDT 20 mg Oral active Take 1 tablet by mouth daily In the afternoon, Max Naheed ly Dose: 20 mg [facility] Amphetamine aspartate 5 MG / Amphetamine Sulfate 5 MG / Dextroamphetamine saccharate 5 MG / Dextroamphetamine Sulfate 5 MG Oral Tablet Amphetamine- Dextroamphetamine 20 MG Oral Tablet Amphetamine-Dextroamphetamine 20 MG Oral Tablet 12/15/2019 12:00:00 AM EDT 1 aborted amphetamine aspartate 5 MG / amphetamine sulfate 5 MG / dextroamphetamine saccharate 5 MG / dextroamphetamine sulfate 5 MG Oral Tablet MARK ANTHONY ([facility]) 8 mg 12/09/2019 12:00:00 AM EDT tablet,disintegrating 1 0 DISSOLVE 1 TABLET BY MOUTH EVERY 8 HOURS NEEDED FOR NAUSEA DISSOLVE 1 TABLET BY MOUTH EVERY 8 HOURS NEEDED FOR NAUSEA SOLD: 12/09/2019 [facility] Ondansetron 8 MG Disintegrating Oral Tab let Ondansetron 8 MG Oral Tablet Disintegrating Ondansetron 8 MG Oral Tablet Disintegrating 12/09/2019 12:00:00 AM EDT aborted ondansetron 8 MG Disintegrating Oral Tablet MARK ANTHONY ([facility]) Furosemide 20 MG Oral Tablet furosemide (LASIX) tablet 20 mg furosemide (LASIX) tablet 20 mg 12/06/2019 12:00:00 PM EDT 20 mg Oral compl eted 20 mg, Oral, Once, 12/06/19 at 1200, For 1 dose [facility] Medication administered onsite Acetaminophen 325 MG / Oxycodone Hydroch loride 5 MG Oral Tablet oxyCODONE- acetaminophen (PERCOCET) 5-325 MG 1-2 tablet oxyCODONE-acetaminophen (PERCOCET) 5-325 MG 1-2 tablet 12/06/2019 10:44:21 AM EDT Oral active 1-2 tablet, Oral, Every 4 hours PRN, moderate pain (4-6), severe pain (7-10), Starting 12/06/19 at 1044, For 7 days [facility] Medication administered onsite Ibuprofen 600 MG Oral Tablet ibuprofen (ADVIL,MOTRIN) 600 MG tablet ibuprofen (ADVIL,MOTRIN) 600 MG tablet 12/06/2019 12:00:00 AM EDT 600 mg Oral active Take 1 tablet (600 m g total) by mouth every 6 (six) hours as needed for pain [facility] Acetaminophen 325 MG / Oxycodone Hydroch loride 5 MG Oral Tablet oxyCODONE- acetaminophen (PERCOCET) 5-325 MG per tablet oxyCODONE-acetaminophen (PERCOCET) 5-325 MG per tablet 12/06/2019 12:00:00 AM EDT 1 {tbl} Oral active Take 1 tablet by mouth every 6 (six) hours as needed for pain Max Daily Amount: 4 tablets [facility] Acetaminophen 325 MG Oral Tablet acetaminophen (TYLENO L) 325 MG tablet acetaminophen (TYLENOL) 325 MG tablet 12/06/2019 12:00:00 AM EDT 32 5 mg Oral active Take 1 tablet ( 325 mg total) by mouth every 6 (six) hours as needed for pain [facility] Docusate Sodium 100 MG Oral Capsule docusate sodium (C OLACE) 100 MG capsule docusate sodium (COLACE) 100 MG capsule 12/06/2019 12:00:00 AM EDT 100 mg Oral active Take 1 capsule (100 mg total) by mouth 2 (two) times a day [facility] 600 mg 12/06/2019 12:00:00 AM EDT tablet 20 TAKE ONE TABLET BY MOUTH EVERY 6 HOURS NEEDED FOR PAIN TAKE ONE TABLET BY MOUTH EVERY 6 HOURS A S NEEDED FOR PAIN SOLD: 12/06/2019 [facility] 5-325 mg 12/06/2019 12:00:00 AM EDT tablet 20 TAKE ONE TABLET BY MOUTH EVERY 6 HOURS NEEDED FOR PAIN MAXIMUM DAILY DOSE = 4 TABLETS TAKE ONE TABLET BY MOUTH EVERY 6 HOURS NEEDED FOR PAIN MAXIMUM DAILY DOSE = 4 TABLETS SOLD: 12/06/2019 [facility] sodium chloride 0.9% (NS) infusion [id number] 12/05/2019 09:00:00 A M EDT Intravenous active at 30 mL/hr, Intravenous, Continuous, Starting Sun12/05/19 at 0900 [facility] Medication administered onsite hydromorphone 1 mg/ml ELEVATOR CONDUCTOR bolus 0.5 mg 12/04/2019 08:00:00 PM EDT 0.5 mg Intravenous completed 0.5 mg, Intra venous, Once, [facility] 12/04/19 at 2000, For 1 dose [facility] Medication administered onsite Amphetamine aspartate 5 MG / Amphetamine Sulfate 5 MG / Dextroamphetamine saccharate 5 MG / Dextroamphetamine Sulfate 5 MG Oral Tablet amphetamine- dextroamphetamine (ADDERALL) tablet 20 mg amphetamine-dextroamphetamine (ADDERALL) tablet 20 mg 12/04/2019 02:00:00 PM EDT 20 mg Oral active 20 mg, Oral, Daily, First dose on [facility] 12/04/19 at 1400, For 7 days [facility] Medication administered onsite alvimopan 12 MG Oral Capsule alvimopan (ENTEREG) capsu le 12 mg alvimopan (ENTEREG) capsule 12 mg 12/04/2019 09:00:00 AM EDT 12 mg Oral aborted 12 mg, Oral, 2 times daily, First dose on [facility] 12/04/19 at 0900, For 14 doses
Begin day after surgery. All doses must be administered PO as a whole capsule. (Do NOT crush.) Entereg may NOT be administered via NG/PEG/J-tube. Maximum 14 post-operative doses or until discharge, whichever occurs first.
Patient does NOT have a bowel obstruction or did not have surgery for a bowel obstruction: Yes
Patient is having partial large or small bowel resection surgery. Bowel surgery is the only acceptable use: Yes
Patient did NOT receive chronic opioid (>7 days) treatment prior to surgery: Yes [facility] Medication administered onsite 24 HR Amphetamine aspartate 2.5 MG / Amp hetamine Sulfate 2.5 MG / Dextroamphetamine saccharate 2.5 MG / Dextroamphetamine Sulfate 2.5 MG Extended Release Oral Capsule amphetamine-dextroamphetamine (ADDERALL XR) 30 MG 24 hr capsule 30 mg amphetamine-dextroamphetamine (ADDERALL XR) 30 MG 24 hr capsule 30 mg 12/04/2019 08:00:00 AM EDT 30 mg Oral active 30 mg, Oral, Daily, First dose on [facility] 12/04/19 at 0800, For 7 days [facility] Medication administered onsite hydromorphone 1 mg/ml ELEVATOR CONDUCTOR bolus 0.5 mg 12/04/2019 03:00:00 AM EDT 0.5 mg Intravenous completed 0.5 mg, Intra venous, Once, [facility]ani 12/04/19 at 0300, For 1 dose [facility] Medication administered onsite hydromorphone 1 mg/ml ELEVATOR CONDUCTOR bolus 0.5 mg 12/03/2019 10:00:00 PM EDT 0.5 mg Intravenous completed 0.5 mg, Intra venous, Once, Sun12/03/19 at 2200, For 1 dose [facility] Medication administered onsite gabapentin 300 MG Oral Capsule gabapentin (NEURONTIN) capsule 300 mg gabapentin (NEURONTIN) capsule 300 mg 12/03/2019 10:00:00 PM EDT 300 mg Oral active 300 mg, Oral, 3 times daily, First dose on Sun12/03/19 at 2200 [facility] Medication administered onsite heparin (porcine) injection 5,000 Units [id number] 12/03/19 09:00:00 PM EDT 5000 U Subcutaneous active 5,000 Units , Subcutaneous, Every 12 hours (scheduled), First dose on Sun12/03/19 at 2100
If platelet count is less than 100,000
[facility] Medication administered onsite Acetaminophen 325 MG Oral Tablet acetaminophen (TYLENO L) 325 MG tablet 650 mg acetaminophen (TYLENOL) 325 MG tablet 650 mg 12/03/2019 09:00:00 PM EDT 650 mg Oral active 650 mg, Or al, 4 times daily, First dose on Sun12/03/19 at 2100
"Maximum dose of acetaminophen is 4,000 mg from all sources in 24 hours."
[facility] Medication administered onsite Pitolisant HCl TABS 35.6 mg [id number] 12/03/2019 07:00:00 PM EDT 3 5.6 mg Oral active 35.6 mg, Oral, Daily, First dose on Sun12/03/19 at 1900 [facility] Medication administered onsite HYDROMORPHONE 30 MG/30 ML ELEVATOR CONDUCTOR IV SOLN 12/03/2019 07:00:00 PM EDT Intravenous aborted Intravenous, Continuous, Starting Sun12/03/19 at 1900, For 7 days [facility] Medication administered onsite dextrose 5 % and sodium chloride 0.45 % with KCl 20 mEq/L in fusion [id number] 12/03/2019 07:00:00 PM EDT Intravenous aborted at 100 mL/hr, Intravenous, Continuous, Starting Sun12/03/19 at 1900, Post-op
This is a "Triggered Filled Infusion" and is automatically sent based on the current rate documented in the flow sheets
[facility] Medication administered onsite Ondansetron 4 MG Disintegrating Oral Tab let ondansetron (ZOFRAN-ODT) disintegrating tablet 8 mg ondansetron (ZOFRAN-ODT) disintegrating tablet 8 mg 12/03/2019 06:25:53 PM EDT 8 mg Oral active 8 mg, Oral, Every 8 hours PRN, nausea, Starting Sun12/03/19 at 1825 [facility] Medication administered onsite ondansetron (ZOFRAN) injection 4 mg [id number] 12/03/2019 06:25:5 3 PM EDT 4 mg Intravenous active 4 mg, In travenous, Every 6 hours PRN, nausea, vomiting, Starting Sun12/03/19 at 1825 [facility] Medication administered onsite fentaNYL Citrate (PF) (SUBLIMAZE) injection 25 mcg [id number] 12/03/2019 03:55:09 PM EDT 25 ug Intravenous aborted 25 mcg, Intravenous, Every 5 min PRN, moderate pain (4 to 6), Starting Sun12/03/19 at 1555, For 5 doses, PACU (only) [facility] Medication administered onsite dextrose 5 % and sodium chloride 0.9 % infusion [id number] 12/03/2019 03:00:00 PM EDT Intravenous aborted at 1 00 mL/hr, Intravenous, Continuous, Starting Sun12/03/19 at 1500 [facility] Medication administered onsite heparin (porcine) injection 5,000 Units [id number] 12/03/19 02:00:00 PM EDT 5000 U Subcutaneous completed Rectal prolapse 5 ,000 Units, Subcutaneous, call center trainer to O.R., Sun12/03/19 at 1400, For 1 dose, Pre-op
If platelet count is less than 100,000 or hematocrit is less than 30, or there is a 5 point decrease in hematocrit, do not give the dose and call physician/designee
[facility] Rectal prolapse Medication administered onsite Magnesium Chloride 0.10536 MEQ/ML / Pota ssium Chloride 0.0497 MEQ/ML / Sodium Acetate 0.0163 MEQ/ML / Sodium Chloride 0.0899 MEQ/ML / Sodium gluconate 5.02 MG/ML Injectable Solution [Normosol-R] electrolyte-R (NORMOSOL-R/PLASMALYTE-R) solution electrolyte-R (NORMOSOL-R/PLASMALYTE-R) solution 12/02 02:00:00 PM EDT Intravenous aborted at 1 00 mL/hr, Intravenous, Continuous, Starting Sun12/03/19 at 1400, Pre-op [facility] Medication administered onsite Metronidazole 5 MG/ML Injectable Solution metroNIDAZOL E (FLAGYL) IVPB 500 mg metroNIDAZOLE (FLAGYL) IVPB 500 mg 12/03/2019 02:00:00 PM EDT 50 0 mg Intravenous completed Perioperative Infection Pharmacopro phylaxis 500 mg, Intravenous, Administer over 30 Minutes, call center trainer, Sun12/03/19 at 1400, For 1 dose, Pre-op [facility] Perioperative Infection Pharmacoprophyla xis Medication administered onsite gabapentin 600 MG Oral Tablet gabapentin (NEURONTIN) t ablet 600 mg gabapentin (NEURONTIN) tablet 600 mg 12/03/2019 02:00:00 PM EDT 600 mg Oral completed 600 mg, Oral, call center trainer to Jessica Rogel ed 12/03/19 at 1400, For 1 dose, Pre-op [facility] Medication administered onsite alvimopan 12 MG Oral Capsule alvimopan (ENTEREG) capsu le 12 mg alvimopan (ENTEREG) capsule 12 mg 12/03/2019 02:00:00 PM EDT 12 mg Oral completed 12 mg, Oral, call center trainer, Sun12/03/19 at 1400 , For 1 dose, Pre-op
Take with water. Suggested administration time: 30 minutes to 5 hours prior to surgery.
Patient does NOT have a bowel obstruction or did not have surgery for a bowel obstruction: No
Patient is having partial large or small bowel resection surgery. Bowel surgery is the only acceptable use: Yes
Patient did NOT receive chronic opioid (>7 days) treatment prior to surgery: No [facility] Medication administered onsite 0.25-35 mg-mcg 11/25/2019 12:00:00 AM EDT tablet 84 TAKE ONE TABLET BY MOUTH EVERY DAY TAKE ONE TABLET BY MOUTH EVERY DAY SOLD: 11/26/2019 [facility] Iron 325 (65 Fe) MG Oral Tablet Iron 325 (65 Fe) MG Oral Tab let 11/25/2019 12:00:00 AM EDT 1 aborted Iron MARK ANTHONY ([facility]) 30 mg 11/23/2019 12:00:00 AM EDT capsule,extended releas e 24hr 30 TAKE ONE CAPSULE BY MOUTH EVERY MORNING * MAXIMUM DAILY DOSE = 1 TAKE ONE CAPSULE BY MOUTH EVERY MORNING * MAXIMUM DAILY DOSE = 1 SOLD: 11/23/2019 [facility] 10 mg 11/14/2019 12:00:00 AM EDT tablet 9 TAKE ONE TABLET BY MOUTH EVERY MORNING ON WEEKENDS (2 DAYS) NEEDED DIRECTED, MAXIMUM DAILY DOSE = 1 TABLET TAKE ONE TABLET BY MOUTH EVERY MORNING O N WEEKEND (2 DAYS) NEEDED DIRECTED, MAXIMUM DAILY DOSE = 1 TABLET SOLD: 11/15/2019 [facility] 20 mg 11/12/2019 12:00:00 AM EDT tablet 30 TAKE 1 TABLET BY MOUTH IN THE AFTERNOON MAXIMUM DAILY DOSE = 1 TABLET TAKE 1 TABLET BY MOUTH IN THE AFTERNOON MAXIMUM DAILY DOSE = 1 TABLET SOLD: 11/12/2019 [facility] 30 mg 10/24/2019 12:00:00 AM EDT capsule,extended releas e 24hr 30 TAKE ONE CAPSULE BY MOUTH EVERY MORNING MAXIMUM DAILY DOSE = 1 CAPSULE TAKE ONE CAPSULE BY MOUTH EVERY MORNING MAXIMUM DAILY DOSE = 1 CAPSULE SOLD: 10/25/2019 [facility] 10 mg 10/20/2019 12:00:00 AM EDT tablet 8 TAKE ONE TABLET BY MOUTH EVERY DAY IN THE MORNING ON WEEKENDS ( 2 DAYS) NEEDED MAXIMUM DAILY DOSE = 1 TABLET TAKE ONE TABLET BY MOUTH EVERY DAY IN THE MORNING ON WEEKENDS ( 2 DAYS) NEEDED MAXIMUM DAILY DOSE = 1 TABLET SOLD: 10/20/2019 [facility] 10 mg 10/20/2019 12:00:00 AM EDT tablet 30 TAKE ONE TABLET BY MOUTH EVERY DAY MAXIMUM DAILY DOSE = 1 TABLET TAKE ONE TABLET BY MOUTH EVERY DAY MAXIM UM DAILY DOSE = 1 TABLET SOLD: 10/20/2019 [facility] Amphetamine aspartate 2.5 MG / Amphetami ne Sulfate 2.5 MG / Dextroamphetamine saccharate 2.5 MG / Dextroamphetamine Sulfate 2.5 MG Oral Tablet Amphetamine- Dextroamphetamine 10 MG Oral Tablet (ADDERALL (10MG)) Amphetamine- Dextroamphetamine 10 MG Oral Tablet (ADDERALL (10MG)) 10/20/2019 12:00:00 AM EDT 10 mg Oral active Take 1 t ablet by mouth daily , Max Daily Dose: 10 mg [facility] Methylphenidate Hydrochloride 10 MG Oral Tablet Methylphenidate HCl 10 MG Oral Tablet (RITALIN) Methylphenidate HCl 10 MG Oral Tablet (RITALIN) 2019 12:00:00 AM EDT active Take one tab in AM on weekends (2 days), as needed [facility] 30 mg 09/25/2019 12:00:00 AM EDT capsule,extended releas e 24hr 30 TAKE ONE CAPSULE BY MOUTH EVERY MORNING MAXIMUM DAILY DOSE = ONE CAPSULE TAKE ONE CAPSULE BY MOUTH EVERY MORNING MAXIMUM DAILY DOSE = ONE CAPSULE SOLD: 09/25/2019 [email or web address] 24 HR Amphetamine aspartate 7.5 MG / Amp hetamine Sulfate 7.5 MG / Dextroamphetamine saccharate 7.5 MG / Dextroamphetamine Sulfate 7.5 MG Extended Release Oral Capsule Amphetamine-Dextroamphet ER 30 MG Oral Capsule Extended Release 24 Hour (ADDERALL XR (30MG)) Amphetamine-Dextroamphet ER 30 MG Oral Capsule Extended Release 24 Hour (ADDERALL XR (30MG)) 09/25/2019 12:00:00 AM EDT 30 mg Oral active Take 1 c apsule by mouth every morning , Max Daily Dose: 30 mg [facility] 10 mg 09/19/2019 12:00:00 AM EDT tablet 30 TAKE ONE TABLET BY MOUTH EVERY DAY * MAXIMUM DAILY DOSE = 1 TAKE ONE TABLET BY MOUTH EVERY DAY * MAX IMUM DAILY DOSE = 1 SOLD: 09/19/2019 [facility] Ondansetron 8 MG Disintegrating Oral Tab let Ondansetron 8 MG Oral Tablet Disintegrating Ondansetron 8 MG Oral Tablet Disintegrating 09/17/2019 12:00:00 AM EDT aborted ondansetron 8 MG Disintegrating Oral Tablet MARK ANTHONY ([facility]) Amphetamine aspartate 2.5 MG / Amphetami ne Sulfate 2.5 MG / Dextroamphetamine saccharate 2.5 MG / Dextroamphetamine Sulfate 2.5 MG Oral Tablet Amphetamine- Dextroamphetamine 10 MG Oral Tablet (ADDERALL (10MG)) Amphetamine- Dextroamphetamine 10 MG Oral Tablet (ADDERALL (10MG)) 09/17/2019 12:00:00 AM EDT 10 mg Oral aborted Take 1 t ablet by mouth daily , Max Daily Dose: 10 mg [facility] 8 mg 09/17/2019 12:00:00 AM EDT tablet,disintegrating [address] ONE TABLET UNDER THE TONGUE EVERY 8 HOURS NEEDED FOR NAUSEA PLACE ONE TABLET UNDER THE TONGUE EVERY 8 HOURS NEEDED FOR NAUSEA SOLD: 09/17/2019 [facility] Sumatriptan 25 MG Oral Tablet [Imitrex] Imitrex 25 MG Oral Tablet Imitrex 25 MG Oral Tablet 09/17/2019 12:00:00 AM EDT aborte d sumatriptan 25 MG Oral Tablet [Imitrex] MARK ANTHONY ([facility]) 25 mg 09/17/2019 12:00:00 AM EDT tablet 10 TAKE ONE TABLET BY MOUTH AT ONSET OF MIGRAINE, MAY REPEAT 1 TABLET IN 2 HOURS, MAXIMUM DAILY DOSE = 2 TABLETS TAKE ONE TABLET BY MOUTH AT ONSET OF MIGRAINE, MAY REPEAT 1 TABLET IN 2 HOURS, MAXIMUM DAILY DOSE = 2 TABLETS SOLD: 09/17/2019 [facility] 8 mg 09/17/2019 12:00:00 AM EDT tablet,disintegrating [address] ONE TABLET UNDER THE TONGUE EVERY 8 HOURS NEEDED FOR NAUSEA PLACE ONE TABLET UNDER THE TONGUE EVERY 8 HOURS NEEDED FOR NAUSEA SOLD: 10/18/2019 [facility] 8 mg 09/17/2019 12:00:00 AM EDT tablet,disintegrating [address] ONE TABLET UNDER THE TONGUE EVERY 8 HOURS NEEDED FOR NAUSEA PLACE ONE TABLET UNDER THE TONGUE EVERY 8 HOURS NEEDED FOR NAUSEA SOLD: 11/21/2019 [facility] 50 mg 08/28/2019 12:00:00 AM EDT capsule 30 TAKE ONE CAPSULE BY MOUTH EVERY MORNING MAXIMUM DAILY DOSE = 1 TAKE ONE CAPSULE BY MOUTH EVERY MORNING MAXIMUM DAILY DOSE = 1 SOLD: 08/28/2019 [facility] Protriptyline Hydrochloride 5 MG Oral Tablet Protripty line HCl 5 MG Oral Tablet Protriptyline HCl 5 MG Oral Tablet 08/22/2019 12:00:00 AM EDT 1 aborted protriptyline hydrochloride 5 MG Oral Ta blet MARK ANTHONY ([facility]) Pitolisant HCl 17.8 MG Oral Tablet Pitolisant HCl 17.8 MG Or al Tablet 08/22/2019 12:00:00 AM EDT aborted pitoli arley 17.8 MG Oral Tablet MARK ANTHONY ([facility]) 10 mg 08/21/2019 12:00:00 AM EDT tablet 30 TAKE ONE TABLET BY MOUTH EVERY DAY MAXIMUM DAILY DOSE = 1 TABLET TAKE ONE TABLET BY MOUTH EVERY DAY MAXIM UM DAILY DOSE = 1 TABLET SOLD: 08/21/2019 [facility] Protriptyline Hydrochloride 5 MG Oral Ta blet Protriptyline HCl 5 MG Oral Tablet (VIVACTIL) Protriptyline HCl 5 MG Oral Tablet (VIVACTIL) 08/20/19 12:00:00 AM EDT 5 mg Oral active Primary narcolepsy witho ut cataplexy Take 1 tablet by mouth daily with lunch [facility] Primary narcolepsy without cataplexy Amphetamine aspartate 2.5 MG / Amphetami ne Sulfate 2.5 MG / Dextroamphetamine saccharate 2.5 MG / Dextroamphetamine Sulfate 2.5 MG Oral Tablet Amphetamine- Dextroamphetamine 10 MG Oral Tablet (ADDERALL (10MG)) Amphetamine- Dextroamphetamine 10 MG Oral Tablet (ADDERALL (10MG)) 08/20/2019 12:00:00 AM EDT 10 mg Oral active Take 1 t ablet by mouth daily , Max Daily Dose: 10 mg [facility] 30 mg 08/13/2019 12:00:00 AM EDT capsule,extended releas e 24hr 30 TAKE ONE CAPSULE BY MOUTH EVERY MORNING MAXIMUM DAILY DOSE = 1 TAKE ONE CAPSULE BY MOUTH EVERY MORNING MAXIMUM DAILY DOSE = 1 SOLD: 08/13/2019 [facility] 24 HR Amphetamine aspartate 7.5 MG / Amp hetamine Sulfate 7.5 MG / Dextroamphetamine saccharate 7.5 MG / Dextroamphetamine Sulfate 7.5 MG Extended Release Oral Capsule Amphetamine-Dextroamphet ER 30 MG Oral Capsule Extended Release 24 Hour (ADDERALL XR (30MG)) Amphetamine-Dextroamphet ER 30 MG Oral Capsule Extended Release 24 Hour (ADDERALL XR (30MG)) 08/13/2019 12:00:00 AM EDT 30 mg Oral aborted Take 1 c apsule by mouth every morning , Max Daily Dose: 30 mg [facility] Wakix 17.8 MG Oral Tablet 09443-026-93 08/08/2019 12:00:00 AM EDT 2 {tbl} Oral active Take 2 tablets by mo uth daily [facility] Amphetamine aspartate 5 MG / Amphetamine Sulfate 5 MG / Dextroamphetamine saccharate 5 MG / Dextroamphetamine Sulfate 5 MG Oral Tablet Amphetamine- Dextroamphetamine 20 MG Oral Tablet (ADDERALL (20MG)) Amphetamine- Dextroamphetamine 20 MG Oral Tablet (ADDERALL (20MG)) 07/25/2019 12:00:00 AM EDT 20 mg Oral aborted Take 1 t ablet by mouth Two Times Daily 1 in the am and 2 pm, Max Daily Dose: 40 mg [facility] 20 mg 07/25/2019 12:00:00 AM EDT tablet 60 TAKE 1 TABLET BY MOUTH EVERY MORNING AND TAKE 1 AT 2 IN THE AFTERNOON MAXIMUM DAILY DOSE = 2 TAKE 1 TABLET BY MOUTH EVERY MORNING AND TAKE 1 AT 2 IN THE AFTERNOON MAXIMUM DAILY DOSE = 2 SOLD: 07/25/2019 [facility] 0.05 % 07/16/2019 12:00:00 AM EDT cream 45 APPLY TWO TIMES A DAY FOR 2 WEEKS THEN USE SPARINGLY NEEDED APPLY TWO TIMES A DAY FOR 2 WEEKS THEN U SE SPARINGLY NEEDED SOLD: 07/16/2019 [facility] Betamethasone 0.5 MG/ML Topical Cream Be tamethasone Dipropionate 0.05% External Cream Betamethasone Dipropionate 0.05% External Cream 2019 12:00:00 AM EDT aborted betamethasone 0. 5 MG/ML Topical Cream MARK ANTHONY ([facility]) 150 mg 07/14/2019 12:00:00 AM EDT tablet 30 TAKE ONE TABLET BY MOUTH EVERY DAY * MAXIMUM DAILY DOSE = 1 TAKE ONE TABLET BY MOUTH EVERY DAY * MAX IMUM DAILY DOSE = 1 SOLD: 07/14/2019 [facility] armodafinil 150 MG Oral Tablet [Nuvigil] Nuvigil 150 M G Oral Tablet Nuvigil 150 MG Oral Tablet 07/14/2019 12:00:00 AM EDT 1 abo rted armodafinil 150 MG Oral Tablet [Nuvigil] MARK ANTHONY ([facility]) 20 mg 07/04/2019 12:00:00 AM EDT capsule,extended releas e 24hr 60 TAKE ONE CAPSULE BY MOUTH TWICE A DAY MAXIMUM DAILY DOSE = 2 TAKE ONE CAPSULE BY MOUTH TWICE A DAY MAXIMUM DAILY DOSE = 2 SOLD: 07/04/2019 [facility] 24 HR Amphetamine aspartate 5 MG / Amphe tamine Sulfate 5 MG / Dextroamphetamine saccharate 5 MG / Dextroamphetamine Sulfate 5 MG Extended Release Oral Capsule [Adderall] Adderall XR 20 MG Oral Capsule Extended Release 24 Hour Adderall XR 20 MG Oral Capsule Extended Release 24 Hour 07/03/2019 12:00:00 AM EDT 1 aborted 24 HR amphetamin e aspartate 5 MG / amphetamine sulfate 5 MG / dextroamphetamine saccharate 5 MG / dextroamphetamine sulfate 5 MG Extended Release Oral Capsule [Adderall] MARK ANTHONY ([facility]) 90 mcg/actuation 06/11/2019 12:00:00 AM EDT HFA aerosol inha ler 18 INHALE TWO PUFFS BY MOUTH EVERY 4 HOURS NEEDED FOR SHORTNESS OF BREATH / COUGHING INHALE TWO PUFFS BY MOUTH EVERY 4 HOURS NEEDED FOR SHORTNESS OF BREATH / COUGHING SOLD: 06/11/2019 [facility] Albuterol Sulfate HFA 108 (90 Base) MCG/ ACT Inhalation Aerosol Solution (PROVENTIL HFA) [id number] 06/11/2019 12:00:00 AM EDT 2 {puff} Inha lation active Inhale 2 puffs into the lung s as needed [facility] 200 ACTUAT Albuterol 0.09 MG/ACTUAT Mete red Dose Inhaler [Ventolin] Ventolin HFA 108 (90 Base) MCG/ACT Inhalation Aerosol Solution Ventolin HFA 108 (90 Base) MCG/ACT Inhalation Aerosol Solution 06/11/2019 12:00:00 AM EDT active [id number] 200 ACTUAT albuter ol 0.09 MG/ACTUAT Metered Dose Inhaler [Ventolin] MARK ANTHONY ([facility]) 200 ACTUAT Albuterol 0.09 MG/ACTUAT Dry Powder Inhaler Albuterol Sulfate 108 (90 Base) MCG/ACT Inhalation Aerosol Powder Breath Activated Albuterol Sulfate 108 (90 Base) MCG/ACT Inhalation Aerosol Powder Breath Activated 06/11/2019 12:00:00 AM EDT aborted 200 ACTU AT albuterol 0.09 MG/ACTUAT Dry Powder Inhaler MARK ANTHONY ([facility]) 20 mg 06/05/2019 12:00:00 AM EDT capsule,extended releas e 24hr 60 TAKE ONE CAPSULE BY MOUTH TWICE A DAY MAXIMUM DAILY DOSE = 2 CAPSULES TAKE ONE CAPSULE BY MOUTH TWICE A DAY MAXIMUM DAILY DOSE = 2 CAPSULES SOLD: 06/05/2019 [facility] Ondansetron 8 MG Disintegrating Oral Tab let Ondansetron 8 MG Oral Tablet Disintegrating Ondansetron 8 MG Oral Tablet Disintegrating 05/30/2019 12:00:00 AM EST aborted ondansetron 8 MG Disintegrating Oral Tablet MARK ANTHONY ([facility]) 8 mg 05/30/2019 12:00:00 AM EST tablet,disintegrating 1 0 TAKE 1 TABLET EVERY 8 HOURS NEEDED FOR NAUSEA PLACE ON TONGUE TO DISSOLVE THEN SWALLOW TAKE 1 TABLET EVERY 8 HOURS NEEDED FOR NAUSEA PLACE ON TONGUE TO DISSOLVE THEN SWALLOW SOLD: 02/12/2020 [facility] 8 mg 05/30/2019 12:00:00 AM EST tablet,disintegrating 1 0 TAKE 1 TABLET EVERY 8 HOURS NEEDED FOR NAUSEA PLACE ON TONGUE TO DISSOLVE THEN SWALLOW TAKE 1 TABLET EVERY 8 HOURS NEEDED FOR NAUSEA PLACE ON TONGUE TO DISSOLVE THEN SWALLOW SOLD: 05/31/2019 [facility] 8 mg 05/30/2019 12:00:00 AM EST tablet,disintegrating 1 0 TAKE 1 TABLET EVERY 8 HOURS NEEDED FOR NAUSEA PLACE ON TONGUE TO DISSOLVE THEN SWALLOW TAKE 1 TABLET EVERY 8 HOURS NEEDED FOR NAUSEA PLACE ON TONGUE TO DISSOLVE THEN SWALLOW SOLD: 07/17/2019 [facility] 24 HR Amphetamine aspartate 5 MG / Amphe tamine Sulfate 5 MG / Dextroamphetamine saccharate 5 MG / Dextroamphetamine Sulfate 5 MG Extended Release Oral Capsule [Adderall] Adderall XR 20 MG Oral Capsule Extended Release 24 Hour Adderall XR 20 MG Oral Capsule Extended Release 24 Hour 05/29/2019 12:00:00 AM EST 1 aborted 24 HR amphetamin e aspartate 5 MG / amphetamine sulfate 5 MG / dextroamphetamine saccharate 5 MG / dextroamphetamine sulfate 5 MG Extended Release Oral Capsule [Adderall] MARK ANTHONY ([facility]) 20 mg 05/07/2019 12:00:00 AM EST capsule,extended releas e 24hr 60 TAKE ONE CAPSULE BY MOUTH TWICE A DAY MAXIMUM DAILY DOSE = 2 TAKE ONE CAPSULE BY MOUTH TWICE A DAY MAXIMUM DAILY DOSE = 2 SOLD: 05/07/2019 [facility] 24 HR Amphetamine aspartate 5 MG / Amphe tamine Sulfate 5 MG / Dextroamphetamine saccharate 5 MG / Dextroamphetamine Sulfate 5 MG Extended Release Oral Capsule [Adderall] Adderall XR 20 MG Oral Capsule Extended Release 24 Hour Adderall XR 20 MG Oral Capsule Extended Release 24 Hour 05/06/2019 12:00:00 AM EST 1 aborted 24 HR amphetamin e aspartate 5 MG / amphetamine sulfate 5 MG / dextroamphetamine saccharate 5 MG / dextroamphetamine sulfate 5 MG Extended Release Oral Capsule [Adderall] MARK ANTHONY ([facility]) 20 mg 04/08/2019 12:00:00 AM EST capsule,extended releas e 24hr 60 TAKE ONE CAPSULE BY MOUTH TWICE A DAY MAXIMUM DAILY DOSE = 2 TAKE ONE CAPSULE BY MOUTH TWICE A DAY MAXIMUM DAILY DOSE = 2 SOLD: 04/08/2019 [facility] 24 HR Amphetamine aspartate 5 MG / Amphe tamine Sulfate 5 MG / Dextroamphetamine saccharate 5 MG / Dextroamphetamine Sulfate 5 MG Extended Release Oral Capsule [Adderall] Adderall XR 20 MG Oral Capsule Extended Release 24 Hour Adderall XR 20 MG Oral Capsule Extended Release 24 Hour 04/08/2019 12:00:00 AM EST 1 aborted 24 HR amphetamin e aspartate 5 MG / amphetamine sulfate 5 MG / dextroamphetamine saccharate 5 MG / dextroamphetamine sulfate 5 MG Extended Release Oral Capsule [Adderall] MARK ANTHONY ([facility]) Methylphenidate Hydrochloride 20 MG Oral Tablet [Ritalin] Ritalin 20 MG Oral Tablet Ritalin 20 MG Oral Tablet 03/28/2019 12:00:00 AM EST 1 aborted methylphenidate hydrochloride 20 MG Oral Tablet [Rital in] MARK ANTHONY ([facility]) 20 mg 03/28/2019 12:00:00 AM EST tablet 60 TAKE ONE TABLET BY MOUTH TWICE A DAY WITH FOOD MAXIMUM DAILY DOSE = 2 TABLETS TAKE ONE TABLET BY MOUTH TWICE A DAY WITH FOOD MAXIMUM DAILY DOSE = 2 TABLETS SOLD: 03/28/2019 [facility] 24 HR Amphetamine aspartate 5 MG / Amphe tamine Sulfate 5 MG / Dextroamphetamine saccharate 5 MG / Dextroamphetamine Sulfate 5 MG Extended Release Oral Capsule [Adderall] Adderall XR 20 MG Oral Capsule Extended Release 24 Hour Adderall XR 20 MG Oral Capsule Extended Release 24 Hour 02/26/2019 12:00:00 AM EST 1 aborted 24 HR amphetamin e aspartate 5 MG / amphetamine sulfate 5 MG / dextroamphetamine saccharate 5 MG / dextroamphetamine sulfate 5 MG Extended Release Oral Capsule [Adderall] MARK ANTHONY ([facility]) Fluoxetine 20 MG Oral Capsule [Prozac] PROzac 20 MG Or al Capsule PROzac 20 MG Oral Capsule 02/12/2019 12:00:00 AM EST 1 abort ed fluoxetine 20 MG Oral Capsule [Prozac] MARK ANTHONY ([facility]) Sodium Oxybate 500 MG/ML Oral Solution [Xyrem] Xyrem 5 00 MG/ML Oral Solution Xyrem 500 MG/ML Oral Solution 02/12/2019 12:00:00 AM EST 1 aborted sodium oxybate 500 MG/ML Oral Solution [Xyrem] MARK ANTHONY ([facility]) Sublocade 100 MG/0.5ML Subcutaneous Solution Prefilled Syringe Sublocade 100 MG/0.5ML Subcutaneous Solution Prefilled Syringe 12/25/2018 12:00:00 AM EDT aborted 0.5 ML buprenorphine 200 MG/ML Prefilled Syringe [Sublocade] MARK ANTHONY ([facility]) 50 mg 12/09/2018 12:00:00 AM EDT tablet 9 TAKE ONE TABLET BY MOUTH AT ONSET OF HEADACHE, MAY REPEAT ONCE AFTER 2 HOURS DIRECTED, MAXIMUM DAILY DOSE = 2 TABLETS TAKE ONE TABLET BY MOUTH AT ONSET OF HEA DACHE, MAY REPEAT ONCE AFTER 2 HOURS DIRECTED, MAXIMUM DAILY DOSE = 2 TABLETS SOLD: 07/16/2019 [facility] 50 mg 12/09/2018 12:00:00 AM EDT tablet 9 TAKE ONE TABLET BY MOUTH AT ONSET OF HEADACHE, MAY REPEAT ONCE AFTER 2 HOURS DIRECTED, MAXIMUM DAILY DOSE = 2 TABLETS TAKE ONE TABLET BY MOUTH AT ONSET OF HEA DACHE, MAY REPEAT ONCE AFTER 2 HOURS DIRECTED, MAXIMUM DAILY DOSE = 2 TABLETS SOLD: 03/29/2019 [facility] 50 mg 12/09/2018 12:00:00 AM EDT tablet 9 TAKE ONE TABLET BY MOUTH AT ONSET OF HEADACHE, MAY REPEAT ONCE AFTER 2 HOURS DIRECTED, MAXIMUM DAILY DOSE = 2 TABLETS TAKE ONE TABLET BY MOUTH AT ONSET OF HEA DACHE, MAY REPEAT ONCE AFTER 2 HOURS DIRECTED, MAXIMUM DAILY DOSE = 2 TABLETS SOLD: 10/18/2019 [facility] Loratadine 10 MG Oral Capsule [Claritin] Claritin 10MG Oral Capsule Claritin 10MG Oral Capsule 11/20/2018 12:00:00 AM EDT 1 aborted loratadine 10 MG Oral Capsule [Claritin] MARK ANTHONY ([facility]) Augmented Betamethasone 0.0005 MG/MG Topical Ointment 0.05 % BETAMETHASONE DIPROPIONATE/PROPYLENE GLYCOL 11/09/2018 12:00:00 AM EDT ointment 15 APPLY TOPICALLY TO AFFECTED AREAS OF HANDS AND ARMS TWO TIMES A DAY FOR 14 DAYS NEEDED APPLY TOPICALLY TO AFFECTED AREAS OF ISABEL DS AND ARMS TWO TIMES A DAY FOR 14 DAYS NEEDED SOLD: 03/29/2019 [facility] levocetirizine dihydrochloride 5 MG Oral Tablet Levocetirizine Dihydrochloride 5MG Oral Tablet Levocetirizine Dihydrochloride 5MG Oral Tablet 12:00:00 AM EDT aborted levocetirizine dihydrochloride 5 MG Oral Tablet MARK ANTHONY ([facility]) linaclotide 0.29 MG Oral Capsule [Linzess] Linzess 290 MCG Oral Capsule Linzess 290MCG Oral Capsule 10/22/2018 12:00:00 AM EDT 1 aborted linaclotide 0.29 MG Oral Capsule [Linzess] MARK ANTHONY ([facility]) POLYETHYLENE GLYCOL 3350 142 MG/ML Oral Solution [Kassidy lax] MiraLax Oral Packet MiraLax Oral Packet 10/22/2018 12:00:00 AM EDT aborted polyethylene glycol 3350 39722 MG Powder for Oral Solution [Miralax] MARK ANTHONY ([facility]) 40 mg 09/26/2018 12:00:00 AM EDT tablet,delayed release (DR/EC) 30 TAKE ONE TABLET BY MOUTH EVERY DAY TAKE ONE TABLET BY MOUTH EVERY DAY SOLD: 03/29/2019 [facility] Ondansetron 4 MG Disintegrating Oral Tab let Ondansetron 4MG Oral Tablet Disintegrating Ondansetron 4MG Oral Tablet Disintegrating 08/30/2018 12:00:00 AM EDT aborted ondansetron 4 MG Disintegrating Oral Tablet MARK ANTHONY ([facility]) Sumatriptan 50 MG Oral Tablet SUMAtriptan Succinate 50 MG Oral Tablet SUMAtriptan Succinate 50MG Oral Tablet 06/16/2018 12:00:00 AM EDT aborted sumatriptan 50 MG Oral Tablet MARK ANTHONY ([facility]) Ibuprofen 800 MG Oral Tablet Ibuprofen 800MG Oral Tabl et Ibuprofen 800MG Oral Tablet 04/12/2018 12:00:00 AM EST aborted ibuprofen 800 MG Oral Tablet [facility] pantoprazole 40 MG Delayed Release Oral Tablet [Protonix] Protonix 40MG Oral Tablet Delayed Release Protonix 40MG Oral Tablet Delayed Release 10/24/2017 12:00:00 AM EDT 1 aborted pantoprazole 40 MG Delayed Release Oral Tablet [Protonix] MARK ANTHONY ([facility]) [facility] Saline Nasal Gel [facility] Saline Nasal Gel 01/10/2017 12:00:00 AM EDT aborted [facility] Saline Nasal MARK ANTHONY ([facility]) Betamethasone 0.5 MG/ML Topical Cream Be tamethasone Dipropionate 0.05% External Cream Betamethasone Dipropionate 0.05% External Cream 2016 12:00:00 AM EDT aborted betamethasone 0. 5 MG/ML Topical Cream MARK ANTHONY ([facility]) Acetaminophen 500 MG Oral Tablet Acetaminophen 500MG O ral Tablet Acetaminophen 500MG Oral Tablet 12/27/2016 12:00:00 AM EDT aborted acetaminophen 500 MG Oral Tablet MARK ANTHONY ([facility]) 24 HR Amphetamine aspartate 5 MG / Amphe tamine Sulfate 5 MG / Dextroamphetamine saccharate 5 MG / Dextroamphetamine Sulfate 5 MG Extended Release Oral Capsule Amphetamine-Dextroamphet ER 20 MG Oral Capsule Extended Release 24 Hour (ADDERALL XR (20MG)) Amphetamine-Dextroamphet ER 20 MG Oral C apsule Extended Release 24 Hour (ADDERALL XR (20MG)) 20 mg Oral a borted Take 20 mg by mouth every morning [facility] Insurance Providers Payer name Policy type / Coverage type Policy ID Covered green party ID Covered green party's relationship to springer Policy Springer Plan Information [facility]BS [facility] [id number] SP [id number] EXCELLUS C [id number] Self [id number] EXCELLUS BC-BS PPO [id number] SP [id number] [phone] [id number] SP [id number] [facility] MCDO [id number] SP [id number] [place] Other 0 Self 0 [place] Other 0 Self 0 [place] Other 0 Self 0 EXCELL[place] BCBS B [id number] S [id number] Excell[employer] BCBS P [id number] S [id number] [place] Other 0 Self 0 [place] Other 0 Self 0 [place] Other 0 Self 0 [place] Other 0 Self 0 EXCELL[place] BCBS MEDICAID [id number] Monalisa [id number] INSURANCE COVID-19 COVID Monalisa C OVID [place] Other 0 Self 0 [place] Other 0 Self 0 EXCELL[place] BCBS MEDICAID [id number] BCBS of [facility] Central Other 0 Self 0 INSURANCE COVID-19 [id number] [place] Other 0 Self 0 BCBS of [facility] Central Other 0 Self 0 HMO BLUE [id number] SP [id number] SELF PAY BLUE CROSS [id number] SP [id number] [place] Other 0 Self 0 Managed Care - [facility] Community Plan P [id number] S [id number] Medicaid S [id number] BCBS of [facility] Other 0 Self 0 BCBS of [facility] Other 0 Self 0 [place] of [place] [facility] Other 0 Self 0 [employer] [place] Other 302/802 Self 302/802 [place] Other 302/802 Self 302/802 SELF PAY BLUE CROSS [id number] SP [id number] UnitedHealthcare Other 0 Self 0 UnitedHealthcare Other 0 Self 0 UnitedHealthcare Other 0 Self 0 UnitedHealthcare Other 0 Self 0 UnitedHealthcare Other 0 Self 0 UnitedHealthcare Other 0 Self 0 UnitedHealthcare Other 0 Self 0 UnitedHealthcare Other 0 Self 0 UnitedHealthcare Other 0 Self 0 UnitedHealthcare Other 0 Self 0 Unitedhealthcare Medicaid Medicaid [id number] Self [id number] UnitedHealthcare Other 0 Self 0 UnitedHealthcare Other 0 Self 0 UnitedHealthcare Other 0 Self 0 UnitedHealthcare Other 0 Self 0 UnitedHealthcare Other 0 Self 0 UnitedHealthcare Other 0 Self 0 UnitedHealthcare Other 0 Self 0 [place] [id number] Self [id number] United Healthcare Adonay Medigap Part B [id number] [place] [id number] [place] [id number] Self [id number] [facility] Health Maintenance Organization (HMO) [id number] Self [id number] UnitedHealthcare Other 0 Self 0 UnitedHealthcare Other 0 Self 0 UnitedHealthcare Other 0 Self 0 UnitedHealthcare Other 0 Self 0 UnitedHealthcare Other 0 Self 0 UnitedHealthcare Other 0 Self 0 [facility] Commercial [id number] Self [id number] UnitedHealthcare Other 0 Self 0 UnitedHealthcare Other 0 Self 0 Managed Care - Community Plan United Healthcare P [id number] S [id number] Managed Care - Community Plan United Healthcare O UNAVAILABLE S UNAVAILABLE Medicaid O UNAVAILABLE S UNAVAILA BLE UnitedHealthcare Other 0 Self 0 UnitedHealthcare Other 0 Self [facility] Health Maintenance Organization (HMO) [id number] Self [id number] UN COMMUNITY PLAN [facility] [id number] SP [id number] UnitedHealthcare Other 0 Self 0 UnitedHealthcare Other 0 Self 0 UnitedHealthcare Other 0 Self 0 [place] [id number] Self [id number] United Healthcare Adonay Medigap Part B [id number] [place] [id number] [place] [id number] Self [id number] [facility] Health Maintenance Organization (HMO) [id number] Self [id number] UnitedHealthcare Other 0 Self 0 UN COMMUNITY PLAN [facility] [id number] SP [id number] [place] [id number] Self [id number] United Healthcare Adonay Medigap Part B [id number] Self [id number] [place] [id number] Self [id number] [facility] Health Maintenance Organization (HMO) [id number] Self [id number] [place] [id number] Self [id number] United Healthcare Adonay Medigap Part B [id number] [place] [id number] [place] [id number] Self [id number] [facility] Health Maintenance Organization (HMO) [id number] Self [id number] [place] Other 0 Self 0 UnitedHealthcare Other 0 Self 0 [place] [id number] Self [id number] [id number] United Healthcare Adonay Medigap Part B [id number] Self [id number] [place] [id number] Self [id number] [facility] Health Maintenance Organization (HMO) [id number] Self [id number] [facility] COMMUNITY PLAN MCDHMO [id number] SP [id number] [facility] Other [facility] Self 0 [place] [id number] Self [id number] [facility] Adonay Medigap Part B [id number] Self [id number] [place] [id number] Self [id number] [facility] Health Maintenance Organization (HMO) [id number] Self [id number] [place] [id number] Self [id number] [facility] Medigap Part B [id number] Self [id number] [place] [id number] [facility] [id number] [facility]) [id number] Self [id number] ANSI-Medicaid [id number] ANSI-Medicaid [id number] ANSI-Commercial [id number] ANSI-Medicaid [id number] UnitedHealthcare Other 0 Self 0 ANSI-Medicaid [id number] ANSI-Commercial [id number] ANSI-Medicaid [id number] ANSI-Medicaid [id number] ANSI-Commercial [id number] ANSI-Medicaid [id number] ANSI-Medicaid [id number] ANSI-Medicaid [id number] [facility] Health Maintenance Organization (HMO) [id number] Self [id number] [facility] COMMUNITY PLAN MCDO [id number] SP [id number] [facility] COMMUNITY PLAN [id number] SP [id number] SELF PAY UnitedHealthcare Other 0 Self 0 UNITED HEALTHCARE [id number] SP [id number] [facility](MCAID) O [id number] S [id number] [facility] Health Maintenance Organization (HMO) [id number] Self [id number] [facility] Hmo Commercial [id number] Self [id number] UnitedHealthcare Other 0 Self 0 [facility] MEDICAID [id number] Monalisa [id number] United Healthcare Hmo Commercial [id number] Self [id number] UnitedHealthcare Other 0 Self 0 [place] [id number] Self [id number] [facility] Adonay/MCR Medigap Part B [id number] Self [id number] [place] [id number] Self [id number] [facility] Health Maintenance Organization (HMO) [id number] Self [id number] [place] [id number] Self [id number] United Healthcare Adonay/MCR Medigap Part B [id number] Self [id number] [place] [id number] Self [id number] [facility] Health Maintenance Organization (HMO) [id number] Self [id number] UnitedHealthcare Other 0 Self 0 ANSI-Medicaid [id number] ANSI-Medicaid [id number] ANSI-Medicaid [id number] ANSI-Commercial [id number] [place] [id number] Self [id number] United Healthcare Adonay/MCR Medigap Part B [id number] Self [id number] [place] [id number] Self [id number] [facility] Health Maintenance Organization (HMO) [id number] Self [id number] UNHC AMERICHOICE XIX -HMO [id number] 18 [id number] UNHC AMERICHOICE XIX -HMO [id number] 18 [id number] [place] [id number] Self [id number] United Healthcare Adonay/MCR Medigap Part B [id number] Self [id number] [place] [id number] Self [id number] [facility] Health Maintenance Organization (HMO) [id number] Self [id number] UnitedHealthcare Other 0 Self 0 United CR/[facility] Health Maintenance Organization (HMO) [id number] Self [id number] UnitedHealthcare Other 0 Self 0 UnitedHealthcare Other 0 Self 0 Managed Care - Community Plan United Healthcare P [id number] S [id number] Medicaid S [id number] S [id number] UnitedHealthcare Other 0 Self 0 United CR/Community [facility] Health Maintenance Organization (HMO) [id number] Self [id number] UnitedHealthcare Other 0 Self 0 UnitedHealthcare Other 0 Self 0 SELF PAY O [id number] S [id number] UnitedHealthcare Other 0 Self 0 UnitedHealthcare Other 0 Self 0 UnitedHealthcare Other 0 Self 0 [facility](MCAID) O [id number] S [id number] [place] Other 0 Self 0 MEDICAID [id number] SP [id number] [place] Other 0 Self 0 [place] [id number] Self [id number] [facility] [employer] Health Maintenance Organization (HMO) [id number] Self [id number] [place] Other 0 Self 0 [place] Other 0 Self 0 [place] Other 0 Self 0 [place] [id number] Self [id number] [facility] [employer] Health Maintenance Organization (HMO) [id number] Self [id number] [place] [id number] Self [id number] [facility] [employer] Health Maintenance Organization (HMO) [id number] Self [id number] [place] [id number] Self [id number] [id number] [facility] BCBS Health Maintenance Organization (HMO) [id number] Self [id number] [place] 302/307 [id number] SP [id number] [place] [id number] Self [id number] [id number] [facility] BCBS Health Maintenance Organization (HMO) [id number] Self [id number] [place] [id number] Self [id number] [id number] [facility] [employer]BS Health Maintenance Organization (HMO) [id number] Self [id number] BCBS/[facility] Commercial [id number] Self [id number] [place] [id number] Self [id number] [id number] [facility] BCBS Health Maintenance Organization (HMO) [id number] Self [id number] MEDICAID [id number] SP [id number] [place] 302/307 [id number] SP [id number] MEDICAID M [id number] [facility] BCBS B [id number] S [id number] MEDICAID -O/P EMERGENCY ROOM [id number] 18 [id number] BLUE CROSS BLUE SHIELD -O/P [id number] 18 [id number] MEDICAID -O/P EMERGENCY ROOM UNAVAILABLE UNAVAILABLE BLUE CROSS BLUE SHIELD-O/P [id number] 18 [id number] [place] [id number] Self [id number] [facility] BCBS Health Maintenance Organization (HMO) [id number] Self [id number] BCBS/[facility] Commercial [id number] Self [id number] [place] [id number] Self [id number] [id number] [facility] BCBS Health Maintenance Organization (HMO) [id number] Self [id number] [place] [id number] Self [id number] [id number] [facility] BCBS Health Maintenance Organization (HMO) [id number] Self [id number] [place] 302/307 [id number] SP [id number] [place] [id number] Self [id number] [facility] BCBS Health Maintenance Organization (HMO) [id number] Self [id number] [place] 306/806 [id number] SP [id number] [place] 306/806 ADONAY SP ADONAY UNHC COMMUNITY PLAN MCDHMO [id number] SP [id number] BS Adonay Hmo Blue Option Medigap Part B Self [facility] Community Plan Commercial Self Unitedhealthcare Medicaid Medicaid Self United HLCR/Community [facility] Health Maintenance Organization (HMO) Self UNITED HEALTHCARE(MCAID) O [id number] S [id number] United Healthcare Adonay/MCR Health Maintenance Organization (HMO) Self D Managed Care United Healthcare O [id number] S [id number] D Managed Care [facility] O [id number] S [id number] Managed Care BCBS O [id number] S [id number] Medicaid Dental O [id number] S [id number] BLUE CROSS BELTRAN PLAN [id number] SP [id number] [facility] BCBS P [id number] S [id number] HMO BLUE P [id number] S [id number] O BLUE [id number] SP [id number] MEDICAID - O/P EMERGENCY ROOM [id number] Problems, Conditions, and Diagnoses Code Display Name Description Problem Type Effective Dates Data Source(s) 443.0 Raynaud's Syndrome Raynaud's Syndrome Problem 0 12:00:00 AM EST [facility] 443.0 Raynaud's Syndrome Raynaud's Syndrome Problem 0 12:00:00 AM EST MARK ANTHONY ([facility] G47.419 Narcolepsy Narcolepsy [id number] 12/03/2019 12:00:00 AM ED [facility] F90.9 ADHD ADHD [id number] 12/03/2019 12:00:00 AM ED [facility] K21.9 GERD (gastroesophageal reflux disease) G ERD (gastroesophageal reflux disease) [id number] 12/03/2019 12:00:00 AM EDT [facility] D86.9 Sarcoidosis Sarcoidosis 77281953 12/03/2019 12:00:00 AM EDT [facility] J45.909 Asthma Asthma 41981622 12/03/2019 12:00:00 AM ED [facility] G47.30 Sleep apnea Sleep apnea 67523955 12/03/2019 12:00:00 AM EDT [facility] K62.3 Rectal prolapse Rectal prolapse 66860815 12/03/2019 12:0 0:00 AM EDT [facility] [id number] Rectal prolapse Rectal prolapse Problem 11/28/2019 12:0 0:00 AM EDT [facility] ([facility]) 723.8 Neuralgia Occipital Neuralgia Occipital Finding 0 09/16/2019 12:00:00 AM EDT MARK ANTHONY ([facility]) 723.1 Cervicalgia Cervicalgia Finding 09/16/2019 12:00:00 AM EDT MARK ANTHONY ([facility]) 339.89 Chronic Daily Headache Chronic Daily Headache Problem 09/16/2019 12:00:00 AM EDT [facility] M79.18 Myalgia and Myositis Myalgia and Myositis Problem 09/16/2019 12:00:00 AM EDT [facility] 723.8 Neuralgia Occipital Neuralgia Occipital Finding 0 09/16/2019 12:00:00 AM EDT [facility] 723.1 Cervicalgia Cervicalgia Finding 09/16/2019 12:00:00 AM EDT [facility] 339.89 Chronic Daily Headache Chronic Daily Headache Problem 09/16/2019 12:00:00 AM EDT [facility] M79.18 Myalgia and Myositis Myalgia and Myositis Problem 09/16/2019 12:00:00 AM EDT MARK ANTHONY [facility] 723.8 Neuralgia Occipital Neuralgia Occipital Finding 0 09/16/2019 12:00:00 AM EDT MARK ANTHONY [facility] 723.1 Cervicalgia Cervicalgia Finding 09/16/2019 12:00:00 AM EDT MARK ANTHONY ([facility] 339.89 Chronic Daily Headache Chronic Daily Headache Problem 09/16/2019 12:00:00 AM EDT MARK ANTHONY [facility] M79.18 Myalgia and Myositis Myalgia and Myositis Problem 09/16/2019 12:00:00 AM EDT MARK ANTHONY ([facility] 723.8 Neuralgia Occipital Neuralgia Occipital Finding 0 09/16/2019 12:00:00 AM EDT MARK ANTHONY ([facility] 723.1 Cervicalgia Cervicalgia Finding 09/16/2019 12:00:00 AM EDT MARK ANTHONY ([facility] 339.89 Chronic Daily Headache Chronic Daily Headache Problem 09/16/2019 12:00:00 AM EDT MARK ANTHONY ([facility] M79.18 Myalgia and Myositis Myalgia and Myositis Problem 09/16/2019 12:00:00 AM EDT MARK ANTHONY ([facility] 339.89 Chronic Daily Headache Chronic Daily Headache Problem 09/16/2019 12:00:00 AM EDT MARK ANTHONY ([facility] M79.18 Myalgia and Myositis Myalgia and Myositis Problem 09/16/2019 12:00:00 AM EDT MARK ANTHONY ([facility] 723.8 Neuralgia Occipital Neuralgia Occipital Finding 0 09/16/2019 12:00:00 AM EDT MARK ANTHONY ([facility] 723.1 Cervicalgia Cervicalgia Finding 09/16/2019 12:00:00 AM EDT MARK ANTHONY ([facility] 339.89 Chronic Daily Headache Chronic Daily Headache Problem 09/16/2019 12:00:00 AM EDT MARK ANTHONY ([facility] M79.18 Myalgia and Myositis Myalgia and Myositis Problem 09/16/2019 12:00:00 AM EDT MARK ANTHONY ([facility]) 723.8 Neuralgia Occipital Neuralgia Occipital Finding 0 09/16/2019 12:00:00 AM EDT MARK ANTHONY ([facility]) 723.1 Cervicalgia Cervicalgia Finding 09/16/2019 12:00:00 AM EDT MARK ANTHONY ([facility]) 339.89 Chronic Daily Headache Chronic Daily Headache Problem 09/16/2019 12:00:00 AM EDT MARK ANTHONY [facility] M79.18 Myalgia and Myositis Myalgia and Myositis Problem 09/16/2019 12:00:00 AM EDT MARK ANTHONY ([facility]) 723.8 Neuralgia Occipital Neuralgia Occipital Finding 0 09/16/2019 12:00:00 AM EDT MARK ANTHONY ([facility]) 723.1 Cervicalgia Cervicalgia Finding 09/16/2019 12:00:00 AM EDT MARK ANTHONY ([facility]) 723.8 Neuralgia Occipital Neuralgia Occipital Finding 0 09/16/2019 12:00:00 AM EDT MARK ANTHONY [facility] 723.1 Cervicalgia Cervicalgia Finding 09/16/2019 12:00:00 AM EDT MARK ANTHONY ([facility] 339.89 Chronic Daily Headache Chronic Daily Headache Problem 09/16/2019 12:00:00 AM EDT MARK ANTHONY ([facility] M79.18 Myalgia and Myositis Myalgia and Myositis Problem 09/16/2019 12:00:00 AM EDT MARK ANTHONY ([facility]) 723.8 Neuralgia Occipital Neuralgia Occipital Finding 0 09/16/2019 12:00:00 AM EDT MARK ANTHONY ([facility]) 723.1 Cervicalgia Cervicalgia Finding 09/16/2019 12:00:00 AM EDT MARK ANTHONY ([facility]) 339.89 Chronic Daily Headache Chronic Daily Headache Problem 09/16/2019 12:00:00 AM EDT MARK ANTHONY ([facility] M79.18 Myalgia and Myositis Myalgia and Myositis Problem 09/16/2019 12:00:00 AM EDT MARK ANTHONY ([facility]) 339.89 Chronic Daily Headache Chronic Daily Headache Problem 09/16/2019 12:00:00 AM EDT MARK ANTHONY ([facility] M79.18 Myalgia and Myositis Myalgia and Myositis Problem 09/16/2019 12:00:00 AM EDT MARK ANTHONY ([facility]) 723.8 Neuralgia Occipital Neuralgia Occipital Finding 0 09/16/2019 12:00:00 AM EDT MARK ANTHONY ([facility]) 723.1 Cervicalgia Cervicalgia Finding 09/16/2019 12:00:00 AM EDT MARK ANTHONY ([facility] 339.89 Chronic Daily Headache Chronic Daily Headache Problem 09/16/2019 12:00:00 AM EDT MARK ANTHONY ([facility] M79.18 Myalgia and Myositis Myalgia and Myositis Problem 09/16/2019 12:00:00 AM EDT MARK ANTHONY ([facility]) 723.8 Neuralgia Occipital Neuralgia Occipital Finding 0 09/16/2019 12:00:00 AM EDT MARK ANTHONY ([facility]) 723.1 Cervicalgia Cervicalgia Finding 09/16/2019 12:00:00 AM EDT MARK ANTHONY ([facility] 339.89 Chronic Daily Headache Chronic Daily Headache Problem 09/16/2019 12:00:00 AM EDT MARK ANTHONY ([facility] M79.18 Myalgia and Myositis Myalgia and Myositis Problem 09/16/2019 12:00:00 AM EDT MARK ANTHONY ([facility]) 723.8 Neuralgia Occipital Neuralgia Occipital Finding 0 09/16/2019 12:00:00 AM EDT MARK ANTHONY ([facility]) 723.1 Cervicalgia Cervicalgia Finding 09/16/2019 12:00:00 AM EDT MARK ANTHONY ([facility]) 473.9 Sinusitis Sinusitis Problem 06/11/2019 12:00:00 AM ED T MARK ANTHONY ([facility]) 493.90 Asthmatic Bronchitis Asthmatic Bronchitis Problem 06/11/2019 12:00:00 AM EDT MARK ANTHONY ([facility]) 473.9 Sinusitis Sinusitis Problem 06/11/2019 12:00:00 AM ED T MARK ANTHONY ([facility]) 493.90 Asthmatic Bronchitis Asthmatic Bronchitis Problem 06/11/2019 12:00:00 AM EDT MARK ANTHONY ([facility]) 473.9 Sinusitis Sinusitis Problem 06/11/2019 12:00:00 AM ED T MARK ANTHONY ([facility]) 493.90 Asthmatic Bronchitis Asthmatic Bronchitis Problem 06/11/2019 12:00:00 AM EDT MARK ANTHONY ([facility]) 473.9 Sinusitis Sinusitis Problem 06/11/2019 12:00:00 AM ED T MARK ANTHONY ([facility]) 493.90 Asthmatic Bronchitis Asthmatic Bronchitis Problem 06/11/2019 12:00:00 AM EDT MARK ANTHONY ([facility]) 473.9 Sinusitis Sinusitis Problem 06/11/2019 12:00:00 AM ED T MARK ANTHONY ([facility]) 493.90 Asthmatic Bronchitis Asthmatic Bronchitis Problem 06/11/2019 12:00:00 AM EDT MARK ANTHONY ([facility]) 473.9 Sinusitis Sinusitis Problem 06/11/2019 12:00:00 AM ED T MARK ANTHONY ([facility]) 493.90 Asthmatic Bronchitis Asthmatic Bronchitis Problem 06/11/2019 12:00:00 AM EDT MARK ANTHONY ([facility]) 473.9 Sinusitis Sinusitis Problem 06/11/2019 12:00:00 AM ED T MARK ANTHONY ([facility]) 493.90 Asthmatic Bronchitis Asthmatic Bronchitis Problem 06/11/2019 12:00:00 AM EDT MARK ANTHONY ([facility]) 473.9 Sinusitis Sinusitis Problem 06/11/2019 12:00:00 AM ED T MARK ANTHONY ([facility]) 493.90 Asthmatic Bronchitis Asthmatic Bronchitis Problem 06/11/2019 12:00:00 AM EDT MARK ANTHONY ([facility]) 473.9 Sinusitis Sinusitis Problem 06/11/2019 12:00:00 AM ED T MARK ANTHONY ([facility]) 493.90 Asthmatic Bronchitis Asthmatic Bronchitis Problem 06/11/2019 12:00:00 AM EDT MARK ANTHONY ([facility]) 473.9 Sinusitis Sinusitis Problem 06/11/2019 12:00:00 AM ED T MARK ANTHONY ([facility]) 493.90 Asthmatic Bronchitis Asthmatic Bronchitis Problem 06/11/2019 12:00:00 AM EDT MARK ANTHONY ([facility]) 473.9 Sinusitis Sinusitis Problem 06/11/2019 12:00:00 AM ED T MARK ANTHONY ([facility]) 493.90 Asthmatic Bronchitis Asthmatic Bronchitis Problem 06/11/2019 12:00:00 AM EDT MARK ANTHONY ([facility]) 473.9 Sinusitis Sinusitis Problem 06/11/2019 12:00:00 AM ED T MARK ANTHONY ([facility]) 493.90 Asthmatic Bronchitis Asthmatic Bronchitis Problem 06/11/2019 12:00:00 AM EDT MARK ANTHONY ([facility]) 473.9 Sinusitis Sinusitis Problem 06/11/2019 12:00:00 AM ED T MARK ANTHONY ([facility]) 493.90 Asthmatic Bronchitis Asthmatic Bronchitis Problem 06/11/2019 12:00:00 AM EDT MARK ANTHONY ([facility]) 473.9 Sinusitis Sinusitis Problem 06/11/2019 12:00:00 AM ED T MARK ANTHONY ([facility]) 493.90 Asthmatic Bronchitis Asthmatic Bronchitis Problem 06/11/2019 12:00:00 AM EDT MARK ANTHONY ([facility]) V76.2 Encounter for screening for malignant ne oplasm of cervix Encounter for screening for malignant neoplasm of cervix Problem 05/13/2019 12:00: 00 AM EST MARK ANTHONY ([facility]) V76.2 Encounter for screening for malignant ne oplasm of cervix Encounter for screening for malignant neoplasm of cervix Problem 05/13/2019 12:00: 00 AM EST MARK ANTHONY ([facility]) V76.2 Encounter for screening for malignant ne oplasm of cervix Encounter for screening for malignant neoplasm of cervix Problem 05/13/2019 12:00: 00 AM EST MARK ANTHONY ([facility]) V76.2 Encounter for screening for malignant ne oplasm of cervix Encounter for screening for malignant neoplasm of cervix Problem 05/13/2019 12:00: 00 AM EST MARK ANTHONY ([facility]) V76.2 Encounter for screening for malignant ne oplasm of cervix Encounter for screening for malignant neoplasm of cervix Problem 05/13/2019 12:00: 00 AM EST MARK ANTHONY ([facility]) V76.2 Encounter for screening for malignant ne oplasm of cervix Encounter for screening for malignant neoplasm of cervix Problem 05/13/2019 12:00: 00 AM EST MARK ANTHONY ([facility]) V76.2 Encounter for screening for malignant ne oplasm of cervix Encounter for screening for malignant neoplasm of cervix Problem 05/13/2019 12:00: 00 AM EST MARK ANTHONY ([facility]) V76.2 Encounter for screening for malignant ne oplasm of cervix Encounter for screening for malignant neoplasm of cervix Problem 05/13/2019 12:00: 00 AM EST MARK ANTHONY ([facility]) V76.2 Encounter for screening for malignant ne oplasm of cervix Encounter for screening for malignant neoplasm of cervix Problem 05/13/2019 12:00: 00 AM EST MARK ANTHONY ([facility]) V76.2 Encounter for screening for malignant ne oplasm of cervix Encounter for screening for malignant neoplasm of cervix Problem 05/13/2019 12:00: 00 AM EST MARK ANTHONY ([facility]) V76.2 Encounter for screening for malignant ne oplasm of cervix Encounter for screening for malignant neoplasm of cervix Problem 05/13/2019 12:00: 00 AM EST MARK ANTHONY ([facility]) V76.2 Encounter for screening for malignant ne oplasm of cervix Encounter for screening for malignant neoplasm of cervix Problem 05/13/2019 12:00: 00 AM EST MARK ANTHONY ([facility]) V76.2 Encounter for screening for malignant ne oplasm of cervix Encounter for screening for malignant neoplasm of cervix Problem 05/13/2019 12:00: 00 AM EST MARK ANTHONY ([facility]) V76.2 Encounter for screening for malignant ne oplasm of cervix Encounter for screening for malignant neoplasm of cervix Problem 05/13/2019 12:00: 00 AM EST MARK ANTHONY ([facility]) V76.2 Encounter for screening for malignant ne oplasm of cervix Encounter for screening for malignant neoplasm of cervix Problem 05/13/2019 12:00: 00 AM EST MARK ANTHONY ([facility]) V76.2 Encounter for screening for malignant ne oplasm of cervix Encounter for screening for malignant neoplasm of cervix Problem 05/13/2019 12:00: 00 AM EST MARK ANTHONY ([facility]) 787.03 Vomiting Vomiting Problem 03/28/2019 12:00:00 AM ES T MARK ANTHONY ([facility]) 787.03 Vomiting Vomiting Problem 03/28/2019 12:00:00 AM ES T MARK ANTHONY ([facility]) 787.03 Vomiting Vomiting Problem 03/28/2019 12:00:00 AM ES T MARK ANTHONY ([facility]) 787.03 Vomiting Vomiting Problem 03/28/2019 12:00:00 AM ES T MARK ANTHONY ([facility]) 787.03 Vomiting Vomiting Problem 03/28/2019 12:00:00 AM ES T MARK ANTHONY ([facility]) 787.03 Vomiting Vomiting Problem 03/28/2019 12:00:00 AM ES T MARK ANTHONY ([facility]) 787.03 Vomiting Vomiting Problem 03/28/2019 12:00:00 AM ES T MARK ANTHONY ([facility]) 787.03 Vomiting Vomiting Problem 03/28/2019 12:00:00 AM ES T MARK ANTHONY ([facility]) 787.03 Vomiting Vomiting Problem 03/28/2019 12:00:00 AM ES T MARK ANTHONY ([facility]) 787.03 Vomiting Vomiting Problem 03/28/2019 12:00:00 AM ES T MARK ANTHONY ([facility]) 787.03 Vomiting Vomiting Problem 03/28/2019 12:00:00 AM ES T MARK ANTHONY ([facility]) 787.03 Vomiting Vomiting Problem 03/28/2019 12:00:00 AM ES T MARK ANTHONY ([facility]) 787.03 Vomiting Vomiting Problem 03/28/2019 12:00:00 AM ES T MARK ANTHONY ([facility]) 787.03 Vomiting Vomiting Problem 03/28/2019 12:00:00 AM ES T MARK ANTHONY ([facility]) 787.03 Vomiting Vomiting Problem 03/28/2019 12:00:00 AM ES T MARK ANTHONY ([facility]) 787.03 Vomiting Vomiting Problem 03/28/2019 12:00:00 AM ES T MARK ANTHONY ([facility]) 787.03 Vomiting Vomiting Problem 03/28/2019 12:00:00 AM ES T MARK ANTHONY ([facility]) 787.03 Vomiting Vomiting Problem 03/28/2019 12:00:00 AM ES T MARK ANTHONY ([facility]) K62.3 Rectal prolapse Rectal prolapse Diagnosis 12/03/2019 12:5 3:00 PM EDT [facility] J98.8 Other specified respiratory disorders Ot her specified respiratory disorders Diagnosis 11/28/2019 10:23:53 AM EDT [facility] U07.1 COVID-19 COVID-19 Diagnosis 11/28/2019 10:23:53 AM ED T [facility] G47.419 Narcolepsy without cataplexy Narcolepsy without catapl exy Diagnosis 11/28/2019 09:10:28 AM EDT [facility] F90.9 Attention-deficit hyperactivity disorder , unspecified type Attention- deficit hyperactivity disorder Diagnosis 11/28/2019 09:10:28 AM EDT [facility] K21.9 Gastro-esophageal reflux disease without esophagitis Gastro-esophageal reflux disease without Diagnosis 11/28/2019 09:10:28 AM EDT [facility] D86.9 Sarcoidosis, unspecified Sarcoidosis, unspecified Diag nosis 11/28/2019 09:10:28 AM EDT [facility] J45.20 Mild intermittent asthma, uncomplicated Mild intermittent asthma, uncomplicated Diagnosis 11/28/2019 09:10:28 AM EDT [facility] G47.30 Sleep apnea, unspecified Sleep apnea, unspecified Diag nosis 11/28/2019 09:10:28 AM EDT [facility] G44.89 Other headache syndrome G44.89 - Other headache syndro me Diagnosis 11/21/2019 02:28:00 PM EDT [facility] G47.419 Narcolepsy without cataplexy Narcolepsy without catapl exy Diagnosis 06/06/2019 09:36:45 AM EDT [facility] R06.81 Apnea, not elsewhere classified Apnea, not elsew here classified Diagnosis 06/06/2019 09:36:29 AM EDT [facility] Surgeries/Procedures Procedure Description Date Indications Data Source(s) History of asthma History of asthma 01/21/2020 12:00:00 AM EDT MARK ANTHONY ([facility]) History of tubal ligation 04/24/2018 History of tubal ligatio n 04/24/2018 01/21/2020 12:00:00 AM EDT MARK ANTHONY ([facility]) History of excision of rectal procidentia 12/03/2019 Hi story of excision of rectal procidentia 12/03/2019 01/21/2020 12:00:00 AM EDT FREDDIE OLSON ([facility]) Immunization Administration (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, 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 Immunization Administration (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, Intrader 01/21/2020 12:00:00 AM EDT MARK ANTHONY ([facility]) Influenza virus vaccine, preservative free, 6 months a nd up Influenza virus vaccine, preservative free, 6 months and up 01/21/2020 12:00:00 AM EDT MARK ANTHONY ([facility]) Influenza virus vaccine, preservative free, 6 months a nd up Influenza virus vaccine, preservative free, 6 months and up 01/21/2020 12:00:00 AM EDT MARK ANTHONY ([facility]) History of asthma History of asthma 01/08/2020 12:00:00 AM EDT MARK ANTHONY ([facility]) History of tubal ligation 04/24/2018 History of tubal ligatio n 04/24/2018 01/08/2020 12:00:00 AM EDT JUNTURA ([facility]) History of excision of rectal procidentia 12/03/2019 Hi story of excision of rectal procidentia 12/03/2019 01/08/2020 12:00:00 AM EDT FREDDIE OLSON ([facility]) BLOOD COUNT COMPLETE AUTOMATED CBC Timed 12/06/2019 5:57 A M EDT 12/06/2019 09:57:00 AM EDT [facility] BASIC METABOLIC PANEL CALCIUM TOTAL BASIC METABOLIC PANEL Timed 12/06/2019 5:57 AM EDT 12/06/2019 09:57:00 AM EDT [facility] History of excision of rectal procidentia 12/03/2019 Hi story of excision of rectal procidentia 12/03/2019 12/05/2019 12:00:00 AM EDT FREDDIE OLSON ([facility]) BLOOD COUNT COMPLETE AUTOMATED CBC Timed 12/04/2019 5:39 A M EDT 12/04/2019 09:39:00 AM EDT [facility] BASIC METABOLIC PANEL CALCIUM TOTAL BASIC METABOLIC PANEL Timed 12/04/2019 5:39 AM EDT 12/04/2019 09:39:00 AM EDT [facility] PROCTOPEXY ABDOMINAL APPROACH RECTOPEXY, ABDOMINAL APPROACH, OP EN 12/03/2019 2:47 PM EDT Rectal prolapse 12/03/2019 06:47:00 PM EDT - 12/03/2019 08:28:00 PM EDT Rectal prolapse [facility] Rectal prolapse GLUC BLD GLUC MNTR DEV CLEARED FDA SPEC HOME USE POCT GLUCOSE Routine 12/03/2019 2:40 PM EDT 12/03/2019 06:40:00 PM EDT [facility] GLUC BLD GLUC MNTR DEV CLEARED FDA SPEC HOME USE POCT GLUCOSE Routine 12/03/2019 1:47 PM EDT 12/03/2019 05:47:00 PM EDT [facility] PROCTOPEXY ABDOMINAL APPROACH 12/03/2019 12:00:00 AM E DT MEDENT ([facility]) ECG ROUTINE ECG W/LEAST 12 LDS TRCG ONLY W/O I&R ECG 12-LEAD Routine 11/28/2019 10:13 AM EDT Rectal prolapse 11/28/2019 02:13:11 PM EDT Rectal prolapse [facility] Rectal prolapse BLOOD COUNT COMPLETE AUTOMATED CBC Routine 0 10:05 AM EDT Rectal prolapse 11/28/2019 02:05:00 PM EDT Rectal prolapse [facility] Rectal prolapse BLOOD TYPING ABO TYPE AND SCREEN Routine 11/28/2019 10:05 AM EDT Rectal prolapse 11/28/2019 02:05:00 PM EDT Rectal prolapse [facility] Rectal prolapse COMPREHENSIVE METABOLIC PANEL COMPREHENSIVE METABOLIC PANEL Rou jaky 11/28/2019 10:05 AM EDT Rectal prolapse 11/28/2019 02:05:00 PM EDT Rectal prolapse [facility] Rectal prolapse Results ID Date Data Source URINE CULTURE 04/20/2020 12:00:00 AM EST eCW1 ([facility]) Name Value Range Interpretation Code Description Data Janis rce(s) Supporting Document(s) URINE CULTURE eCW1 ([facility]) ID Date Data Source [id number] 04/02/2020 01:39:58 PM [facility] Name Value Range Interpretation Code Description Data Janis rce(s) Supporting Document(s) Progress Note [facility] XBSMWi9vLoHGOwMs85/KVWbtIKCfb5VaOFsyVWk3MYhxAXDrL5AbERY4iX0mVUP3DVdALqNzJbDlWWC8 lbm [file] AgICAgICAgICAgICAgICAgICAgICAgICAgICAgICAg ICAgICAgICAgICAgICAgICAgICAgICAgICAgICAgICAgICAgICAgICAgICAgICAgICAgICAgICAgICAg AVFcOWMxWJ9YJFTrYRJxFMJhAEBdPIEvAHCxWDKeSBJpQZPzJZCbNRMbBEXiPMSoKDVhGHUwZFZuXAUu ICAgICAgICAgICAgICAgICAgICAgICAgICAgICAgIC UlXDHwMGRbRKIkFNVzAEEbHA9MOPBdLDJdCNDwCUVaQRJlLQPmWEDkOSKrGQGcFPGmGNGcATPeXSWtEB AgICAgICAgICAgICAgICAgICAgICAgICAgICAgICAgICAgICAgICAgICAgICAgICAgICAgICAgICAgIA 0KICAgICAgICAgICAgICAgICAgICAgICAgICAgICAg ICAgICAgICAgICAgICAgICAgICAgICAgICAgICAgICAgICAgICAgICAgICAgICAgICAgICAgICAgICAg GOLwVPUpGUKoDD4LQAJrMBGkXCIqHCDqBNChPFUpYENbTRBtUQOqXCGxUPAnHDFwNIWmSWWzZYEfVHFg ICAgICAgICAgICAgICAgICAgICAgICAgICAgICAgIC WuWSCvBMPqHJGvZZRtABRwKATlJM8NZZGsFLSgAPMiGUYnXHThTTQnITLjWSVmPEGpSWFuIWTlHPMeSN AgICAgICAgICAgICAgICAgICAgICAgICAgICAgICAgICAgICAgICAgICAgICAgICAgICAgICAgICAgIC ZqOY2ZUJSnWPOrSNBgYIYbRXKcLYDnXPUtWLIqDUQp ICAgICAgICAgICAgICAgICAgICAgICAgICAgICAgICAgICAgICAgICAgICAgICAgICAgICAgICAgICAg WWSqPJXkOXJrWDLmTI8WNVKhOZNfLLWwVGLhFHLiNZHgAYElKUGdEBIoEVYtMCNfUSRcLOLxVHIbQFSe ICAgICAgICAgICAgICAgICAgICAgICAgICAgICAgIC NaMQDgEWLpHADsVAAhHVInMOQzKAStFL0FVZHnOCEiMRUhBOJlVLJbHHStYFKjHVYbYDXbFYItYOJgFV AgICAgICAgICAgICAgICAgICAgICAgICAgICAgICAgICAgICAgICAgICAgICAgICAgICAgICAgICAgIC DqPESsJO2XNCZqWTJvWTXmXXMaDKElUYZgDNAnEKZd ICAgICAgICAgICAgICAgICAgICAgICAgICAgICAgICAgICAgICAgICAgICAgICAgICAgICAgICAgICAg HTQqUWWsPYLeLLAnTZQnAW4TYB44uFCkm2E4XSMtLC9ogiv/Ki9BLVmaxmTccMXyHK0JQtEkVY6gsm9I VaXtCT1cxc9XIWdHNiQpV9R2jRNgCBMgNABXOmAgE2 4sTHfjGn57TXfdDSDqOcTlFTt9Ti6QZaAqI4kcBMKvYyU9DDWxOtU1JVDwXpC0STZrKdXfQNAqRSEqQP VaAZHZEWU8PMJuGbAdNZbsRJ9Hf9AshGU0JFd+Yj5JWR6ml9YwMJpgAmRfJO4apj1UKBeVLlZoA7Vhej A0CFPxWHYgJi5JBTAjKWFklJLhYiAcPVQFIxPbE5Nv cE43VYVGZh4+NIgtoyEdPceXXmDaMHQfe5NrKTo0PT1TIAZjRNg7xHYpYLSzN1Zvz2KlLt76NCZdIytv C04uq1kjxiFOZZxjzNkcXB7GMUQ4IPSzPG4jJAXjMMHtGgQ5DSSXOZ3DJSKgBYNcdACxWPWiIVHEHB0G YRgqJVZ8GYVnluYicCYnPJtsWG7GXBCkhdWjTgOdJX BSDQo+Fs1GDW1hv1TaJNalVOMuHE5zri2BTVjCOoUiY2Y8mKSsW6N9LZiiXl3QDWKzFKGzLgIjFGOHWA dqCA2IIT2rodT4FC5UoVIpDRSjBZCpcGEqJXn9G24usPLyNUwqVL2QROR+Garima+Tf0XCEZtEVDfIEPoOa MfXOQLJjHcK0UkF9PNm4NnL1JrPT21lLmbekBwGLym YK3EMC4gSXIsOXMAAU7OvYNnoO7xkyQgKfYiLKPEJjQaO22yjWDjGTYqDAEeTZHePt6NKUWcV2MhhbQs nEowqeFtMSQtLTIVFQ6GGLtvhaYswYLaeXhtWU79kRmxIM4WAh8TKsLaNZ9xdi0NaUMnOs7QGPAkEH9H UBAjWNXtNRMfQVH7GGOeLrRpWNxeKIHqZGUzOPG5DJ QhILHaUT7FNjWtFAMkLnR9DjKhEHKlWMYtbj5TLXOrGZQaDGG7DDFjSPOuFIJvXWleRTEeENDtOTJ9CH PyULAgBU4DCfKcGWQdBLZ6QNWrTZMwKQXovu8JXPLaDNMgTpc7LOBvCIZlZPBkUCmjJNPnUVS7QDFnHY DoOUGlVP7QIiIcGUKoOOHbGHQdLHClYDLxez3XIOKa ACBfHGe2XFXyYOZtTQGcZAroSVHzERF5KBV0PHFmRGXcFL8FSyWoNCIzNTEmRCzuTZIgYWRlhw0AEAZu PFElYtV7EDNaWRYxOJRyNNeuBEVhZSB0PUTtNXTjJYEeLP1GYdOpVESrTKV6RpmxMZUwUOGvpm4MXMLy VMStSkNvKjWdJUMoEBGkQOyaCNViLKK0HaDlRDMbRX JbPL2VNsKdBVWtODruCEBsZTDdJXWpch6ABHVpHVNbCsOnHCTvUJZpCLPzIGuvJLScKQA4FPriBCEkYQ WpDX3OIpOfYJXbVFs0HZSwHTRfFJWfcw3IWTNiWYXkDYv8ARLmEDFxALRrLQwoGDKaFQD9BYHoPJHbMK GaCA1ZPtUlYXIjHzPuTrLoQUIcZMZnhu2RQKNgXWJy UES8OgRzCYEmSGGqTJmbZFOwOCQcRAe6AXJeRFLjET4MNaVpBLQwPaCkUPOnZDMuOGEsiq0EWONmYVYx MIG5AcWxUDSmUPXrQApwJWQoZJKiRsA8ZIFgFZEmEI8BCbJoXIAxRhF0PaFdOEHeHMEqqg2BVWVsOAKr OyXzNwUrRCHhMDSnQUlpSAQpNPCuVJY8ACUjTMObQW 8BZvHmVTPyTxM1FADlMSHkGLSfvd3HKYAiDGSdZSQ5XTCdBUIiWNSpBVziLZEfTBU0ShU6BDZrPTAvKT 2NIkScRDcvGABPPob8OMopL3z2IQDhSK1QZ0Mif1AeUwVtUCSZVGukGE6tysRbKFQqHj7UT2cBXztzWM StDyG0YflxESO0XWR7EGh5KBA3VtFeD4SmF9Y2RP0m RTTqJiPhNFN1UOZ9QFS5XoE2LqW6OmUwPoZfKWFpThOtQeUtUO2FQx6JGqE6ECH0wVRkFt1MUyG4PXVR FxQzXC6BBWe= ID Date Data Source [id number] 01/21/2020 12:00:00 AM EDT MARK [facility]ON[facility] Name Value Range Interpretation Code Description Data Janis rce(s) Supporting Document(s) Creatinine [Moles/volume] in Vitreous fluid 171.5 mg/dL No rmal Creatinine MARK ANTHONY ([facility]) pH of Vaginal fluid by Test strip 7.0 Normal pH MARK ANTHONY ([facility]) Nitrite [Presence] in Urine by Test strip 177.6 mcg/mL Nor mal Nitrite MARK ANTHONY ([facility]) Benzodiazepines [Presence] in Serum or Plasma by Scree n method >200 ng/mL 0 ng/mL Normal Benzodiazepines MARK ANTHONY ([facility]) Barbiturates [Mass/volume] in Saliva (oral fluid) by Screen meth od 0 ng/mL Normal Barbiturates MARK ANTHONY ([facility]) Cocaine Metabolites 0 ng/mL Normal Cocaine Metabolites MARK ANTHONY ([facility]) Meprobamate [Mass/volume] in Blood by Confirmatory method 0 ng/mL Normal Meprobamate MARK ANTHONY ([facility]) Meperidine Metabolite 0 ng/mL Normal Meperidine Met abolite MARK ANTHONY ([facility]) Tramadol [Presence] in Blood by Screen method 0 ng/mL N ormal Tramadol MARK ANTHONY ([facility]) Fentanyl [Z-score] in Urine 0 ng/mL Normal Fentanyl GR EENWAY ([facility]) Methadone [Moles/volume] in Unspecified specimen 0 ng/mL Normal Methadone MARK ANTHONY ([facility]) Opiates - Basic 0 ng/mL Normal Opiates - Basic MARK ANTHONY ([facility]) Oxycodone/Oxymorphone 0 ng/mL Normal Oxycodone/Oxym orphone MARK ANTHONY ([facility]) Phencyclidine (PCP) 0 ng/mL Normal Phencyclidine (PCP) MARK ANTHONY ([facility]) 6-Acetylmorphine (Heroin) 0 ng/mL Normal 6-Acetylmo rphine (Heroin) MARK ANTHONY ([facility]) Propoxyphene [Presence] in Meconium by Screen method 0 ng/mL Normal Propoxyphene MARK ANTHONY ([facility]) Marijuana Metabolite 0 ng/mL Normal Marijuana Metab olite MARK ANTHONY ([facility]) Amphetamine [Mass/mass] in Hair by Confirmatory method 0 ng/mL Abnormal (applies to non-numeric results) Amphetamine MARK ANTHONY ([facility]) Note: Inconsistent Prescribed drug was n ot detected. Methamphetamine [Presence] in Saliva (oral fluid) by C onfirmatory method 0 ng/mL Normal Methamphetamine MARK ANTHONY ([facility]) Methylphenidate Metabolite >1500 ng/mL Normal Methylph enidate Metabolite MARK ANTHONY ([facility]) Note: Consistent Prescribed drug was det ected. Gabapentin [Mass/volume] in Urine by Confirmatory method 0 ng/mL Normal Gabapentin MARK ANTHONY ([facility]) Pregabalin [Presence] in Urine by Screen method 0 ng/mL Normal Pregabalin MARK ANTHONY ([facility]) Tapentadol [Presence] in Blood by Screen method 0 ng/mL Normal [facility]adol [facility] MDA 0 ng/mL Normal MDA [facility]ONY [facility]) MDMA 0 ng/mL Normal MDMA MARK ANTHONY ([facility]) MDEA 0 ng/mL Normal MDEA MARK ANTHONY ([facility]) Norbuprenorphine [Mass/mass] in Meconium by Confirmatory method 981.4 ng/mL Normal Norbuprenorphine MARK ANTHONY ([facility]) Note: Consistent Prescribed drug was det ected. Buprenorphine [Presence] in Blood by Screen method 522.2 ng/mL Normal Buprenorphine MARK ANTHONY ([facility]) Note: Consistent Prescribed drug was det ected. 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)SINUSITIS (ICD-473.9) (GJI02-R81.9)UPPER RESPIRATORY INFECTION (ICD-465.9) (WVB12-O72.9)ACUTE LARYNGITIS, WITHOUT MENTION OF OBSTRUCTIO (ICD- 464.00) (NCT07-Z73.0)ELEVATED BP READING WITHOUT DX HYPERTENSION (ICD-796.2) (ZGB51-D76.0)SPINAL STENOSIS, LUMBAR (ICD-724.02) (GVD14-N75.06)SUBSTANCE ABUSE (ICD-305.90) (BFJ22-A96.10)PHYSICAL EXAMINATION (ICD-V70.0) (ICD10- Z00.00)TOBACCO USE, QUIT (ICD-V15.82) (DBZ32-V22.891)HYPERLIPIDEMIA (ICD-272.4) (URZ74-X02.5)INGROWN NAIL, INFECTED (ICD-703.0) (QIR31-N52.0)URINALYSIS, ABNORMAL (ICD-791.9) (SJU71-V24.90)NONDEPENDENT TOBACCO USE DISORDER (ICD-305.1) (EAJ58-D72.0)FAMILY HISTORY OF MELANOMA (ICD-V16.8) (ALE71-E40.8)FH STROKE (ICD-V17.1) (BIT55-U84.3)FAMILY HISTORY OF ALCOHOLISM (ICD-V61.41) (ICD10- Z63.72)Hx of ABNORMAL PAP SMEAR (ICD-V13.29)HEPATITIS C (ICD-070.51) (ICD10- B19.20)G E R D (ICD-530.81) (RFI60-Z00.9)DEPRESSION (ICD-311) (ICD10- F32.9)ANXIETY DISORDER (ICD-300.00) (INP00-Y85.9)ASTHMA (ICD-493.90) (ICD10- J45.909)Problem list reviewed during this update.Current Medications: * RITALIN * WAKIX * ADDEROL Medication list reviewed during this update.Allergy list reviewed during this update.No known allergies. Dental Chart: Procedures:Type - CDT Code - Description B - (D2140) Amalgam-one surface, primary or permanent on Tooth # 2 on Tooth Surface B (Performed by Jenny Ratliff DDS) Chart Alert:Dental AlertProphy once per 6 months periodnext aval has an appt -09/13/2016Exam once per 6 month periodnext aval-has an appt 09/13/2016Fl2 once per 6 month period ashwin age 22next avail- too oldBwx 4 bitewings every 6 monthsnext avail- 09/13/2016Panorex every 3 yearsnext avail- no historySealants every 5 yearsfrom age 5 to 15Sedative Filling 2940 NOT COVEREDPre authorization needed for perio with charting and fmx Chart Notes:ash (Jan 20 2020 10:02AM): REPLACED BY [facility] (-) per pt. Took temp@ F. Additional PPE requirements due to COVID-19 in the dental setting, N95, surgical mask, hair covering, gown CC: none. HurriCaine (Watermelon) Topical, UR infiltration 2 c ian. Septocaine (Articaine HCL 4%) X 1:200.000 epi. Operative: #2-B Gluma and amalgam. Excavated with High Speed. Occlusion checked. No complications. POI. Given. Assisted by AG . Pt was cooperative. NV:Jenny Moses DDS by ash (01/20/2020 10:02 AM): Tooth Notes and Watches:- Tooth 2 Watch: #2-ODistalRMagda machuca by noe (01/09/2017 12:50 PM): - Tooth 22 Watch: Magda Rajan by noe (09/05/2017 2:50 PM): - Tooth 6 Watch: Magda Rajan by noe (09/05/2017 2:49 PM): Assessment & Plan Medications:RITALINWAKIXADDEROLAllergies:No Known Allergies (updated 01/20/2020) Name Value Range Interpretation Code Description Data Janis rce(s) Supporting Document(s) ID Date Data Source [id number] 01/08/2020 10:55:00 AM EDT MARK ANTHONY ([facility]) Name Value Range Interpretation Code Description Data Janis rce(s) Supporting Document(s) Methamphetamine [Presence] in Saliva (oral fluid) by C onfirmatory method 0 ng/mL Normal Methamphetamine MARK ANTHONY ([facility]) Amphetamine [Mass/mass] in Hair by Confirmatory method 2579 ng/mL Normal Amphetamine MARK ANTHONY ([facility]) Note: Consistent Prescribed drug was det ected. Methylphenidate Metabolite 11.9 ng/mL Normal Methylphe nidate Metabolite MARK ANTHONY ([facility]) Note: Consistent Prescribed drug was det ected. ID Date Data Source [id number] 01/04/2020 11:21:30 AM EDT [facility] NT INFORMATIONPatient MRN Name Date of Age Gend*PT [id number] Hal Toussaint 1980 40 years F IPPT Location Admission Date/Time Visit ID Attending [id number] 12/03/19 1253 --- --- EPI ID CSN Admitting Provider [id number] Malik Hinton MD([id number]) [place] [address] DISCHARGE SUMMARY DISCHSUMNAME: HAL TOUSSAINT#: [id number] #: [id number] ADMISSION DATE: 12/03/2019DOB: 1980 SEX: F PT TYPE: I SURACCT #: [id number] CARE PHYSICIAN: MABEL JACKSONTE OF DISCHARGE: 12/06/19 20HOSPITAL COURSE:Patient was admitted, taken to the operating room where rectal prolapserepair was performed by performing a rectopexy. Postoperatively, she hadan uneventful course, advanced to regular diet, discharged to be followedin the office.ED Morrow/NELL Job #: [id number] DOC #: [id number] Name Value Range Interpretation Code Description Data Janis rce(s) Supporting Document(s) ID Date Data Source [id number] 12/29/2019 10:50:26 AM EDT [facility] Name Value Range Interpretation Code Description Data Janis rce(s) Supporting Document(s) Progress Note [facility] HPGPUo9xBoJTNeZz06/QZQarUJOsz5JuCWjaKCi2KPhwBZMzW7KaQNH2aY7jKNI0JVvUVxPbTuQgSOA3 lbm [file] ICAgICAgICAgICAgICAgICAgICAgICAgICAgICAgICAgICAgICAgICAgICAgICAgICAgICAgICAgICAg JELcXVYaFQBbSYCoXLSkXAWvAUOaXFTtSWViQXOyOEXiMKClDPZeBL3REMBjOPXhIVJhLDZdNNTbOOAe ICAgICAgICAgICAgICAgICAgICAgICAgICAgICAgIC RpWAUlTYWlOSEaPGMuIHHpFMExZPEwCWKoPYSpWNJaGBJgLQAdBWYjJYCuJZItAURnYS2OTVAhURMrEB AgICAgICAgICAgICAgICAgICAgICAgICAgICAgICAgICAgICAgICAgICAgICAgICAgICAgICAgICAgIC AgICAgICAgICAgICAgICAgICAgICAgICAgICAgICAg FR9RGFXcYKBoTMDwWOXhOXIuTIUlWXDqADPbOLUtKTBqLHUcNNBxLGMpBHLfDHUaUHHmFCEdTDIwZKKn DNJcOCIoWVUzQPRnMCLqMXHpCBJhKFWjOXJbDUGvWPJgTQHfIDLfKZHfAD8TXSDsMCVmMUGyFZVfNNDf ICAgICAgICAgICAgICAgICAgICAgICAgICAgICAgIC HfMPUyZLZuTMBcJUGgCCMeRBPzGRBpFFWiNKLzSPJgALSwHKLtJFYmHHUrEAIlBWCtIBHbTB9ASCCrTW AgICAgICAgICAgICAgICAgICAgICAgICAgICAgICAgICAgICAgICAgICAgICAgICAgICAgICAgICAgIC AgICAgICAgICAgICAgICAgICAgICAgICAgICAgICAg VUKbQS8HPBSnXJRxADApUNQgFCAnMCHwVUKrSAJsZQDrJEKbDFVoUTFfYWKcVCQuNOCnDYYwFSFxAXRd SMFtRDXgBMXjPOEhFODsGKVnAAZiCDIaIAYySHVsTOQnHCTgPFYlEPSmQCXiYT3PGYZxPHBcWQExZVKg ICAgICAgICAgICAgICAgICAgICAgICAgICAgICAgIC SbVGHaZVUbYNIvMSBtWQDlDGFiXMHnIRJnXJXzIBJnUBViHOOtKDIiNVPjHSVaRBMeCZZhMQIqSV7ZKX AgICAgICAgICAgICAgICAgICAgICAgICAgICAgICAgICAgICAgICAgICAgICAgICAgICAgICAgICAgIC AgICAgICAgICAgICAgICAgICAgICAgICAgICAgICAg DNVuYCPoQN4JWFYtJTBaLXDsBSDbOBCxTMOsFQXdHUBuROUkIKReWUZjQIWdCRClVYHgMIUqKITuUJMh WEYrFBQgKBKoNSHkQILrFFKsTAVdEDOnXZOyGNUxLNWyGUKeZEMoJYEbPCYnVIFnKN9PIN32kTTdd4O5 XUEvNY5lxta/Nd5IKAibgjCopSLsOX4EKgJgXR1zjt 6USqTbUG9hbt4TKYwTGpVjX3C7vXJqNMGuQUVZZwBkP95dAFmcNf02VWszFGCaHqCwYJe6Wg6NVzQlW6 rhMSUmEaL8BFVaDsT4ILYiDjA7GYReWnBfLHWoWPAlEODjAZRBGN7VPbTkG3VkhL14EMITMn7+DQplbm GaFlwYYxGhZLZpk9FaZCu8PE4VRBUdYliur5LvVcIa URTTDCuwYQ1PDPE8OVFlFSOfEp1WQLPxH381vkZmAF3KSb8TXlEtMM7rvs9AXcTdVHArSwlFFgt4STyu JK8NsRFgECuLzm1dudGrriKFp6LvnxWpoYYKzxPwvbgdHRH8gTZlezTmAHHCNBUkzIJnEU65CnJrWzZg CMD3NaGeCJ8rQEluJM8UNLK8CEhmTUChUIFfV6xZZy CtHSNjHzEheMrxKB6ISlVhC7OtlyAltHAgZDZeSZWFOd5+SLckykQpEjcAJmAnBOXts9SdGYn4VL7FVS XjUOfaUW3KBKSsvF0gQJqjDY9KDfUxVMJqYNHLDjVuN96twEXrBMt8Y1UxGgThBYCoXqcfCBIhWWptFf FtZXMgWyBdDQogID4+ID4+WCgqUN7DWIqwelXxFLEk Dl7YYTXvZRObLN6yHFOhIVQnK8N3zLagDYMYVqGxC0jgterlHN5fCLBmS953fPskpjWeFNLwPDJnDd1H OKJnFWF0DNJanILfZybvCGBHAWebVP1TqLCwKXA5eE6zFSuzZSPkQKDfE2yBCtOzhRyoAD68zZqmgwZr bCBdDQo+Eb4RDU0gx7YzTMs0bqKeRQrfXWWtSXtwIZ YwLPCqUQPuKQE6HQQ9RAKMZfWdKUMcFOWlGQwxHNThCATypu1LTQTxYSMeJJgbXUNsGEHhVCIrVPdqRC IoLZUpBEi6UFWvVHTmZI0IYlUeENYcYKDrYWgxNDWmUTCbsy1OLYPyPVJjXQRqWhGnRHZnOCJaKTljLU VcKDS4JmPsGYIiCBRlFI7HWxOzOPQtFEHqZpSxNUEy ZCHduq7PBAVsXBNpOwM0NQCoXDGnMUCrNAsvGNJiGLH9FSD6QDJxCLTiWK0ADtRbOQTpBMpkPWwqSDNo UDMcjj8BYKTrDJYySUi6QtYqLWVuHXDpRVuoELLlMAPoISN7MZWaCIIwEB4ULuIbDOMzKXZuOPKgVMBi CANwfp5DVVIwTBBvRXM9YSYwFITcYPErVCbwLRDgMW P0NUU2EFEvGZVaDM6PItGnZFTdOQR6QQKsUKYiXCKdoi6ANRBwHJWrBSo6JJFyPZAnYFZnLBezGBFvIQ Z0SlV5RMAbSHTeFK5ICsYjUKPcZZV1OHycGEPxBNXbvb4HEVEgUHCaZpZ0QjTdWTZyBASrOCeiDQScZO P1EDs4CMBsBKBsAA6FNvFpZCNbSpt3OZSlGGJfAVHs uv0UGZEtEMEnXSBsRWRlERNjSTWyLMfkTDWmDXI8JzCgCWZlDHVzKF1YWbVkRWYaJue4BIudRDOnUYHa rc9UUQEqPNQiAUW7YLEaCKNaBARxKYvmPGCiEKJfMjP0TZAoUBAeRQ8NFhVsAZDkOoT6KHleDGNcHRBr bt9FZXMcHPUbJHIfAKUqIWFgFOIwUQwlDATzOXTlTk k8IVUdPYRhUS7GTcBkFHXjZgY2CtkeQCEbVBAgvz3FERZxDLGwVguwWECfFHExHHGaBLl3ciXvdOSrRW v4FC0GS7YzseUfElLNSj8Px206KJJgWSViDs3LW4diWp1jMCXoRMTFVz3SLZv1ZoPzFWL5AyBdVZX2JF WwSYxuFvGwGFKfQPT0KcEjBbI+AOkfR0AvTZzbFLXo EEG8MAIjEOT4DGJ2DON5UBrsGkByYK3jGFYSGn7+AFoxfGIuqRoaVLCSPfJzCZB1AChwEZWQNi0R ID Date Data Source [id number] 12/25/2019 07:27:57 AM EDT [facility] Vital SignsBlood Pressure: 111/79 Patient History Medical History:AsthmaAnxiety DisorderDepressionG E R DHepatitis CU T I- RecurrentAbnormal Pap SmearSarcoidosisCystitisSevere anemia Gregorio Arredondo NarcolepsySurgical History:Tubal (2001)Lung Biopsy (2007)Laproscopy (2010)Cholecystectomy (2011)Urethra stretched (2011)Tubes removed 2019Rectal prolapse repair 2019Family History:Family History of AlcoholismFamily History of ArthritisFH High CholesterolFH StrokeFamily History of MelanomaSocial/Personal History: Smoking Status: former smokerDo you vape? 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)SINUSITIS (ICD-473.9) (XLB59-X34.9)UPPER RESPIRATORY INFECTION (ICD-465.9) (ICD10- J06.9)ACUTE LARYNGITIS, WITHOUT MENTION OF OBSTRUCTIO (ICD-464.00) (ICD10- J04.0)ELEVATED BP READING WITHOUT DX HYPERTENSION (ICD-796.2) (ICD10- R03.0)SPINAL STENOSIS, LUMBAR (ICD-724.02) (LAZ73-B17.06)SUBSTANCE ABUSE (ICD- 305.90) (VKY85-Z10.10)PHYSICAL EXAMINATION (ICD-V70.0) (MRA07-T23.00)TOBACCO USE, QUIT (ICD-V15.82) (HBE96-L54.891)HYPERLIPIDEMIA (ICD-272.4) (ICD10- E78.5)INGROWN NAIL, INFECTED (ICD-703.0) (DJQ09-A30.0)URINALYSIS, ABNORMAL (ICD- 791.9) (JSS88-Q15.90)NONDEPENDENT TOBACCO USE DISORDER (ICD-305.1) (ICD10- Z72.0)FAMILY HISTORY OF MELANOMA (ICD-V16.8) (VYW22-G79.8)FH STROKE (ICD-V17.1) (STC49-E80.3)FAMILY HISTORY OF ALCOHOLISM (ICD-V61.41) (JAC93-W44.72)Hx of ABNORMAL PAP SMEAR (ICD-V13.29)HEPATITIS C (ICD-070.51) (TMN91-S70.20)G E R D (ICD-530.81) (EOJ76-Y90.9)DEPRESSION (ICD-311) (CVE20-D37.9)ANXIETY DISORDER (ICD-300.00) (DNY10-U53.9)ASTHMA (ICD-493.90) (GLC50-D03.909)Problem list reviewed during this update.Current Medications: * RITALIN * WAKIX * ADDEROL Medication list reviewed during this update.Allergy list reviewed during this update.No known allergies.Patient declined [facility].Past Medical History:(reviewed - no changes required) AsthmaAnxiety DisorderDepressionG E R DHepatitis CU T I- RecurrentAbnormal Pap SmearSarcoidosisCystitisSevere anemia Gregorio BarrNarcolepsy Dental Chart: Procedures:Type - CDT Code - Description B - (D0274) Bitewings, 4 radiographic images (Performed by Girish POLLACKJasmyn) B - (D0120) Periodic oral evaluation - established patient (Performed by Jenny Ratliff DDS) B - (D1110) Prophylaxis, adult (Performed by Flaquito pitt RDJasmyn) Treatments:Type - CDT Code - Description T - (D2140) Amalgam-one surface, primary or permanent on Tooth # 30 on Tooth Surface B (Performed by Girish POLLACKJasmyn) Existing:Type - CDT Code - Description[E] Decay On #30 Surface B Chart Alert:Dental AlertProphy once per 6 months periodnext aval has an appt -09/13/2016Exam once per 6 month periodnext aval-has an appt 09/13/2016Fl2 once per 6 month period ashwin age 22next avail- too oldBwx 4 bitewings every 6 monthsnext avail- 09/13/2016Panorex every 3 yearsnext avail- no historySealants every 5 yearsfrom age 5 to 15Sedative Filling 2940 NOT COVEREDPre authorization needed for perio with charting and fmx Chart Notes:fidelina (Dec 25 2019 8:10AM): [place]-GoodAdult prophy, 4BW'sPt states she is brushing bid and flossing QD. Trace to light calculus mostly linguals of the MD real/ trace biofilm. Tissue light marginal inflammation; minimal bleeding with hand scaling. Med Hx med list updated per pt, Dx with Narcolepsy. 6 month recall. Exc pt.N/V-Filling. Jasmyn Stout RDH by fidelina (12/25/2019 7:47 AM): Jasmyn Stout RDH by fidelina (12/25/2019 8:10 AM): ; ash (Dec 25 2019 8:19AM): REPLACED BY [facility](-). CC: sensitivity # 30. Reviewed Xrays. Exam: no caries detected. OCS: WNL, IO/ EO completed, No significant hard findings upon clinical exam.Additional PPE requirements due to COVID-19 in the dental setting, N95, surgical mask, hair covering, gown and shieldPt was cooperative. OHI given Referral: N/A NV:Jasmyn Nuñez RDH by ash (12/25/2019 8:19 AM): Tooth Notes and Watches:- Tooth 2 Watch: #2-Magda Riley by noe (01/09/2017 12:50 PM): - Tooth 22 Watch: Magda Rajan by noe (09/05/2017 2:50 PM): - Tooth 6 Watch: Magda Rajan by noe (09/05/2017 2:49 PM): Assessment & Plan Medications:RITALINWAKIXADDEROLMedication Changes:Added: * ADDEROL* WAKIX* RITALINRemoved:* IRON, * MOVANTIK, * LEVOCIRIZINE, * EFFEXOR, * SUBOXONE, ALBUTEROL SULFATE (2.5 MG/3ML) 0.083% INHALATION NEBULIZATION SOLUTION-1 vial via neb tid, PROTONIX 40 MG ORAL TABLET DELAYED RELEASE-1 po qd, VENTOLIN HFA 108 (90 BASE) MCG/ACT INHALATION AEROSOL SOLUTION-2 puffs qid prnAllergies:No Known Allergies (updated 12/25/2019) Clinical Visit Summary Declined Name Value Range Interpretation Code Description Data Janis rce(s) Supporting Document(s) ID Date Data Source [id number] 12/06/2019 07:15:44 AM EDT [facility] Name Value Range Interpretation Code Description Data Janis rce(s) Supporting Document(s) SODIUM 140 mmol/L (136-145) [facility] POTASSIUM 4.0 mmol/L (3.6-5.2) [facility] CHLORIDE 107 mmol/L (100-108) [facility] CO2 26 mmol/L (22-31) [facility] ANION GAP 7 mmol/L (7-16) [facility] UREA NITROGEN 5 mg/dL (7-24) L [facility] CREATININE 0.41 mg/dL (0.60-1.00) L [facility] BUN/CREAT RATIO 12.2 RATIO (10.0-20.0) [facility] GLUCOSE 80 mg/dL (70-99) [facility] CALCIUM 8.2 mg/dL (8.4-10.2) L [facility] GFR >60 ml/min/1.73m2 (>59) [facility] GFR ( AMER) >60 ml/min/1.73m2 (>59) [facility] GFR INTERPRETATION [facility] --NORMAL KIDNEY FUNCTION OR MILD DISEASE - GFR >OR= 60CHRONIC KIDNEY DISEASE - GFR 15 - 59RENAL FAILURE - GFR <15 Est. GFR calculation based on the MDRDstudy equation, which assumes a steadystate for creatinine. Est. GFR should notbe used for medication dosing. ID Date Data Source [id number] 12/06/2019 06:56:18 AM EDT [facility] Name Value Range Interpretation Code Description Data Janis rce(s) Supporting Document(s) WBC 4.4 10*3/uL (4.1-11.0) [facility] RBC 3.90 10*6/uL (4.00-5.40) L [facility] HGB 11.2 g/dL (12.0-16.0) L [facility] HCT 32.1 % (36.0-47.0) L [facility] MCV 82.2 fL (80.0-95.0) [facility] MCH 28.6 pg (27.0-32.0) [facility] MCHC 34.8 g/dL (32.0-36.0) [facility] RDW 14.5 % (10.5-14.5) [facility] PLT 199 10*3/uL (150-450) [facility] MPV 8.3 fL (7.1-10.7) [facility] ID Date Data Source [id number] 12/05/2019 07:05:02 AM EDT [facility] NT INFORMATIONPatient MRN Name Date of Age Gend*PT [id number] Hal Toussaint 1980 39 years F IPPT Location Admission Date/Time Visit ID Attending [id number] 12/03/19 1253 --- Malik Hinton MD([id number]) EPI ID CSN Admitting Provider [id number] Malik Hinton MD([id number]) [place] [address] OPERATIVE REPORT OPNAME: HAL TOUSSAINT#: [id number] #: [id number] ADMISSION DATE: 12/03/2019DOB: 1980 SEX: F PT TYPE: S KIMANI #: [id number] CARE PHYSICIAN:DATE OF OPERATION: 0 12/03/2019PREOPERATIVE DIAGNOSIS:Rectal prolapse.POSTOPERATIVE DIAGNOSIS:Rectal prolapse.DESCRIPTION OF PROCEDURE:Patient was placed in supine position. General anesthesia induced.Endotracheal intubation was performed. A [place] catheter was placed.Patient was put in lithotomy position. Care was taken to make sure theperoneal nerves were well padded. The abdomen was prepped and draped.Consent was confirmed. Lower midline incision was made. Small bowel waspacked in the upper abdomen. Ureter was easily identified. Theretrorectal space was entered on both sides of the mesentery and dissecteddown to the levators posteriorly. Once this was completed, an Ethibondstitch was placed into the sacral promontory and then attached to thelateral stalks of the rectum, so it was pulling the rectum up and tackingit down to the sacrum. This was done bilaterally. Once this wascompleted, midline fascia was closed with #1 PDS. Subcutaneous tissue wasirrigated with IrriSept and skin was closed with Monocryl. Sponge, needleand instrument count were correct.ESTIMATED BLOOD LOSS:50 mL or less.ED [place]/NELL Job #: [id number] DOC #: [id number] Name Value Range Interpretation Code Description Data [facility] Supporting Document(s) ID Date Data Source [id number] 12/04/2019 07:59:51 AM EDT [facility] Name Value Range Interpretation Code Description Data [facility]) Supporting Document(s) WBC 11.8 10*3/uL (4.1-11.0) H [facility] RBC 4.40 10*6/uL (4.00-5.40) [facility] HGB 12.3 g/dL (12.0-16.0) [facility] HCT 36.6 % (36.0-47.0) [facility] MCV 83.2 fL (80.0-95.0) [facility] MCH 28.0 pg (27.0-32.0) [facility] MCHC 33.7 g/dL (32.0-36.0) [facility] RDW 14.5 % (10.5-14.5) [facility] PLT 233 10*3/uL (150-450) [facility] MPV 8.6 fL (7.1-10.7) [facility] ID Date Data Source [id number] 12/04/2019 07:38:52 AM EDT [facility] Name Value Range Interpretation Code Description Data Janis rce(s) Supporting Document(s) SODIUM 140 mmol/L (136-145) [facility] POTASSIUM 4.4 mmol/L (3.6-5.2) [facility] CHLORIDE 108 mmol/L (100-108) [facility] CO2 23 mmol/L (22-31) [facility] ANION GAP 9 mmol/L (7-16) [facility] UREA NITROGEN 5 mg/dL (7-24) L [facility] CREATININE 0.52 mg/dL (0.60-1.00) L [facility] BUN/CREAT RATIO 9.6 RATIO (10.0-20.0) L [facility] GLUCOSE 113 mg/dL (70-99) H [facility] CALCIUM 8.6 mg/dL (8.4-10.2) [facility] GFR >60 ml/min/1.73m2 (>59) [facility] GFR ( AMER) >60 ml/min/1.73m2 (>59) [facility] GFR INTERPRETATION [facility] --NORMAL KIDNEY FUNCTION OR MILD DISEASE - GFR >OR= 60CHRONIC KIDNEY DISEASE - GFR 15 - 59RENAL FAILURE - GFR <15 Est. GFR calculation based on the MDRDstudy equation, which assumes a steadystate for creatinine. Est. GFR should notbe used for medication dosing. ID Date Data Source [id number] 12/03/2019 03:07:43 PM EDT [facility] NT INFORMATIONPatient MRN Name Date of Age Gend*PT [id number] Hal Toussaint 1980 39 years F SDAPT Location Admission Date/Time Visit ID Attending Provider --- --- --- --- EPI ID CSN Admitting Provider [id number] ---AirwayPatient location during procedure: ORUrgency: electiveDifficult airway: noAdvanced airway equipment used: noStaffingPerformed by: Charly Sandoval, CRNAIndications and Patient ConditionIndications for airway management: anesthesiaPreoxygenated: yesPatient position: sniffingIn-line stabilization: noMask ventilation: 1 - vent by maskFinal Airway/ApproachesFinal airway type: ETTNumber of attempts at final approach: 1Number of other approaches attempted: 0Final Airway DetailsFinal ETT airway: ETT - singleCuffed: yesTechnique used for successful ETT placement: direct laryngoscopyCricoid pressure: noRSI: noInsertion site: oralBlade type/size: Chicken 2ETT size: 7.5 mmMeasured from: lipsETT to lips: 20 cmPlacement verified by: + ETCO2 and palpation of cuffGrade view: grade I - full view of glottis Name Value Range Interpretation Code Description Data Janis rce(s) Supporting Document(s) ID Date Data Source [id number] 12/03/2019 02:41:59 PM EDT [facility] Name Value Range Interpretation Code Description Data Janis rce(s) Supporting Document(s) POC NOVA GLU 80 mg/dL (70-99) [facility] PER[facility]MED BY [facility]FF ID Date Data Source [id number] 12/03/2019 01:53:24 PM EDT [facility] NT INFORMATIONPatient MRN Name Date of Age Gend*PT [id number] Hal Toussaint 1980 39 years F SDAPT Location Admission Date/Time Visit ID [facility]19 1253 --- Malik Hinton MD([id number]) EPI ID CSN Admitting Provider [id number] Malik Hinton MD([id number])Pre-Procedure History and Physical:The history and physical were reviewed and no changes are noted.Malik Hinton MD Name Value Range Interpretation Code Description Data Janis rce(s) Supporting Document(s) ID Date Data Source [id number] 12/03/2019 01:52:55 PM EDT [facility] Name Value Range Interpretation Code Description Data Janis rce(s) Supporting Document(s) POC NOVA GLU 62 mg/dL (70-99) L [facility] ID Date Data Source [id number] 11/28/2019 10:25:26 AM EDT [facility] Name Value Range Interpretation Code Description Data Janis rce(s) Supporting Document(s) EKG [facility] KYIWBv8fWrQEYhEiv2QsEvQuNBFrGL1llyv2I9R3yTQfT7ToaSHpm1etW1BaX6GqOFUlZVSRDK0HqZOb jb2 [file] hu/HgptXfHxo+QSzqpQ4CbMcNBNzrT26UM1eg6ZBYLw+PH0xOd/green building design specialist+Vsr2xE7cx1E1aBPgWcbZc13T4 [file] c9Ds4J/flight control manager/rr22lciz66XRI90/PO4/ftckWJS5vZqs6xuR61eG01MX5mM10xT+1R79/9+jz/X8xtKPq [file] PIFyKQEJUi8Qs712RDBzQEEFIbg+NslttCGhmQcgUIQPDPW1EAWDPTHNJ7X= ID Date Data Source [id number] 11/28/2019 10:25:00 AM EDT [facility] Name Value Range Interpretation Code Description Data Janis rce(s) Supporting Document(s) SARS coronavirus 2 RNA [facility] This lab was ordered by [facility] and reported by [facility]. ID Date Data Source [id number] 11/29/2019 07:08:12 AM EDT [facility]ERRER Name Value Range Interpretation Code Description Data Janis rce(s) Supporting Document(s) SARS-COV-[address] [facility] Roxanna Not DetectedReference range: Not Detecte d This nucleic acid amplification test was developed and its performance characteristics determined by [employer]. Nucleic acid amplification tests include PCR and TMA. This test has not been FDA cleared or approved. This test has been authorized by FDA under an Emergency Use Authorization (EUA). This test is only authorized for the duration of time the declaration that circumstances exist justifying the authorization of the emergency use of in vitro diagnostic tests for detection of SARS-CoV-2 virus and/or diagnosis of COVID-19 infection under section 564(b)(1) of the Act, 21 U.S.C. 360bbb-3(b) (1), unless the authorization is terminated or revoked sooner. When diagnostic testing is negative, the possibility of a false negative result should be considered in the context of a patient's recent exposures and the presence of clinical signs and symptoms consistent with COVID- 19. An individual without symptoms of COVID- 19 and who is not shedding SARS -CoV-2 virus would expect to have a negative (not detected) result in this assay. Performed At: [address] [id number] Larry Poe MD Ph:[phone] ID Date Data Source [id number] 11/28/2019 10:06:39 AM EDT [facility] NT INFORMATIONPatient MRN Name Date of Age Gend*PT [id number] Hal Toussaint 1980 39 years F OPPT Location Admission Date/Time Visit ID Attending Provider --- --- --- Malik Hinton MD([id number]) EPI ID CSN Admitting Provider [id number] ---HISTORY PHYSICALName: Hal Toussaint : 1980 Sex: female Care Provider: MABEL PETERS DOAttending Physician: Dr. Malik Hinton.Informant: The patient who is reliable.Chief Complaint: Rectal prolapse.HISTORY OF PRESENT ILLNESS: 39 year old white female who presents with a chiefcomplaint of rectal prolapse. She has had the prolapse for just over a year. Theprolapse is worsening. She denies pain, but has bleeding.The patient met with Dr. Hinton, options were discussed and she has elected toundergo rectopexy, abdominal approach, open - possible colectomy, sigmoid, openon 12/03/2019.PAST MEDICAL HISTORY:Past Medical History:Diagnosis Date ADHD Asthma GERD (gastroesophageal reflux disease) Narcolepsy Marcial Khan MD Rectal prolapse Sarcoidosis by lung biopsy Sleep apnea CPAPPAST SURGICAL HISTORY:Past Surgical History:Procedure Laterality Date CHOLECYSTECTOMY DIAGNOSTIC LAPAROSCOPY DILATION AND CURETTAGE OF UTERUS x 3 DILATION OF URETHRAL STRICTURE ECTOPIC SURGERY LUNG BIOPSY SALPINGECTOMYALLERGIES: No Known Drug AllergiesMEDICATIONS:Prior to Admission medicationsMedication Sig Start Date End Date Taking? Authorizing Provideramphetamine-dextroamphetamine (ADDERALL XR) 30 MG 24 hr capsule Take 30 mg bymouth every morning Historical Provider, MDamphetamine-dextroamphetamine (ADDERALL) 20 MG tablet Take 20 mg by mouth dailyAt 2 pm Historical Provider, MDmethylphenidate (RITALIN) 10 MG tablet Take 10 mg by mouth 2 times weekly asneeded for narcolepsy on Sunday and Sunday Historical Provider, MDondansetron (ZOFRAN ODT) 8 MG disintegrating tablet Take 8 mg by mouth every 8(eight) hours as needed for nausea Historical Provider, MDPitolisant HCl (WAKIX) 17.8 MG TABS Take 35.6 mg by mouth daily HistoricalProvider, MDSUMAtriptan (IMITREX) 50 MG tablet Take 50 mg by mouth once as needed (take onetablet at onset of headache, may repeat once in 2 hours if needed. Max of 2tabs a day) Historical Provider, MDSocial HistorySocioeconomic History Marital status: Spouse name: Not on file Number of children: Not on file Years of education: Not on file Highest education level: Not on fileOccupational History Not on fileSocial Needs Financial resource strain: Not on file Food insecurity: Worry: Not on file Inability: Not on file Transportation needs: Medical: Not on file Non-medical: Not on fileTobacco Use Smoking status: Never Smoker Smokeless tobacco: Never UsedSubstance and Sexual Activity Alcohol use: Not Currently Drug use: Never Sexual activity: Not on fileLifestyle Physical activity: Days per week: Not on file Minutes per session: Not on file Stress: Not on fileRelationships Social connections: Talks on phone: Not on file Gets together: Not on file Attends church service: Not on file Active member of club or organization: Not on file Attends meetings of clubs or organizations: Not on file Relationship status: Not on file Intimate partner violence: Fear of current or ex partner: Not on file Emotionally abused: Not on file Physically abused: Not on file Forced sexual activity: Not on fileOther Topics Concern Not on fileSocial History Narrative Not on fileHistory reviewed. No pertinent family history.REVIEW OF SYSTEMS:Constitution: Weight stable. Denies fatigue, fever or chills.HEENT: Denies any blurred vision, double vision, dizziness, tinnitus, dysphagiaor headaches.Respiratory: Denies any shortness of breath, cough, yellow sputum production orwheezing.Cardiovascular: Denies any chest pain, pressure or tightness. Denies anyproximal nocturnal dyspnea or orthopnea.Muscle/Skeletal System: Denies any muscle ache, joint ache or weakness.Neurologic: Denies tremors or syncope.GI: Denies any nausea, vomiting, diarrhea, constipation or melena.: Denies any dysuria, hematuria or nocturia.Endocrine: Denies polyuria, polydipsia or polyphagia. Denies any heat or coldintolerance, fatigue or night sweats.Hematology: Denies any bleeding or bruising tendencies.Anesthesia complications: Denied.Steroid use: Denied.Code Status: Full code.HCP: None.PHYSICAL EXAM:General: She is a 39 year old, pleasant white female, in no acute distress attime of examination. Vitals on arrival to the office were: BP 113/76 (BPLocation: Left upper arm, Patient Position: Sitting) | Pulse 89 | Ht 1.6 m (5'3") | Wt 49 kg (108 lb) | SpO2 97% | BMI 19.13 kg/m Body mass index is19.13 kg/m .Skin is pink, warm and dry.HEENT: Head is normocephalic, atraumatic. [place] conjunctivae. Anicteric sclerae.Pupils are equal, round, reactive to light and accommodation. Extraocularmovements are intact. Ears: Without drainage or lesion. Mouth: Dentition is ingood repair. She has a class I airway. Neck is supple midline without cervicaladenopathy. There is no tonsillo pharyngeal congestion. Mucous membranes aremoist. There are no oral lesions. No jugular distention. No carotid bruits. Nothyromegaly.CHEST/BREAST: A/P less than transverse.LUNGS: Clear to auscultation. No wheezes, rhonchi or crackles.HEART: Rate rhythm regular. S1, S2. No murmur, rub or gallop.ABDOMEN: Bowel sounds positive. Soft, non tender. No rebound tenderness. Nohepatosplenomegaly. Negative CVAT.GENITAL/RECTAL: Deferred.NEUROLOGICALLY: Cranial nerves II through XII are grossly intact.VASCULAR: Pulses are symmetric. No edema.IMPRESSION and PLAN:Primary Diagnosis: Rectal prolapse. Surgery as per Dr. Hinton.Secondary Diagnosis and Plan:1. Sleep apnea: Obstructive. Patient to continue with use of home CPAP.2. GI prophylaxis: Per surgeon.3. DVT prophylaxis: Early ambulation. Pneumatic compression device. SubcutaneousHeparin or LMW Heparin if clinically indicated.Based on above medical co morbidities, length of stay may be prolonged greaterthan previously anticipated.ALLERGIES:Patient has no known drug allergies.11/28/2019 10:06 Edgar Bond MD Name Value Range Interpretation Code Description Data Janis gordone(s) Supporting Document(s) ID Date Data Source [id number] 11/28/2019 10:05:00 AM EDT [facility] Name Value Range Interpretation Code Description [facility]) Blood type and Indirect antibody screen panel - Blood Laboratory test result [facility]) SPEC EXP DATE 12/04/2019 PATIENT ABO/Rh O NEGATIVE ANTIBODY SCREEN NEGATIVE TESTING SITE PERFORMED AT [address] [place] [id number] ID Date Data Source [id number] 11/28/2019 10:05:00 AM EDT [facility] Name Value Range Interpretation Code Description Data [facility] Supporting Document(s) Sodium [Moles/volume] in Serum or Plasma 137 mmol/L 136-145 [facility]) Potassium [Moles/volume] in Serum or Plasma 4.1 mmol/L 3.6-5.2 [facility]) Anion gap 3 in Serum or Plasma 5 mmol/L 7-16 Below low normal [facility]) Carbon dioxide, total [Moles/volume] in Serum or Plasma 27 mmol/L 22 -31 [facility]) Chloride [Moles/volume] in Serum or Plasma 105 mmol/L 100-108 [facility]) Urea nitrogen [Mass/volume] in Serum or Plasma 8 mg/dL 7-24 [facility]) Creatinine [Mass/volume] in Serum or Plasma 0.74 mg/dL 0.60-1.00 [facility]) Urea nitrogen/Creatinine [Mass Ratio] in Serum or Plasma 10.8 RATIO 10.0-20.0 [facility]) Glucose [Mass/volume] in Serum or Plasma 80 mg/dL 70-99 [facility]) Calcium [Mass/volume] in Serum or Plasma 8.9 mg/dL 8.4-10.2 [facility]) Protein [Mass/volume] in Serum or Plasma 6.7 g/dL 6.4-8.2 [facility]) Albumin [Mass/volume] in Serum or Plasma 3.8 g/dL 3.5-4.6 [facility]) Alkaline phosphatase [Enzymatic activity/volume] in Serum or Plasma 54 U/L 45-117 [facility]) Globulin [Mass/volume] in Serum 2.9 g/dL 2.7-4.3 [facility]) Albumin/Globulin [Mass Ratio] in Serum or Plasma 1.3 RATIO [facility]) Bilirubin.total [Mass/volume] in Serum or Plasma 0.9 mg/dL 0.0-1.0 [facility]) PLEASE NOTE: Total bilirubin results may be falsely elevated in patients taking Eltrombopag. Alanine aminotransferase [Enzymatic activity/volume] in Seru m or Plasma 14 U/L 12-78 [facility]) Aspartate aminotransferase [Enzymatic activity/volume] in Serum or Plasma 16 U/L 11-39 [facility] Glomerular filtration rate/1.73 sq M.pre dicted [Volume Rate/Area] in Serum or Plasma by Creatinine-based formula (MDRD) Laboratory test result [facility] ([facility]) Glomerular filtration rate/1.73 sq M pre dicted among blacks [Volume Rate/Area] in Serum or Plasma by Creatinine-based formula (MDRD) Laboratory test result [facility] ([facility]) Laboratory test finding (navigational concept) Laboratory test result [facility] ([facility]) <content> </content>
<content>DENA L KIDNEY FUNCTION</content>
<content>OR MILD DISEASE - GFR >OR= 60</content>
<content>CHRONIC KIDNEY DISEASE - GFR 15 - 59</content>
<content>RENAL FAILURE - GFR <15</content>
<content> </content>< br/><content>Est. GFR calculation based on the MDRD</content>
<content>study equation, which assumes a steady</content>
<content>state for creatinine. Est. GFR should not</content>
<content>be used for medication dosing.</content>
<content></content> ID Date Data Source [id number] 11/28/2019 10:05:00 AM EDT [facility] ([facility]) Name Value Range Interpretation Code Description Data Janis rce(s) Supporting Document(s) Leukocytes [#/volume] in Blood by Automated count 3.8 10*3/uL 4.1-11.0 Below low normal [facility] ([facility]) Hematocrit [Volume Fraction] of Blood by Automated count 38.2 % 3 6.0-47.0 [facility] ([facility]) Erythrocytes [#/volume] in Blood by Automated count 4.50 10*6/uL 4.00 -5.40 [facility] ([facility]) Hemoglobin [Mass/volume] in Blood 12.8 g/dL 12.0-16.0 [facility] ([facility]) Erythrocyte mean corpuscular hemoglobin concentration [Mass/volume] by Automated count 33.6 g/dL 32.0-36.0 [facility] ([facility]) Erythrocyte mean corpuscular volume [Entitic volume] by Auto mated count 84.8 fL 80.0-95.0 [facility] ([facility]) Erythrocyte mean corpuscular hemoglobin [Entitic mass] by Automated count 28.5 pg 27.0-32.0 [facility] ([facility]) Platelets [#/volume] in Blood by Automated count 281 10*3/uL 150-450 [facility] ([facility]) Erythrocyte distribution width [Ratio] by Automated count 14.1 % 10.5-14.5 [facility] ([facility]) Platelet mean volume [Entitic volume] in Blood by Automated count 8.9 fL 7.1-10.7 [facility] ([facility]) ID Date Data Source [id number] 11/28/2019 07:01:40 PM EDT [facility] SPEC EXP DATE 12/04/2019PATI ENT ABO/Rh O NEGATIVEANTIBODY SCREEN NEGATIVETESTING SITE PERFORMED AT [address] [place] [address] Name Value Range Interpretation Code Description Data Janis rce(s) Supporting Document(s) TYPE AND SCREEN [facility] ID Date Data Source [id number] 11/28/2019 06:28:12 PM EDT [facility] Name Value Range Interpretation Code Description Data Janis rce(s) Supporting Document(s) SODIUM 137 mmol/L (136-145) [facility] POTASSIUM 4.1 mmol/L (3.6-5.2) [facility] CHLORIDE 105 mmol/L (100-108) [facility] CO2 27 mmol/L (22-31) [facility] ANION GAP 5 mmol/L (7-16) L [facility] UREA NITROGEN 8 mg/dL (7-24) [facility] CREATININE 0.74 mg/dL (0.60-1.00) [facility] BUN/CREAT RATIO 10.8 RATIO (10.0-20.0) [facility] GLUCOSE 80 mg/dL (70-99) [facility] CALCIUM 8.9 mg/dL (8.4-10.2) [facility] TOTAL PROTEIN 6.7 g/dL (6.4-8.2) [facility] ALBUMIN 3.8 g/dL (3.5-4.6) [facility] GLOBULIN 2.9 g/dL (2.7-4.3) [facility] ALB/GLOB RATIO 1.3 RATIO [facility] ALKALINE PHOSPHATASE 54 U/L (45-117) [facility] BILIRUBIN,TOTAL 0.9 mg/dL (0.0-1.0) [facility] PLEASE NOTE:Total bilirubin results may be falselyelevated in patients taking Eltrombopag. AST (SGOT) 16 U/L (11-39) [facility] ALT (SGPT) 14 U/L (12-78) [facility] GFR >60 ml/min/1.73m2 (>59) [facility] GFR ( AMER) >60 ml/min/1.73m2 (>59) [facility] GFR INTERPRETATION [facility] --NORMAL KIDNEY FUNCTION OR MILD DISEASE - GFR >OR= 60CHRONIC KIDNEY DISEASE - GFR 15 - 59RENAL FAILURE - GFR <15 Est. GFR calculation based on the MDRDstudy equation, which assumes a steadystate for creatinine. Est. GFR should notbe used for medication dosing. ID Date Data Source [id number] 11/28/2019 05:58:09 PM EDT [facility] Name Value Range Interpretation Code Description Data Janis rce(s) Supporting Document(s) WBC 3.8 10*3/uL (4.1-11.0) L [facility] RBC 4.50 10*6/uL (4.00-5.40) [facility] HGB 12.8 g/dL (12.0-16.0) [facility] HCT 38.2 % (36.0-47.0) [facility] MCV 84.8 fL (80.0-95.0) [facility] MCH 28.5 pg (27.0-32.0) [facility] MCHC 33.6 g/dL (32.0-36.0) [facility] RDW 14.1 % (10.5-14.5) [facility] PLT 281 10*3/uL (150-450) [facility] MPV 8.9 fL (7.1-10.7) [facility] ID Date Data Source [id number] 11/21/2019 02:37:00 PM EDT [facility] ([facility]) Name Value Range Interpretation Code Description Data Janis rce(s) Supporting Document(s) Reported Physicians See Note Reported Physicians [facility] ([facility]) Note: Reported Physicians:Ordering: Mabel Peters LAttending: Mabel Peters ID Date Data Source [id number] 11/21/2019 02:37:00 PM EDT [facility] Name Value Range Interpretation Code Description Data Janis rce(s) Supporting Document(s) Lyme IgG/IgM Ab,S <0.91 ISR Lyme IgG/IgM Ab,S GREFarida OLSON ([facility] Note: N egative <0.91 Equivocal 0.91 - 1.09 Positive >1.09 Performed at: RN - [facility] [address] [id number] Manager Scheduling: Maria Luisa Juarez MD, Phone: [phone] CDC Recommendations for Lyme Disease Testing 1.The [...] Observer: Lyme IgG/IgM Ab Lyme IgG/IgM Ab,S [id number] 800.5205 (A) ID Date Data Source [id number] 11/21/2019 02:37:00 PM EDT [facility] ([facility]) Name Value Range Interpretation Code Description Data Janis rce(s) Supporting Document(s) Thyrotropin [Units/volume] in Serum or Plasma by Detec tion limit <= 0.05 mIU/L 2.088 uIU/ML Normal TSH [facility] ([facility]) Note: Patients should not be tested for 72 hours post fluorescein dye angiography. A false depression of result may occur.Responsible Observer: TSH TSH 300.5500 (A) ID Date Data Source [id number] 11/21/2019 02:37:00 PM EDT [facility] ([facility]) Name Value Range Interpretation Code Description Data Janis rce(s) Supporting Document(s) Creatine kinase [Enzymatic activity/volume] in Dialysis fluid 53 U/ L Normal CREATINE KINASE [facility] ([facility]) Note: Responsible Observer: CK CREATINE KINASE 300.3300 (A) ID Date Data Source [id number] 11/21/2019 02:37:00 PM EDT [facility] ([facility]) Name Value Range Interpretation Code Description Data Janis rce(s) Supporting Document(s) Iron [Mass/volume] in Urine collected for unspecified duration 3 7 UG/DL Normal IRON [facility] ([facility]) Note: Responsible Observer: FE IRON 300 .2400 (A) ID Date Data Source [id number] 11/21/2019 02:37:00 PM EDT [facility] ([facility]) Name Value Range Interpretation Code Description Data Janis rce(s) Supporting Document(s) Albumin/Globulin [Mass Ratio] in Amniotic fluid 2.3 G/DL Normal ALB/GLOB RATIO [facility] ([facility]) Note: Responsible Observer: A/G RATIO AL B/GLOB RATIO 300.4100 (A) Albumin [Mass/volume] in Synovial fluid 3.9 G/DL Normal ALBUMIN MARK ANTHONY ([facility]) Note: Responsible Observer: ALB ALBUMIN 300.3900 (A) Alkaline phosphatase isoenzyme [Units/volume] in Serum or Plasma 49 U/L Normal ALKALINE PHOSPHATASE MARK ANTHONY ([facility]) Note: Responsible Observer: ALK PHOS ALK JACI PHOSPHATASE 300.3110 (A) Alanine aminotransferase [Enzymatic activity/volume] in Seru m or Plasma 12 U/L Normal ALT MARK ANTHONY ([facility]) Note: Responsible Observer: ALT/SGPT ALT 300.3100 (A) Aspartate aminotransferase [Enzymatic activity/volume] in Serum or Plasma 11 U/L Normal AST MARK ANTHONY ([facility]) Note: Responsible Observer: AST/SGOT AST 300.3050 (A) Bilirubin.total [Mass/volume] in Serum or Plasma 0.3 MG/DL Normal BILIRUBIN,TOTAL MARK ANTHONY ([facility]) Note: Responsible Observer: TOTAL BILI T OTAL BILIRUBIN 300.2700 (A) Urea nitrogen/Creatinine [Mass Ratio] in Serum or Plasma 15 Normal BUN/CREAT RATIO MARK ANTHONY ([facility]) Note: Responsible Observer: BUN/CREAT RA TREVER BUN/CREAT RATIO 300.0450 (A) BLOOD UREA NITRO 9 MG/DL Normal BLOOD [facility]A NITRO [facility] ([facility]) Note: Responsible Observer: BUN BLOOD UR EA NITROGEN 300.0350 (A) CA 8.8 MG/DL Normal CA MARK ANTHONY ([facility]) Note: Responsible Observer: CA CALCIUM 300.2200 (A) Chloride [Moles/volume] in Serum, Plasma or Blood 105 MEQ/L Normal CHLORIDE MARK ANTHONY ([facility]) Note: Responsible Observer: CL CHLORIDE 300.0200 (A) Carbon dioxide, total [Moles/volume] in Serum or Plasma 27 MEQ/L Normal CARBON DIOXIDE MARK ANTHONY ([facility]) Note: Responsible Observer: CO2 CARBON D IOXIDE 300.0250 (A) Anion gap in Blood 13 Normal ANION GAP MARK ANTHONY ([facility]) Note: Responsible Observer: ANION GAP AN ION GAP 300.0300 (A) Creatine/Creatinine [Mass Ratio] in Urine 0.6 MG/DL Dena l CREATININE MARK ANTHONY ([facility]) Note: Responsible Observer: CREAT CREATI NINE 300.0400 (A) GFR > 90.0 ML/MIN GFR MARK ANTHONY ([facility]) Note: Stage G1 - Normal or high kidney function The GFR is an estimate of the Glomerular Filtration Rate. It is an aid to assess a patient's renal function. It is not a conclusive diagnosis of kidney disease. GFR normal is >=90 The MDRD GFR calculation is considered valid between the ages of 18 and 75 years only.Responsible Observer: GFR GFR 300.0410 (A) Globulin [Mass/volume] in Serum by calculation 1.7 G/DL Normal GLOBULIN MARK ANTHONY ([facility]) Note: Responsible Observer: GLOB GLOBULI N 300.4050 (A) Potassium [Mass/volume] in Blood 3.9 MEQ/L Normal POT ASSIUM MARK ANTHONY ([facility]) Note: Responsible Observer: K POTASSIUM 300.0150 (A) Glucose [Presence] in Urine 88 MG/DL Normal [facility] Note: Responsible Observer: GLU GLUCOSE 300.0500 (A) Protein [Mass/volume] in Synovial fluid 5.6 G/DL B elow low normal TOTAL PROTEIN MARK ANTHONY ([facility]) Note: Responsible Observer: TP TOTAL PRO TEIN 300.3750 (A) Sodium [Moles/volume] in Serum, Plasma or Blood 141 MEQ/L Normal SODIUM MARK ANTHONY ([facility]) Note: Responsible Observer: NA SODIUM 3 00.0100 (A) ID Date Data Source [id number] 11/21/2019 02:37:00 PM EDT MARK ANTHONY ([facility]) Name Value Range Interpretation Code Description Data Janis rce(s) Supporting Document(s) BASO # (AUTO) 0.05 10\\^3/uL Normal BASO # (AUTO) MARK ANTHONY ([facility]) Note: Responsible Observer: BASO # (AUTO ) BASO # (AUTO) 100.1500 (A) BASO % (AUTO) 1.0 % Normal BASO % (AUTO) MARK ANTHONY ([facility]) Note: Responsible Observer: BASO % (AUTO ) BASO % (AUTO) 100.1250 (A) EOS # (AUTO) 0.19 10\\^3/uL Normal EOS # (AUTO) MARK ANTHONY ( [facility]) Note: Responsible Observer: EOS # (AUTO) EOS # (AUTO) 100.1450 (A) EOS % (AUTO) 3.9 % Normal EOS % (AUTO) MARK ANTHONY ([facility]) Note: Responsible Observer: EOS % (AUTO) EOS % (AUTO) 100.1200 (A) GRAN % (AUTO) 60.9 % Normal GRAN % (AUTO) MARK ANTHONY ([facility]) Note: Responsible Observer: GRAN % (AUTO ) GRAN % (AUTO) 100.1000 (A) GRAN # (AUTO) 2.97 10\\^3/uL Normal GRAN # (AUTO) MARK ANTHONY ([facility]) Note: Responsible Observer: GRAN # (AUTO ) GRAN #(AUTO) 100.1325 (A) Hematocrit [Volume Fraction] of Blood by Automated count 34.1 % Below low normal HEMATOCRIT MARK ANTHONY ([facility]) Note: Responsible Observer: HCT HEMATOCR IT 100.0400 (A) Hemoglobin [Mass/volume] in Blood 11.5 G/DL Normal HE MOGLOBIN MARK ANTHONY ([facility]) Note: Responsible Observer: HGB HEMOGLOB IN 100.0300 (A) IG # (AUTO) 0.0 10\\^3/uL IG # (AUTO) MARK ANTHONY ([facility]) Note: Responsible Observer: IG # (AUTO) IG # (AUTO) 100.1260 (A) LYMPH # (AUTO) 1.3 k/uL Normal LYMPH # (AUTO) MARK ANTHONY ( [facility]) Note: Responsible Observer: LYMPH # (AUT O) LYMPH # (AUTO) 100.1350 (A) LYMPH % (AUTO) 26.8 % Normal LYMPH % (AUTO) MARK ANTHONY ( [facility]) Note: Responsible Observer: LYMPH % (AUT O) LYMPH % (AUTO) 100.1100 (A) Erythrocyte mean corpuscular hemoglobin [Entitic mass] by Automated count 28.3 PG Normal MCH [facility] ([facility]) Note: Responsible Observer: MCH MCH 100 .0600 (A) Erythrocyte mean corpuscular volume [Entitic volume] by Auto mated count 84.0 FL Normal MCV [facility] ([facility]) Note: Responsible Observer: MCV MCV 100 .0550 (A) Erythrocyte mean corpuscular hemoglobin concentration [Mass/volume] by Automated count 33.7 G/DL Normal MCHC [facility] ([facility]) Note: Responsible Observer: MCHC MCHC 1 00.0650 (A) MONO # (AUTO) 0.36 k/uL Normal MONO # (AUTO) MARK ANTHONY ([facility]) Note: Responsible Observer: MONO # (AUTO ) MONO # (AUTO) 100.1400 (A) MONO % (AUTO) 7.4 % Normal MONO % (AUTO) MARK ANTHONY ([facility]) Note: Responsible Observer: MONO % (AUTO ) MONO% (AUTO) 100.1150 (A) MPV 10.2 FL Normal MPV MARK ANTHONY ([facility]) Note: Responsible Observer: MPV MPV 100 .0950 (A) Platelets [#/volume] in Plasma by Automated count 257 10\\^3/uL Normal PLATELET COUNT MARK ANTHONY ([facility]) Note: Responsible Observer: PLT PLATELET COUNT 100.0850 (A) Erythrocytes [#/volume] in Blood by Automated count 4.06 10\\^6/uL Normal RED BLOOD COUNT [facility] ([facility]) Note: Responsible Observer: RBC RED BLOO D COUNT 100.0250 (A) Erythrocyte distribution width [Ratio] by Automated count 13.1 % Normal RDW [facility] ([facility]) Note: Responsible Observer: RDW RDW 100 .0700 (A) Leukocytes [#/volume] in Blood by Automated count 4.88 10\\^3/uL Normal WHITE BLOOD COUNT [facility] ([facility]) Note: Responsible Observer: WBC WHITE BL OOD COUNT 100.0150 (A) ID Date Data Source [id number] 11/21/2019 05:08:00 PM EDT [facility] Has Patient Fasted For The Past 12 Hour s? N Has Patient Fasted For The Past 12 Hour s? N Has Patient Fasted For The Past 12 Hour s? N Has Patient Fasted For The Past 12 Hour s? N Name Value Range Interpretation Code Description Data Janis rce(s) Supporting Document(s) WHITE BLOOD COUNT 4.88 10^3/uL 4.00-10.50 N [facility] RED BLOOD COUNT 4.06 10^6/uL 3.90-5.20 N [facility] HEMOGLOBIN 11.5 G/DL 11.5-15.6 N [facility] HEMATOCRIT 34.1 % 35.0-46.0 L [facility] MCV 84.0 FL 80.0-100.0 N [facility] MCH 28.3 PG 27.0-34.0 N [facility] MCHC 33.7 G/DL 32-36 N [facility] RDW 13.1 % 11.5-14.5 N [facility] PLATELET COUNT 257 10^3/uL 130-400 [facility] MPV 10.2 FL 8.7-13.2 N [facility] GRAN % (AUTO) 60.9 % 42.0-75.0 N [facility] LYMPH % (AUTO) 26.8 % 20.0-51.0 N [facility] MONO % (AUTO) 7.4 % 2.0-15.0 N [facility] EOS % (AUTO) 3.9 % 0.0-11.0 N [facility] BASO % (AUTO) 1.0 % 0.0-2.0 N [facility] IG # (AUTO) 0.0 10^3/uL <0.5 [facility] GRAN # (AUTO) 2.97 10^3/uL 1.50-6.50 N [facility] LYMPH # (AUTO) 1.3 k/uL 1.0-5.0 N [facility] MONO # (AUTO) 0.36 k/uL 0.20-1.50 N [facility] EOS # (AUTO) 0.19 10^3/uL 0.00-1.10 N [facility] BASO # (AUTO) 0.05 10^3/uL 0.00-0.20 N [facility] ID Date Data Source [id number] 11/21/2019 05:32:00 PM EDT [facility] Has Patient Fasted For The Past 12 Hour s? N Has Patient Fasted For The Past 12 Hour s? N Has Patient Fasted For The Past 12 Hour s? N Has Patient Fasted For The Past 12 Hour s? N Name Value Range Interpretation Code Description Data Janis rce(s) Supporting Document(s) SODIUM 141 MEQ/L 135-145 N [facility] POTASSIUM 3.9 MEQ/L 3.5-5.3 N [facility] CHLORIDE 105 MEQ/L 94-110 N [facility] CARBON DIOXIDE 27 MEQ/L 22-33 N [facility] ANION GAP 13 5-16 [facility] BLOOD UREA NITRO 9 MG/DL 7-25 N [facility] CREATININE 0.6 MG/DL 0.6-1.4 [facility] GFR > 90.0 ML/MIN [facility] Stage G1 - Normal or high kidney functi on The GFR is an estimate of the Glomerular Filtration Rate. It is an aid to assess a patient's renal function. It is not a conclusive diagnosis of kidney disease. GFR normal is >=90 The MDRD GFR calculation is considered valid between the ages of 18 and 75 years only. BUN/CREAT RATIO 15 8-36 N [facility] GLUCOSE 88 MG/DL 70-100 N [facility] CA 8.8 MG/DL 8.7-10.5 [facility] BILIRUBIN,TOTAL 0.3 MG/DL 0.1-1.3 [facility] AST 11 U/L 5-40 N [facility] ALT 12 U/L 5-48 [facility] ALKALINE PHOSPHATASE 49 U/L 40-140 [facility] TOTAL PROTEIN 5.6 G/DL 5.9-8.3 L [facility] ALBUMIN 3.9 G/DL 3.0-5.1 N [facility] GLOBULIN 1.7 G/DL 1.5-3.5 N [facility] ALB/GLOB RATIO 2.3 G/DL 1.0-3.0 [facility] ID Date Data Source [id number] 11/24/2019 03:52:00 PM EDT [facility] Has Patient Fasted For The Past 12 Hour s? N Has Patient Fasted For The Past 12 Hour s? N Has Patient Fasted For The Past 12 Hour s? N Has Patient Fasted For The Past 12 Hour s? N Name Value Range Interpretation Code Description Data Janis rce(s) Supporting Document(s) Lyme IgG/IgM Ab,S <0.91 ISR 0.00-0.90 [facility] h Negativ e <0.91 Equivocal 0.91 - 1.09 Positive >1.09 Performed at: RN - [facility] [address] [id number] Manager Scheduling: Maria Luisa Juarez MD, Phone: [phone] CDC Recommendations for Lyme Disease Testing 1.The [...] disease, even if the IgM immunoblot is positive. ID Date Data Source [id number] 11/21/2019 05:32:00 PM EDT [facility] Has Patient Fasted For The Past 12 Hour s? N Has Patient Fasted For The Past 12 Hour s? N Has Patient Fasted For The Past 12 Hour s? N Has Patient Fasted For The Past 12 Hour s? N Name Value Range Interpretation Code Description Data Janis rce(s) Supporting Document(s) IRON 37 UG/DL 35-150 N [facility] ID Date Data Source [id number] 11/21/2019 05:32:00 PM EDT [facility] Has Patient Fasted For The Past 12 Hour s? N Has Patient Fasted For The Past 12 Hour s? N Has Patient Fasted For The Past 12 Hour s? N Has Patient Fasted For The Past 12 Hour s? N Name Value Range Interpretation Code Description Data Janis rce(s) Supporting Document(s) CREATINE KINASE 53 U/L 0-265 N [facility] ID Date Data Source [id number] 11/21/2019 05:32:00 PM EDT [facility] Has Patient Fasted For The Past 12 Hour s? N Has Patient Fasted For The Past 12 Hour s? N Has Patient Fasted For The Past 12 Hour s? N Has Patient Fasted For The Past 12 Hour s? N Name Value Range Interpretation Code Description Data Janis rce(s) Supporting Document(s) TSH 2.088 uIU/ML 0.470-4.200 N [facility] Patients should not be tested for 72 ho urs post fluorescein dye angiography. A false depression of result may occur. ID Date Data Source [id number] 10/20/2019 09:31:11 AM EDT [facility] Name Value Range Interpretation Code Description Data Janis rce(s) Supporting Document(s) Progress Note [facility] QNULNo4yMsZEPhKr35/ZUGlaPDJtr1JuDTcgTCz7QIvrKQNxO8VdAZT2fF5jRLS5GVrGEtFuQiPiUrZ9 lbm [file] AzAvV2TbYcAVc2JhHsVOWyPtLkAO3CAk1XKjN4WYB3jXAmEp8ISxLqMCjNHmZvBS3ZECw= ID Date Data Source [id number] 09/17/2019 01:38:24 PM EDT [facility] Name Value Range Interpretation Code Description Data Janis rce(s) Supporting Document(s) Progress Note [facility] OBSQTb5zMxUMZcUh70/JEVcuRIIwh7UyGJauUAb1SOsuPGXaR2DvEFX6cD9hHTG7CXsORyFpGqErWcQ1 lbm [file] manager deli+JnS6fwqBGJyXEcm4IwI0gBiYJEzjyKMiubkI5KrmArsEerYRLH7JfG+OV+4DXgLeoGBIHRgFe+Xo [file] MrWiPzCUK2IhQeHoHyNG7TQl2XXkL9ARK8oKInXq4UNzCmKCMUBtPcWQ8AGDq= ID Date Data Source [id number] 08/20/2019 03:58:37 PM EDT [facility] Name Value Range Interpretation Code Description Data Janis rce(s) Supporting Document(s) Progress Note [facility] GDPYDu5sTkADQoUd21/QQTxuZDKct5SpDVvoBPs1GQzcDQFqV1OhSIA4fX9bQOJ3QSeTHuSrBtJvVBD5 lbm [file] VkTEP9STLiKPF4SkVoUgDgAV4VEp7FSiG7MDJ2eFOzWi2TSwKrYSZISaBpWF4PJNq= ID Date Data Source [id number] 07/14/2019 09:25:20 AM EDT [facility] Name Value Range Interpretation Code Description Data Janis rce(s) Supporting Document(s) Progress Note [facility] YEEVSc6aIeGWLmSy03/TEFbhPTGqb5BsHTisMKa9QJyhOZKeK0EmBFK9yP1gGQI4YLpWMlDrLcCuEHJx lbm [file] ELEVATOR CONDUCTOR+Kp8POBWpPZg3F8S2YSMhOCc4E2EKS8KKBYXsYUmkLXckBDXaBGg2V6V2MGZnG0OHH5Mfnkvfss1+ GN7IM77FYCXdOTk5S5E1lJXlA6F7xLoJbTF6CI0GMK5UiEh3qLVzqD5+JQ5RV9SLBbUzOXn3K9F3yUNx U1Q5pPxMoZZ7QM6MMQ7AjMPuUFCssaUrRf1yD3ZGXC hGUvXQAVL0CY6LcJGjSN0VrXZMB7DzgFYjJu5oITzlsYHspY3dPx1pRSmfBD8HMiBQSOhOWWY6MY0FaV FvTA5EuFGZX7NspJPfHd7iXEfihAWasx5+IA4TDSAfRn1NMj1+GKalunDxSttKMhD2AJPdp1OuKFc4WU 1AEI2idCkrHIP7Uq5NaKX1nARwZ5xUWG6KyNFtI67k jOReXKJqEw1KBmW8rzBoxR1STD97zOPkx8G5FKAhV7ndXZkep26rIHuaBVeYQC6dPMUZBRwwCOulTFF2 QvDsvphbBPQpRp6FIaZjMQq1vV0sdHL2OZS6HfestQBeWLqqEmZiOnYhLwQ5uJxyllh9FQbwFX5nTRch czptZXRhLyc+IQtuFWIfFXQsEdtJUBKbfN0wzyQ5uh JpTVbxsBVmAs1vu9r5GezoSr8qSk2nHUo2PsAwEcMoPHQuAh4luA94PGqdlwCcUv8DZzBuYRR9V2ZrBg pSREY+OBkvYNnjmMc1gJLzSNOnTi0LLJLuJFOpJNJsTKXtTZMjSYVyDBTfKDPwIKXfGWAcWEKjYYUpPC AgICAgICAgICAgICAgICAgICAgICAgICAgICAgICAg UTVqTPBoQMEeUAYtZDEuACUwZLTbNZCpKRIpJHKeZB9CJFJxRWNaSFRoQYOeFYGkCVUoFVEnAWCuZTDn ICAgICAgICAgICAgICAgICAgICAgICAgICAgICAgICAgICAgICAgICAgICAgICAgICAgICAgICAgICAg WJWxGAKrGAGaHJKaHJ9TZYElWVXuVTNyDSLpLDFbUO AgICAgICAgICAgICAgICAgICAgICAgICAgICAgICAgICAgICAgICAgICAgICAgICAgICAgICAgICAgIC SdPGVjGJQaFSBjAKMrRTVnQXGqXMOpRI4GTUBhHTZuJCCxGYUsSVWrBOEdBVHwYWLnAPCqGNVlZKRcEW AgICAgICAgICAgICAgICAgICAgICAgICAgICAgICAg XVRoUCQqQCDeOPCoCLKxQNRkAMWuAHKxWJWoCZIfOEYvMU7GSRMbUVYyPKCnZSWlJQGuCFOjTSGmRSFn ICAgICAgICAgICAgICAgICAgICAgICAgICAgICAgICAgICAgICAgICAgICAgICAgICAgICAgICAgICAg DBRgRRVbRJHsKATuAPSdEK3MJOXcEDPqMHCmRBJiPQ AgICAgICAgICAgICAgICAgICAgICAgICAgICAgICAgICAgICAgICAgICAgICAgICAgICAgICAgICAgIC JcKYKxDOSrJEMpJPJxQDUuBLNtBBZqPXXkKF1BTXSiRTKzIXDtTALcKGUhWFBaCKHkIABuBETyCIXoZK AgICAgICAgICAgICAgICAgICAgICAgICAgICAgICAg ELOdMMGsMZUfPVZcYKShRQHoWQIoLHCfCISbKZGlINHlLOLtKL1EVZBiMXLmJSTyVYMbASJxLEGcMAUm ICAgICAgICAgICAgICAgICAgICAgICAgICAgICAgICAgICAgICAgICAgICAgICAgICAgICAgICAgICAg DGLbZHGwNPKjIEBsTACgJWFiLB9OPWOiOOCaAODtKO AgICAgICAgICAgICAgICAgICAgICAgICAgICAgICAgICAgICAgICAgICAgICAgICAgICAgICAgICAgIC PkYCMwYHAuYVKgMTLxMEPfNULbYBSlLFZhOOXeHW5RWTQtFFSpHETfJMVwVGXpMTEaKQMgNHYrSJZlQR AgICAgICAgICAgICAgICAgICAgICAgICAgICAgICAg WJWqBJNpBSOdCZReIGMoODKeMPIxQWGvYJVpMOByPPVfEIMpYZPeGU5HNG93dRSqe6I0DINqVH5xtyu/ Zm5ACRjiiuUszDIpQQ0LXxRlTI9euw9EWjIuKU1avs3THYaNMmEvF9F8yHXxVBPwZDXXJqXsP56wNPnt Ss99LMtqYEYdEqPlIUf3Sq6SPxDsD9gnMKIsVmZ8WP XaLvX3WZTfWfA1RYKoSlDlGHAhEXAfNV4VLBRsM736wkZhVS3WDz7QNaKkIQ6wdd3ZTmDsOYWjNfcBEv f3NNehQX5JkTLsfDToCzAxAXIJXvFsK4xfc7AdVoNdWUKPCYkaOJ8Bd2VzvFSzTUg+Vk3KRP6bb2LkDG glPpLnCH2kfs1BMMnIVyQvC8QpjPnsIVMku6yxUSHo IS9ibSNfOZQ3RJThiF1hgY4jN9NpVGWtULQkFM7HZWB8XOGjQvLiVfEvKPZtDHayNIFVTRdCMaCrV8Kh o0ZuNiV7AXZbYkAwJGdlPFEcLqZ7XP21xRmqVV7YKJSqOUHhZK21YKJ7YMArHs8ZIy8HQbRrQY2nga4D KdixRQNoStvTRme9VCkyWD0FgAPeN6PouKIsq0yMHo JyU4UKBGZdEBSuIr1ZBFYkQuYoBZMiCVdlBY8dOLHcFJSZmHllvlB5YT1KKV8yldAqDW0HAmCuVa0cDb 5QQsHbZ6UbJ7CmIIKbVYUVUVgiBU0FBJiaTK4jIS2Ny5ICuKQxcL9irt7QHNUcXOWkTouohy3KLbdfN8 F1oBpmJOUhRdSzELHRFFybUF9JGLRwHDE9TAJfZEGs SZTEFgJkU19oHP5RZ6Rrg14kEoN9UIWrTyXnKLxiIC10pFianySutAGxoPcrGU6VHg6+DQplbmRvYmoN SiseHHIWXwZqRqoNArKvYZMyWKPnLOIfGfT9UyBaJm8NMYUkGTXiQOUbMpIzNRKsKQWiWZyfNYEnCWD7 ZED8ISKdBJPuVB6NRxFjGVAcIvs6YEevKGCqYYKsgc 8IUUHzWQLuSPA1TuIcRSIoKCMcLVgcMWCaVJLkFTy0SSElRQCwUR6DBxDiGCAnLCZ6HZGcMSEfMNPkjc 9BJKNmAPQdYzC2YMKhGCLiZYQlBQhmVRNxZIF4UbY1FOIgAHZgEU7XMbFrRSSbWUo5JvyyTIXwREYmkl 3JIBTrILZtILb0EzOmFVYwOJRnDDzuIJVxGRGkJrJb FNMbQYHuRP0GMjNqNBBjIYJ3EooyWKNgUCVbmm8YEJUiSXFwLXdkTgKbLFCoOURgRNmwZYRvKPSuUMA2 CEEbXADpKH2NKvAcEBLsUNVySJdaYNDnMAPpdc8BCMKtXXAyQhQ6ZzHqWNEsELKjESrfUJUxPGGiSyY2 FAZsSQPpZO7ORiNwOKVyTOM3HLXbMVKoAZPxad2SXE EmOQTdCFw3OhOpYRLaMJHvTUyzGZYzBDT0LoPfIYFyULNjHI0QKaTuOZTbPmV0YrHgVPKzKOZkvw8BAF KxWJPqBEz6PUTbEUCcGFEyHQaqFOSjDOO9TMS0YUAkVNQzGN6KDvPqZAPdWjSrBMlxJBFsKQSlqa5TDW CfLOZdOns9OOJlZHLsUYPqTZbbOIThISC4VRQ2MGIb AVAaQU9HCfKzOFMcPda9ZQRvBQSlGDJcjk5TiZGvyTcxtt6CQHsBRf4IzZoaDXE5VYtlYq3ltMTjDxIi EQWJPc0TcjSdVMNjXEDPEGkjTSUpPTC4JYi8ZBQ0SRDfJ9CaKWK2EDW9MMMkJLAvAML6KWJjZkD7UoC0 AKHfCQitWZLvCZJ7TWw7NCU3PdClOwVzMLA0ZXV+IF 0gDQo+Mr4Ru5MdunP7shOoPZbfAKZ4EX5MRHEJF8OMKg== ID Date Data Source [id number] 06/06/2019 09:35:55 AM EDT [facility] Name Value Range Interpretation Code Description Data Janis rce(s) Supporting Document(s) Progress Note [facility] SUBAZw7rNcKCNtZq77/QTIktFOMol1BmETfgSWj9CVzvTMNzX8StDMI7zW8hBIM7PXjETmBuGkPuKlQk lbm [file] AgICAgICAgICAgICAgICAgICAgICAgICAgICAgICAg ICAgICAgICAgICAgICAgICAgICAgICAgICAgICAgICAgICAgICAgICAgICAgICAgICAgICAgICAgICAg ICANCiAgICAgICAgICAgICAgICAgICAgICAgICAgICAgICAgICAgICAgICAgICAgICAgICAgICAgICAg ICAgICAgICAgICAgICAgICAgICAgICAgICAgICAgIC AgICAgICAgICAgICANCiAgICAgICAgICAgICAgICAgICAgICAgICAgICAgICAgICAgICAgICAgICAgIC AgICAgICAgICAgICAgICAgICAgICAgICAgICAgICAgICAgICAgICAgICAgICAgICAgICAgICANCiAgIC AgICAgICAgICAgICAgICAgICAgICAgICAgICAgICAg ICAgICAgICAgICAgICAgICAgICAgICAgICAgICAgICAgICAgICAgICAgICAgICAgICAgICAgICAgICAg ICAgICANCiAgICAgICAgICAgICAgICAgICAgICAgICAgICAgICAgICAgICAgICAgICAgICAgICAgICAg ICAgICAgICAgICAgICAgICAgICAgICAgICAgICAgIC AgICAgICAgICAgICAgICANCiAgICAgICAgICAgICAgICAgICAgICAgICAgICAgICAgICAgICAgICAgIC AgICAgICAgICAgICAgICAgICAgICAgICAgICAgICAgICAgICAgICAgICAgICAgICAgICAgICAgICANCi AgICAgICAgICAgICAgICAgICAgICAgICAgICAgICAg ICAgICAgICAgICAgICAgICAgICAgICAgICAgICAgICAgICAgICAgICAgICAgICAgICAgICAgICAgICAg ICAgICAgICANCiAgICAgICAgICAgICAgICAgICAgICAgICAgICAgICAgICAgICAgICAgICAgICAgICAg ICAgICAgICAgICAgICAgICAgICAgICAgICAgICAgIC AgICAgICAgICAgICAgICAgICANCiAgICAgICAgICAgICAgICAgICAgICAgICAgICAgICAgICAgICAgIC AgICAgICAgICAgICAgICAgICAgICAgICAgICAgICAgICAgICAgICAgICAgICAgICAgICAgICAgICAgIC ANCiAgICAgICAgICAgICAgICAgICAgICAgICAgICAg ICAgICAgICAgICAgICAgICAgICAgICAgICAgICAgICAgICAgICAgICAgICAgICAgICAgICAgICAgICAg ICAgICAgICAgICANCjw/uZTfF6ldnNDrdzZ5W6fvQg3KAm9HAO2dd6FyCASjWDmppqHiWbvDNaRtFRGu VspOMdj8ZLdcBG2FeQBlT6EwW0UwGAtqWY2LMMExND YkzJSqRBNoDAMpKmT6PIQsDLqtQJ0WaGGeQCsaZTCyDEByWfHhFJBpBGWiIBTdIVTvJCGAIDCzEUWmRz AlEEvaVT5Ld2WkoUK4QIz+Na5ECA9bd3PdOTndRzGfGJ5qpk8TPYhDBjUeK9YhryW6KPR9QOJzIh8ZZC TqHOSgeEOmGOGcCSIOAtVeD0IogU15NXLKGe4+DQpl lsAgSmfOKwV9PEMee5QsTRj7TW8OVUTxYNw9qGJyQZUtM6Hgi6VyRm61MQJqVaxiPB79l88zowZWdYqm ReZxsrxcFPWsXXEsBc1yGp7rCVKuRZI1YbEsUJRBSM4SUYNhYFPhpCMaLJXrUMRZJP4CQLpeOEJ2KXBi ufRluKWvOQjjPX3BZIJjylZsBylnPBHNYQv+Pg0KZW 2xg1QhKDalUWZaQL6tss7KGXoPIvFsN0W2nMUyJ8I5OXzyQv1ZMGDzFSQtUhSyQLXKPHlqFN1FVC9bko L9ZB0MzCLbQRGiSDSyrLHiFBu4D18xvKLfQEncVW1TNTE+Garima+Wp0HKRXkTVHzFTUcEwTbGPCYKsTlY2 NcI6WPz2DiK1UgUM08jQovfeHuLJisAT9ZHI4kCZBt NNVQRM7AtLLyyM8vxhAzSzWqXQIXBcKxS14fbTXaFRCgVHL4GQWnCc3XHDLiL7DcuzZfzTnicdPbFOGo GRFCTF1IPWpinhTljSFhvDbvBT05iAugIE6OPg3FLgMcWO6ije3DtTLaRx4CDPJzXD9ISXZlCTNzLHGz GTY1QNUsEtHaOQbzHNDnTTScOYW7QPJzUSFfYI5DIm QnXRDbAgoeDLEjTUCoFVNjgm3NUYGePLZsSGEbPTPfLXUzDFFjMPxrEJQnCZHiEAH9ROSxILKwUD7RAn RzKJWaVDD2VnAoYDEoYSTegy7EFIKoTMTzWhUwZsQsIBCeKEDsVIglTCSsRRR5FGbuBZCbJSBlJY8HVz RxIEWfKCZnYSOqFQMcUIRjqd5PYZYuDEYkXAj0MZQj GEJoRHUeTVprIYQzGRB7IVH4JHMbWFLlHP6QTnJoASKsWZMlVWIzQWAgETVvsa9JZBZvMIPaLxJzDDCh YYAcRNSpXYkeJAZoDOD5OSK8VJVzSWAbUL7AMaJcGNUyVALpAkEsQVWjMWKrnh0MNAFuMYLsOJE2NEMd GGQzEXZzGSqjBITdYOC3Lnz2DZWuLTUrPB5HFgZjTU BzUDT0UeOoIOJoOVRmfs1UGCAuSFAeWxGhDTPfARQyGPPeHDlvRMPdYNB7StZeGTJwTJQmDB2ONoOpCO HeLVT0IcWsYCEcEQAohf0OPBToRJEsTWS3UIVcJOLzWVJyJXctOVSxDRZ7Iwy5VNHjYCWaIC6HZuGgQV XpMcn7WGIfCGQcPABlgg4CYNDvGDDoPZFqXTQnEVAr RJKhBMmtTKViRGE6EzxvBILsQCCaWP3HDnOsAYGgKfr4UZErYPTtPYZzow8ZRDIrMSPtABO4KSDmDTIv XIVrISdfUSUaTBZbGxY9ODGiURZcOO9HRhCmMBDtOnEjMeimVEDmLUBwmb7AkZViqXitnd4CYUiBAp4Q jLelHXGbOKehWe6qkFBiBNKzYTUGWw3KgpQrPLHoJZ LFHSngJKQtFYw3EsHrFJF2WaYrP8QvVcsuHmHgCac0NQYzDQToTBz2IlR9LIt2KEAlORhwNlW2KlFwM6 PyEyT5YArgXPZhUSWbEKW+TM6hHBj+Ov3Gy0HsbbG3slReMKmdFWXcWB2NZCNQI6QZQy== ID Date Data Source [id number] 03/28/2019 09:57:00 AM EST JUNTURA ([facility]) Name Value Range Interpretation Code Description Data Janis rce(s) Supporting Document(s) Reported Physicians See Note Reported Physicians MARK ANTHONY ([facility]) Note: Reported Physicians:Ordering: Ray, Mabel LAttending: Ray, Mabel ID Date Data Source [id number] 03/28/2019 09:57:00 AM EST MARK ANTHONY ([facility]) Name Value Range Interpretation Code Description Data Janis rce(s) Supporting Document(s) Magnesium [Mass/volume] in Urine collected for unspecified durat ion 1.9 mg/dl Normal MAGNESIUM MARK ANTHONY ([facility]) Note: Responsible Observer: MG MAGNESIUM 300.2350 (A) ID Date Data Source [id number] 03/28/2019 09:57:00 AM EST MARK ANTHONY ([facility]) Name Value Range Interpretation Code Description Data Janis rce(s) Supporting Document(s) Albumin [Mass/volume] in Synovial fluid 4.0 G/DL Normal ALBUMIN MARK ANTHONY ([facility]) Note: Responsible Observer: ALB ALBUMIN 300.3900 (A) Alkaline phosphatase isoenzyme [Units/volume] in Serum or Plasma 60 U/L Normal ALKALINE PHOSPHATASE MARK ANTHONY ([facility]) Note: Responsible Observer: ALK PHOS ALK JACI PHOSPHATASE 300.3110 (A) Albumin/Globulin [Mass Ratio] in Amniotic fluid 2.4 G/DL Normal ALB/GLOB RATIO MARK ANTHONY ([facility]) Note: Responsible Observer: A/G RATIO AL B/GLOB RATIO 300.4100 (A) Aspartate aminotransferase [Enzymatic activity/volume] in Serum or Plasma 11 U/L Normal AST MARK ANTHONY ([facility]) Note: Responsible Observer: AST/SGOT AST 300.3050 (A) Alanine aminotransferase [Enzymatic activity/volume] in Seru m or Plasma 16 U/L Normal ALT MARK ANTHONY ([facility]) Note: Responsible Observer: ALT/SGPT ALT 300.3100 (A) Urea nitrogen/Creatinine [Mass Ratio] in Serum or Plasma 11 Normal BUN/CREAT RATIO MARK ANTHONY ([facility]) Note: Responsible Observer: BUN/CREAT RA TREVER BUN/CREAT RATIO 300.0450 (A) CA 9.2 MG/DL Normal CA MARK ANTHONY ([facility]) Note: Responsible Observer: CA CALCIUM 300.2200 (A) Chloride [Moles/volume] in Serum, Plasma or Blood 108 MEQ/L Normal CHLORIDE MARK ANTHONY ([facility]) Note: Responsible Observer: CL CHLORIDE 300.0200 (A) Bilirubin.total [Mass/volume] in Serum or Plasma 0.4 MG/DL Normal BILIRUBIN,TOTAL MARK ANTHONY ([facility]) Note: Responsible Observer: TOTAL BILI T OTAL BILIRUBIN 300.2700 (A) BLOOD UREA NITRO 7 MG/DL Normal BLOOD UREA NITRO [facility] ([facility]) Note: Responsible Observer: BUN BLOOD UR EA NITROGEN 300.0350 (A) Creatine/Creatinine [Mass Ratio] in Urine 0.6 MG/DL Dena l CREATININE JUNTURA ([facility]) Note: Responsible Observer: CREAT CREATI NINE 300.0400 (A) GFR > 90.0 ML/MIN GFR JUNTURA ([facility]) Note: Stage G1 - Normal or high kidney function GFR normal is >=90 The MDRD GFR calculation is considered valid between the ages of 18 and 75 years only. The GFR is an estimate of the Glomerular Filtration Rate. It is considered accurate in evaluating patients with Chronic Kidney Disease,but may underestimate kidney function in Healthy Patients.Responsible Observer: GFR GFR 300.0410 (A) Anion gap in Blood 11 Normal ANION GAP JUNTURA ([facility]) Note: Responsible Observer: ANION GAP AN ION GAP 300.0300 (A) Carbon dioxide, total [Moles/volume] in Serum or Plasma 27 MEQ/L Normal CARBON DIOXIDE JUNTURA ([facility]) Note: Responsible Observer: CO2 CARBON D IOXIDE 300.0250 (A) Globulin [Mass/volume] in Serum by calculation 1.7 G/DL Normal GLOBULIN JUNTURA ([facility]) Note: Responsible Observer: GLOB GLOBULI N 300.4050 (A) Glucose [Presence] in Urine 100 MG/DL Normal [facility]) Note: Responsible Observer: GLU GLUCOSE 300.0500 (A) Sodium [Moles/volume] in Serum, Plasma or Blood 142 MEQ/L Normal SODIUM JUNTURA ([facility]) Note: Responsible Observer: NA SODIUM 3 00.0100 (A) Potassium [Mass/volume] in Blood 4.1 MEQ/L Normal POT ASSIUM MARK ANTHONY ([facility]) Note: Responsible Observer: K POTASSIUM 300.0150 (A) Protein [Mass/volume] in Synovial fluid 5.7 G/DL B elow low normal TOTAL PROTEIN JUNTURA ([facility]) Note: Responsible Observer: TP TOTAL PRO TEIN 300.3750 (A) ID Date Data Source [id number] 03/28/2019 09:57:00 AM EST MARK ANTHONY ([facility]) Name Value Range Interpretation Code Description Data Janis rce(s) Supporting Document(s) BASO % (AUTO) 1.3 % Normal BASO % (AUTO) MARK ANTHONY ([facility]) Note: Responsible Observer: BASO % (AUTO ) BASO % (AUTO) 100.1250 (A) BASO # (AUTO) 0.05 10\\^3/uL Normal BASO # (AUTO) MARK ANTHONY ([facility]) Note: Responsible Observer: BASO # (AUTO ) BASO # (AUTO) 100.1500 (A) EOS % (AUTO) 5.2 % Normal EOS % (AUTO) MARK ANTHONY ([facility]) Note: Responsible Observer: EOS % (AUTO) EOS % (AUTO) 100.1200 (A) GRAN # (AUTO) 2.31 10\\^3/uL Normal GRAN # (AUTO) MARK ANTHONY ([facility]) Note: Responsible Observer: GRAN # (AUTO ) GRAN #(AUTO) 100.1325 (A) EOS # (AUTO) 0.20 10\\^3/uL Normal EOS # (AUTO) MARK ANTHONY ( [facility]) Note: Responsible Observer: EOS # (AUTO) EOS # (AUTO) 100.1450 (A) Hematocrit [Volume Fraction] of Blood by Automated count 36.8 % Normal HEMATOCRIT MARK ANTHONY ([facility]) Note: Responsible Observer: HCT HEMATOCR IT 100.0400 (A) GRAN % (AUTO) 59.6 % Normal GRAN % (AUTO) MARK ANTHONY ([facility]) Note: Responsible Observer: GRAN % (AUTO ) GRAN % (AUTO) 100.1000 (A) Hemoglobin [Mass/volume] in Blood 12.8 G/DL Normal HE MOGLOBIN MARK ANTHONY ([facility]) Note: Responsible Observer: HGB HEMOGLOB IN 100.0300 (A) IG # (AUTO) 0.0 10\\^3/uL IG # (AUTO) MARK ANTHONY ([facility]) Note: Responsible Observer: IG # (AUTO) IG # (AUTO) 100.1260 (A) IG % (AUTO) 0.3 % IG % (AUTO) MARK ANTHONY ([facility]) Note: Responsible Observer: IG % (AUTO) IG % (AUTO) 100.1255 (A) LYMPH # (AUTO) 1.0 k/uL Normal LYMPH # (AUTO) MARK ANTHONY ( [facility]) Note: Responsible Observer: LYMPH # (AUT O) LYMPH # (AUTO) 100.1350 (A) Erythrocyte mean corpuscular hemoglobin [Entitic mass] by Automated count 30.2 PG Normal MCH MARK ANTHONY ([facility]) Note: Responsible Observer: MCH MCH 100 .0600 (A) LYMPH % (AUTO) 25.8 % Normal LYMPH % (AUTO) MARK ANTHONY ( [facility]) Note: Responsible Observer: LYMPH % (AUT O) LYMPH % (AUTO) 100.1100 (A) Erythrocyte mean corpuscular hemoglobin concentration [Mass/volume] by Automated count 34.8 G/DL Normal MCHC JUNTURA ([facility]) Note: Responsible Observer: MCHC MCHC 1 00.0650 (A) Erythrocyte mean corpuscular volume [Entitic volume] by Auto mated count 86.8 FL Normal MCV JUNTURA ([facility]) Note: Responsible Observer: MCV MCV 100 .0550 (A) MONO # (AUTO) 0.30 k/uL Normal MONO # (AUTO) MARK ANTHONY ([facility]) Note: Responsible Observer: MONO # (AUTO ) MONO # (AUTO) 100.1400 (A) MPV 10.6 FL Normal MPV MARK ANTHONY ([facility]) Note: Responsible Observer: MPV MPV 100 .0950 (A) MONO % (AUTO) 7.8 % Normal MONO % (AUTO) [facility] Note: Responsible Observer: MONO % (AUTO ) MONO% (AUTO) 100.1150 (A) Platelets [#/volume] in Plasma by Automated count 256 10\\^3/uL Normal PLATELET COUNT JUNTURA ([facility]) Note: Responsible Observer: PLT PLATELET COUNT 100.0850 (A) Erythrocytes [#/volume] in Blood by Automated count 4.24 10\\^6/uL Normal RED BLOOD COUNT JUNTURA ([facility]) Note: Responsible Observer: RBC RED BLOO D COUNT 100.0250 (A) Erythrocyte distribution width [Ratio] by Automated count 11.9 % Normal RDW MARK ANTHONY ([facility]) Note: Responsible Observer: RDW RDW 100 .0700 (A) Leukocytes [#/volume] in Blood by Automated count 3.87 10\\^3/uL Below low normal WHITE BLOOD COUNT MARK ANTHONY ([facility]) Note: Responsible Observer: WBC WHITE BL OOD COUNT 100.0150 (A) ID Date Data Source [id number] 03/28/2019 01:02:00 PM EST [facility] Has Patient Fasted For The Past 12 Hour s? N Has Patient Fasted For The Past 12 Hour s? N Name Value Range Interpretation Code Description Data Janis rce(s) Supporting Document(s) WHITE BLOOD COUNT 3.87 10^3/uL 4.00-10.50 [facility] RED BLOOD COUNT 4.24 10^6/uL 3.90-5.20 [facility] HEMOGLOBIN 12.8 G/DL 11.5-15.6 [facility] HEMAT[facility]IT 36.8 % 35.0-46.0 N [facility] MCV 86.8 FL 80.0-100.0 N [facility] MCH 30.2 PG 27.0-34.0 N [facility] MCHC 34.8 G/DL 32-36 N [facility] RDW 11.9 % 11.5-14.5 N [facility] PLATELET COUNT 256 10^3/uL 130-400 N [facility] MPV 10.6 FL 8.7-13.2 N [facility] GRAN % (AUTO) 59.6 % 42.0-75.0 [facility] LYMPH % (AUTO) 25.8 % 20.0-51.0 N [facility] MONO % (AUTO) 7.8 % 2.0-15.0 [facility] EOS % (AUTO) 5.2 % 0.0-11.0 [facility] BASO % (AUTO) 1.3 % 0.0-2.0 [facility] IG % (AUTO) 0.3 % 1.00-5.00 [facility] IG # (AUTO) 0.0 10^3/uL <0.5 [facility] GRAN # (AUTO) 2.31 10^3/uL 1.50-6.50 N [facility] LYMPH # (AUTO) 1.0 k/uL 1.0-5.0 N [facility] MONO # (AUTO) 0.30 k/uL 0.20-1.50 N [facility] EOS # (AUTO) 0.20 10^3/uL 0.00-1.10 [facility] BASO # (AUTO) 0.05 10^3/uL 0.00-0.20 N [facility] ID Date Data Source [id number] 03/28/2019 01:25:00 PM EST [facility] Has Patient Fasted For The Past 12 Hour s? N Has Patient Fasted For The Past 12 Hour s? N Name Value Range Interpretation Code Description Data Janis rce(s) Supporting Document(s) SODIUM 142 MEQ/L 135-145 N [facility] POTASSIUM 4.1 MEQ/L 3.5-5.3 N [facility] CHLORIDE 108 MEQ/L 94-110 N [facility] CARBON DIOXIDE 27 MEQ/L 22-33 [facility] ANION GAP 11 5-16 N [facility] BLOOD UREA NITRO 7 MG/DL 7-25 N [facility] CREATININE 0.6 MG/DL 0.6-1.4 [facility] GFR > 90.0 ML/MIN [facility] Stage G1 - Normal or high kidney functi on GFR normal is >=90 The MDRD GFR calculation is considered valid between the ages of 18 and 75 years only. The GFR is an estimate of the Glomerular Filtration Rate. It is considered accurate in evaluating patients with Chronic Kidney Disease,but may underestimate kidney function in Healthy Patients. BUN/CREAT RATIO 11 8-36 N [facility] GLUCOSE 100 MG/DL 70-100 [facility] CA 9.2 MG/DL 8.7-10.5 [facility] BILIRUBIN,TOTAL 0.4 MG/DL 0.1-1.3 [facility] AST 11 U/L 5-40 N [facility] ALT 16 U/L 5-48 N [facility] ALKALINE PHOSPHATASE 60 U/L 40-140 [facility] TOTAL PROTEIN 5.7 G/DL 5.9-8.3 L [facility] ALBUMIN 4.0 G/DL 3.0-5.1 [facility] GLOBULIN 1.7 G/DL 1.5-3.5 [facility] ALB/GLOB RATIO 2.4 G/DL 1.0-2.7 N [facility] ID Date Data Source [id number] 03/28/2019 01:25:00 PM EST [facility] Has Patient Fasted For The Past 12 Hour s? N Has Patient Fasted For The Past 12 Hour s? N Name Value Range Interpretation Code Description Data Janis rce(s) Supporting Document(s) MAGNESIUM 1.9 mg/dl 1.8-2.4 N [facility] Procedure Social History Code Duration Value Status Description Data Source(s ) Smoking 04/20/2020 12:00:00 AM EST Former Smoker completed Former Smoker [email or web address] ([facility]) Smoking 02/25/2020 12:00:00 AM EST Ex-smoker (finding) complet ed Ex-smoker (finding) JUNTURA ([facility]) Smoking 02/17/2020 12:00:00 AM EST Ex-smoker (finding) complet ed Ex-smoker (finding) JUNTURA ([facility]) Alcohol intake 12/29/2019 12:00:00 AM EDT Ex-drinker (finding) comp leted Ex- drinker (finding) [facility] Tobacco use and exposure 12/29/2019 12:00:00 AM EDT Never used co mpleted Never used [facility] Smoking 12/29/2019 12:00:00 AM EDT Never smoker completed Never s [facility] Alcohol intake 12/05/2019 12:00:00 AM EDT Not Currently completed [facility] Smoking 12/05/2019 12:00:00 AM EDT Never smoker completed Never s [facility] Alcohol intake 11/28/2019 12:00:00 AM EDT Not Currently completed [facility] Smoking 11/28/2019 12:00:00 AM EDT Never smoker completed Never s [facility] Alcohol intake 10/20/2019 12:00:00 AM EDT Ex-drinker (finding) comp leted Ex- drinker (finding) [facility] Smoking 10/20/2019 12:00:00 AM EDT Never smoker completed Never s [facility] Alcohol intake 09/17/2019 12:00:00 AM EDT Ex-drinker (finding) comp leted Ex- drinker (finding) [facility] Smoking 09/17/2019 12:00:00 AM EDT Never smoker completed Never s [facility] Smoking 09/16/2019 12:00:00 AM EDT Never smoked tobacco (findi ng) completed Never smoked tobacco (finding) MARK ANTHONY ([facility]) Smoking 09/16/2019 12:00:00 AM EDT Never smoked tobacco (findi ng) completed Never smoked tobacco (finding) MARK ANTHONY ([facility]) Smoking 09/16/2019 12:00:00 AM EDT Never smoked tobacco (findi ng) completed Never smoked tobacco (finding) MARK ANTHONY ([facility]) Alcohol intake 08/20/2019 12:00:00 AM EDT Ex-drinker (finding) comp leted Ex- drinker (finding) [facility] Smoking 08/20/2019 12:00:00 AM EDT Never smoker completed Never s [facility] Smoking 07/16/2019 12:00:00 AM EDT Ex-smoker (finding) complet ed Ex-smoker (finding) [facility]ON[facility] Smoking 06/11/2019 12:00:00 AM EDT Ex-smoker (finding) complet ed Ex-smoker (finding) MARK ANTHONY [facility] Alcohol intake 06/06/2019 12:00:00 AM EDT Ex-drinker (finding) comp leted Ex- drinker (finding) [facility] Smoking 06/06/2019 12:00:00 AM EDT Never smoker completed Never s [facility] Smoking 05/08/2019 12:00:00 AM EST Ex-smoker (finding) complet ed Ex-smoker (finding) JUNTURA ([facility]) Vital Signs ID Date Data Source UNK Name Value Range Interpretation Code Description Data Source(s) Diastolic blood pressure 73 mm[Hg] 73 mm[Hg] eCW1 ([facility]) Systolic blood pressure 104 mm[Hg] 104 mm[Hg] e CW1 ([facility]) Body mass index (BMI) [Ratio] 18.65 kg/m2 18.65 kg/m2 W1 ([facility]) Body height 62 [in_i] 62 [in_i] eCW1 ([facility]) Body weight 46.27 kg 46.27 kg W1 ([facility]) Body weight 102 [lb_av] 102 [lb_av] eCW1 ([facility]) Inhaled oxygen concentration 21 % 21 % MARK ANTHONY [facility] Inhaled oxygen flow rate 0 L/min 0 L/min MARK ANTHONY [facility] Oxygen saturation in Arterial blood by Pulse oximetry 99 % 99 % MARK ANTHONY [facility] PhenX - pain, abdominal - type and intensity protocol 0 0 MARK ANTHONY [facility] Body weight 107 [lb_av] 107 [lb_av] [facility] Body temperature 98.5 [degF] 98.5 [degF] GREENW AY [facility] Respiratory rate 17 /min 17 /min [facility] Heart rate 80 /min 80 /min [facility]ONY [facility] Diastolic blood pressure 70 mm[Hg] 70 mm[Hg] MARK ANTHONY [facility] Systolic blood pressure 110 mm[Hg] 110 mm[Hg] G REENWAY ([facility] PhenX - pain, abdominal - type and intensity protocol 0 0 MARK ANTHONY ([facility] Unable to obtain all vitals due to covid 19 pandemic Inhaled oxygen concentration 21 % 21 % MARK ANTHONY [facility] Inhaled oxygen flow rate 0 L/min 0 L/min MARK ANTHONY [facility] Oxygen saturation in Arterial blood by Pulse oximetry 99 % 99 % MARK ANTHONY [facility] PhenX - pain, abdominal - type and intensity protocol 0 0 MARK ANTHONY [facility] Body weight 103.5 [lb_av] 103.5 [lb_av] GREENWA Y [facility] Body temperature 97.4 [degF] 97.4 [degF] GREENW AY [facility] Respiratory rate 18 /min 18 /min MARK ANTHONY ([facility] Heart rate rhythm 1 1 GREENWA Y [facility] Heart rate 92 /min 92 /min MARK ANTHONY [facility] Diastolic blood pressure 80 mm[Hg] 80 mm[Hg] MARK ANTHONY [facility] Systolic blood pressure 118 mm[Hg] 118 mm[Hg] G REENWAY [facility] Inhaled oxygen concentration 21 % 21 % MARK ANTHONY ([facility] Temperature assessed by steam shovel oiler. [employer] Inhaled oxygen flow rate 0 L/min 0 L/min MARK ANTHONY ([facility] Temperature assessed by steam shovel oiler. PLewis LOCK PLATER Oxygen saturation in Arterial blood by Pulse oximetry 97 % 97 % MARK ANTHONY ([facility] Temperature assessed by steam shovel oiler. PLewis LOCK PLATER PhenX - pain, abdominal - type and intensity protocol 5 5 MARK ANTHONY ([facility] Temperature assessed by steam shovel oiler. PLewis LOCK PLATER Body weight 107 [lb_av] 107 [lb_av] MARK ANTHONY ([facility]) Temperature assessed by steam shovel oiler. PLewis LOCK PLATER Body temperature 97.6 [degF] 97.6 [degF] GREENW AY ([facility] Temperature assessed by steam shovel oiler. PLewis LOCK PLATER Respiratory rate 16 /min 16 /min MARK ANTHONY ([facility] Temperature assessed by steam shovel oiler. PLewis LOCK PLATER Heart rate 81 /min 81 /min MARK ANTHONY ([facility]) Temperature assessed by steam shovel oiler. PLewis LOCK PLATER Diastolic blood pressure 78 mm[Hg] 78 mm[Hg] MARK ANTHONY [facility] Temperature assessed by steam shovel oiler. PLewis LOCK PLATER Systolic blood pressure 116 mm[Hg] 116 mm[Hg] G REENWAY ([facility]) Temperature assessed by steam shovel oiler. PLewis LOCK PLATER Body mass index (BMI) [Ratio] 20.5 kg/m2 20.5 k g/m2 MEDENT ([facility]) Body weight 116.00 [lb_av] 116.00 [lb_av] MEDEN T ([facility]) Body height 63 [in_i] 63 [in_i] MEDENT ([facility]) 5'3" Respiratory rate 12 /min 12 /min MEDENT ( [facility]) Body temperature 96.9 [degF] 96.9 [degF] MEDENT ([facility]) Heart rate 82 /min 82 /min MEDENT ([facility]) Diastolic blood pressure 54 mm[Hg] 54 mm[Hg] MEDENT ([facility]) Systolic blood pressure 116 mm[Hg] 116 mm[Hg] M EDENT ([facility]) Diastolic blood pressure 90 mm[Hg] 90 mm[Hg] [facility] Systolic blood pressure 142 mm[Hg] 142 mm[Hg] [facility] Respiratory rate 12 /min 12 /min [facility] Body temperature 36.67 Estelle 36.67 Estelle [facility] Heart rate 87 /min 87 /min [facility] Oxygen saturation in Arterial blood by Pulse oximetry 96 % 96 % [facility] Body mass index (BMI) [Ratio] 19.13 kg/m2 19.13 kg/m2 [facility] Body weight 48.988 kg 48.988 kg [facility] Body height 160 cm 160 cm [facility] Oxygen saturation in Arterial blood by Pulse oximetry 97 % 97 % [facility] Body mass index (BMI) [Ratio] 19.13 kg/m2 19.13 kg/m2 [facility] Body weight 48.988 kg 48.988 kg [facility] Body height 160 cm 160 cm [facility] Heart rate 89 /min 89 /min [facility] Diastolic blood pressure 76 mm[Hg] 76 mm[Hg] [facility] Systolic blood pressure 113 mm[Hg] 113 mm[Hg] [facility] Body mass index (BMI) [Ratio] 20.5 kg/m2 20.5 k g/m2 MEDENT ([facility]) Body weight 116.00 [lb_av] 116.00 [lb_av] MEDEN T ([facility]) Body height 63 [in_i] 63 [in_i] MEDENT ([facility]) 5'3" Respiratory rate 12 /min 12 /min MEDENT ( [facility]) Body temperature 97.6 [degF] 97.6 [degF] MEDENT ([facility]) Heart rate 74 /min 74 /min MEDENT ([facility]) Diastolic blood pressure 82 mm[Hg] 82 mm[Hg] MEDENT ([facility]) Systolic blood pressure 137 mm[Hg] 137 mm[Hg] M EDENT ([facility]) Inhaled oxygen concentration 21 % 21 % JUNTURA ([facility]) Temperature assessment done by Bo ravi LPN Inhaled oxygen flow rate 0 L/min 0 L/min JUNTURA ([facility]) Temperature assessment done by Sandipl l LOCK PLATER Oxygen saturation in Arterial blood by Pulse oximetry 97 % 97 % JUNTURA ([facility]) Temperature assessment done by Farida.Kenal l LOCK PLATER PhenX - pain, abdominal - type and intensity protocol 4 4 JUNTURA ([facility]) Temperature assessment done by Sandipl l LOCK PLATER Body surface area Derived from formula 1.51 m2 1.51 m2 JUNTURA ([facility]) Temperature assessment done by Farida.Kenal l LOCK PLATER Body mass index (BMI) [Ratio] 20.5 kg/m2 20.5 k g/m2 JUNTURA ([facility]) Temperature assessment done by Sandipl l LOCK PLATER Body weight 114 [lb_av] 114 [lb_av] JUNTURA ([facility]) Temperature assessment done by Farida.Kenal l LOCK PLATER Body height 62.5 [in_i] 62.5 [in_i] JUNTURA ([facility]) Temperature assessment done by Sandipl l LOCK PLATER Body temperature 97.4 [degF] 97.4 [degF] [facility] ([facility]) Temperature assessment done by Sandipl l LOCK PLATER Respiratory rate 16 /min 16 /min JUNTURA ([facility]) Temperature assessment done by E.Crandal l LOCK PLATER Heart rate 78 /min 78 /min JUNTURA ([facility]) Temperature assessment done by E.Saaddal l LOCK PLATER Diastolic blood pressure 88 mm[Hg] 88 mm[Hg] JUNTURA ([facility]) Temperature assessment done by E.Crandal l LOCK PLATER Systolic blood pressure 124 mm[Hg] 124 mm[Hg] [facility] ([facility]) Temperature assessment done by E.Crandal l LOCK PLATER PhenX - pain, abdominal - type and intensity protocol 7 7 MARK ANTHONY ([facility]) Inhaled oxygen concentration 21 % 21 % MARK ANTHONY ([facility]) Inhaled oxygen flow rate 0 L/min 0 L/min JUNTURA ([facility]) Oxygen saturation in Arterial blood by Pulse oximetry 99 % 99 % MARK ANTHONY ([facility]) PhenX - pain, abdominal - type and intensity protocol 0 0 MARK ANTHONY ([facility]) Body weight 108 [lb_av] 108 [lb_av] MARK ANTHONY ([facility]) Body temperature 98.5 [degF] 98.5 [degF] GREENW AY ([facility]) Respiratory rate 18 /min 18 /min MARK ANTHONY ([facility]) Heart rate rhythm 1 1 GREENWA Y ([facility]) Heart rate 83 /min 83 /min MARK ANTHONY ([facility]) Diastolic blood pressure 78 mm[Hg] 78 mm[Hg] MARK ANTHONY ([facility]) Systolic blood pressure 128 mm[Hg] 128 mm[Hg] [facility] Inhaled oxygen concentration 21 % 21 % MARK ANTHONY ([facility]) Inhaled oxygen flow rate 0 L/min 0 L/min JUNTURA ([facility]) Oxygen saturation in Arterial blood by Pulse oximetry 98 % 98 % JUNTURA ([facility]) PhenX - pain, abdominal - type and intensity protocol 0 0 MARK ANTHONY ([facility]) Body weight 113 [lb_av] 113 [lb_av] MARK ANTHONY ([facility]) Body temperature 98 [degF] 98 [degF] MARK ANTHONY ([facility]) Respiratory rate 18 /min 18 /min MARK ANTHONY ([facility]) Heart rate 83 /min 83 /min MARK ANTHONY ([facility]) Diastolic blood pressure 84 mm[Hg] 84 mm[Hg] MARK ANTHONY ([facility]) Systolic blood pressure 112 mm[Hg] 112 mm[Hg] G REENWAY ([facility]) Inhaled oxygen concentration 21 % 21 % MARK ANTHONY ([facility]) Inhaled oxygen flow rate 0 L/min 0 L/min MARK ANTHONY ([facility]) Oxygen saturation in Arterial blood by Pulse oximetry 98 % 98 % MARK ANTHONY ([facility]) PhenX - pain, abdominal - type and intensity protocol 0 0 MARK ANTHONY ([facility]) Body weight 120.6 [lb_av] 120.6 [lb_av] GREENWA Y ([facility]) Body temperature 98.3 [degF] 98.3 [degF] GREENW AY ([facility]) Respiratory rate 18 /min 18 /min MARK ANTHONY ([facility]) Heart rate 87 /min 87 /min MARK ANTHONY ([facility]) Diastolic blood pressure 78 mm[Hg] 78 mm[Hg] MARK ANTHONY ([facility]) Systolic blood pressure 128 mm[Hg] 128 mm[Hg] G REENWAY ([facility] ID Date Data Source [id number] 04/28/2020 09:39:14 AM [facility] Name Value Range Interpretation Code Description Data Source(s) PREFERRED NAME Halchristofer Madden [facility] ID Date Data Source [id number] 04/02/2020 02:25:36 PM [facility] Value Range Interpretation Code Description Data Source(s) PREFERRED NAME Hal Madden [facility] ID Date Data Source [id number] [facility] Interpretation Code Description Data Source(s) WEIGHT RECORDED 102 lb 102 lb [facility] Body height Measured [address] [facility] ID Date Data Source [id number] 10/20/2019 10:10[facility] Interpretation Code Description Data Source(s) WEIGHT RECORDED 115 lb 115 lb [facility] Body height Measured [address] [facility] ID Date Data Source [id number] [facility] Value Range Interpretation Code Description Data Source(s) WEIGHT RECORDED 114 lb 114 lb [facility] Body height Measured [address] [facility] ID Date Data Source [id number] 08/29/2019 [facility]:54[facility] Name Value Range Interpretation Code Description Data Source(s) WEIGHT RECORDED 107 lb 107 lb [facility] Body height Measured [address] [facility] ID Date Data Source [id number] 07/14/2019 09:53:34 AM [facility] Name Value Range Interpretation Code Description Data Source(s) WEIGHT RECORDED 105 lb 105 lb [facility] Body height Measured [address] [facility] ID Date Data Source [id number] 06/06/2019 10:38:05 AM EDT [facility] Name Value Range Interpretation Code Description Data Source(s) WEIGHT RECORDED 108 lb 108 lb [facility] Body height Measured [address] [facility] Patient Treatment Plan of Care Planned Activity Planned Date Details Description Data Source (s) Ciprofloxacin 500 MG Oral Tablet [Cipro] 04/20/2020 12:00:00 AM [facility] [email or web address] ([facility]) Amphetamine aspartate 2.5 MG / Amphetami ne Sulfate 2.5 MG / Dextroamphetamine saccharate 2.5 MG / Dextroamphetamine Sulfate 2.5 MG Oral Tablet 04/02/2020 12:00:00 AM [facility] Solriamfetol HCl 150 MG Oral Tablet (SUNOSI) 03/12/2020 12:00:00 AM [facility] 24 HR Amphetamine aspartate 7.5 MG / Amp hetamine Sulfate 7.5 MG / Dextroamphetamine saccharate 7.5 MG / Dextroamphetamine Sulfate 7.5 MG Extended Release Oral Capsule 03/02/2020 12:00:00 AM [facility] Amphetamine aspartate 5 MG / Amphetamine Sulfate 5 MG / Dextroamphetamine saccharate 5 MG / Dextroamphetamine Sulfate 5 MG Oral Tablet 03/02/2020 12:00:00 AM [facility] Solriamfetol HCl 75 MG Oral Tablet (SUNOSI) 03/02/2020 12:00:00 AM [facility] Ondansetron 8 MG Disintegrating Oral Tablet 02/25/2020 12:00:00 AM [facility] MARK ANTHONY ([facility]) Sublocade 100 MG/0.5ML Subcutaneous Solution Prefilled Syringe 02/25/2020 12:00:00 AM [facility] Ayannah ([facility]) Sumatriptan 25 MG Oral Tablet [Imitrex] 02/25/2020 12:00:00 AM [facility] MARK ANTHONY ([facility]) Amlodipine 5 MG Oral Tablet 02/17/2020 12:00:00 AM [facility] ([facility]) Methylphenidate HCl ER (LA) 30 MG Oral C apsule Extended Release 24 Hour (RITALIN [place]) 01/17/2020 12:00:00 AM EDT [facility] Betamethasone 0.5 MG/ML Topical Cream 01/13/2020 12:00:00 AM EDT JUNTURA ([facility]) Sumatriptan 25 MG Oral Tablet [Imitrex] 01/13/2020 12:00:00 AM EDT JUN[facility]URA ([facility] Ondansetron 8 MG Disintegrating Oral Tablet 01/13/2020 12:00:00 AM T JUNTURA ([facility]) Sublocade 300 MG/1.5ML Subcutaneous Solution Prefilled Syringe 01/12/2020 12:00:00 AM T JUN[facility]URA ([facility] Methylphenidate Hydrochloride 10 MG Oral Tablet 01/09/2020 12:00:00 AM [facility] Methylphenidate HCl ER (LA) 20 MG Oral C apsule Extended Release 24 Hour (Ritalin [place]) 01/09/2020 12:00:00 AM EDT [facility] Buprenorphine 8 MG / Naloxone 2 MG Oral Strip [Suboxon e] 01/08/2020 12:00:00 AM EDT JUN[facility]URA ([facility] Methylphenidate Hydrochloride 10 MG Oral Tablet 12/22/2019 12:00:00 AM [facility] 24 HR Amphetamine aspartate 7.5 MG / Amp hetamine Sulfate 7.5 MG / Dextroamphetamine saccharate 7.5 MG / Dextroamphetamine Sulfate 7.5 MG Extended Release Oral Capsule 12/22/2019 12:00:00 AM [facility] Amphetamine aspartate 5 MG / Amphetamine Sulfate 5 MG / Dextroamphetamine saccharate 5 MG / Dextroamphetamine Sulfate 5 MG Oral Tablet 12/15/2019 12:00:00 AM [facility] Ondansetron 8 MG Disintegrating Oral Tablet 12/09/2019 12:00:00 AM T JUNTURA ([facility]) Ibuprofen 600 MG Oral Tablet 12/06/2019 12:00:00 AM EDT [facility] Docusate Sodium 100 MG Oral Capsule 12/06/2019 12:00:00 AM EDT [facility] Acetaminophen 325 MG / Oxycodone Hydrochloride 5 MG Or al Tablet 12/06/2019 12:00:00 AM EDT [facility] Acetaminophen 325 MG Oral Tablet 12/06/2019 12:00:00 AM EDT [facility] Iron 325 (65 Fe) MG Oral Tablet 11/25/2019 12:00:00 AM [facility] ([facility]) Amphetamine aspartate 2.5 MG / Amphetami ne Sulfate 2.5 MG / Dextroamphetamine saccharate 2.5 MG / Dextroamphetamine Sulfate 2.5 MG Oral Tablet 10/20/2019 12:00:00 AM [facility] Methylphenidate Hydrochloride 10 MG Oral Tablet 10/20/2019 12:00:00 AM [facility] 24 HR Amphetamine aspartate 7.5 MG / Amp hetamine Sulfate 7.5 MG / Dextroamphetamine saccharate 7.5 MG / Dextroamphetamine Sulfate 7.5 MG Extended Release Oral Capsule 09/25/2019 12:00:00 AM [facility] Amphetamine aspartate 2.5 MG / Amphetami ne Sulfate 2.5 MG / Dextroamphetamine saccharate 2.5 MG / Dextroamphetamine Sulfate 2.5 MG Oral Tablet 09/17/2019 12:00:00 AM [facility] Ondansetron 8 MG Disintegrating Oral Tablet 09/17/2019 12:00:00 AM [facility] ([facility]) Sumatriptan 25 MG Oral Tablet [Imitrex] 09/17/2019 12:00:00 AM [facility] ([facility]) Amphetamine aspartate 2.5 MG / Amphetami ne Sulfate 2.5 MG / Dextroamphetamine saccharate 2.5 MG / Dextroamphetamine Sulfate 2.5 MG Oral Tablet 08/20/2019 12:00:00 AM [facility] Protriptyline Hydrochloride 5 MG Oral Tablet 08/20/2019 12:00:00 AM [facility] 24 HR Amphetamine aspartate 7.5 MG / Amp hetamine Sulfate 7.5 MG / Dextroamphetamine saccharate 7.5 MG / Dextroamphetamine Sulfate 7.5 MG Extended Release Oral Capsule 08/13/2019 12:00:00 AM [facility] [employer] 17.8 MG Oral Tablet 08/08/2019 12:00:00 AM [facility] Amphetamine aspartate 5 MG / Amphetamine Sulfate 5 MG / Dextroamphetamine saccharate 5 MG / Dextroamphetamine Sulfate 5 MG Oral Tablet 07/25/2019 12:00:00 AM [facility] Betamethasone 0.5 MG/ML Topical Cream 07/16/2019 12:00:00 AM EDT MARK ANTHONY ([facility]) 24 HR Amphetamine aspartate 5 MG / Amphe tamine Sulfate 5 MG / Dextroamphetamine saccharate 5 MG / Dextroamphetamine Sulfate 5 MG Extended Release Oral Capsule [Adderall] 07/03/2019 12:00:00 AM EDT [facility] Albuterol Sulfate HFA 108 (90 Base) MCG/ ACT Inhalation Aerosol Solution (PROVENTIL HFA) 06/11/2019 12:00:00 AM EDT [facility] 200 ACTUAT Albuterol 0.09 MG/ACTUAT Metered Dose Inhal er [Ventolin] 06/11/2019 12:00:00 AM EDT MARK ANTHONY ([facility]) Ondansetron 8 MG Disintegrating Oral Tablet 05/30/2019 12:00:00 AM EST MARK ANTHONY ([facility]) 24 HR Amphetamine aspartate 5 MG / Amphe tamine Sulfate 5 MG / Dextroamphetamine saccharate 5 MG / Dextroamphetamine Sulfate 5 MG Extended Release Oral Capsule [Adderall] 05/29/2019 12:00:00 AM EST [facility] ([facility]) 24 HR Amphetamine aspartate 5 MG / Amphe tamine Sulfate 5 MG / Dextroamphetamine saccharate 5 MG / Dextroamphetamine Sulfate 5 MG Extended Release Oral Capsule [Adderall] 05/06/2019 12:00:00 AM EST [facility] ([facility]) 24 HR Amphetamine aspartate 5 MG / Amphe tamine Sulfate 5 MG / Dextroamphetamine saccharate 5 MG / Dextroamphetamine Sulfate 5 MG Extended Release Oral Capsule [Adderall] 04/08/2019 12:00:00 AM EST [facility] Methylphenidate Hydrochloride 20 MG Oral Tablet [Rital in] 03/28/2019 12:00:00 AM EST MARK ANTHONY [facility] HR Amphetamine aspartate 5 MG / Amphe tamine Sulfate 5 MG / Dextroamphetamine saccharate 5 MG / Dextroamphetamine Sulfate 5 MG Extended Release Oral Capsule [Adderall] 02/26/2019 12:00:00 AM EST [facility] [employer] Sublocade 100 MG/0.5ML Subcutaneous Solution Prefilled Syringe 12/25/2018 12:00:00 AM EDT MARK ANTHONY ([facility]) Loratadine 10 MG Oral Capsule [Claritin] 11/20/2018 12:00:00 AM EDT MARK ANTHONY ([facility]) Ibuprofen 800 MG Oral Tablet 04/12/2018 12:00:00 AM EST JUNTURA ([facility]) [facility] Saline Nasal Gel 01/10/2017 12:00:00 AM EDT JUNTURA ([facility]) 24 HR Amphetamine aspartate 5 MG / Amphe tamine Sulfate 5 MG / Dextroamphetamine saccharate 5 MG / Dextroamphetamine Sulfate 5 MG Extended Release Oral Capsule [facility]
[2020-05-20] MEDS ORDERED: ADDE20CA3 PO (12:37)
[2020-05-20] MEDS ORDERED: PITO17.8 PO (12:37)
[2020-05-20] MEDS ORDERED: SOLR150T PO (12:37)
[2020-05-20] MEDS ORDERED: ADDERRALL (12:37)
[2020-05-20] MEDS ORDERED: ZOFR4TAB16 PO (12:38)
[2020-05-20] MEDS ORDERED: SUMA25TA3 PO (12:38)
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
--- OUTSIDE RECORDS SUMMARY | 2020-05-20 13:13 | CCD ---
Author Author [facility] Organization [facility] Address Unknown Phone Unavailable Support Name Relationship Address Phone [facility] [employer] Next Of Kin [address] [place] [address] Jovanni [place] Next Of Kin Unknown Unavailable [facility] Next Of Kin [address] [place] [address] JOVANNI QUIÑONES Next Of Kin [id number] [place] [address] [facility] DPNDCY Next Of Kin [address] [place] [address] [facility] DPND[facility] Next Of Kin [address] [place] [address] Jenny Ratliff DDS Next Of Kin [address] [place] [address] [phone] pivit Next Of Kin [address] [place] [address] Unavailable PIVOT Next Of Kin [address] [place] [address] REYNOLD TOUSSAINT Next Of Kin [address] [place] [address] SMC Next Of Kin [address] [place] [address] ABE ZARCO Next Of Kin [address] [place] [phone] Juan Jose Vilchis Next Of Kin [address] [place] [address] [facility] ADDICTION SERVICES Next Of Kin [address] [place] [address] SMC ADDITION SERVICES Next Of Kin [address] [place] [address] SMC* Next Of Kin [address] [place] [address] LG QUIÑONES Next Of Kin [address] [place] [address] MISAEL MUHAMMAD Next Of Kin [address] [place] [address] LG QUIÑONES Next Of Kin Unknown Jovanni Quiñones ECON Unknown [phone] LG QUIÑONES ECON [address] [place] [address] [phone] Scooby TOUSSAINT ECON [address] [place] [address] Care Team Providers Care Teachers' Aide Name Role Phone Leatha Heard Unavailable MARCIAL [...] Unavailable MARCIAL JANG MD Unavailable Unavailable Tim BLACK, S Subhanir Unavailable Tim BLACK, S Subhanir Unavailable Tim BLACK, S Subhanir Unavailable Tim BLACK, S Subhanir Unavailable Tim BLACK, S Subhanir Unavailable Canaan, A Rosanne CARTOON ANIMATOR Unavailable Unavailable Jaya, A Rosanne CARTOON ANIMATOR Unavailable Unavailable Jaya, A Rosanne CARTOON ANIMATOR Unavailable Unavailable Canaan, A Rosanne CARTOON ANIMATOR Unavailable Unavailable Canaan, A Rosanne CARTOON ANIMATOR Unavailable Unavailable Canaan, A Rosanne CARTOON ANIMATOR Unavailable Unavailable Canaan, A Rosanne CARTOON ANIMATOR Unavailable Unavailable Jaya, A Rosanne CARTOON ANIMATOR Unavailable Unavailable Jaya, A Rosanne CARTOON ANIMATOR Unavailable Unavailable Jaya, A Rosanne CARTOON ANIMATOR Unavailable Unavailable Canaan, A Rosanne CARTOON ANIMATOR Unavailable Unavailable Canaan, A Rosanne CARTOON ANIMATOR Unavailable Unavailable Jaya, A Rosanne CARTOON ANIMATOR Unavailable Unavailable Jaya, A Rosanne CARTOON ANIMATOR Unavailable Unavailable Canaan, A Rosanne CARTOON ANIMATOR Unavailable Unavailable Jaya, A Rosanne CARTOON ANIMATOR Unavailable Unavailable Canaan, A Rosanne CARTOON ANIMATOR Unavailable Unavailable Canaan, A Rosanne CARTOON ANIMATOR Unavailable Unavailable Canaan, A Rosanne CARTOON ANIMATOR Unavailable Unavailable Jaya, A Rosanne CARTOON ANIMATOR Unavailable Unavailable Canaan, A Rosanne CARTOON ANIMATOR Unavailable Unavailable Canaan, A Rosanne CARTOON ANIMATOR Unavailable Unavailable Ray, L Mabel Unavailable Unavailable [...] E Jenny DDS Unavailable Unavailable Mary Jane, Elliott Gan MD Unavailable Unavailable Mary Jane, A Malik [...] BLACK Unavailable Unavailable Mary Jane, A Malik BLAKC Unavailable Unavailable Mary Jane, A Malik BLACK [...] is protected by Article 27-F of the [facility] Public Health law. If you continue you may have access to information: Regarding HIV / AIDS; Provided by facilities licensed or operated by the [facility] Office of Mental Health; or Provided by the [facility] Office for People With Developmental Disabilities. If such information is present, then the following [facility] mandated warning applies: This information has been [...] law may result in a fine or detention sentence or both. A general authorization for the release of medical or other information is NOT sufficient authorization for further disc losure. Advance Directives Directive Description Children Teacher Appellate Conferee Status Observation Descr iption Data Source(s) Ebola Screening Performed completed Ebol a Screening Performed MARK ANTHONY ([facility]) Note: Within the last month, have you tr aveled outside of the [place]? -NO Ebola Screening Performed completed Ebol a Screening Performed [facility] ([facility]) Note: Within the last month, have you tr aveled outside of the [place]? -NO Ebola Screening Performed completed Ebol a Screening Performed MARK ANTHONY ([facility]) Note: Within the last month, have you tr aveled outside of the [place]? -NO Ebola Screening Performed completed Ebol a Screening Performed MARK ANTHONY ([facility]) Note: Within the last month, have you tr aveled outside of the [place]? -NO packet given Pt Bill of Rights, Priv Prac, Ad Dir completed packet given Pt Bill of Rights, Priv Prac, Ad Dir MARK ANTHONY ([facility]) Note: Pt declined AD packet Ebola Screening Performed completed Ebol a Screening Performed MARK ANTHONY ([facility]) Note: Within the last month, have you tr aveled outside of the [place]? -NO Ebola Screening Performed completed Ebol a Screening Performed MARK ANTHONY ([facility]) Note: Within the last month, have you tr aveled outside of the [place]? -NO Allergies and Adverse Reactions Type Description Substance Reaction Status Data Source(s ) DRUG INGREDI ARMODAFINIL ARMODAFINIL Other Med [facility] Drug Class NO KNOWN ALLERGIES NO KNOWN ALLERGIES [facility] Family History Family Member Name Family Member Gender Family Member Status Date o f Status Description Data Source(s) Unknown Unknown Problem [facility] ([facility]) Encounters Encounter Providers Location Date Indications Data Source(s ) Outpatient Attender: MARCIAL JANG MD 08/13/2020 12:00: 00 AM [facility] Outpatient [address] [facility] [address] 04/20/2020 12:00:00 AM EST eCW1 ([facility]) Outpatient Attender: MARCIAL JANG MD [id number] 12:00:00 AM EST - 04/02/2020 02:25:25 PM EST Narcolepsy without cataplexy [facility] Narcolepsy without cataplexy Outpatient<td ID="encounterTypeDescripti onID0">Sublocade</td><td>Mabel L Ray DO</td><td>[facility]</td><td>02/25/2020</td><td><content ID="encounterDiagnosisID0-0">Opioid Dependence</content></td> Attender: Mabel Peters [facility] 02/25/2020 03:20:00 PM EST - 02/25/2020 11:59:00 PM EST Opioid Dependence [facility]) Opioid Dependence Outpatient<td ID="encounterTypeDescripti onID1">Telephonic Encounter</td><td>Mabel Ravi Ray DO</td><td>[facility]</td><td>02/17/2020</td><td><content ID="encounterDiagnosisID1-0"> Raynaud's Syndrome</content></td> Attender: Mabel Peters [facility] 02/17/2020 07:53:00 AM EST - 02/17/2020 09:14:35 AM EST Raynaud's SyndromeRaynaud's Syndrome [facility] ([facility]) Raynaud's Syndrome Raynaud's Syndrome Unknown<td ID="encounterTypeDescriptionI D2">Chart Update</td><td>Rosanne Lake NP</td><td></td><td>01/29/2020</td><td></td> Attender: Rosanne Lake NP 01/29/2020 05:15:00 PM EST - 01/29/2020 11:59:00 PM EST [facility] ([facility]) Outpatient Attender: Jenny PANIAGUA 01/26/2020 02:14:00 P M EST [facility] Outpatient<td ID="encounterTypeDescripti onID3">Sublocade</td><td>Mabel L Ray DO</td><td>[facility]</td><td>01/21/2020</td><td><content ID="encounterDiagnosisID3-0">Opioid Dependence</content></td> Attender: Mabel Fran [facility] 01/21/2020 03:38:00 PM EDT - 01/21/2020 04:30:10 PM EDT Opioid DependenceOpioid DependenceOpioid DependenceOpioid Dependence [facility] ([facility]) Opioid Dependence Opioid Dependence Opioid Dependence Opioid Dependence Outpatient Attender: Jenny Ratliff [facility] 01/20/2020 10:04:01 A M EDT [facility] Outpatient Attender: Jenny Daphnechristofer [facility] 01/20/2020 09:24:00 A M EDT [facility] Outpatient<td ID="encounterTypeDescripti onID4">Medication Order</td><td>Mabel Peters DO</td><td></td><td>01/12/2020</td><td></td> Attender: Mabel Fran 01/12/2020 05:21:00 PM EDT - 01/12/2020 11:59:00 PM EDT [place] ([facility]) Outpatient<td ID="encounterTypeDescripti onID5">SUBOXONE</td><td>Mabel Peters </td><td>[facility]</td><td>01/08/2020</td><td><content ID="encounterDiagnosisID5-0">Opioid Dependence</content>, <content ID="encounterDiagnosisID5-1">Anemia</content>, <content ID="encounterDiagnosisID5-2">Narcolepsy</content></td> Attender: Mabel Fran [facility] 01/08/2020 10:33:00 AM EDT - 01/08/2020 11:17:07 AM ED T AnemiaAnemiaAnemiaAnemiaAnemiaNarcolepsyNarcolepsyNarcolepsyNarcolepsyNarcolepsy DependenceOpioid DependenceOpioid DependenceOpioid DependenceOpioid Dependence [facility]TH[facility]Y ([facility]) Anemia Anemia Anemia Anemia Anemia Narcolepsy Narcolepsy Narcolepsy Narcolepsy Narcolepsy [facility] Opio[facility]ependence Opioid Dependence Opioid Dependence Opioid Dependence Unknown<td ID="encounterTypeDescriptionI D6">Chart Update</td><td>Mabel Peters DO</td><td></td><td>01/06/2020</td><td></td> Attender: Mabel Peters 01/06/2020 05:27:00 PM EDT - 01/06/2020 11:59:00 PM EDT [facility] ([facility]) Outpatient Attender: MARCIAL JANG MD [id number] 12:00:00 AM EDT - 12/29/2019 11:28:09 AM EDT Narcolepsy without cataplexy [facility] Narcolepsy without cataplexy Unknown<td ID="encounterTypeDescriptionI D7">Chart Update</td><td>Mabel Peters DO</td><td></td><td>12/26/2019</td><td></td> Attender: Mable Peters 12/26/2019 06:45:00 PM EDT - 12/26/2019 11:59:00 PM EDT [facility] AN[facility]ONY ([facility]) Office Visit Attender: Malik Hinton MD [place] 12/26/2019 10:00:00 AM EDT [facility] ([facility]) Outpatient Attender: Jenny TORREZ 12/26/2019 07:23:00 A M EDT [facility] Outpatient Attender: Jenny TORREZ 12/25/2019 10:17:01 A M EDT [facility] Outpatient Attender: Jenny TORREZ 12/25/2019 09:31:01 A M EDT [facility] Outpatient Attender: Jenny TORREZ 12/25/2019 08:51:00 A M EDT [facility] Outpatient Attender: Jenny TORREZ 12/25/2019 08:46:00 A M EDT [facility] Outpatient Attender: Jenny TORREZ 12/25/2019 08:21:01 A M EDT [facility] Outpatient Attender: Jenny Ratliff DDS [facility] 12/25/2019 07:33:01 A M EDT [facility] Outpatient Attender: Jenny Ratliff DDS [facility] 12/25/2019 07:29:00 A M EDT [facility] Unknown<td ID="encounterTypeDescriptionI D8">Chart Update</td><td>Rosanne Lake CARTOON ANIMATOR</td><td></td><td>12/09/2019</td><td></td> Attender: Rosanne Lake NP 12/09/2019 04:38:00 PM EDT - 12/09/2019 11:59:00 PM EDT MARK ANTHON[facility] ([facility]) Unknown<td ID="encounterTypeDescriptionI D9">Chart Update</td><td>Rosanne Lake NP</td><td></td><td>12/09/2019</td><td></td> Attender: Rosanne Lake NP 12/09/2019 08:02:00 AM EDT - 12/09/2019 11:59:00 PM EDT [facility] ([facility]) Unknown<td ID="encounterTypeDescriptionI D10">Chart Update</td><td>Rosanne Lake NP</td><td></td><td>12/05/2019</td><td><content ID="rbblslfnrVlvsuhgizSI98- 0">Rectal Prolapse</content></td> Attender: Rosanne Lake NP 0 12/05/2019 11:33:00 AM EDT - 12/05/2019 11:59:00 PM EDT Rectal ProlapseRectal ProlapseRectal ProlapseRectal ProlapseRectal ProlapseRectal ProlapseRectal ProlapseRectal ProlapseRectal ProlapseRectal Prolapse MARK ANTHONY ([facility]) Rectal Prolapse Rectal Prolapse Rectal Prolapse Rectal Prolapse Rectal Prolapse Rectal Prolapse Rectal Prolapse Rectal Prolapse Rectal Prolapse Rectal Prolapse Unknown<td ID="encounterTypeDescriptionI D11">Correspondence</td><td>Mabel L Ray DO</td><td></td><td>11/28/2019</td><td></td> Attender: Mabel Peters 11/28/2019 01:51:00 PM EDT - 11/28/2019 11:59:00 PM EDT [place] ([facility]) Office Visit Attender: Malik Cuello 11/28/2019 12:00:00 PM EDT MED[facility] ([facility]) Outpatient Referrer: Malik MANZO-MOB.PAT 2019 10:23:53 AM EDT - 11/28/2019 11:19:50 AM EDT [facility] Outpatient Attender: Malik Hinton MDReferrer: Malik MANZO-JOVANY.PAT 11/28/2019 09:10:28 AM EDT - 11/28/2019 10:15:51 AM EDT [facility] Outpatient<td ID="encounterTypeDescripti onID12">Medication Order</td><td>Mabel Ravi Fran DO</td><td></td><td>11/25/2019</td><td><content ID="dneolzsfzAejvvhvtbBP84-7">Iron Deficiency Anemia</content></td> Attender: Mabel Peters 11/25/2019 08:01:00 AM EDT - 11/25/2019 11:59:00 PM EDT Iron Deficiency AnemiaIron Deficiency AnemiaIron Deficiency AnemiaIron Deficiency AnemiaIron Deficiency AnemiaIron Deficiency AnemiaIron Deficiency AnemiaIron Deficiency AnemiaIron Deficiency AnemiaIron Deficiency AnemiaIron Deficiency Anemia [place] ([facility]) Iron Deficiency Anemia Iron Deficiency Anemia Iron Deficiency Anemia Iron Deficiency Anemia Iron Deficiency Anemia Iron Deficiency Anemia Iron Deficiency Anemia Iron Deficiency Anemia Iron Deficiency Anemia Iron Deficiency Anemia Iron Deficiency Anemia Inpatient Attender: Wilner Mejía DAttender: Malik Hinton MDAdmitter: Malik Hinton MD [id number] 11/24/2019 03:39:28 PM EDT - 12/06/2019 01:53:00 PM EDT [facility] Patient discharged. Outpatient Attender: Mabel Peters 11/21/2019 02:28:00 PM EDT Lab [facility] Lab Outpatient Attender: MARCIAL JANG MD 11/14/2019 12:00: 00 AM EDT [facility] Outpatient Attender: Malik [place] 11/07/2019 01:00:00 P M EDT [facility]) Outpatient Attender: MARCIAL JANG MD [id number] 12:00:00 AM EDT - 10/20/2019 10:09:38 AM EDT Narcolepsy without cataplexy [facility] Narcolepsy without cataplexy Unknown<td ID="encounterTypeDescriptionI D13">Correspondence</td><td>Mabel Peters DO</td><td></td><td>10/07/2019</td><td></td> Attender: Mabel Peters 10/07/2019 07:35:00 AM EDT - 10/07/2019 11:59:00 PM EDT [place] ([facility]) Outpatient<td ID="encounterTypeDescripti onID14">Medication Order</td><td>Mabel Peters DO</td><td></td><td>09/17/2019</td><td></td> Attender: Mabel Peters 09/17/2019 08:48:00 AM EDT - 09/17/2019 11:59:00 PM EDT [place] ([facility]) Outpatient Attender: MARCIAL JANG MD [id number] 12:00:00 AM EDT - 09/17/2019 01:53:46 PM EDT Narcolepsy without cataplexy [facility] Narcolepsy without cataplexy Outpatient<td ID="encounterTypeDescripti onID15">Chronic Disease Follow- up</td><td>Mabel Peters DO</td><td>[facility]</td><td>09/16/2019</td><td><content ID="ofggcsigoYhnfxdweaKX24-6"> Constipation Drug-induced</content>, <content ID="vscyqipmiBmakzjpzzFV74- 1">Depression</content>, <content ID="hkxitelvaNxblpptvdOR89- 2">Eczema</content>, <content ID="ojfyqiwftXuczkfytnUC42-5">Migraine Headache</content>, <content ID="qaduyadjhGsuvndqyyYC49-6">Narcolepsy</content>, <content ID="ecqwcagewTujubhzgfPN77-4">Rectal Prolapse</content>, <content ID="pxdvywcbeHwbcipdftOS17-8">Chronic Daily Headache</content>, <content ID="jlhkniaqyNnwpfxcotFG68-5">Myalgia and Myositis</content>, <content ID="fiwhshrvrMpftkqcodJA74-8">Cervicalgia</content>, <content ID="hiundmatyQopfzhfzgSO81-3">Neuralgia Occipital</content></td> Attender: Mabel Peters [facility] 09/16/2019 09:51:00 AM EDT - 09/16/2019 12:02:41 [...] ProlapseRectal ProlapseRectal ProlapseEczemaEczemaEczemaEczemaEczemaEczemaEczemaEczemaEczemaEczemaEczemaEczema DepressionDepressionDepressionDepressionDepressionDepressionDepressionDepression DepressionDepressionDepressionDepression MARK ANTHONY ([facility]) Neuralgia Occipital Cervicalgia Myalgia and Myositis Chronic [...] MARCIAL JANG MD 08/22/2019 12:00: 00 AM [facility] Outpatient Attender: MARCIAL JANG MD [id number] 12:00:00 AM EDT - 08/20/2019 04:34:23 PM EDT Narcolepsy without cataplexy [facility] Narcolepsy without cataplexy Unknown<td ID="encounterTypeDescriptionI D16">Chart Prep</td><td>Leatha Heard</td><td></td><td>08/15/2019</td><td></td> Attender: Leatha Heard 08/15/2019 04:04:00 PM EDT - 08/15/2019 11:59:00 PM EDT [place] ([facility]) Outpatient Attender: MARCIAL JANG MD 07/30/2019 12:00: 00 AM [facility] Outpatient<td ID="encounterTypeDescripti onID17">Primary Care Telehealth FaceTime</td><td>Rosanne Lake NP</td><td>[facility]</td><td>07/16/2019</td><td><content ID="jldyozfojVmhfgocsyMT86- 0">Dermatitis</content>, <content ID="dynbejrgwTbluaohbuFF38-3">Headache Syndromes</content></td> Attender: [facility] 07/16/2019 10:30:00 AM EDT - 07/16/2019 10:36:33 AM EDT Headache SyndromesHeadache SyndromesHeadache SyndromesHeadache SyndromesHeadache SyndromesHeadache SyndromesHeadache SyndromesHeadache SyndromesHeadache SyndromesHeadache SyndromesHeadache SyndromesHeadache SyndromesHeadache SyndromesDermatitis DermatitisDermatitisDermatitisDermatitisDermatitisDermatitisDermatitisDermatitis DermatitisDermatitisDermatitisDermatitis [facility] ([facility]) Headache Syndromes Headache Syndromes Headache Syndromes Headache Syndromes Headache Syndromes Headache Syndromes Headache Syndromes Headache Syndromes Headache Syndromes Headache Syndromes Headache Syndromes Headache Syndromes Headache Syndromes Dermatitis Dermatitis Dermatitis Dermatitis Dermatitis Dermatitis Dermatitis Dermatitis Dermatitis Dermatitis Dermatitis Dermatitis Dermatitis Outpatient Attender: MARCIAL JANG MD [id number] 12:00:00 AM EDT - 07/14/2019 09:52:50 AM EDT [facility] Outpatient<td ID="encounterTypeDescripti onID18">Medication Order</td><td>Mabel Peters DO</td><td></td><td>07/03/2019</td><td></td> Attender: Mabel Peters 07/03/2019 12:22:00 PM EDT - 07/03/2019 11:59:00 PM EDT [facility]) Outpatient Attender: Jenny Ratliff DDS [facility] 07/01/2019 09:01:01 P M EDT [facility] Outpatient<td ID="encounterTypeDescripti onID19">Acute</td><td>Mabel Peters DO</td><td>[facility]</td><td>06/11/2019</td><td><content ID="ajxtmgiipBgwodxiuuDJ94-7">Narcolepsy</content>, <content ID="wzxlzegybRudhjwpivIB58-0">Nonorganic Sleep Apnea Obstructive</content>, <content ID="ijsxknxspXtxpcwxtzDO31-8">Asthmatic Bronchitis</content></td> Attender: Mabel Peters [facility] 06/11/2019 02:47:00 PM EDT - 06/11/2019 [...] Apnea ObstructiveNonorganic Sleep Apnea Obstructive [facility] ([facility]) Asthmatic Bronchitis Asthmatic Bronchitis Asthmatic Bronchitis [...] AM EDT - 06/06/2019 11:59:00 PM EDT [facility] Outpatient Attender: MARCIAL JANG MDReferrer: Mabel vail [id number] 06/06/2019 12:00:00 AM EDT - 06/06/2019 09:40:34 AM EDT Apnea, not elsewhere classified [facility] Apnea, not elsewhere classified Outpatient<td ID="encounterTypeDescripti onID21">Medication Order</td><td>Mabel Peters DO</td><td></td><td>05/30/2019</td><td></td> Attender: Mabel Peters 05/30/2019 07:53:00 AM EST - 05/30/2019 11:59:00 PM EST [facility]) Unknown<td ID="encounterTypeDescriptionI D22">Chart Update</td><td>Mabel Peters DO</td><td></td><td>05/13/2019</td><td></td> Attender: Mabel Fran 05/13/2019 07:52:00 AM EST - 05/13/2019 11:59:00 PM EST [facility] ([facility]) Outpatient<td ID="encounterTypeDescripti onID23">Medication Follow- up</td><td>Mabel Ravi Fran DO</td><td>[facility]</td><td>05/08/2019</td><td><content ID="ptjrhzeijLezgsxortSV20-7">Sleep Disorder Hypersomnia</content>, <content ID="vnupvwgamBciyuagykOM02- 1">Narcolepsy</content>, <content ID="rjqasjifmPxuxhvpomYH00-7">Nonorganic Sleep Apnea Obstructive</content>, <content ID="oytlvshubFsexvuuphQX84-9">Opioid Dependence</content></td> [facility] 04:27:00 PM EST - 05/08/2019 05:05:58 [...] DependenceOpioid DependenceOpioid DependenceOpioid DependenceOpioid Dependence [facility] ([facility]) Sleep Disorder Hypersomnia Sleep Disorder Hypersomnia Sleep [...] PM EST - 05/06/2019 11:59:00 PM EST [place] ([facility]) Outpatient<td ID="encounterTypeDescripti onID25">Medication Order</td><td>Mabel Peters DO</td><td></td><td>05/06/2019</td><td></td> Attender: Mabel Peters 05/06/2019 12:20:00 PM EST - 05/06/2019 11:59:00 PM EST [facility] ([facility]) Outpatient<td ID="encounterTypeDescripti onID26">Medication Order</td><td>Mabel Trav Peters DO</td><td></td><td>04/08/2019</td><td></td> Attender: Mabeldomo Peters 04/08/2019 10:16:00 AM EST - 04/08/2019 11:59:00 PM EST [facility] ([facility]) Outpatient Attender: Mabel Peters 03/28/2019 09:52:00 AM EST lab [facility] lab Outpatient<td ID="encounterTypeDescripti onID27">Walk-In</td><td>Mabel Peters DO</td><td>[facility]</td><td>03/28/2019</td><td><content ID="bsjbcgqyoRtqzoycbzHP77-9">Narcolepsy</content>, <content ID="ysomvmgeoXowubasyvLJ39-0">Vomiting</content></td> Attender: Mabel Peters [facility] 03/28/2019 08:38:00 AM EST - 03/28/2019 09:38:32 AM ES T VomitingVomitingVomitingVomitingVomitingVomitingVomitingVomitingVomitingVomiting lepsyNarcolepsyNarcolepsyNarcolepsyNarcolepsy NarcolepsyNarcolepsyNarcolepsyNarcolepsyNarcolepsyNarcolepsyNarcolepsyNarcolepsy [facility] ([facility]) Vomiting Vomiting Vomiting Vomiting Vomiting Vomiting Vomiting [...] 1 01/21/2020 Left Deltoid Complete (Administered) [facility] [place] ([facility]) Medications Medication Brand Name Start Date Product Form Dose Route Admi nistrative Instructions Pharmacy Instructions Status Indications Reaction Description Data Source(s) 20 mg 05/17/2020 12:00:00 AM EST capsule,extended releas e 24hr 30 TAKE ONE CAPSULE BY MOUTH EVERY MORNING MAXIMUM DAILY DOSE = 1 TAKE ONE CAPSULE BY MOUTH EVERY MORNING MAXIMUM DAILY DOSE = 1 SOLD: 05/17/2020 [facility] 20 mg 05/07/2020 12:00:00 AM EST tablet 24 TAKE ONE TABLET BY MOUTH EVERY DAY IN THE AFTERNOON MAXIMUM DAILY DOSE = 1 TABLET TAKE ONE TABLET BY MOUTH EVERY DAY IN THE AFTERNOON MAXIMUM DAILY DOSE = 1 TABLET SOLD: 05/07/2020 [facility] 20 mg 05/07/2020 12:00:00 AM EST tablet 6 TAKE ONE TABLET BY MOUTH EVERY DAY IN THE AFTERNOON MAXIMUM DAILY DOSE = 1 TABLET TAKE ONE TABLET BY MOUTH EVERY DAY IN THE AFTERNOON MAXIMUM DAILY DOSE = 1 TABLET SOLD: 05/07/2020 [facility] Ciprofloxacin 500 MG Oral Tablet [Cipro] Cipro 500 MG Cipro 500 MG 04/20/2020 12:00:00 AM EST 1.0 {tablet} active Ci pro 500 MG eCW1 ([facility]) 500 mg 04/20/2020 12:00:00 AM EST tablet 6 TAKE ONE TABLET BY MOUTH EVERY 12 HOURS TAKE ONE TABLET BY MOUTH EVERY 12 HOURS SOLD: 04/20/2020 [facility] 20 mg 04/17/2020 12:00:00 AM EST [...] ONE TABLET BY MOUTH EVERY DAY IN [facility], MAXIMUM DAILY DOSE = 1 TABLET SOLD: 04/07/2020 [facility] 10 mg 04/02/2020 12:00:00 AM EST tablet 30 TAKE ONE TABLET BY MOUTH EVERY DAY, MAXIMUM DAILY DOSE = 1 TABLET TAKE ONE TABLET BY MOUTH EVERY DAY, MAXI MUM DAILY DOSE = 1 TABLET SOLD: 04/03/2020 [facility] Amphetamine aspartate 2.5 MG / Amphetami ne Sulfate 2.5 MG / Dextroamphetamine saccharate 2.5 MG / Dextroamphetamine Sulfate 2.5 MG Oral Tablet Amphetamine- Dextroamphetamine 10 MG Oral Tablet (ADDERALL (10MG)) Amphetamine- Dextroamphetamine 10 MG Oral Tablet (ADDERALL (10MG)) 04/02/2020 12:00:00 AM EST 10 mg Oral active Take 1 t ablet by mouth daily , Max Daily Dose: 10 mg [facility] 150 mg 03/22/2020 12:00:00 AM EST tablet 30 TAKE ONE TABLET BY MOUTH EVERY DAY, MAXIMUM DAILY DOSE = 1 TABLET TAKE ONE TABLET BY MOUTH EVERY DAY, MAXI MUM DAILY DOSE = 1 TABLET [facility]: [facility]22[facility]2020 [facility] 03/22/2020 12:00:00 AM EST tablet 30 TAKE ONE TABLET BY MOUTH EVERY DAY, MAXIMUM DAILY DOSE = 1 TABLET TAKE ONE TABLET BY MOUTH EVERY DAY, MAXI MUM DAILY DOSE = 1 TABLET SOLD: 04/20/2020 [facility] 150 mg 03/22/2020 12:00:00 AM EST tablet 30 TAKE ONE TABLET BY MOUTH EVERY DAY, MAXIMUM DAILY DOSE = 1 TABLET TAKE ONE TABLET BY MOUTH EVERY DAY, MAXI MUM DAILY DOSE = 1 TABLET SOLD: 05/19/2020 [facility] Solriamfetol HCl 150 MG Oral Tablet (SUNOSI) [id number] 12:00:00 AM EST 150 mg Oral active Narcolepsy Take 1 tablet by mouth daily , Max Daily Dose: 150 mg Indications: Recurring Sleep Episodes During the Day [facility] Narcolepsy 20 mg 03/09/2020 12:00:00 AM EST [...] DAILY DOSE = 1 CAPSULE SOLD: 03/09/2020 [facility] Solriamfetol HCl 75 MG Oral Tablet (SUNOSI) [id number] 03/02/2020 12:00:00 AM EST 75 mg Oral active Narcolepsy Take 1 ta blet by mouth daily , Max Daily Dose: 75 mg Indications: Recurring Sleep Episodes During the Day [facility] Narcolepsy 24 HR Amphetamine aspartate 7.5 MG [...] morning , Max Daily Dose: 30 mg [facility] Amphetamine aspartate 5 MG / Amphetamine Sulfate 5 MG / Dextroamphetamine saccharate 5 MG / Dextroamphetamine Sulfate 5 MG Oral Tablet Amphetamine- Dextroamphetamine 20 MG Oral Tablet (ADDERALL) Amphetamine-Dextroamphetamine 20 MG Oral Tablet (ADDERALL) 03/02/2020 12:00:00 AM EST 20 mg Oral active Take 1 tablet by mouth daily In the afternoon, Max Naheed ly Dose: 20 mg [facility] 75 mg 03/02/2020 12:00:00 AM EST tablet 15 TAKE ONE TABLET BY MOUTH EVERY DAY, MAXIMUM DAILY DOSE = 1 TABLET TAKE ONE TABLET BY MOUTH EVERY DAY, MAXI MUM DAILY DOSE = 1 TABLET SOLD: 03/03/2020 [facility] 25 mg 02/26/2020 12:00:00 AM EST tablet 10 DIRECTED 1 TABLET BY MOUTH AT ONSET OF MIGRAINE MAY REPEAT DOSE IN 2 HOURS MAXIMUM DAILY DOSE = 2 DIRECTED 1 TABLET BY MOUTH AT ONSET OF MIGRAINE MAY REPEAT DOSE IN 2 HOURS MAXIMUM DAILY DOSE = 2 SOLD: 02/28/2020 [facility] 25 mg 02/26/2020 12:00:00 AM EST tablet 10 DIRECTED 1 TABLET BY MOUTH AT ONSET OF MIGRAINE MAY REPEAT DOSE IN 2 HOURS MAXIMUM DAILY DOSE = 2 DIRECTED 1 TABLET BY MOUTH AT ONSET OF MIGRAINE MAY REPEAT DOSE IN 2 HOURS MAXIMUM DAILY DOSE = 2 SOLD: 04/19/2020 [facility] Sublocade 100 MG/0.5ML Subcutaneous Solution [...] TABLET BY MOUTH EVERY DAY SOLD: 02/28/2020 [facility] Amlodipine 5 MG Oral Tablet amLODIPine Besylate [...] MAXIMUM DAILY DOSE = 1 SOLD: 02/09/2020 [facility] 24 HR Amphetamine aspartate 7.5 MG [...] MAXIMUM DAILY DOSE = 1 SOLD: 02/09/2020 [facility] 17.8 MG Oral Tablet [facility] 17.8 MG Oral Tablet 02/04/2020 1 2:00:00 AM EST 2 active pitolisant 17.8 MG Oral Tablet [[facility]] [facility]ON[facility] Sublocade 300 MG/1.5ML SC SOSY Sublocade 300 MG/1.5ML SC SOS Y 01/21/2020 12:00:00 AM EDT completed 1.5 ML buprenorphine 200 MG/ML Prefilled Syringe [Sublocade] MARK ANTHONY ([facility]) Medication administered onsite LLQ abd Methylphenidate HCl ER (XR) 30 MG Oral Capsule Extende d Release 24 Hour Methylphenidate HCl ER (XR) 30 MG Oral Capsule Extended Release 24 Hour 01/21/2020 12:00:00 AM EDT aborted 40/60 Release 24 HR methylphenidate hydrochloride 30 MG Extended Release Oral Capsule MARK ANTHONY ([facility]) Methylphenidate HCl ER (LA) 30 MG Oral C apsule Extended Release 24 Hour (RITALIN [place]) [id number] 01/17/2020 12:00:00 AM EDT 30 mg Oral acti ve Take 1 capsule by mouth every morning , Max Daily Dose: 30 mg [facility] 30 mg 01/17/2020 12:00:00 AM EDT capsule,ER biphasic 50- 50 30 TAKE ONE CAPSULE BY MOUTH EVERY DAY IN THE MORNING MAXIMUM DAILY DOSE = 1 CAPSULE TAKE ONE CAPSULE BY MOUTH EVERY DAY IN THE MORNING MAXIMUM DAILY DOSE = 1 CAPSULE SOLD: 01/19/2020 [facility] 25 mg 01/14/2020 12:00:00 AM EDT [...] betamethasone 0.5 MG/ML Topical Cream [facility] ([facility]) Ondansetron 8 MG Disintegrating Oral Tab let Ondansetron 8 MG Oral Tablet Disintegrating Ondansetron 8 MG Oral Tablet Disintegrating 01/13/2020 12:00:00 AM EDT aborted ondansetron 8 MG Disintegrating Oral Tablet [place] ([facility]) Sublocade 300 MG/1.5ML Subcutaneous Solution Prefilled Syringe Sublocade 300 MG/1.5ML Subcutaneous Solution Prefilled Syringe 01/12/2020 12:00:00 AM EDT active 1.5 ML buprenorphine 200 MG/ML Prefilled Syringe [Sublocade] MARK ANTHONY ([facility]) Methylphenidate HCl ER (LA) 20 MG Oral C apsule Extended Release 24 Hour (Ritalin [place]) [id number] 01/09/2020 12:00:00 AM EDT 20 mg Oral acti ve Take 1 capsule by mouth every morning , Max Daily Dose: 20 mg [facility] Methylphenidate Hydrochloride 10 MG Oral Tablet Methylphenidate HCl 10 MG Oral Tablet (Ritalin) Methylphenidate HCl 10 MG Oral Tablet (Ritalin) 2019 12:00:00 AM EDT 10 mg Oral active Take 1 tablet by mouth daily Every afternoon, Max Daily Dose: 10 mg [facility] 10 mg 01/09/2020 12:00:00 AM EDT tablet 30 TAKE ONE TABLET BY MOUTH EVERY AFTERNOON MAXIMUM DAILY DOSE = 1 TAKE ONE TABLET BY MOUTH EVERY AFTERNOON MAXIMUM DAILY DOSE = 1 SOLD: 01/09/2020 [facility] Methylphenidate Hydrochloride 10 MG Oral Tablet [...] active MEDENT ( [facility]) Methylphenidate Hydrochloride 10 MG Oral Tablet Methylphenidate [...] DAILY DOSE = 1 CAPSULE SOLD: 12/23/2019 [facility] 10 mg 12/23/2019 12:00:00 AM EDT tablet 8 TAKE 1 TABLET BY MOUTH IN THE MORNING ON WEEKENDS (2 DAYS) NEEDED MAXIMUM DAILY DOSE = 1 TAKE 1 TABLET BY MOUTH IN THE MORNING ON WEEKENDS (2 DAYS) NEEDED MAXIMUM DAILY DOSE = 1 SOLD: 12/23/2019 [facility] Methylphenidate Hydrochloride 10 MG Oral Tablet Methylphenidate HCl 10 MG Oral Tablet (RITALIN) Methylphenidate HCl 10 MG Oral Tablet (RITALIN) 2019 12:00:00 AM EDT active Take one tab in AM on weekends (2 days), as needed [facility] 24 HR Amphetamine aspartate 7.5 MG / [...] morning , Max Daily Dose: 30 mg [facility] 20 mg 12/15/2019 12:00:00 AM EDT tablet 30 TAKE ONE TABLET BY MOUTH ONCE DAILY IN THE AFTERNOON MAXIMUM DAILY DOSE = 1 TABLET TAKE ONE TABLET BY MOUTH ONCE DAILY IN THE AFTERNOON MAXIMUM DAILY DOSE = 1 TABLET SOLD: 12/15/2019 [facility] Amphetamine aspartate 5 MG / Amphetamine Sulfate 5 MG / Dextroamphetamine saccharate 5 MG / Dextroamphetamine Sulfate 5 MG Oral Tablet Amphetamine- Dextroamphetamine 20 MG Oral Tablet (ADDERALL) Amphetamine-Dextroamphetamine 20 MG Oral Tablet (ADDERALL) 12/15/2019 12:00:00 AM EDT 20 mg Oral active Take 1 tablet by mouth daily In the afternoon, Max Naheed ly Dose: 20 mg [facility] Amphetamine aspartate 5 MG / Amphetamine Sulfate [...] Once, 12/06/19 at 1200, For 1 dose [facility] Medication administered onsite Acetaminophen 325 MG / Oxycodone Hydroch loride 5 MG Oral Tablet oxyCODONE- acetaminophen (PERCOCET) 5-325 MG 1-2 tablet oxyCODONE-acetaminophen (PERCOCET) 5-325 MG 1-2 tablet 12/06/2019 10:44:21 AM EDT Oral active 1-2 tablet, Oral, Every 4 hours PRN, moderate pain (4-6), severe pain (7-10), Starting 12/06/19 at 1044, For 7 days [facility] Medication administered onsite Ibuprofen 600 MG Oral Tablet ibuprofen (ADVIL,MOTRIN) 600 MG tablet ibuprofen (ADVIL,MOTRIN) 600 MG tablet 12/06/2019 12:00:00 AM EDT 600 mg Oral active Take 1 tablet (600 m g total) by mouth every 6 (six) hours as needed for pain [facility] Acetaminophen 325 MG / Oxycodone Hydroch loride 5 MG Oral Tablet oxyCODONE- acetaminophen (PERCOCET) 5-325 MG per tablet oxyCODONE-acetaminophen (PERCOCET) 5-325 MG per tablet 12/06/2019 12:00:00 AM EDT 1 {tbl} Oral active Take 1 tablet by mouth every 6 (six) hours as needed for pain Max Daily Amount: 4 tablets [facility] Acetaminophen 325 MG Oral Tablet acetaminophen (TYLENO L) 325 MG tablet acetaminophen (TYLENOL) 325 MG tablet 12/06/2019 12:00:00 AM EDT 32 5 mg Oral active Take 1 tablet ( 325 mg total) by mouth every 6 (six) hours as needed for pain [facility] Docusate Sodium 100 MG Oral Capsule docusate sodium (C OLACE) 100 MG capsule docusate sodium (COLACE) 100 MG capsule 12/06/2019 12:00:00 AM EDT 100 mg Oral active Take 1 capsule (100 mg total) by mouth 2 (two) times a day [facility] 600 mg 12/06/2019 12:00:00 AM EDT tablet [...] [facility] sodium chloride 0.9% (NS) infusion [id number] 12/05/2019 09:00:00 A M EDT Intravenous active at 30 mL/hr, Intravenous, Continuous, Starting Sun12/05/19 at 0900 [facility] Medication administered onsite hydromorphone 1 mg/ml CRIB TENDER bolus 0.5 mg 12/04/2019 08:00:00 PM EDT 0.5 mg Intravenous completed 0.5 mg, Intra venous, Once, [facility] 12/04/19 at 2000, For 1 dose [facility] Medication administered onsite Amphetamine aspartate 5 MG / Amphetamine Sulfate 5 MG / Dextroamphetamine saccharate 5 MG / Dextroamphetamine Sulfate 5 MG Oral Tablet amphetamine- dextroamphetamine (ADDERALL) tablet 20 mg amphetamine-dextroamphetamine (ADDERALL) tablet 20 mg 12/04/2019 02:00:00 PM EDT 20 mg Oral active 20 mg, Oral, Daily, First dose on [facility] 12/04/19 at 1400, For 7 days [facility] Medication administered onsite alvimopan 12 MG Oral Capsule alvimopan (ENTEREG) capsu le 12 mg alvimopan (ENTEREG) capsule 12 mg 12/04/2019 09:00:00 AM EDT 12 mg Oral aborted 12 mg, Oral, 2 times daily, First dose on [facility] 12/04/19 at 0900, For 14 doses
[...] (>7 days) treatment prior to surgery: Yes [facility] Medication administered onsite 24 HR Amphetamine aspartate [...] 30 mg, Oral, Daily, First dose on [facility] 12/04/19 at 0800, For 7 days [facility] Medication administered onsite hydromorphone 1 mg/ml CRIB TENDER bolus 0.5 mg 12/04/2019 03:00:00 AM EDT 0.5 mg Intravenous completed 0.5 mg, Intra venous, Once, [facility] 12/04/19 at 0300, For 1 dose [facility] Medication administered onsite hydromorphone 1 mg/ml CRIB TENDER bolus 0.5 mg 12/03/2019 10:00:00 PM EDT 0.5 mg Intravenous completed 0.5 mg, Intra venous, Once, Sun12/03/19 at 2200, For 1 dose [facility] Medication administered onsite gabapentin 300 MG Oral Capsule gabapentin (NEURONTIN) capsule 300 mg gabapentin (NEURONTIN) capsule 300 mg 12/03/2019 10:00:00 PM EDT 300 mg Oral active 300 mg, Oral, 3 times daily, First dose on Sun12/03/19 at 2200 [facility] Medication administered onsite heparin (porcine) injection 5,000 Units [id number] 12/03/19 09:00:00 PM EDT 5000 U Subcutaneous active 5,000 Units , Subcutaneous, Every 12 hours (scheduled), First dose on Sun12/03/19 at 2100
If platelet count is less than 100,000
[facility] Medication administered onsite Acetaminophen 325 MG Oral Tablet acetaminophen (TYLENO L) 325 MG tablet 650 mg acetaminophen (TYLENOL) 325 MG tablet 650 mg 12/03/2019 09:00:00 PM EDT 650 mg Oral active 650 mg, Or al, 4 times daily, First dose on Sun12/03/19 at 2100
"Maximum dose of acetaminophen is 4,000 mg from all sources in 24 hours."
[facility] Medication administered onsite Pitolisant HCl TABS 35.6 mg [id number] 12/03/2019 07:00:00 PM EDT 3 5.6 mg Oral active 35.6 mg, Oral, Daily, First dose on Sun12/03/19 at 1900 [facility] Medication administered onsite HYDROMORPHONE 30 MG/30 ML CRIB TENDER IV SOLN 12/03/2019 07:00:00 PM EDT Intravenous aborted Intravenous, Continuous, Starting Sun12/03/19 at 1900, For 7 days [facility] Medication administered onsite dextrose 5 % and sodium chloride 0.45 % with KCl 20 mEq/L in fusion [id number] 12/03/2019 07:00:00 PM EDT Intravenous aborted at 100 mL/hr, Intravenous, Continuous, Starting Sun12/03/19 at 1900, Post-op
This is a "Triggered Filled Infusion" and is automatically sent based on the current rate documented in the flow sheets
[facility] Medication administered onsite Ondansetron 4 MG Disintegrating Oral Tab let ondansetron (ZOFRAN-ODT) disintegrating tablet 8 mg ondansetron (ZOFRAN-ODT) disintegrating tablet 8 mg 12/03/2019 06:25:53 PM EDT 8 mg Oral active 8 mg, Oral, Every 8 hours PRN, nausea, Starting Sun12/03/19 at 1825 [facility] Medication administered onsite ondansetron (ZOFRAN) injection 4 mg [id number] 12/03/2019 06:25:5 3 PM EDT 4 mg Intravenous active 4 mg, In travenous, Every 6 hours PRN, nausea, vomiting, Starting Sun12/03/19 at 1825 [facility] Medication administered onsite fentaNYL Citrate (PF) (SUBLIMAZE) injection 25 mcg [id number] 12/03/2019 03:55:09 PM EDT 25 ug Intravenous aborted 25 mcg, Intravenous, Every 5 min PRN, moderate pain (4 to 6), Starting Sun12/03/19 at 1555, For 5 doses, PACU (only) [facility] Medication administered onsite dextrose 5 % and sodium chloride 0.9 % infusion [id number] 12/03/2019 03:00:00 PM EDT Intravenous aborted at 1 00 mL/hr, Intravenous, Continuous, Starting Sun12/03/19 at 1500 [facility] Medication administered onsite heparin (porcine) injection 5,000 Units [id number] 12/03/19 02:00:00 PM EDT 5000 U Subcutaneous completed Rectal prolapse 5 ,000 Units, Subcutaneous, comsec manager to O.R., Sun12/03/19 at 1400, For 1 dose, Pre-op
If platelet count is less than 100,000 or hematocrit is less than 30, or there is a 5 point decrease in hematocrit, do not give the dose and call physician/designee
[facility] Rectal prolapse Medication administered onsite Magnesium Chloride 0.40099 MEQ/ML / Pota ssium Chloride 0.0497 MEQ/ML / Sodium Acetate 0.0163 MEQ/ML / Sodium Chloride 0.0899 MEQ/ML / Sodium gluconate 5.02 MG/ML Injectable Solution [Normosol-R] electrolyte-R (NORMOSOL-R/PLASMALYTE-R) solution electrolyte-R (NORMOSOL-R/PLASMALYTE-R) solution 12/02 02:00:00 PM EDT Intravenous aborted at 1 00 mL/hr, Intravenous, Continuous, Starting Sun12/03/19 at 1400, Pre-op [facility] Medication administered onsite Metronidazole 5 MG/ML Injectable Solution metroNIDAZOL E (FLAGYL) IVPB 500 mg metroNIDAZOLE (FLAGYL) IVPB 500 mg 12/03/2019 02:00:00 PM EDT 50 0 mg Intravenous completed Perioperative Infection Pharmacopro phylaxis 500 mg, Intravenous, Administer over 30 Minutes, comsec manager, Sun12/03/19 at 1400, For 1 dose, Pre-op [facility] Perioperative Infection Pharmacoprophyla xis Medication administered onsite gabapentin 600 MG Oral Tablet gabapentin (NEURONTIN) t ablet 600 mg gabapentin (NEURONTIN) tablet 600 mg 12/03/2019 02:00:00 PM EDT 600 mg Oral completed 600 mg, Oral, comsec manager to O.R., W ed 12/03/19 at 1400, For 1 dose, Pre-op [facility] Medication administered onsite alvimopan 12 MG Oral Capsule alvimopan (ENTEREG) capsu le 12 mg alvimopan (ENTEREG) capsule 12 mg 12/03/2019 02:00:00 PM EDT 12 mg Oral completed 12 mg, Oral, comsec manager, Sun12/03/19 at 1400 , For 1 dose, [...] (>7 days) treatment prior to surgery: No [facility] Medication administered onsite 0.25-35 mg-mcg 11/25/2019 12:00:00 [...] daily , Max Daily Dose: 10 mg [facility] Methylphenidate Hydrochloride 10 MG Oral Tablet Methylphenidate HCl 10 MG Oral Tablet (RITALIN) Methylphenidate HCl 10 MG Oral Tablet (RITALIN) 2019 12:00:00 AM EDT active Take one tab in AM on weekends (2 days), as needed [facility] 30 mg 09/25/2019 12:00:00 AM EDT capsule,extended releas e 24hr 30 TAKE ONE CAPSULE BY MOUTH EVERY MORNING MAXIMUM DAILY DOSE = ONE CAPSULE TAKE ONE CAPSULE BY MOUTH EVERY MORNING MAXIMUM DAILY DOSE = ONE CAPSULE SOLD: 09/25/2019 [facility] 24 HR Amphetamine aspartate 7.5 MG / [...] morning , Max Daily Dose: 30 mg [facility] 10 mg 09/19/2019 12:00:00 AM EDT tablet 30 TAKE ONE TABLET BY MOUTH EVERY DAY * MAXIMUM DAILY DOSE = 1 TAKE ONE TABLET BY MOUTH EVERY DAY * MAX IMUM DAILY DOSE = 1 SOLD: 09/19/2019 [facility] Ondansetron 8 MG Disintegrating Oral [...] daily , Max Daily Dose: 10 mg [facility] 8 mg 09/17/2019 12:00:00 AM EDT tablet,disintegrating [address] ONE TABLET UNDER THE TONGUE EVERY 8 HOU[address] NEEDED FOR NAUSEA PLACE ONE TABLET UNDER THE TONGUE EVERY 8 HOURS NEEDED FOR NAUSEA SOLD: 09/17/2019 [facility] Sumatriptan 25 MG Oral Tablet [Imitrex] Imitrex [...] 8 HOURS NEEDED FOR NAUSEA SOLD: 10/18/2019 [facility] 8 mg 09/17/2019 12:00:00 AM [...] MAXIMUM DAILY DOSE = 1 SOLD: 08/28/[address] [facility] Protriptyline Hydrochloride 5 MG Oral Tablet Protripty [...] DAILY DOSE = 1 TABLET SOLD: 08/21/2019 [facility] Protriptyline Hydrochloride 5 MG Oral Ta blet Protriptyline HCl 5 MG Oral Tablet (VIVACTIL) Protriptyline HCl 5 MG Oral Tablet (VIVACTIL) 08/20/19 12:00:00 AM EDT 5 mg Oral active Primary narcolepsy witho ut cataplexy Take 1 tablet by mouth daily with lunch [facility] Primary narcolepsy without cataplexy Amphetamine aspartate 2.5 MG / Amphetami ne Sulfate 2.5 MG / Dextroamphetamine saccharate 2.5 MG / Dextroamphetamine Sulfate 2.5 MG Oral Tablet Amphetamine- Dextroamphetamine 10 MG Oral Tablet (ADDERALL (10MG)) Amphetamine- Dextroamphetamine 10 MG Oral Tablet (ADDERALL (10MG)) 08/20/2019 12:00:00 AM EDT 10 mg Oral active Take 1 t ablet by mouth daily , Max Daily Dose: 10 mg [facility] 30 mg 08/13/2019 12:00:00 AM EDT capsule,extended releas e 24hr 30 TAKE ONE CAPSULE BY MOUTH EVERY MORNING MAXIMUM DAILY DOSE = 1 TAKE ONE CAPSULE BY MOUTH EVERY MORNING MAXIMUM DAILY DOSE = 1 SOLD: 08/13/2019 [facility] 24 HR Amphetamine aspartate 7.5 MG / [...] morning , Max Daily Dose: 30 mg [facility] [employer] 17.8 MG Oral Tablet [id number] 08/08/2019 12:00:00 AM EDT 2 {tbl} Oral active Take 2 tablets by mo uth daily [facility] Amphetamine aspartate 5 MG / Amphetamine Sulfate [...] 2 pm, Max Daily Dose: 40 mg [facility] 20 mg 07/25/2019 12:00:00 AM EDT tablet [...] THEN U SE SPARINGLY NEEDED SOLD: 07/16/2019 [facility] Betamethasone 0.5 MG/ML Topical Cream Be tamethasone Dipropionate 0.05% External Cream Betamethasone Dipropionate 0.05% External Cream 2019 12:00:00 AM EDT aborted betamethasone 0. 5 MG/ML Topical Cream [place] ([facility]) 150 mg 07/14/2019 12:00:00 AM EDT tablet 30 TAKE ONE TABLET BY MOUTH EVERY DAY * MAXIMUM DAILY DOSE = 1 TAKE ONE TABLET BY MOUTH EVERY DAY * MAX IMUM DAILY DOSE = 1 SOLD: 07/14/2019 [facility] armodafinil 150 MG Oral Tablet [Nuvigil] Nuvigil 150 M G Oral Tablet Nuvigil 150 MG Oral Tablet 07/14/2019 12:00:00 AM EDT 1 abo rted armodafinil 150 MG Oral Tablet [Nuvigil] MARK ANTHONY ([facility]) 20 mg 07/04/2019 12:00:00 AM EDT capsule,extended [...] Extended Release Oral Capsule [Adderall] MARK ANTHONY ([facility]) 90 mcg/actuation 06/11/2019 12:00:00 AM EDT HFA aerosol inha ler 18 INHALE TWO PUFFS BY MOUTH EVERY 4 HOURS NEEDED FOR SHORTNESS OF BREATH / COUGHING INHALE TWO PUFFS BY MOUTH EVERY 4 HOURS NEEDED FOR SHORTNESS OF BREATH / COUGHING SOLD: 06/11/2019 [facility] Albuterol Sulfate HFA 108 (90 Base) MCG/ ACT Inhalation Aerosol Solution (PROVENTIL HFA) [id number] 06/11/2019 12:00:00 AM EDT 2 {puff} Inha lation active Inhale 2 puffs into the lung s as needed [facility] 200 ACTUAT Albuterol 0.09 MG/ACTUAT [place] red Dose Inhaler [Ventolin] Ventolin HFA 108 (90 Base) MCG/ACT Inhalation Aerosol Solution Ventolin HFA 108 (90 Base) MCG/ACT Inhalation Aerosol Solution 06/11/2019 12:00:00 AM EDT active [id number] 200 ACTUAT albuter ol 0.09 MG/ACTUAT Metered [...] MAXIMUM DAILY DOSE = 2 SOLD: 05/07/2019 [facility] 24 HR Amphetamine aspartate 5 MG [...] MAXIMUM DAILY DOSE = 2 SOLD: 04/08/2019 [facility] 24 HR Amphetamine aspartate 5 MG / [...] DAILY DOSE = 2 TABLETS SOLD: 03/28/2019 [facility] 24 HR Amphetamine aspartate 5 MG / [...] DAILY DOSE = 2 TABLETS SOLD: 10/18/2019 [facility] Loratadine 10 MG Oral Capsule [Claritin] Claritin 10MG Oral Capsule Claritin 10MG Oral Capsule 11/20/2018 12:00:00 AM EDT 1 aborted loratadine 10 MG Oral Capsule [Claritin] MARK [facility] ([facility]) Augmented Betamethasone 0.0005 MG/MG Topical Ointment 0.05 % BETAMETHASONE DIPROPIONATE/PROPYLENE GLYCOL 11/09/2018 12:00:00 AM EDT ointment 15 APPLY TOPICALLY TO AFFECTED AREAS OF HANDS AND ARMS TWO TIMES A DAY FOR 14 DAYS NEEDED APPLY TOPICALLY TO AFFECTED AREAS OF ISABEL DS AND ARMS TWO TIMES A DAY FOR 14 DAYS NEEDED SOLD: 03/29/2019 [facility] levocetirizine dihydrochloride 5 MG Oral Tablet Levocetirizine Dihydrochloride 5MG Oral Tablet Levocetirizine Dihydrochloride 5MG Oral Tablet 12:00:00 AM EDT aborted levocetirizine dihydrochloride 5 MG Oral Tablet MARK [facility] ([facility]) linaclotide 0.29 MG Oral Capsule [Linzess] Linzess 290 MCG Oral Capsule Linzess 290MCG Oral Capsule 10/22/2018 12:00:00 AM EDT 1 aborted linaclotide 0.29 MG Oral Capsule [Linzess] MARK ANTHON[facility] ([facility]) POLYETHYLENE GLYCOL 3350 142 MG/ML Oral Solution [Kassidy lax] MiraLax Oral Packet MiraLax Oral Packet 10/22/2018 12:00:00 AM EDT aborted polyethylene glycol 3350 86810 MG Powder for Oral Solution [Miralax] MARK ANTHONY ([facility]) 40 mg 09/26/2018 12:00:00 AM EDT tablet,delayed release (DR/EC) 30 TAKE ONE TABLET BY MOUTH EVERY DAY TAKE ONE TABLET BY MOUTH EVERY DAY SOLD: 03/29/2019 [facility] Ondansetron 4 MG Disintegrating Oral Tab let Ondansetron 4MG Oral Tablet Disintegrating Ondansetron 4MG Oral Tablet Disintegrating 08/30/2018 12:00:00 AM EDT aborted ondansetron 4 MG Disintegrating Oral Tablet [facility] ([facility]) Sumatriptan 50 MG Oral Tablet SUMAtriptan Succinate 50 MG Oral Tablet SUMAtriptan Succinate 50MG Oral Tablet 06/16/2018 12:00:00 AM EDT aborted sumatriptan 50 MG Oral Tablet [facility] Ibuprofen 800 MG Oral Tablet Ibuprofen 800MG Oral Tabl et Ibuprofen 800MG Oral Tablet 04/12/2018 12:00:00 AM EST aborted ibuprofen 800 MG Oral Tablet [facility] pantoprazole 40 MG Delayed Release Oral Tablet [Protonix] Protonix 40MG Oral Tablet Delayed Release Protonix 40MG Oral Tablet Delayed Release 10/24/2017 12:00:00 AM EDT 1 aborted pantoprazole 40 MG Delayed Release Oral Tablet [Protonix] MARK [facility] ([facility] [place] Saline Nasal Gel [place] Saline Nasal Gel 01/10/2017 12:00:00 AM EDT aborted [place] Saline Nasal MARK ANTHONY ([facility]) Betamethasone 0.5 MG/ML Topical Cream Be tamethasone Dipropionate 0.05% External Cream Betamethasone Dipropionate 0.05% External Cream 2016 12:00:00 AM EDT aborted betamethasone 0. 5 MG/ML Topical Cream [facility] ([facility] Acetaminophen 500 MG Oral Tablet Acetaminophen 500MG O ral Tablet Acetaminophen 500MG Oral Tablet 12/27/2016 12:00:00 AM EDT aborted acetaminophen 500 MG Oral Tablet [facility] ([facility] 24 HR Amphetamine aspartate 5 MG / [...] Take 20 mg by mouth every morning [facility] Insurance Providers Payer name Policy type / Coverage type Policy ID Covered democrat ID Covered democrat's relationship to springer Policy Springer Plan Information PREFERRED M[employer] INS CO NO FAULT [id number] SP [id number] BCBS [place] HMO [id number] SP [id number] EXCELLUS C [id number] Self [id number] EXCELLUS BC-BS PPO [id number] SP [id number] BC[place] OF [place] 306/806 [id number] SP [id number] [facility] [id number] SP [id number] [place] of [place] Other 0 Self 0 BCBS of [facility] Other 0 Self 0 BCBS of [facility] Other 0 Self 0 [employer] BCBS B [id number] S [id number] [employer] BC[employer] P [id number] S [id number] [place] [place] [place] Other 0 Self 0 [place] [place] Other 0 Self 0 [place] Other 0 Self 0 BCBS of [facility] Other 0 Self 0 [place] BCBS MEDICAID [id number] Monalisa [id number] INSURANCE COVID-19 COVID Monalisa C OVID BCBS of [facility] Other 0 Self 0 BCBS of [facility] Other 0 Self 0 [employer] BCBS MEDICAID [id number] BCBS of [facility] Other 0 Self 0 INSURANCE COVID-19 [id number] BCBS of [facility] Other 0 Self 0 BCBS of [facility] Other 0 Self 0 HMO BLUE [id number] SP [id number] SELF PAY BLUE CROSS [id number] SP [id number] BCBS of [facility] Other 0 Self 0 Managed Care - [facility] Community Plan P [id number] S [id number] Medicaid S [id number] S [id number] BCBS of [facility] Other 0 Self 0 BCBS of [facility] Other 0 Self 0 BCBS of [facility] Other 0 Self 0 BCBS of [facility] Other 302/802 Self 302/802 [place] Other 302/802 Self 302/802 SELF PAY BLUE CROSS [id number] SP [id number] UnitedHealthcare Other 0 Self 0 UnitedHealthcare Other 0 Self 0 UnitedHealthcare Other 0 Self 0 UnitedHealthcare Other 0 Self 0 UnitedHealthcare Other 0 Self 0 UnitedHealthcare Other 0 Self 0 UnitedHealthcare Other 0 Self 0 UnitedHealthcare Other 0 Self 0 UnitedHealthcare Other 0 Self 0 UnitedHealthcare Other 0 Self 0 Unitedhealthcare Medicaid Medicaid [id number] Self [id number] UnitedHealthcare Other 0 Self 0 UnitedHealthcare Other 0 Self 0 UnitedHealthcare Other 0 Self 0 UnitedHealthcare Other 0 Self 0 UnitedHealthcare Other 0 Self 0 UnitedHealthcare Other 0 Self 0 UnitedHealthcare [place] 0 Self 0 [place] [id number] Self [id number] United Healthcare Adonay Medigap Part B [id number] Self [id number] [place] [id number] Self [id number] [facility] Health Maintenance Organization (HMO) [id number] Self [id number] UnitedHealthcare Other 0 Self 0 UnitedHealthcare Other 0 Self 0 UnitedHealthcare Other 0 Self 0 UnitedHealthcare Other 0 Self 0 UnitedHealthcare Other 0 Self 0 UnitedHealthcare Other 0 Self 0 Community [facility] [id number] Self [id number] UnitedHealthcare Other 0 Self 0 UnitedHealthcare Other 0 Self 0 Managed Care - Community Plan United Healthcare P [id number] S [id number] Managed Care - Community Plan United Healthcare O UNAVAILABLE S UNAVAILABLE Medicaid O UNAVAILABLE S UNAVAILA BLE UnitedHealthcare Other 0 Self 0 UnitedHealthcare Other 0 Self 0 United CR/Community [facility] Health Maintenance Organization (HMO) [id number] Self [id number] [facility] COMMUNITY PLAN [facility] [id number] SP [id number] UnitedHealthcare Other 0 Self 0 UnitedHealthcare Other 0 Self 0 UnitedHealthcare Other 0 Self 0 [place] [id number] Self [id number] United Healthcare Adonay Medigap Part B [id number] Self [id number] [place] [id number] Self [id number] [facility] Health Maintenance Organization (HMO) [id number] Self [id number] UnitedHealthcare Other 0 Self 0 UNHC COMMUNITY PLAN [facility] [id number] SP [id number] [place] [id number] Self [id number] United Healthcare Adonay Medigap Part B [id number] Self [id number] [place] [id number] Self [id number] [facility] Health Maintenance Organization (HMO) [id number] Self [id number] [place] [id number] Self [id number] United Healthcare Ad[place]ay Medigap Part B [id number] Self [id number] [place] [id number] Self [id number] [facility] Health Maintenance Organization (HMO) [id number] Self [id number] Medicaid of [place] Other 0 Self 0 UnitedHealthcare Other 0 Self 0 [place] [id number] Self [id number] [facility] Adonay Medigap Part B [id number] Self [id number] [place] [id number] Self [id number] [facility] BS Health Maintenance Organization (HMO) [id number] Self [id number] [facility] COMMUNITY PLAN MCDO [id number] SP [id number] UnitedHealthcare Other 0 Self 0 [place] [id number] Self [id number] [facility] Adonay Medigap Part B [id number] Self [id number] [place] [id number] Self [id number] [facility] BS Health Maintenance Organization (HMO) [id number] Self [id number] [place] [id number] Self [id number] [facility] Adonay Medigap Part B [id number] Self [id number] [place] [id number] Self [id number] [facility] Health Maintenance Organization (HMO) [id number] Self [id number] ANSI-Medicaid [id number] ANSI-Medicaid [id number] ANSI-Commercial [id number] ANSI-Medicaid [id number] UnitedHealthcare Other 0 Self 0 ANSI-Medicaid [id number] ANSI-Commercial [id number] ANSI-Medicaid [id number] ANSI-Medicaid [id number] ANSI-Commercial [id number] ANSI-Medicaid [id number] ANSI-Medicaid [id number] ANSI-Medicaid [id number] [facility] Health Maintenance Organization (HMO) [id number] Self [id number] [facility] COMMUNITY PLAN MCDO [id number] SP [id number] [facility] COMMUNITY PLAN [id number] SP [id number] SELF PAY UnitedHealthcare Other 0 Self 0 UNITED HEALTHCARE [id number] SP [id number] [facility] O [id number] S [id number] [facility] Health Maintenance Organization (HMO) [id number] Self [id number] United Healthcare Hmo Commercial [id number] Self [id number] UnitedHealthcare Other 0 Self 0 UHC MEDICAID [id number] Monalisa [id number] United Healthcare Hmo Commercial [id number] Self [id number] UnitedHealthcare Other 0 Self 0 [place] [id number] Self [id number] United Healthcare Adonay/MCR Medigap Part B [id number] Self [id number] [place] [id number] Self [id number] [facility] Organization (HMO) [id number] Self [id number] [place] [id number] Self [id number] United Healthcare Adonay/MCR Medigap Part B [id number] Self [id number] [place] [id number] Self [id number] [facility] Health Maintenance Organization (HMO) [id number] Self [id number] [facility] Other [facility] Self 0 ANSI-Medicaid [id number] ANSI-Medicaid [id number] ANSI-Medicaid [id number] ANSI-Commercial [id number] [place] [id number] Self [id number] United Healthcare Adonay/MCR Medigap Part B [id number] Self [id number] [place] [id number] Self [id number] [facility] Health Maintenance Organization (HMO) [id number] Self [id number] UNHC AMERICHOICE XIX -HMO [id number] 18 [id number] UNHC AMERICHOICE XIX -HMO [id number] 18 [id number] [place] [id number] Self [id number] United Healthcare Adonay/MCR Medigap Part B [id number] Self [id number] [place] [id number] Self [id number] [facility] BS Health Maintenance Organization (HMO) [id number] Self [id number] UnitedHealthcare Other 0 Self 0 United [facility]/Community [facility] Health Maintenance Organization (HMO) [id number] Self [id number] UnitedHealthcare Other 0 Self 0 UnitedHealthcare Other 0 Self 0 Managed Care - Community Plan United Healthcare P [id number] S [id number] Medicaid S [id number] S [id number] UnitedHealthcare Other 0 Self 0 United HLCR/Community [facility] Health Maintenance Organization (HMO) [id number] Self [id number] UnitedHealthcare Other 0 Self 0 UnitedHealthcare Other 0 Self 0 SELF PAY O [id number] S [id number] UnitedHealthcare Other 0 Self 0 UnitedHealthcare Other 0 Self 0 UnitedHealthcare Other 0 Self 0 [facility](MCAID) O [id number] S [id number] Medicaid of [place] Other 0 Self 0 MEDICAID [id number] SP [id number] [place] of [place] Other 0 Self 0 [place] [id number] Self [id number] [facility] BCBS Health Maintenance Organization (HMO) [id number] Self [id number] Medicaid of [place] Other 0 Self 0 Medicaid [place] Other 0 Self 0 [place] Other 0 Self 0 [place] [id number] Self [id number] [facility] BCBS Health Maintenance Organization (HMO) [id number] Self [id number] [place] [id number] Self [id number] [facility] BCBS Health Maintenance Organization (HMO) [id number] Self [id number] [place] [id number] Self [id number] [facility] BCBS Health Maintenance Organization (HMO) [id number] Self [id number] [place] 302/307 [id number] SP [id number] [place] [id number] Self [id number] [facility] BCBS Health Maintenance Organization (HMO) [id number] Self [id number] [place] [id number] Self [id number] [facility] BCBS Health Maintenance Organization (HMO) [id number] Self [id number] BCBS/[facility] Commercial [id number] Self [id number] [place] [id number] Self [id number] [facility] BCBS Health Maintenance Organization (HMO) [id number] Self [id number] MEDICAID [id number] SP [id number] [place]BS [place] 302/307 [id number] SP [id number] MEDICAID M [id number] S [id number] [facility] BCBS B [id number] S [id number] MEDICAID -O/P EMERGENCY ROOM [id number] BLUE CROSS BLUE SHIELD -O/P [id number] 18 [id number] MEDICAID -O/P EMERGENCY ROOM UNAVAILABLE UNAVAILABLE BLUE CROSS BLUE SHIELD-O/P [id number] 18 [id number] [place] [id number] Self [id number] [facility] BCBS Health Maintenance Organization (HMO) [id number] Self [id number] BCBS/[facility] Commercial [id number] Self [id number] [place] [id number] Self [id number] [facility] BCBS Health Maintenance Organization (HMO) [id number] Self [id number] [place] [id number] Self [id number] [facility] BCBS Health Maintenance Organization (HMO) [id number] Self [id number] [place]BS [place] 302/307 [id number] SP [id number] [place] [id number] Self [id number] [facility] BCBS Health Maintenance Organization (HMO) [id number] Self [id number] [place] 306/806 [id number] SP [id number] [place] 306/806 ADONAY SP ADONAY UNHC COMMUNITY PLAN MCDHMO [id number] SP [id number] BS Adonay Hmo Blue Option Medigap Part B Self Uhc Community Plan Commercial Self Unitedhealthcare Medicaid Medicaid Self United HLCR/Community [facility] Health Maintenance Organization (HMO) Self UNITED HEALTHCARE(MCAID) O [id number] S [id number] United Healthcare Adonay/MCR Health Maintenance Organization (HMO) Self D Managed Care United Healthcare O [id number] S [id number] D Managed Care [facility] O [id number] S [id number] Managed Care BCBS O [id number] S [id number] Medicaid Dental O [id number] S [id number] BLUE CROSS BELTRAN PLAN [id number] SP [id number] [employer] BCBS P [id number] S [id number] HMO BLUE P [id number] S [id number] O BLUE [id number] SP [id number] MEDICAID - O/P EMERGENCY ROOM [id number] Problems, Conditions, and Diagnoses Code Display Name Description Problem Type Effective Dates Data Source(s) 443.0 Raynaud's Syndrome Raynaud's Syndrome Problem 0 12:00:00 AM EST MARK ANTHONY ([facility]) 443.0 Raynaud's Syndrome Raynaud's Syndrome Problem 0 12:00:00 AM EST MARK ANTHONY ([facility]) G47.419 Narcolepsy Narcolepsy [id number] 12/03/2019 12:00:00 AM ED T [facility] F90.9 ADHD ADHD [id number] 12/03/2019 12:00:00 AM ED T [facility] K21.9 GERD (gastroesophageal reflux disease) G ERD (gastroesophageal reflux disease) [id number] 12/03/2019 12:00:00 AM EDT [facility] D86.9 Sarcoidosis Sarcoidosis [id number] 12/03/2019 12:00:00 AM EDT [facility] J45.909 Asthma Asthma [id number] 12/03/2019 12:00:00 AM ED [facility] G47.30 Sleep apnea Sleep apnea [id number] 12/03/2019 12:00:00 AM EDT [facility] K62.3 Rectal prolapse Rectal prolapse [id number] 12/03/2019 12:0 0:00 AM EDT [facility] [id number] Rectal prolapse Rectal prolapse Problem 11/28/2019 12:0 0:00 AM EDT [facility] ([facility]) 723.8 Neuralgia Occipital Neuralgia Occipital Finding 0 09/16/2019 12:00:00 AM EDT MARK ANTHONY ([facility]) 723.1 Cervicalgia Cervicalgia Finding 09/16/2019 12:00:00 AM EDT [facility] 339.89 Chronic Daily Headache Chronic Daily Headache Problem 09/16/2019 12:00:00 AM EDT MARK ANTHONY ([facility] M79.18 Myalgia and Myositis Myalgia and Myositis Problem 09/16/2019 12:00:00 AM EDT MARK ANTHONY ([facility] 723.8 Neuralgia Occipital Neuralgia Occipital Finding 0 09/16/2019 12:00:00 AM EDT MARK ANTHONY ([facility] 723.1 Cervicalgia Cervicalgia Finding 09/16/2019 12:00:00 AM EDT MARK ANTHONY ([facility] 339.89 Chronic Daily Headache Chronic Daily Headache Problem 09/16/2019 12:00:00 AM EDT MARK ANTHONY ([facility] M79.18 Myalgia and Myositis Myalgia and Myositis Problem 09/16/2019 12:00:00 AM EDT MARK ANTHONY ([facility]) 723.8 Neuralgia Occipital Neuralgia Occipital Finding 0 09/16/2019 12:00:00 AM EDT MARK ANTHONY ([facility]) 723.1 Cervicalgia Cervicalgia Finding 09/16/2019 12:00:00 AM EDT MARK ANTHONY ([facility] 339.89 Chronic Daily Headache Chronic Daily Headache Problem 09/16/2019 12:00:00 AM EDT MARK ANTHONY ([facility] M79.18 Myalgia and Myositis Myalgia and Myositis Problem 09/16/2019 12:00:00 AM EDT MARK ANTHONY ([facility]) 723.8 Neuralgia Occipital Neuralgia Occipital Finding 0 09/16/2019 12:00:00 AM EDT [facility] 723.1 Cervicalgia Cervicalgia Finding 09/16/2019 12:00:00 AM EDT MARK ANTHONY ([facility] 339.89 Chronic Daily Headache Chronic Daily Headache Problem 09/16/2019 12:00:00 AM EDT MARK ANTHONY ([facility] M79.18 Myalgia and Myositis Myalgia and Myositis Problem 09/16/2019 12:00:00 AM EDT MARK ANTHONY ([facility]) 339.89 Chronic Daily Headache Chronic Daily Headache Problem 09/16/2019 12:00:00 AM EDT MARK ANTHONY [facility] M79.18 Myalgia and Myositis Myalgia and Myositis Problem 09/16/2019 12:00:00 AM EDT MARK ANTHONY ([facility] 723.8 Neuralgia Occipital Neuralgia Occipital Finding 0 09/16/2019 12:00:00 AM EDT MARK ANTHONY ([facility] 723.1 Cervicalgia Cervicalgia Finding 09/16/2019 12:00:00 AM EDT MARK ANTHONY ([facility] 339.89 Chronic Daily Headache Chronic Daily Headache Problem 09/16/2019 12:00:00 AM EDT MARK ANTHONY ([facility] M79.18 Myalgia and Myositis Myalgia and Myositis Problem 09/16/2019 12:00:00 AM EDT MARK ANTHONY ([facility]) 723.8 Neuralgia Occipital Neuralgia Occipital Finding 0 09/16/2019 12:00:00 AM EDT MARK ANTHONY ([facility]) 723.1 Cervicalgia Cervicalgia Finding 09/16/2019 12:00:00 AM EDT MARK ANTHONY ([facility] 339.89 Chronic Daily Headache Chronic Daily Headache Problem 09/16/2019 12:00:00 AM EDT MARK ANTHONY ([facility]) M79.18 Myalgia and Myositis Myalgia and Myositis Problem 09/16/2019 12:00:00 AM EDT MARK ANTHONY ([facility] 723.8 Neuralgia Occipital Neuralgia Occipital Finding 0 09/16/2019 12:00:00 AM EDT MARK ANTHON[facility] ([facility]) 723.1 Cervicalgia Cervicalgia Finding 09/16/2019 12:00:00 AM EDT MARK ANTHONY ([facility]) 723.8 Neuralgia Occipital Neuralgia Occipital Finding 0 09/16/2019 12:00:00 AM EDT MARK ANTHONY ([facility]) 723.1 Cervicalgia Cervicalgia Finding 09/16/2019 12:00:00 AM EDT MARK ANTHONY ([facility] 339.89 Chronic Daily Headache Chronic Daily Headache Problem 09/16/2019 12:00:00 AM EDT MARK ANTHONY ([facility] M79.18 Myalgia and Myositis Myalgia and Myositis Problem 09/16/2019 12:00:00 AM EDT MARK ANTHONY ([facility]) 723.8 Neuralgia Occipital Neuralgia Occipital Finding 0 09/16/2019 12:00:00 AM EDT MARK ANTHONY ([facility]) 723.1 Cervicalgia Cervicalgia Finding 09/16/2019 12:00:00 AM EDT MARK ANTHONY ([facility] 339.89 Chronic Daily Headache Chronic Daily Headache Problem 09/16/2019 12:00:00 AM EDT MARK ANTHONY ([facility] M79.18 Myalgia and Myositis Myalgia and Myositis Problem 09/16/2019 12:00:00 AM EDT MARK ANTHONY ([facility] 339.89 Chronic Daily Headache Chronic Daily Headache Problem 09/16/2019 12:00:00 AM EDT MARK ANTHONY ([facility] M79.18 Myalgia and Myositis Myalgia and Myositis Problem 09/16/2019 12:00:00 AM EDT MARK ANTHONY ([facility]) 723.8 Neuralgia Occipital Neuralgia Occipital Finding 0 09/16/2019 12:00:00 AM EDT MARK ANTHONY ([facility]) 723.1 Cervicalgia Cervicalgia Finding 09/16/2019 12:00:00 AM EDT MARK ANTHONY ([facility] 339.89 Chronic Daily Headache Chronic Daily Headache Problem 09/16/2019 12:00:00 AM EDT MARK ANTHON[facility] ([facility]) M79.18 Myalgia and Myositis Myalgia and Myositis Problem 09/16/2019 12:00:00 AM EDT MARK ANTHONY ([facility]) 723.8 Neuralgia Occipital Neuralgia Occipital Finding 0 09/16/2019 12:00:00 AM EDT MARK ANTHONY ([facility]) 723.1 Cervicalgia Cervicalgia Finding 09/16/2019 12:00:00 AM EDT MARK ANTHONY ([facility] 339.89 Chronic Daily Headache Chronic Daily Headache Problem 09/16/2019 12:00:00 AM EDT MARK ANTHONY ([facility]) M79.18 Myalgia and Myositis Myalgia and Myositis Problem 09/16/2019 12:00:00 AM EDT MARK ANTHONY ([facility]) 723.8 Neuralgia Occipital Neuralgia Occipital Finding 0 [...] 12:00:00 AM ES T MARK ANTHONY ([facility]) K62.3 Rectal prolapse Rectal prolapse Diagnosis 12/03/2019 12:5 3:00 PM EDT [facility] J98.8 Other specified respiratory disorders Ot her specified respiratory disorders Diagnosis 11/28/2019 10:23:53 AM EDT [facility] U07.1 COVID-19 COVID-19 Diagnosis 11/28/2019 10:23:53 AM ED T [facility] G47.419 Narcolepsy without cataplexy Narcolepsy without catapl exy Diagnosis 11/28/2019 09:10:28 AM EDT [facility] F90.9 Attention-deficit hyperactivity disorder , unspecified type Attention- deficit hyperactivity disorder Diagnosis 11/28/2019 09:10:28 AM EDT [facility] K21.9 Gastro-esophageal reflux disease without esophagitis Gastro-esophageal reflux disease without Diagnosis 11/28/2019 09:10:28 AM EDT [facility] D86.9 Sarcoidosis, unspecified Sarcoidosis, unspecified Diag nosis 11/28/2019 09:10:28 AM EDT [facility] J45.20 Mild intermittent asthma, uncomplicated Mild intermittent asthma, uncomplicated Diagnosis 11/28/2019 09:10:28 AM EDT [facility] G47.30 Sleep apnea, unspecified Sleep apnea, unspecified Diag nosis 11/28/2019 09:10:28 AM EDT [facility] G44.89 Other headache syndrome G44.89 - Other headache syndro me Diagnosis 11/21/2019 02:28:00 PM EDT [facility] G47.419 Narcolepsy without cataplexy Narcolepsy without catapl exy Diagnosis 06/06/2019 09:36:45 AM T [facility] R06.81 Apnea, not elsewhere classified Apnea, not elsew here classified Diagnosis 06/06/2019 09:36:29 AM [facility] Surgeries/Procedures Procedure Description Date Indications Data Source(s) History of asthma History of asthma 01/21/2020 12:00:00 AM EDT MARK ANTHONY ([facility]) History of tubal ligation 04/24/2018 History of tubal ligatio n 04/24/2018 01/21/2020 12:00:00 AM EDT MARK ANTHONY ([facility]) History of excision of rectal procidentia 12/03/2019 Hi story of excision of rectal procidentia 12/03/2019 01/21/2020 12:00:00 AM EDT FREDDIE OLSON (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) Influenza virus vaccine, preservative free, 6 months a nd up Influenza virus vaccine, preservative free, 6 months and up 01/21/2020 12:00:00 AM EDT MARK ANTHONY ([facility]) Influenza virus vaccine, preservative free, 6 months a nd up Influenza virus vaccine, preservative free, 6 months and up 01/21/2020 12:00:00 AM EDT MARK ANTHONY ([facility]) History of asthma History of asthma 01/08/2020 12:00:00 AM EDT MARK ANTHONY ([facility]) History of tubal ligation 04/24/2018 History of tubal ligatio n 04/24/2018 01/08/2020 12:00:00 AM T MARK ANTHONY ([facility]) History of excision of rectal procidentia 12/03/2019 Hi story of excision of rectal procidentia 12/03/2019 01/08/2020 12:00:00 AM EDT FREDDIE OLSON ([facility]) BLOOD COUNT COMPLETE AUTOMATED CBC Timed 12/06/2019 5:57 A M EDT 12/06/2019 09:57:00 AM EDT [facility] BASIC METABOLIC PANEL CALCIUM TOTAL BASIC METABOLIC PANEL Timed 12/06/2019 5:57 AM EDT 12/06/2019 09:57:00 AM EDT [facility] History of excision of rectal procidentia 12/03/2019 Hi story of excision of rectal procidentia 12/03/2019 12/05/2019 12:00:00 AM EDT FREDDIE OLSON ([facility]) BLOOD COUNT COMPLETE AUTOMATED CBC Timed 12/04/2019 5:39 A M EDT 12/04/2019 09:39:00 AM EDT [facility] BASIC METABOLIC PANEL CALCIUM TOTAL BASIC METABOLIC PANEL Timed 12/04/2019 5:39 AM EDT 12/04/2019 09:39:00 AM EDT [facility] PROCTOPEXY ABDOMINAL APPROACH RECTOPEXY, ABDOMINAL APPROACH, OP EN 12/03/2019 2:47 PM EDT Rectal prolapse 12/03/2019 06:47:00 PM EDT - 12/03/2019 08:28:00 PM EDT Rectal prolapse [facility] Rectal prolapse GLUC BLD GLUC MNTR DEV CLEARED FDA SPEC HOME USE POCT GLUCOSE Routine 12/03/2019 2:40 PM EDT 12/03/2019 06:40:00 PM EDT [facility] GLUC BLD GLUC MNTR DEV CLEARED FDA SPEC HOME USE POCT GLUCOSE Routine 12/03/2019 1:47 PM EDT 12/03/2019 05:47:00 PM EDT [facility] PROCTOPEXY ABDOMINAL APPROACH 12/03/2019 12:00:00 AM E DT MEDENT ([facility]) ECG ROUTINE ECG W/LEAST 12 LDS TRCG ONLY W/O I&R ECG 12-LEAD Routine 11/28/2019 10:13 AM EDT Rectal prolapse 11/28/2019 02:13:11 PM EDT Rectal prolapse [facility] Rectal prolapse BLOOD COUNT COMPLETE AUTOMATED CBC Routine 0 10:05 AM EDT Rectal prolapse 11/28/2019 02:05:00 PM EDT Rectal prolapse [facility] Rectal prolapse BLOOD TYPING ABO TYPE AND SCREEN Routine 11/28/2019 10:05 AM EDT Rectal prolapse 11/28/2019 02:05:00 PM EDT Rectal prolapse [facility] Rectal prolapse COMPREHENSIVE METABOLIC PANEL COMPREHENSIVE METABOLIC PANEL Rou jaky 11/28/2019 10:05 AM EDT Rectal prolapse 11/28/2019 02:05:00 PM EDT Rectal prolapse [facility] Rectal prolapse Results ID Date Data Source URINE CULTURE 04/20/2020 12:00:00 AM EST eCW1 ([facility]) Name Value Range Interpretation Code Description Data Janis rce(s) Supporting Document(s) URINE CULTURE eCW1 ([facility]) ID Date Data Source [id number] 04/02/2020 01:39:58 PM [facility] Name Value Range Interpretation Code Description Data Janis rce(s) Supporting Document(s) Progress Note [facility] UEXPDy9rMeDLGeXz30/QYGmnRTOkp1XwOQksXFw7PIqgCUNuR7FjFLX2yT7uMKW7OSyVRjRwKpCvSIF7 lbm XuQkcJKjBxNUDjUfbPRbKpPQgdHkrtdMXuXP9XuDI1AUFpW75oYQWrQQWmP7TfBVB0OAs+Rg7OSGRfgI VqLX8AEweG1Z7Sf7bYSl0fFF1ZW9btIKOWTqPtmlVPqkuORge5awzEWZAZbeDhW4lg9Job7+lO7iL0Kx 7hBZRjTsmdT5btngtytpw0r6Sz+Y28vX6OjdHb7l44 t82IJ65mnA/+Ox7q43o1z5N/ZQ+LS0lhrrDfjddelr74qR8PpnxPFIm9JfpGFf5PHFymW8GLTOq7++ [file] AgICAgICAgICAgICAgICAgICAgICAgICAgICAgICAg ICAgICAgICAgICAgICAgICAgICAgICAgICAgICAgICAgICAgICAgICAgICAgICAgICAgICAgICAgICAg PPJrTOCpBU5CPYXgKTKqKNKyPCLsHETnOMKnUEJtOOIiSCIsTKQiDDGaHFRnOUSuNYGvEOOoVMIqZQCz ICAgICAgICAgICAgICAgICAgICAgICAgICAgICAgIC OyHRObUDCcRMMfTGSyXEUyZC9OKGNoLZIaGTOqWSOdAJVwTOAkXIDoQSSoATWkIOApVTNzWHIsASFhUH AgICAgICAgICAgICAgICAgICAgICAgICAgICAgICAgICAgICAgICAgICAgICAgICAgICAgICAgICAgIA 0KICAgICAgICAgICAgICAgICAgICAgICAgICAgICAg ICAgICAgICAgICAgICAgICAgICAgICAgICAgICAgICAgICAgICAgICAgICAgICAgICAgICAgICAgICAg SDNpCLFfNDHsTO1WJBQdRQMqBPGfHOYgEOCmJUMyPQUlQXKrAGIkOBWoGXUbIVAwGJFrVDQoKAFoLNFv ICAgICAgICAgICAgICAgICAgICAgICAgICAgICAgIC JgIMYkWWIsCDHdJFRtXFJzGKAjVO7WTBCkDYKoCSGrMQSlVLPkIHLpOKFeZCJxHGCrVNKrLTEkRSDkNI AgICAgICAgICAgICAgICAgICAgICAgICAgICAgICAgICAgICAgICAgICAgICAgICAgICAgICAgICAgIC YxSO6GIWTwYYDlGEMdVHQvNZRjNBIrSHGeLVXiJJBf ICAgICAgICAgICAgICAgICAgICAgICAgICAgICAgICAgICAgICAgICAgICAgICAgICAgICAgICAgICAg WAMiCIJmMGJfQRHxZE7MUMUmJSIjFCNdTHNfATNdBTJeFAMxXAYtNFYgNEWuXGOeFMCbKLGoUXUpVQYo ICAgICAgICAgICAgICAgICAgICAgICAgICAgICAgIC ZhNUExHQFcORIdRNLxVUNxZWMvTNZgUH4UFIMnBKHoNUGrDGJzDTIdSOYxQIAkECGdVYQpDHBdPPJkFK AgICAgICAgICAgICAgICAgICAgICAgICAgICAgICAgICAgICAgICAgICAgICAgICAgICAgICAgICAgIC KoRHZiTD2CFMYxRQIxQPNaLXYxWHHtLQApNTHyPETg ICAgICAgICAgICAgICAgICAgICAgICAgICAgICAgICAgICAgICAgICAgICAgICAgICAgICAgICAgICAg IWMyJYZaZMFfZODrOTUdOZ7GRN77oCBtf1P6ZFWlGS0iihv/Zr2WNQjjwwTjrEHxES4YYhVgOM2pvm3N ChOcUB6usy9QGXfLIuGzG0U8iRXwRGAzLNORGjTgZ8 7uNVwzCs72OTfeWVXiEoUjCQt5On6MYhVvH3ldONLjGiO6GLSaUdN5HVZzQoE5HYXbCpVfCKHlPBAhOD JmRUTGPSJ5GZQfEvDuYQrnBI5Hg8OwaBC4FPg+Wq6NMX1om5AgGSkfWdYqLH6fpc6ESPgBNySjL6Jtoc Y1PWDxXSUiMz7UYYVhVGFatNRvSgPpWRZGYsBbF1Oz lL86VACEIv0+OHdfpsBjLkjMLsIzVNOab6ObFOq0UY9DWUMqCNm5zNYaJVTdO3Ldk9TxUm34TRDqYejy R26fb0oqjxMGDJabvOztWH9RHON3VZMzPO8qMOJhSXJaRfR5JVKAKY5MLIVyFFJygOCqWHAwTMIJPH4M OOlcHYI7PNIeqfYafCSjOCkiUQ4DHDAzozViMmLlVO BSDQo+Aj5PMV2xl3QdWZlmFPPuVQ3hmc1OQQhUUfEuC0N0nHQmE0X8RNxxZn8DGJKbBOAiUlZjIBJYHX euQO6FWW5iohW2CS1AwRBcZYScVBWloRDgKCs7X77tjUMqDIumXX0UZWN+Garima+Qo8YHHEyPSXsBPYbZi PiDNHOSaUsU9UfI8SEm5UdZ3LqCR36oMdfmnBsTYpn CD2XAV3nGITrNRBWYC1ViBSroK5hfiCwDpNbOJGXPkExC15zlGBuYLIcHDApPRUeOo3AVDTkN8JtxqCj uAspfsJzQBLqOKLRET8JZBmwrfAknTEazQzoXC31jQlwJO7MKt4ZCbLhTD0klt8SzUAxVs0FXFMvTT9Z NFRcRXEqPBTtFQZ3CHIfEqPqZPzaUSLoKKBfMRV9NU LbHESkSO5NStZaQSUjKgD2BmXlEDLwPLYuyw4AHIPsDLYoWEG9GWKaDGKmKKYsFAttHNEsYLFnRWJ8FY FsAIEiHJ8CZuOhAGLxFWT7LXGjIQNxFPGduw0QLQKmEGRvKbb7LIKzFTLpJFDfQHjpHBSyKAV7BPFbQW OhSKTuOS3OZvHnHPAxXZQnNSMgUTUmJFXxrl1WMYSw QTLqJYt6JEOuKLSlZXEpNSpzSIDdIVO5HCL7MRKfAKYxKT2EDdXiZLDpBPDgTUtmPCOhJJRbtz4GYSMm HUXhSjD5FYGaUBWfCHHeTEpeHRRgZUU1CPPmIYEyIDOyZU0ULtOkYAHkIOS5VaowLSLmVMMpfp8RZGHl WLMtKqTsRrUqRGYxGXHsOHkmVPXcTAZ0SlMrKNKqLK TzJC9AEaJhBCLpDZqwZTHtUWJcZGQrzl4OEIFqOJBsCkIsTARyQSJjZLScZXwfWNVlTAU4LBxaRBRlMU YnEG1FXaDdCEKmZGr1RDBzHXVhWDGfyr3WPYCwIOEkPAl4GPAnYMBdFBTcULckSRWjOHB7DMMpYWZoEZ QjJD1ONwQpMZTyQhDxKgGhVMAtSTBkjs7TURTzSCJh KQN7IfYrLCVfTLNiLZqhOTGjHOAlEFh5EAYbBITmHQ8NGsHpLENbDsFiNBUjXFWcOPHtvn2YZPDkSUZg NUC5EyWqZCIgNKBoXHxcJMDvEYHeTfZ3IEVhCVDoHB1BKxFrWSSaDcV2PiMvHJQeGIOqbm9NKXApZAHh GlNzUtLmLHIsYHKkEDopNIVsEZEcXXU3SVPvVNQtZZ 4VBmKzFORoYgU0YECmJFFoRLHgww9ECDVmPAToPQN1JWKuAPVmXTKkVZvtUGWtCDI4KdL9NAOdGZLcOI 6UUjDzWGdzUACBHsb8KByjK7h2TUCbYY3IZ5Dam8FsGdRnIOFWALllXU7inuWzAGFsXu1DL6xRHcqwSA YmZnI8FvsfARQ8QHC8MIh3WNS5HlGnD1SfA0E8AU0b CRYcRrDxYML2OVU1BUE2OsM6JuD4FdSrIoWaMYKrHiJtVdZbRH7OFx5VKkB9WZN6cKYvTi9OKbO3RAAO DuEsDR6XODn= ID Date Data Source [id number] 01/21/2020 12:00:00 AM EDT MARK ANTHONY ([facility]) Name Value Range Interpretation Code Description Data Janis rce(s) Supporting Document(s) Creatinine [Moles/volume] in Vitreous fluid 171.5 mg/dL No rmal Creatinine MARK ANTHONY ([facility]) pH of Vaginal fluid by Test strip 7.0 Normal pH MARK ANTHONY ([facility]) Nitrite [Presence] in Urine by Test strip 177.6 mcg/mL Nor mal Nitrite MARK ANTHONY ([facility]) Benzodiazepines [Presence] in Serum or Plasma by Scree n method >200 ng/mL 0 ng/mL Normal Benzodiazepines MARK ANTHONY ([facility]) Barbiturates [Mass/volume] in Saliva (oral fluid) by Screen meth od 0 ng/mL Normal Barbiturates MARK ANTHONY ([facility]) Cocaine Metabolites 0 ng/mL Normal Cocaine Metabolites MARK ANTHONY ([facility]) Meprobamate [Mass/volume] in Blood by Confirmatory method 0 ng/mL Normal Meprobamate MARK ANTHONY ([facility]) Meperidine Metabolite 0 ng/mL Normal Meperidine Met abolite MARK ANTHONY ([facility]) Tramadol [Presence] in Blood by Screen method 0 ng/mL N ormal Tramadol MARK ANTHONY ([facility]) Fentanyl [Z-score] in Urine 0 ng/mL Normal Fentanyl GR EENWAY ([facility]) Methadone [Moles/volume] in Unspecified specimen 0 ng/mL Normal Methadone MARK ANTHONY ([facility]) Opiates - Basic 0 ng/mL Normal Opiates - Basic MARK ANTHONY ([facility]) Oxycodone/Oxymorphone 0 ng/mL Normal Oxycodone/Oxym orphone MARK ANTHONY ([facility]) Phencyclidine (PCP) 0 ng/mL Normal Phencyclidine (PCP) MARK ANTHONY ([facility]) 6-Acetylmorphine (Heroin) 0 ng/mL Normal 6-Acetylmo rphine (Heroin) MARK ANTHONY ([facility]) Propoxyphene [Presence] in Meconium by Screen method 0 ng/mL Normal Propoxyphene MARK ANTHONY ([facility]) Marijuana Metabolite 0 ng/mL Normal Marijuana Metab olite MARK ANTHONY ([facility]) Amphetamine [Mass/mass] in Hair by Confirmatory method 0 ng/mL Abnormal (applies to non-numeric results) Amphetamine MARK ANTHONY ([facility]) Note: Inconsistent Prescribed drug was n ot detected. Methamphetamine [Presence] in Saliva (oral fluid) by C onfirmatory method 0 ng/mL Normal Methamphetamine MARK ANTHONY ([facility]) Methylphenidate Metabolite >1500 ng/mL Normal Methylph enidate Metabolite MARK ANTHONY ([facility]) Note: Consistent Prescribed drug was det ected. Gabapentin [Mass/volume] in Urine by Confirmatory method 0 ng/mL Normal Gabapentin MARK ANTHONY ([facility]) Pregabalin [Presence] in Urine by Screen method 0 ng/mL Normal Pregabalin MARK ANTHONY ([facility]) Tapentadol [Presence] in Blood by Screen method 0 ng/mL Normal Tapentadol MARK ANTHONY ([facility]) MDA 0 ng/mL Normal MDA MARK ANTHONY ([facility] MDMA 0 ng/mL Normal MDMA MARK ANTHONY ([facility]) MDEA 0 ng/mL Normal MDEA MAR KANTHONY ([facility]) Norbuprenorphine [Mass/mass] in Meconium by Confirmatory method 981.4 ng/mL Normal Norbuprenorphine MARK ANTHONY ([facility]) Note: Consistent Prescribed drug was det ected. Buprenorphine [Presence] in Blood by Screen method 522.2 ng/mL Normal Buprenorphine MARK ANTHONY ([facility]) Note: Consistent Prescribed drug was det ected. 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)SINUSITIS (ICD-473.9) (LLK90-E27.9)UPPER RESPIRATORY INFECTION (ICD-465.9) (NYH97-L49.9)ACUTE LARYNGITIS, WITHOUT MENTION OF OBSTRUCTIO (ICD- 464.00) (QYJ97-A74.0)ELEVATED BP READING WITHOUT DX HYPERTENSION (ICD-796.2) (TUA65-T58.0)SPINAL STENOSIS, LUMBAR (ICD-724.02) (XUA06-X14.06)SUBSTANCE ABUSE (ICD-305.90) (ZKP42-K84.10)PHYSICAL EXAMINATION (ICD-V70.0) (ICD10- Z00.00)TOBACCO USE, QUIT (ICD-V15.82) (XSG43-A26.891)HYPERLIPIDEMIA (ICD-272.4) (OTT59-Y29.5)INGROWN NAIL, INFECTED (ICD-703.0) (YTX13-H81.0)URINALYSIS, ABNORMAL (ICD-791.9) (SZV93-J04.90)NONDEPENDENT TOBACCO USE DISORDER (ICD-305.1) (CBX38-J25.0)FAMILY HISTORY OF MELANOMA (ICD-V16.8) (FXU03-B80.8)FH STROKE (ICD-V17.1) (CBS70-J27.3)FAMILY HISTORY OF ALCOHOLISM (ICD-V61.41) (ICD10- Z63.72)Hx of ABNORMAL PAP SMEAR (ICD-V13.29)HEPATITIS C (ICD-070.51) (ICD10- B19.20)G E R D (ICD-530.81) (YNP41-U62.9)DEPRESSION (ICD-311) (ICD10- F32.9)ANXIETY DISORDER (ICD-300.00) (VCB06-J34.9)ASTHMA (ICD-493.90) (ICD10- J45.909)Problem list reviewed during this [...] fmx Chart Notes:ash (Jan 20 2020 10:02AM): RM (-) per pt. Took temp@ F. Additional [...] Tooth Notes and Watches:- Tooth 2 Watch: #2-ODistaMagda Cosme by noe (01/09/2017 12:50 PM): - Tooth 22 Watch: Magda Rajan by noe (09/05/2017 2:50 PM): - Tooth 6 Watch: Magda Rajan by noe (09/05/2017 2:49 PM): Assessment & Plan Medications:RITALINWAKIXADDEROLAllergies:No Known Allergies (updated 01/20/2020) Name Value Range Interpretation Code Description Data Janis rce(s) Supporting Document(s) ID Date Data Source [id number] 01/08/2020 10:55:00 AM EDT MARK ANTHONY ([facility] [...] was det ected. ID Date Data Source [id number] 01/04/2020 11:21:30 AM EDT [facility] INFORMATIONPatient MRN Name Date of Age Gend*PT [id number] Hal Toussaint 1980 40 years F IPPT Location Admission Date/Time Visit ID Attending [id number] 12/03/19 1253 --- --- EPI ID CSN Admitting Provider [id number] Malik Hinton MD([id number]) [place] [address] DISCHARGE SUMMARY DISCHSUMNAME: HAL TOUSSAINT#: [id number] #: [id number] ADMISSION DATE: 12/03/2019DOB: 1980 SEX: F PT TYPE: I SURACCT #: [id number] CARE PHYSICIAN: MABEL JACKSONTE OF DISCHARGE: 12/06/19 20HOSPITAL COURSE:Patient was admitted, taken to the operating room where rectal prolapserepair was performed by performing a rectopexy. Postoperatively, she hadan uneventful course, advanced to regular diet, discharged to be followedin the office.ED Morrow/NELL Job #: [id number] DOC #: [id number] Name Value Range Interpretation Code Description Data Janis rce(s) Supporting Document(s) ID Date Data Source [id number] 12/29/2019 10:50:26 AM T [facility] Name Value Range Interpretation Code Description Data Janis rce(s) Supporting Document(s) Progress Note [facility] ZCYEOd5sWiNJLqSj28/BTBhgWFTyb6JdCVqpJTk8HLvuCJAsO8QkSJM6nZ0pUGS3RTkLZcPsGyCtJNH7 m [file] ICAgICAgICAgICAgICAgICAgICAgICAgICAgICAgICAgICAgICAgICAgICAgICAgICAgICAgICAgICAg ZKFzVHKzWZRzSBVfDAXoCQZqACNxZZVfPJCoOIPbVTAeDXYoTNDgZU5JKQLaJHMfHSQeTTEjSCFmNYOy ICAgICAgICAgICAgICAgICAgICAgICAgICAgICAgIC HwXBIdTQRtFESiHAPcWTYzIENpCJXbHRHuYVXwZLLdPKLfEPUcASAaDVSdXCIsVOKlCN5XRSApNCPbYW AgICAgICAgICAgICAgICAgICAgICAgICAgICAgICAgICAgICAgICAgICAgICAgICAgICAgICAgICAgIC AgICAgICAgICAgICAgICAgICAgICAgICAgICAgICAg UC1YCENcREJjTXEwYPPvUUYrXDUoJMNnAGCuQGAgKPXnAVOeKEOwCGVdEYZhDIIfNHJqCFHhVXPfLSBd PVTcMMEgSJPvYDFnEPHzCMXtCPTpOKBwIOSePTKiOZUuGWFlJCFvSEPvHB3XDDRmVLHdUFItTNHiTUQx ICAgICAgICAgICAgICAgICAgICAgICAgICAgICAgIC UpGCCnHWNlALWuYZWvODJgPCTeERCoCZVrETDcOLJbJOWfFYFhPCXjDUZoEVOyTGGuNRNlVQ1VOJXxLH AgICAgICAgICAgICAgICAgICAgICAgICAgICAgICAgICAgICAgICAgICAgICAgICAgICAgICAgICAgIC AgICAgICAgICAgICAgICAgICAgICAgICAgICAgICAg LPSbPU7WCNBkQZPdAXPgWICsPTFzKAIvNZKnTINePMXpFWTiOIFqCTRiPBMkUSIiWUUdDWXqLSAdISDj JTTgJELfJMOgFGNyVYAlANIaTEWkZYBxRLUzCQLpTYVqJKMkONVvUGLxFSMzYG9MGAZbLVIoFANtXUVw ICAgICAgICAgICAgICAgICAgICAgICAgICAgICAgIC ZvAYIfYSQgYBDrXHGxDSReEOWwZMXkMTLkSXMwLPOaASOpLSQsAYAhJHBxMYGsDTNjLXOlQQPiZR0KUM AgICAgICAgICAgICAgICAgICAgICAgICAgICAgICAgICAgICAgICAgICAgICAgICAgICAgICAgICAgIC AgICAgICAgICAgICAgICAgICAgICAgICAgICAgICAg EQQyCZAiPK9ETZPsSDSdLHHgPAFyTAWbPCLgBLUaJZQxLKYxNZAyAMFdCLUvNRTcBPIfKJXsBLJcMVDx MYPsNSFbSDNiVIBwJCKdYVOmRWCeWCEmQSQlIGNsDYNyIBGfIZItHZKjTVEzEGCwHK1AKH74xJLcn9A2 BAYqEC1zwnh/Zz8ESMtrcdAkqJOfVS6DCrEaWY8pef 6IDrSaST9jfu2OFLlVBoLvP6D6yYRwSSMwULWMXyOiL53gYUeoFd89GFiuBXAkJkZuVJk6Ez5LXwNxD0 wsYAInIpE8SUDzEkH7TVXxDwA0WQLvEfGmMBIdLPOlIQMwOFHSYN8UUrPsZ3OzxE29GELSDp0+DQplbm KzLbgGDuPqIPPpd0MpAJv3UJ3LWRAaEnweh7HbMkJe KSSKGDbbAG0MGLI2EYOyEFZgOf4JYCZhO979szCiQA5KWu3HKyGlHX2kvy6RMmVrBCAbDxiRSmh8RKow KW2KjUEaKQcSsy8xsiBjzzXDz4LnbjTtnBGFmyPikdfzOJN0gKLtfgWrZGRVKMFcaNZeNG04JhDbEaQb ESN9MkIuMQ2nIHlfEQ2GMEL3VNouUSEjRLVsC1hVOr GkEKEfXvUxsWbhLR5DNfKyY5DalzYuuJEeLTJmQJMDVw8+JUoiaoIqYqfADzJwLIBiz4TfZGk7VY4TAF OvWZytZC3GTNGxwV7wTKofHJ4VScJxMOVzSIHYDiMcH44zoLBdMQx4G8NcPuNoOMEnQcxpKJUyPIxzGz FtZXMgWyBdDQogID4+ID4+RXesWM4ZPSmddgHcPZMq Ks6OPFHuSVXaKW1mIKWaXEPpG3G9sAxyCQFYUnVnD3lyphnwMN5kYEFuY590sOtszyIvHAGiSSRxWr4R JWBpAOU8FAMdaGOeIqgmOSWLADetZN2HkPMcPLL6iA8zTBemKJEfBAFzD1oLXxYmwGwcRK83tCfoniTl bCBdDQo+Br8GEC4ru7GwYWa7jkSxJFkiAMLxEMvsHD GgHARbVQWkKNE4JJQ7QQYSJpWiMTYyAMBfJAjoPHYoNOJizh0DXVHvYPZnPGgyLBWzHSUqJSCmNBpkQJ QzVYQvJSo0VUQpELPnHZ3ZZxQaIXJyHOWuFUabSNUhCFSvqy2DBWVuICIlCDLuCvZzGTIqDXFkOMneQA IyCKU8VqWeAWYuNEJrRS1NSrHzMXOnJUAnXdOyHVMc IHKfxb0RJOYnJJWlMqW2QMPnKMUsMYKqUYweAZQqKFL7IKZ8HURlETZvIV9ZRhHtJEFiALkaDWcwHGPn WBTejn7CZUEoHDYySOm0ChQtQGEkVWTaDFxuBUVuPUVvIUF1KZWbANZrSD8UHtZyOFDsYISuXUPoIUOa XKJalt3ZCVOkGVXkXJC8NGCbSHXjQSMlFFzsHUQnBE O5FUZ3BHYgPDDtVL3VOeOxQQOhZWF6UAVtETMvVGUavb2CYTDhHQUsPXa2ANYoHRHpIBLlFMzpONJaGF W5ZzT7COYtQMNqYB7FJqKgHIFhYBL2QXqpZUZqIEOddm7ELXRiAOUnTsO0KzDeJXJwCGTzDJouZYEuLX Z1YOm4RMDuRZRfJU1OEmAxNBGcPll4IQMxBGLkKUMu kt4UYGWnHRMbWVPnFADeIDZoUHBuIOxaNNZvOJA3VuHyAOOaBFWdQK5BRjDeABQrUix9FZkoQIBqDUQi te0PYKMuHIAiLMN1EEHlFPWiWKFuVVgbJNJwNSOfVxM0PQCwJGHoDP6UEeUrXLPbRpL7DPckVZYbPXYu pc9NLCLzVUWbQQBhFNFmCURpVNCmWTmwVJAjLWYrZt q3NRZdVHLcVL8VXsWzPPEyDrH7YpcnVUGrSIXdiy5NYXNaKVPlXjapQHFjNXFkKBZtXEb9xqDipAMbRG e4ZN8QV1EfptQhIeQRAn8Cw101XGTtYXVwRw1VI4uvHh0tXMWrIBCHFw5LANg4JrLaGVT2QlXbZXI7FQ QrGMwvSxXjNBMoBTO3BrUpReC+MYevX9ZiHLgxQVMi TCS3PGRgMAS5XAF8DLM4KFclOxEiLC0bOWVUOk1+NXvsxCCvyFfkSHASFeLqUTY3GTzlXJRTBv1W ID Date Data Source [id number] 12/25/2019 07:27:57 AM EDT [facility] Vital SignsBlood Pressure: 111/79 Patient History [...] Problems: DENTAL CARIES EXTENDING INTO PULP (ICD-521.03) (RCW66-U77.63)HEADACHE (ICD-784.0) (JWV10-O16)OTHER SPECIFIED CONGENITAL ANOMALIES OF BRAIN (ICD-742.4)SINUSITIS (ICD-473.9) (UOU94-Y84.9)UPPER RESPIRATORY INFECTION (ICD-465.9) (ICD10- J06.9)ACUTE LARYNGITIS, WITHOUT MENTION OF OBSTRUCTIO (ICD-464.00) (ICD10- J04.0)ELEVATED BP READING WITHOUT DX HYPERTENSION (ICD-796.2) (ICD10- R03.0)SPINAL STENOSIS, LUMBAR (ICD-724.02) (IZC62-X24.06)SUBSTANCE ABUSE (ICD- 305.90) (URX70-F34.10)PHYSICAL EXAMINATION (ICD-V70.0) (NFG06-O90.00)TOBACCO USE, QUIT (ICD-V15.82) (OQZ08-M90.891)HYPERLIPIDEMIA (ICD-272.4) (ICD10- E78.5)INGROWN NAIL, INFECTED (ICD-703.0) (YJQ03-H98.0)URINALYSIS, ABNORMAL (ICD- 791.9) (IAK48-V22.90)NONDEPENDENT TOBACCO USE DISORDER (ICD-305.1) (ICD10- Z72.0)FAMILY HISTORY OF MELANOMA (ICD-V16.8) (WYT73-K87.8)FH STROKE (ICD-V17.1) (DWZ10-Z70.3)FAMILY HISTORY OF ALCOHOLISM (ICD-V61.41) (JPV09-L78.72)Hx of ABNORMAL PAP SMEAR (ICD-V13.29)HEPATITIS C (ICD-070.51) (YNJ44-Y20.20)G E R D (ICD-530.81) (WVT00-S95.9)DEPRESSION (ICD-311) (RVW69-S05.9)ANXIETY DISORDER (ICD-300.00) (AOC99-T89.9)ASTHMA (ICD-493.90) (LKV83-N15.909)Problem list reviewed during this update.Current Medications: * [...] RDH by fidelina (12/25/2019 8:10 AM): ; sah (Dec 25 2019 8:19AM): [facility]). CC: sensitivity # 30. Reviewed Xrays. Exam: no caries detected. OCS: WNL, IO/ EO completed, No significant hard findings upon clinical exam.Additional PPE requirements due to COVID-19 in the dental setting, N95, surgical mask, hair covering, gown and shieldPt was cooperative. OHI given Referral: N/A NV:Jasmyn Nuñez RDH by ash (12/25/2019 8:19 AM): Tooth Notes and Watches:- Tooth 2 Watch: #2-TONGistaMagda Cosme by noe (01/09/2017 12:50 PM): - Tooth [...] rce(s) Supporting Document(s) ID Date Data Source [id number] 12/06/2019 07:15:44 AM EDT [facility] Name Value Range Interpretation Code Description Data Janis rce(s) Supporting Document(s) SODIUM 140 mmol/L (136-145) [facility] POTASSIUM 4.0 mmol/L (3.6-5.2) [facility] CHLORIDE 107 mmol/L (100-108) [facility] CO2 26 mmol/L (22-31) [facility] ANION GAP 7 mmol/L (7-16) [facility] UREA NITROGEN 5 mg/dL (7-24) L [facility] CREATININE 0.41 mg/dL (0.60-1.00) L [facility] BUN/CREAT RATIO 12.2 RATIO (10.0-20.0) [facility] GLUCOSE 80 mg/dL (70-99) [facility] CALCIUM 8.2 mg/dL (8.4-10.2) L [facility] GFR >60 ml/min/1.73m2 (>59) [facility] GFR ( AMER) >60 ml/min/1.73m2 (>59) [facility] GFR INTERPRETATION [facility] --NORMAL KIDNEY FUNCTION OR MILD DISEASE - GFR >OR= 60CHRONIC KIDNEY DISEASE - GFR 15 - 59RENAL FAILURE - GFR <15 Est. GFR calculation based on the MDRDstudy equation, which assumes a steadystate for creatinine. Est. GFR should notbe used for medication dosing. ID Date Data Source [id number] 12/06/2019 06:56:18 AM EDT [facility] Name Value Range Interpretation Code Description Data Janis rce(s) Supporting Document(s) WBC 4.4 10*3/uL (4.1-11.0) [facility] RBC 3.90 10*6/uL (4.00-5.40) L [facility] HGB 11.2 g/dL (12.0-16.0) L [facility] HCT 32.1 % (36.0-47.0) L [facility] MCV 82.2 fL (80.0-95.0) [facility] MCH 28.6 pg (27.0-32.0) [facility] MCHC 34.8 g/dL (32.0-36.0) [facility] RDW 14.5 % (10.5-14.5) [facility] PLT 199 10*3/uL (150-450) [facility] MPV 8.3 fL (7.1-10.7) [facility] ID Date Data Source [id number] 12/05/2019 07:05:02 AM EDT [facility] INFORMATIONPatient MRN Name Date of Age Gend*PT [id number] Hal Toussaint 1980 39 years F IPPT Location Admission Date/Time Visit ID Attending [id number] 12/03/19 1253 --- Malik Hinton MD([id number]) EPI ID CSN Admitting Provider [id number] Malik Hinton MD([id number]) [place] [address] OPERATIVE REPORT OPNAME: HAL TOUSSAINT#: [id number] #: [id number] ADMISSION DATE: 12/03/2019DOB: 1980 SEX: F PT TYPE: S SURACCT #: [id number] CARE PHYSICIAN:DATE OF OPERATION: 0 12/03/2019PREOPERATIVE DIAGNOSIS:Rectal prolapse.POSTOPERATIVE DIAGNOSIS:Rectal prolapse.DESCRIPTION OF PROCEDURE:Patient was placed in supine position. General anesthesia induced.Endotracheal intubation was performed. A Rutherford catheter was placed.Patient was put in lithotomy [...] LOSS:50 mL or less.ED [place]/NELL Job #: [id number] DOC #: [id number] Name Value Range Interpretation Code Description Data Janis rce(s) Supporting Document(s) ID Date Data Source [id number] 12/04/2019 07:59:51 AM EDT [facility] Name Value Range Interpretation Code Description Data Janis rce(s) Supporting Document(s) WBC 11.8 10*3/uL (4.1-11.0) H [facility] RBC 4.40 10*6/uL (4.00-5.40) [facility] HGB 12.3 g/dL (12.0-16.0) [facility] HCT 36.6 % (36.0-47.0) [facility] MCV 83.2 fL (80.0-95.0) [facility] MCH 28.0 pg (27.0-32.0) [facility] MCHC 33.7 g/dL (32.0-36.0) [facility] RDW 14.5 % (10.5-14.5) [facility] PLT 233 10*3/uL (150-450) [facility] MPV 8.6 fL (7.1-10.7) [facility] ID Date Data Source [id number] 12/04/2019 07:38:52 AM EDT [facility] Name Value Range Interpretation Code Description Data Janis rce(s) Supporting Document(s) SODIUM 140 mmol/L (136-145) [facility] POTASSIUM 4.4 mmol/L (3.6-5.2) [facility] CHLORIDE 108 mmol/L (100-108) [facility] CO2 23 mmol/L (22-31) [facility] ANION GAP 9 mmol/L (7-16) [facility] UREA NITROGEN 5 mg/dL (7-24) L [facility] CREATININE 0.52 mg/dL (0.60-1.00) L [facility] BUN/CREAT RATIO 9.6 RATIO (10.0-20.0) L [facility] GLUCOSE 113 mg/dL (70-99) H [facility] CALCIUM 8.6 mg/dL (8.4-10.2) [facility] GFR >60 ml/min/1.73m2 (>59) [facility] GFR ( AMER) >60 ml/min/1.73m2 (>59) [facility] GFR INTERPRETATION [facility] --NORMAL KIDNEY FUNCTION OR MILD DISEASE - GFR >OR= 60CHRONIC KIDNEY DISEASE - GFR 15 - 59RENAL FAILURE - GFR <15 Est. GFR calculation based on the MDRDstudy equation, which assumes a steadystate for creatinine. Est. GFR should notbe used for medication dosing. ID Date Data Source [id number] 12/03/2019 03:07:[address] [facility] NT INFORMATIONPatient MRN Name Date of Age Gend*PT [id number] Hal Toussaint 1980 39 years F SDAPT Location Admission Date/Time Visit ID Attending Provider --- --- --- --- EPI ID CSN Admitting Provider [id number] ---AirwayPatient location during procedure: ORUrgency: electiveDifficult airway: [...] laryngoscopyCricoid pressure: noRSI: noInsertion site: oralBlade type/size: Alex 2ETT size: 7.5 mmMeasured from: lipsETT to lips: 20 cmPlacement verified by: + ETCO2 and palpation of cuffGrade view: grade I - full view of glottis Name Value Range Interpretation Code Description Data Janis rce(s) Supporting Document(s) ID Date Data Source [id number] 12/03/2019 02:41:59 PM EDT [facility] Name Value Range Interpretation Code Description Data Janis rce(s) Supporting Document(s) POC NOVA GLU 80 mg/dL (70-99) [facility] CLINICAL STAFF ID Date Data Source [id number] 12/03/2019 01:53:[address] [facility] NT INFORMATIONPatient MRN Name Date of Age Gend*PT [id number] Hal Toussaint 1980 39 years F SDAPT Location Ad[facility] Date/[facility] --- Malik Hinton MD([id number]) EPI ID CSN Admitting Provider [id number] Malik Hinton MD([id number])Pre-Procedure History and Physical:The history and physical were reviewed and no changes are noted.Malik Hinton MD Name Value Range Interpretation Code Description Data Janis rce(s) Supporting Document(s) ID Date Data Source [id number] 12/03/2019 01:52:55 PM EDT [facility] Name Value Range Interpretation Code Description Data Janis rce(s) Supporting Document(s) POC NOVA GLU 62 mg/dL (70-99) L [facility] [place] [facility] [place] PERFORMED BY [facility] CLINICAL STAFF ID Date Data Source [id number] 11/28/2019 10:25:26 AM EDT [facility] Name Value Range Interpretation Code Description Data Janis rce(s) Supporting Document(s) EKG [facility] ELHUYj2dUkKMQlLea9RqUsSjMSAyUZ9tecw6H5C6sLUbB2HckAGdl8fxP4JjB4FmPHJmFSICDK7UqKUa jb2 [file] hu/HgptXfHxo+LIwnlN9CrQtBRKmoU24DZ4xl3IXTGi+PH0xOd/lay out worker+Xrk8uC1mg6E9lSTlNpnOs44N1 [file] c9Ds4J/heater helper forge/se50kwrv29KGL09/PO4/gvxtHFP5uEma4viW07zU79XP1nH40uB+1R79/9+jz/F8sqGIe [file] QRRaZQDDSt5Qw760FABmHNLKCdl+RhlxbVXnuWquSVQXPRS0WAFHHUNVB0J= ID Date Data Source [id number] 11/28/2019 10:25:00 AM EDT [facility] Name Value Range Interpretation Code Description Data Janis rce(s) Supporting Document(s) SARS coronavirus 2 RNA [facility] This lab was ordered by [facility] [place] [facility] and reported by [employer]. ID Date Data Source [id number] 11/29/2019 07:08:12 AM EDT [facility] Name Value Range Interpretation Code Description Data Janis rce(s) Supporting Document(s) SARS-COV-2 MEENA [facility] hector AVILA Not DetectedReference range: Not Detecte d This nucleic acid amplification test was developed and its performance characteristics determined by [employer] Nucleic acid amplification tests include PCR and [...] detected) result in this assay. Performed At: [facility] [id number] Larry Poe MD Ph:[phone] ID Date Data Source [id number] 11/28/2019 10:06:39 AM EDT [facility] NT INFORMATIONPatient MRN Name Date of Age Gend*PT [id number] Hal Toussaint 1980 39 years F OPPT Location Admission Date/Time Visit ID Attending Provider --- --- --- Malik Hinton MD([id number]) EPI ID CSN Admitting Provider [id number] ---HISTORY PHYSICALName: Hal Toussaint : 1980 Sex: [...] Asthma GERD (gastroesophageal reflux disease) Narcolepsy Marcial Sprague. Rectal prolapse Sarcoidosis by lung biopsy Sleep [...] file Gets together: Not on file Attends bahai service: Not on file Active member of [...] warm and dry.HEENT: Head is normocephalic, atraumatic. [place] conjunctivae. Anicteric sclerae.Pupils are equal, round, reactive [...] Name Value Range Interpretation Code Description Data [facility] Supporting Document(s) ID Date Data Source [id number] 11/28/2019 10:05:00 AM EDT [facility] ([facility]) Name Value Range Interpretation Code Description Data [facility] Supporting Document(s) Blood type and Indirect antibody screen panel - Blood Laboratory test result [facility] ([facility]) SPEC EXP DATE 12/04/2019 PATIENT ABO/Rh O NEGATIVE ANTIBODY SCREEN NEGATIVE TESTING SITE PERFORMED AT [address] [place] [address] ID Date Data Source [id number] 11/28/2019 10:05:00 AM EDT [facility] ([facility]) Name Value Range Interpretation Code Description Data Janis rce(s) Supporting Document(s) Sodium [Moles/volume] in Serum or [...] in Seru m or Plasma 14 U/L -78 [facility] ([facility]) Aspartate [...] medication dosing.</content>
<content></content> ID Date Data Source [id number] 11/28/2019 10:05:00 AM EDT [facility] [place] ID Date Data Source [id number] 11/28/2019 07:01:40 PM EDT [facility] [place] [facility] [place] SPEC EXP DATE 12/04/2019PATI ENT ABO/Rh O NEGATIVEANTIBODY SCREEN NEGATIVETESTING SITE PERFORMED AT [address] [place] [id number] Name Value Range Interpretation Code Description Data Janis rce(s) Supporting Document(s) TYPE AND SCREEN [facility] [place] [facility] [place] ID Date Data Source [id number] 11/28/2019 06:28:12 PM EDT [facility] [place] [facility] Name Value Range Interpretation Code Description Data Janis rce(s) Supporting Document(s) SODIUM 137 mmol/L (136-145) [facility] [place] [facility] POTASSIUM 4.1 mmol/L (3.6-5.2) [facility] [place] [facility] [place] CHLORIDE 105 mmol/L (100-108) [facility] [place] [facility] CO2 27 mmol/L (22-31) [facility] [place] [facility] ANION GAP 5 mmol/L (7-16) L [facility] [place] [facility] UREA NITROGEN 8 mg/dL (7-24) [facility] [place] [facility] CREATININE 0.74 mg/dL (0.60-1.00) [facility] [place] [facility] BUN/CREAT RATIO 10.8 RATIO (10.0-20.0) [facility] GLUCOSE 80 mg/dL (70-99) [facility] [place] [facility] CALCIUM 8.9 mg/dL (8.4-10.2) [facility] [place] [facility] TOTAL PROTEIN 6.7 g/dL (6.4-8.2) [facility] [place] [facility] ALBUMIN 3.8 g/dL (3.5-4.6) [facility] [place] [facility] GLOBULIN 2.9 g/dL (2.7-4.3) [facility] [place] [facility] ALB/GLOB RATIO 1.3 RATIO [facility] [place] [facility] ALKALINE PHOSPHATASE 54 U/L (45-117) [facility] BILIRUBIN,TOTAL 0.9 mg/dL (0.0-1.0) [facility] [place] [facility] [place] PLEASE NOTE:Total bilirubin results may be falselyelevated in patients taking [employer]. AST (SGOT) 16 U/L (11-39) [facility] [place] [facility] ALT (SGPT) 14 U/L (12-78) [facility] [place] [facility] GFR >60 ml/min/1.73m2 (>59) [facility] [place] [facility] GFR ( AMER) >60 ml/min/1.73m2 (>59) [facility] [place] [facility] GFR INTERPRETATION [facility] --NORMAL KIDNEY FUNCTION OR MILD DISEASE - GFR >OR= 60CHRONIC KIDNEY DISEASE - GFR 15 - 59RENAL FAILURE - GFR <15 Est. GFR calculation based on the MDRDstudy equation, which assumes a steadystate for creatinine. Est. GFR should notbe used for medication dosing. ID Date Data Source [id number] 11/28/2019 05:58:09 PM EDT [facility] [place] [facility] Name Value Range Interpretation Code Description Data Janis rce(s) Supporting Document(s) WBC 3.8 10*3/uL (4.1-11.0) L [facility] [place] [facility] [place] RBC 4.50 10*6/uL (4.00-5.40) [facility] [place] [facility] HGB 12.8 g/dL (12.0-16.0) [facility] [place] [facility] [place] HCT 38.2 % (36.0-47.0) [facility] [place] [facility] MCV 84.8 fL (80.0-95.0) [facility] [place] [facility] MCH 28.5 pg (27.0-32.0) [facility] [place] [facility] MCHC 33.6 g/dL (32.0-36.0) [facility] [place] [facility] RDW 14.1 % (10.5-14.5) [facility] [place] [facility] PLT 281 10*3/uL (150-450) [facility] [place] [facility] MPV 8.9 fL (7.1-10.7) [facility] [place] [facility] ID Date Data Source [id number] 11/21/2019 02:37:00 PM EDT MARK ANTHONY ([employer]) Name Value Range Interpretation Code Description Data Janis rce(s) Supporting Document(s) Reported Physicians See Note Reported Physicians [place] ([facility]) Note: Reported Physicians:Ordering: Mabel Peters LAttending: Mabel Peters ID Date Data Source [id number] 11/21/2019 02:37:00 PM EDT MARK ANTHONY ([employer]) Name Value Range Interpretation Code Description Data Janis rce(s) Supporting Document(s) Lyme IgG/IgM Ab,S <0.91 ISR Lyme IgG/IgM Ab,S FREDDIE OLSON ([facility]) Note: N egative <0.91 Equivocal 0.91 - 1.09 Positive >1.09 Performed at: RN - [facility] [id number] Group President: Maria Luisa Juarez MD, Phone: [phone] CDC Recommendations for Lyme Disease Testing 1.The [...] Observer: Lyme IgG/IgM Ab Lyme IgG/IgM Ab,S [id number] 349.7663 (A) ID Date Data Source [id number] 11/21/2019 02:37:00 PM EDT MARK ANTHONY ([facility]) Name Value Range Interpretation Code Description Data Janis rce(s) Supporting Document(s) Thyrotropin [Units/volume] in Serum or Plasma by Detec tion limit <= 0.05 mIU/L 2.088 uIU/ML Normal TSH [place] ([facility]) Note: Patients should not be tested for 72 hours post fluorescein dye angiography. A false depression of result may occur.Responsible Observer: TSH TSH 300.5500 (A) ID Date Data Source [id number] 11/21/2019 02:37:00 PM EDT MARK ANTHONY ([facility]) Name Value Range Interpretation Code Description Data Janis rce(s) Supporting Document(s) Creatine kinase [Enzymatic activity/volume] in Dialysis fluid 53 U/ L Normal CREATINE KINASE [place] ([facility]) Note: Responsible Observer: CK CREATINE KINASE 300.3300 (A) ID Date Data Source [id number] 11/21/2019 02:37:00 PM EDT MARK ANTHONY ([facility]) Name Value Range Interpretation Code Description Data Janis rce(s) Supporting Document(s) Iron [Mass/volume] in Urine collected for unspecified duration 3 7 UG/DL Normal IRON [place] ([facility]) Note: Responsible Observer: FE IRON 300 .2400 (A) ID Date Data Source [id number] 11/21/2019 02:37:00 PM EDT [place] ([facility]) Name Value Range Interpretation Code Description Data Janis rce(s) Supporting Document(s) Albumin/Globulin [Mass Ratio] in Amniotic fluid 2.3 G/DL Normal [facility] Note: Responsible Observer: A/G RATIO AL B/GLOB RATIO 300.4100 (A) Albumin [Mass/volume] in Synovial fluid 3.9 G/DL Normal ALBUMIN MARK ANTHONY ([facility]) Note: Responsible Observer: ALB ALBUMIN 300.3900 (A) Alkaline phosphatase isoenzyme [Units/volume] in Serum or Plasma 49 U/L Normal ALKALINE PHOSPHATASE MARK ANTHONY ([facility]) Note: Responsible Observer: ALK PHOS ALK JACI PHOSPHATASE 300.3110 (A) Alanine aminotransferase [Enzymatic activity/volume] in Seru m or Plasma 12 U/L Normal ALT MARK ANTHONY ([facility]) Note: Responsible Observer: ALT/SGPT ALT 300.3100 (A) Aspartate aminotransferase [Enzymatic activity/volume] in Serum or Plasma 11 U/L Normal AST MARK ANTHONY ([facility]) Note: Responsible Observer: AST/SGOT AST 300.3050 (A) Bilirubin.total [Mass/volume] in Serum or Plasma 0.3 MG/DL Normal BILIRUBIN,TOTAL [place] ([facility]) Note: Responsible Observer: TOTAL BILI T OTAL BILIRUBIN 300.2700 (A) Urea nitrogen/Creatinine [Mass Ratio] in Serum or Plasma 15 Normal BUN/CREAT RATIO [place] ([facility]) Note: Responsible Observer: BUN/CREAT RA TREVER BUN/CREAT RATIO 300.0450 (A) BLOOD UREA NITRO 9 MG/DL Normal BLOOD UREA NITRO [facility] ([facility]) Note: Responsible Observer: BUN BLOOD UR EA NITROGEN 300.0350 (A) CA 8.8 MG/DL Normal CA MARK ANTHONY ([facility]) Note: Responsible Observer: CA CALCIUM 300.2200 (A) Chloride [Moles/volume] in Serum, Plasma or Blood 105 MEQ/L Normal CHLORIDE MARK ANTHONY ([facility]) Note: Responsible Observer: CL CHLORIDE 300.0200 (A) Carbon dioxide, total [Moles/volume] in Serum or Plasma 27 MEQ/L Normal CARBON DIOXIDE MARK ANTHONY ([facility]) Note: Responsible Observer: CO2 CARBON D IOXIDE 300.0250 (A) Anion gap in Blood 13 Normal ANION GAP MARK ANTHONY ([facility]) Note: Responsible Observer: ANION GAP AN ION GAP 300.0300 (A) Creatine/Creatinine [Mass Ratio] in Urine 0.6 MG/DL Dena l CREATININE MARK ANTHONY ([facility]) Note: Responsible Observer: CREAT CREATI NINE 300.0400 (A) GFR > 90.0 ML/MIN GFR MARK ANTHONY ([facility]) Note: Stage G1 - Normal or high [...] calculation 1.7 G/DL Normal GLOBULIN MARK ANTHONY ([facility]) Note: Responsible Observer: GLOB GLOBULI N 300.4050 (A) Potassium [Mass/volume] in Blood 3.9 MEQ/L Normal POT ASSIUM MARK ANTHONY ([facility]) Note: Responsible Observer: K POTASSIUM 300.0150 (A) Glucose [Presence] in Urine 88 MG/DL Normal [facility]) Note: Responsible Observer: GLU GLUCOSE 300.0500 (A) Protein [Mass/volume] in Synovial fluid 5.6 G/DL B elow low normal TOTAL PROTEIN MARK ANTHONY ([facility]) Note: Responsible Observer: TP TOTAL PRO TEIN 300.3750 (A) Sodium [Moles/volume] in Serum, Plasma or Blood 141 MEQ/L Normal SODIUM MARK ANTHONY ([facility]) Note: Responsible Observer: NA SODIUM 3 00.0100 (A) ID Date Data Source [id number] 11/21/2019 02:37:00 PM EDT MARK ANTHONY ([facility]) Name Value Range Interpretation Code Description Data Janis rce(s) Supporting Document(s) BASO # (AUTO) 0.05 10\\^3/uL Normal BASO # (AUTO) MARK ANTHONY ([facility]) Note: Responsible Observer: BASO # (AUTO ) BASO # (AUTO) 100.1500 (A) BASO % (AUTO) 1.0 % Normal BASO % (AUTO) MARK ANTHONY ([facility]) Note: Responsible Observer: BASO % (AUTO ) BASO % (AUTO) 100.1250 (A) EOS # (AUTO) 0.19 10\\^3/uL Normal EOS # (AUTO) MARK ANTHONY ( [facility]) Note: Responsible Observer: EOS # (AUTO) EOS # (AUTO) 100.1450 (A) EOS % (AUTO) 3.9 % Normal EOS % (AUTO) MARK ANTHONY ([facility]) Note: Responsible Observer: EOS % (AUTO) EOS % (AUTO) 100.1200 (A) GRAN % (AUTO) 60.9 % Normal GRAN % (AUTO) MARK ANTHONY ([facility]) Note: Responsible Observer: GRAN % (AUTO ) GRAN % (AUTO) 100.1000 (A) GRAN # (AUTO) 2.97 10\\^3/uL Normal GRAN # (AUTO) MARK ANTHONY ([facility]) Note: Responsible Observer: GRAN # (AUTO ) GRAN #(AUTO) 100.1325 (A) Hematocrit [Volume Fraction] of Blood by Automated count 34.1 % Below low normal HEMATOCRIT MARK ANTHONY ([facility]) Note: Responsible Observer: HCT HEMATOCR IT 100.0400 (A) Hemoglobin [Mass/volume] in Blood 11.5 G/DL Normal HE MOGLOBIN MARK ANTHONY ([facility]) Note: Responsible Observer: HGB HEMOGLOB IN 100.0300 (A) IG # (AUTO) 0.0 10\\^3/uL IG # (AUTO) MARK ANTHONY ([facility]) Note: Responsible Observer: IG # (AUTO) IG # (AUTO) 100.1260 (A) LYMPH # (AUTO) 1.3 k/uL Normal LYMPH # (AUTO) MARK ANTHONY ( [facility]) Note: Responsible Observer: LYMPH # (AUT O) LYMPH # (AUTO) 100.1350 (A) LYMPH % (AUTO) 26.8 % Normal LYMPH % (AUTO) MARK ANTHONY ( [facility]) Note: Responsible Observer: LYMPH % (AUT O) LYMPH % (AUTO) 100.1100 (A) Erythrocyte mean corpuscular hemoglobin [Entitic mass] by Automated count 28.3 PG Normal MCH [place] ([facility]) Note: Responsible Observer: MCH MCH 100 .0600 (A) Erythrocyte mean corpuscular volume [Entitic volume] by Auto mated count 84.0 FL Normal MCV [place] ([facility]) Note: Responsible Observer: MCV MCV 100 .0550 (A) Erythrocyte mean corpuscular hemoglobin concentration [Mass/volume] by Automated count 33.7 G/DL Normal MCHC MARK ANTHONY ([facility]) Note: Responsible Observer: MCHC MCHC 1 00.0650 (A) MONO # (AUTO) 0.36 k/uL Normal MONO # (AUTO) MARK ANTHONY ([facility]) Note: Responsible Observer: MONO # (AUTO ) MONO # (AUTO) 100.1400 (A) MONO % (AUTO) 7.4 % Normal MONO % (AUTO) MARK ANTHONY ([facility]) Note: Responsible Observer: MONO % (AUTO ) MONO% (AUTO) 100.1150 (A) MPV 10.2 FL Normal MPV MARK ANTHONY ([facility]) Note: Responsible Observer: MPV MPV 100 .0950 (A) Platelets [#/volume] in Plasma by Automated count 257 10\\^3/uL Normal PLATELET COUNT [place] ([facility]) Note: Responsible Observer: PLT PLATELET COUNT 100.0850 (A) Erythrocytes [#/volume] in Blood by Automated count 4.06 10\\^6/uL Normal RED BLOOD COUNT [place] ([facility]) Note: Responsible Observer: RBC RED BLOO D COUNT 100.0250 (A) Erythrocyte distribution width [Ratio] by Automated count 13.1 % Normal RDW [place] ([facility]) Note: Responsible Observer: RDW RDW 100 .0700 (A) Leukocytes [#/volume] in Blood by Automated count 4.88 10\\^3/uL Normal WHITE BLOOD COUNT [place] ([facility]) Note: Responsible Observer: WBC WHITE BL OOD COUNT 100.0150 (A) ID Date Data Source [id number] 11/21/2019 05:08:00 PM [facility] Has Patient Fasted For The Past 12 Hour s? N Has Patient Fasted For The Past 12 Hour s? N Has Patient Fasted For The Past 12 Hour s? N Has Patient Fasted For The Past 12 Hour s? N Name Value Range Interpretation Code Description Data Janis rce(s) Supporting Document(s) WHITE BLOOD COUNT 4.88 10^3/uL 4.00-10.50 N [facility] RED BLOOD COUNT 4.06 10^6/uL 3.90-5.20 N [facility] HEMOGLOBIN 11.5 G/DL 11.5-15.6 N [facility] HEMATOCRIT 34.1 % 35.0-46.0 L [facility] MCV 84.0 FL 80.0-100.0 N [facility] MCH 28.3 PG 27.0-34.0 N [facility] MCHC 33.7 G/DL 32-36 N [facility] RDW 13.1 % 11.5-14.5 N [facility] PLATELET COUNT 257 10^3/uL 130-400 N [facility] MPV 10.2 FL 8.7-13.2 N [facility]ran[facility] GRAN % (AUTO) 60.9 % 42.0-75.0 N [facility] K[facility] LYMPH % (AUTO) 26.8 % 20.0-51.0 N Pierce Kranem MONO % (AUTO) 7.4 % 2.0-15.0 N Pierce Kranem EOS % (AUTO) 3.9 % 0.0-11.0 N Pierce Kran[facility] BASO % (AUTO) 1.0 % 0.0-2.0 N [facility] IG # (AUTO) 0.0 10^3/uL <0.5 [facility] GRAN # (AUTO) 2.97 10^3/uL 1.50-6.50 N Pierce K[facility] LYMPH # (AUTO) 1.3 k/uL 1.0-5.0 N [facility] Kran[facility] MONO # (AUTO) 0.36 k/uL 0.20-1.50 N Pierce Kran[facility] EOS # (AUTO) 0.19 10^3/uL 0.00-1.10 N Pierce Kranem BASO # (AUTO) 0.05 10^3/uL 0.00-0.20 [facility] ID Date Data Source [id number] 11/21/2019 05:32:00 PM [facility] For The Past 12 Hour s? N Has Patient Fasted For The Past 12 Hour s? N Has Patient Fasted For The Past 12 Hour s? N Has Patient Fasted For The Past 12 Hour s? N Name Value Range Interpretation Code Description Data Janis rce(s) Supporting Document(s) SODIUM 141 MEQ/L 135-145 N Pierce Kranem POTASSIUM 3.9 MEQ/L 3.5-5.3 [facility] 105 MEQ/L 94-110 [facility] CARBON DIOXIDE 27 MEQ/L 22-33 [facility] ANION GAP 13 5-16 N [facility] BLOOD UREA NITRO 9 MG/DL 7-25 N [facility] CREATININE 0.6 MG/DL 0.6-1.4 [facility] GFR > 90.0 ML/MIN [facility] Stage G1 - Normal or high kidney functi on The GFR is an estimate of the Glomerular Filtration Rate. It is an aid to assess a patient's renal function. It is not a conclusive diagnosis of kidney disease. GFR normal is >=90 The MDRD GFR calculation is considered valid between the ages of 18 and 75 years only. BUN/CREAT RATIO 15 8-36 [facility] GLUCOSE 88 MG/DL 70-100 N [facility] CA 8.8 MG/DL 8.7-10.5 [facility] BILIRUBIN,TOTAL 0.3 MG/DL 0.1-1.3 N [facility] AST 11 U/L 5-40 N [facility] ALT 12 U/L 5-48 [facility] ALKALINE PHOSPHATASE 49 U/L 40-140 [facility] alth TOTAL PROTEIN 5.6 G/DL 5.9-8.3 L [facility] ALBUMIN 3.9 G/DL 3.0-5.1 N [facility] GLOBULIN 1.7 G/DL 1.5-3.5 [facility] ALB/GLOB RATIO 2.3 G/DL 1.0-3.0 [facility] ID Date Data Source [id number] 11/24/2019 03:52:00 PM EDT [facility] Has Patient Fasted For The Past 12 Hour s? N Has Patient Fasted For The Past 12 Hour s? N Has Patient Fasted For The Past 12 Hour s? N Has Patient Fasted For The Past 12 Hour s? N Name Value Range Interpretation Code Description Data Janis rce(s) Supporting Document(s) Lyme IgG/IgM Ab,S <0.91 ISR 0.00-0.90 [facility] h Negativ e <0.91 Equivocal 0.91 - 1.09 Positive >1.09 Performed at: RN - [facility] [address] [id number] Group President: Maria Luisa Juarez MD, Phone: [phone] CDC Recommendations for Lyme Disease Testing 1.The [...] immunoblot is positive. ID Date Data Source [id number] 11/21/2019 05:32:00 PM EDT [facility] Has Patient Fasted For The Past 12 Hour s? N Has Patient Fasted For The Past 12 Hour s? N Has Patient Fasted For The Past 12 Hour s? N Has Patient Fasted For The Past 12 Hour s? N Name Value Range Interpretation Code Description Data Janis rce(s) Supporting Document(s) IRON 37 UG/DL 35-150 N [facility] ID Date Data Source [id number] 11/21/2019 05:32:00 PM EDT [facility] Has Patient Fasted For The Past 12 Hour s? N Has Patient Fasted For The Past 12 Hour s? N Has Patient Fasted For The Past 12 Hour s? N Has Patient Fasted For The Past 12 Hour s? N Name Value Range Interpretation Code Description Data Janis rce(s) Supporting Document(s) CREATINE KINASE 53 U/L 0-265 N [facility] ID Date Data Source [id number] 11/21/2019 05:32:00 PM T [facility] Has Patient Fasted For The Past 12 Hour s? N Has Patient Fasted For The Past 12 Hour s? N Has Patient Fasted For The Past 12 Hour s? N Has Patient Fasted For The Past 12 Hour s? N Name Value Range Interpretation Code Description Data Janis rce(s) Supporting Document(s) TSH 2.088 uIU/ML 0.470-4.200 N [facility] Patients should not be tested for 72 ho urs post fluorescein dye angiography. A false depression of result may occur. ID Date Data Source [id number] 10/20/2019 09:31:11 AM EDT [facility] Name Value Range Interpretation Code Description Data Janis rce(s) Supporting Document(s) Progress Note [facility] RMMLRu6eOiAQQqOc88/SUGyiXEKyd9XnXQesCUv1POxsQWNhI2YkVUM9bG3vHHE7YCqFReNtPrYbUlF3 lbm [file] ShQqW4CnVcCNr5FkSfJZWpMvHgWA7ECn8XVmL7ZHK7gRLyPv9TFqOtTFeXQmGxHZ0CABk= ID Date Data Source [id number] 09/17/2019 01:38:24 PM EDT [facility] Name Value Range Interpretation Code Description Data Janis rce(s) Supporting Document(s) Progress Note [facility] FKACFt0sQyZQGbXn34/WVLfnAUVjk0MqLZwjEVu0TSbvMRRkT8LtEKI1uW5wQNM9CXeYRgLpWtQfFfW9 lbm [file] slitter cut off operator+UjB8aqdANSqVJgl3MoL9hDcQPPuqzQBfpytS4UfoZnhDyuXYND7UpK+OV+4DXgLeoGBIHRgFe+Xo [file] VjXpVaVZW1PpSpNaVqVU2YVp9RSbN2TOI4aPNsLz8NQaTpPBGBFkSiKY6EROv= ID Date Data Source [id number] 08/20/2019 03:58:37 PM EDT [facility] Name Value Range Interpretation Code Description Data Janis rce(s) Supporting Document(s) Progress Note [facility] VZORKy2pUmTUDtTq53/KVGzjAIEmp4IlWDmxPPa6VNjqSRRaZ1SrSZW0bH0aRIH9QEhUHdKrEtJmMAL5 lbm [file] WqJEM4VGWeCQY1QoQgJoTsEJ7YTy5OEpT8PEA2mJJvOg7PYyKoSXOHFdSkXO9DIJe= ID Date Data Source [id number] 07/14/2019 09:25:20 AM EDT [facility] Name Value Range Interpretation Code Description Data Janis rce(s) Supporting Document(s) Progress Note [facility] XQSOMm8hYfLXJdGw17/ABPmtPUSpn8QnEMzhIGg6AJfmALHsD9TzTQR6fA3yZIB3VFjEBlSuEvZfTAGg lbm [file] CRIB TENDER+Dj9BHUOmRIg9C4H2VRHyVZq1E4JIP1MEWPGaTWraOHjyBIQbBDl7M9U8QGPyZ1DPP3Tpnofgpj4+ OX6ZF02DNXLcGSn5Z7T7wOKqJ9P0gTgPzDG5ZL6JZL5BzSf5xHFerC3+AI3MW2GUOwIxWEk9W0T3fYCe G2O6sBiTxQS0TQ6OSB3XvEXwHTQijfCmKg2cC2ZACN rZSlVDHWE7KI9GsZSkBG2WrOEYA0ZhmHIjSv9hVXvonBSvoB8fJi2jBCuaND8HQsMEEDrFCMN2WH2DhE AuUC3DyKWVD3TzfPNoYt3rHInzfHIkqr9+HQ5OLEDtAc1CBw7+BXfyenSaKrgPIhZ8ZBNef9CrMBo4GY 7YRL8blOylLOX7Pa7RtZK0tDJhR0hWMA5AcWNlE94m qXHsOAFvWx7IYwK8jfArqI2MYP55rXTbz6X9QHIwC0oeJExca02ePVpfARhWPM8iIVLEJOreSPofGOT0 GsKguybtDDCvZe2TPwRlGVm8oT7hySB3VEQ6BllbkIXdNGpaIlMfRpOpLpJ9kEvtbwh2YVcyHE2wQWts czptZXRhLyc+RSyiWMTiMEIzClcTUPAaaF8bpmU8fp UxPWxulLUgRu2ic4q5UwjmQi8jQq6cTSs6IvVuOdMaDUEbLl7rdA38TUapgnCkTc4VJxPjJTE0A0EqBn pSREY+CVyaABpttOe4oWRyDKZdDb8LDMAdANWtJJZjCZLhDIBmHBOeNYTeGSSzUEFvQWInMALmLXMkBM AgICAgICAgICAgICAgICAgICAgICAgICAgICAgICAg RDDdAYLmIBFpJPDgNNExDPIsZVHnXRDzYMZvXKYoNT3AKBQcSZNaSKMxZUNiLABlIGVvRNPwNOWpTWHv ICAgICAgICAgICAgICAgICAgICAgICAgICAgICAgICAgICAgICAgICAgICAgICAgICAgICAgICAgICAg OLLnUZKjDZXtKJZcZB0OSUSsBLDkVWCuYEQoSHBlAE AgICAgICAgICAgICAgICAgICAgICAgICAgICAgICAgICAgICAgICAgICAgICAgICAgICAgICAgICAgIC YmWRPcIZQpETMbMXVxIBJyDOUiFRCrPR9SFWZpUOYkCYTsYQGiVLYdBZZjZCKpVPAwUCAtSKOeOAIkSV AgICAgICAgICAgICAgICAgICAgICAgICAgICAgICAg ASJiHCAaWLJcNFZvNTAwYLYlCTVoDCLiVRBfJRUvJSCyPQ4DHAWuPEKrKVNbTOLiFTGwOBCgCCIrLLGr ICAgICAgICAgICAgICAgICAgICAgICAgICAgICAgICAgICAgICAgICAgICAgICAgICAgICAgICAgICAg TJRwNWVtOSAgMOJuJGCzHY8BIPAoVOYnUTFiWGGdOX AgICAgICAgICAgICAgICAgICAgICAgICAgICAgICAgICAgICAgICAgICAgICAgICAgICAgICAgICAgIC JwJUEnRVMaGLMmKUNyKMReLCQqYBEiIRNkJQ0AINKqSGUyWTOyRXIwVBIhDXWpTIHoMQYeLNArIRGpVK AgICAgICAgICAgICAgICAgICAgICAgICAgICAgICAg MHSmJIRnQHAoTXRtOQHbOZOfYLTeEFQzCPClHGIoUNOoKQEzNT4EGBNpDZQyMOMuOXZoHNZtQNNmMCZp ICAgICAgICAgICAgICAgICAgICAgICAgICAgICAgICAgICAgICAgICAgICAgICAgICAgICAgICAgICAg FPQyTPUxRGUmOUTuRDBrLOSbDU6PPHReHXUjFILmUI AgICAgICAgICAgICAgICAgICAgICAgICAgICAgICAgICAgICAgICAgICAgICAgICAgICAgICAgICAgIC IiTLRgWORjBIItQKRdCYBiCBPdGCZmYYEmPUPnSS6XBRFrOUBnXLOaFJQhEENvZDZtUETiFPDxHTChNU AgICAgICAgICAgICAgICAgICAgICAgICAgICAgICAg BKDxHBOeSAVsVEAaFOZkYBLbDKPfTUMhVONpWTYuMSOyOTXhSJNxFS9MPE08cDHzk3Z2CRXbWW8fasj/ Pj7PRXjzsnMynJIbMC3JPaLjCJ9gav6XZfCbMA4pqg8UCTxWScWkM1K0eXDaONTkAESQOaVlA23jNZyc Nw40HAxfOCWlZoGlREe3Hj4QHvHwQ6piQYBuQkI1UA EfOhV3ZDGvVyJ7ZFEgInTtDVYrZYBnIV5ZLRRrS708cyCjPV4YIb0ASeEnES2bwu7EZvPvIEAgTztSIo e5FYouLT2XwAMfmHVjSkMtOTYNTqOaY7wsg6OtLoSyNCDELWkzJQ9Nn9FmqRUyHIy+Io1HFL5yo6MnSY qfVdDvJQ5ydr0YAOqYIqVxA4AnpVirKXJyy8xuLAZw NZ4slXBrOVU9JZNwbY3daP0fY8IeAYYyBGLoIY9MILS6IHTbOtPiEuApOHBnRLbnOUZTLMhVKbPmR7Tv k6DbUeW1FFHmTmTkRFdoCNAiZxV6YU21tRhaGD5YOLFjAVJmOD87LFG3UHOmAg8YTn5AUbTdMX2eir2N KcoeFLZmOxoPOcr2LLztJI8VaZJgK2RogRZhg4oCGg PlA8EOVXWkTVSlYs7BOEToElPtYFWuQKbhNB0oNTFwBAUKxPhqywM8BC7HQG3ggcRlEL6USgSdVa6gFd 6FOiMeA5LbF6YvDNGfJWRIAXhxOQ2UEHmcHS5qGH1Kp7NFaOBvzA0kps4AQJQmTZPeEjwugp3OMudcY6 T2gDwoEJQkGxEvVACDIGumDU4QZHRrHLD5PBOeOACu MYCGPfQuC16lNB7CI8Ume91vTeX7KSGpAyKkAIuwLY30jForuaJzrVQxvNolAL0ZUg0+DQplbmRvYmoN MhucHTWIHhGcNrlUOyNqPJKwSSDxURYfEdA9NyXmTn9QXYOfVYJqHGMcLxXeEMKzAFYlORruKJQqPZA4 VPT0HCSoSYVrLR8MNqSnMVKuExf0SIirUBJeQUFeui 8QPJXyPWWcGSP7UfPpCXBcAJUxOEzeEZDqYTVeUOn2LJObVHRuEW0CXyYmLYHiGTQ8DDGaBGMfMPFiuc 3ICMHdVCAzAiQ2GZPwKZDxTKRkVPofFJLdGRU8YtX4LAViZWUpLX7AZyWeMPYhNBk9ToreUWZrLFRuii 0GDJFeWFXnDBn8MeOxUYMlVMChCNxaSMXaPRRwLrAf SMFkFDLwRT2PAvJuEZIqWRL7QgezVOKdPGFvqh5MZJHyVYHeBMapSeQfSSAuPNZiPCroTSSnIENtWCH9 CCWhTLJzIV5UYsFgJPGqYLUvMNzoTUTiHNJrpe4PJGPaTTXjCpY2NcRkCAFiTCUvTNrkQXAhARPoKbQ3 WXBxFTEtWG6FXgJoCPBuNXO4JGNyESFzOHDyxl7BYX OpQSOlKNx8GzHlAWEvMVLqUVleGAVbQUV8IpKkQTCkQXMoGD3PCeYuOBKaCeN8DbQrBULlWWKsya8BBH YqPPZkZEi8KPAqTLCqVKKxEAuiLIZuGHA6PDJ9SEPiOETxTL2YIbBlNAVsZiNmHEjdCZAcKLTvvz0TNM OoBRFkSgx2RQZjDQIjUQZbPVhxPTLmVUX6HLT7ESBs NHPiCN0NPyQcDVMjGbw3VMDqHOElUFNneg2VjPFcdUhggs5MIIbKYf2ZzGahFDM5ITemVu2akIRqKmQt IBISBx1RbkNzONAbFMACURzmCIEdRCP8TSq9HSC3WUZsD2UiTUH3QQV9LFGmXWLwPID6OTSiEyG7MfI0 ZUJyELorYELaPOB6BKl9AGV1GyVuXjScOWC7MEN+IF 0gDQo+Ud1Gi3YgwuB7otStGRduYPO9GL2QIUYHW6IBLx== ID Date Data Source [id number] 06/06/2019 09:35:55 AM EDT [facility] Name Value Range Interpretation Code Description Data Janis rce(s) Supporting Document(s) Progress Note [facility] EFDSFk5kCsNTKnIs80/XPAehEGMvx3LsLEslRQo6PZzdWSLkD2QqQHP6gF9zACH0RGxQYwItThMtSxYj lbm [file] AgICAgICAgICAgICAgICAgICAgICAgICAgICAgICAg ICAgICAgICAgICAgICAgICAgICAgICAgICAgICAgICAgICAgICAgICAgICAgICAgICAgICAgICAgICAg ICANCiAgICAgICAgICAgICAgICAgICAgICAgICAgICAgICAgICAgICAgICAgICAgICAgICAgICAgICAg ICAgICAgICAgICAgICAgICAgICAgICAgICAgICAgIC AgICAgICAgICAgICANCiAgICAgICAgICAgICAgICAgICAgICAgICAgICAgICAgICAgICAgICAgICAgIC AgICAgICAgICAgICAgICAgICAgICAgICAgICAgICAgICAgICAgICAgICAgICAgICAgICAgICANCiAgIC AgICAgICAgICAgICAgICAgICAgICAgICAgICAgICAg ICAgICAgICAgICAgICAgICAgICAgICAgICAgICAgICAgICAgICAgICAgICAgICAgICAgICAgICAgICAg ICAgICANCiAgICAgICAgICAgICAgICAgICAgICAgICAgICAgICAgICAgICAgICAgICAgICAgICAgICAg ICAgICAgICAgICAgICAgICAgICAgICAgICAgICAgIC AgICAgICAgICAgICAgICANCiAgICAgICAgICAgICAgICAgICAgICAgICAgICAgICAgICAgICAgICAgIC AgICAgICAgICAgICAgICAgICAgICAgICAgICAgICAgICAgICAgICAgICAgICAgICAgICAgICAgICANCi AgICAgICAgICAgICAgICAgICAgICAgICAgICAgICAg ICAgICAgICAgICAgICAgICAgICAgICAgICAgICAgICAgICAgICAgICAgICAgICAgICAgICAgICAgICAg ICAgICAgICANCiAgICAgICAgICAgICAgICAgICAgICAgICAgICAgICAgICAgICAgICAgICAgICAgICAg ICAgICAgICAgICAgICAgICAgICAgICAgICAgICAgIC AgICAgICAgICAgICAgICAgICANCiAgICAgICAgICAgICAgICAgICAgICAgICAgICAgICAgICAgICAgIC AgICAgICAgICAgICAgICAgICAgICAgICAgICAgICAgICAgICAgICAgICAgICAgICAgICAgICAgICAgIC ANCiAgICAgICAgICAgICAgICAgICAgICAgICAgICAg ICAgICAgICAgICAgICAgICAgICAgICAgICAgICAgICAgICAgICAgICAgICAgICAgICAgICAgICAgICAg ICAgICAgICAgICANCjw/hTDyL5zqdEZoxuZ4V2qeLo5VUh9LAT1jd1IsFVXzNYpjrxZaKloAHxVpZQAt MzbZSiv0BLjrNS8TpJMxH9BaP6BeZNefEZ5BKERfQB KqwARuKDImIQOrIeD8TDBiMUttAS2TmAFrLVnyAXKtOHDdOgHsZTNdGXGnTSIsGPZrYXRRTSTyVMWnAg MoAYrzBK6Cd9ZfpMR5ZGv+Uu1NWT8oi5CzIIjwJjXaIE7zvz2HQNpQDbOqM9RxvzJ6WCC6ZPJjAd7HQS DcWAUxoTHdFWNaNLADEwLfT2WfuB56MRQKEv9+DQpl lqLiDnsCXaU2LBBev8RtAFy9AA3AIVIeHFw4mXOjDQPkI5Htm5SnPs02TDDwAdhePW95i50jhtRNoMis ZrWagyrtNUVtMRWcZy3jOq2vOHGyHEQ3AvWtXKHBQN2AOMQjWNGppELjIQWiKCKRDS1DJDlsMUC5VQJn dqWzqRDuBUruUC6SRLIaonEoKbdgLUMATAs+Pg0KZW 8na8MaBUchBTNbJS8sln4WYZuYXwKcK4H3cZYgR9B2DWauNe9NWSDpUGMdKzWvWRFIMUuzSB8NPG5ccc X9BK5YzDAqFHXkFCTkaSDdFKk9I24qcLOjVQnzOJ1HVSN+Garima+Sk5PIVCmUDSqANGcLeZyTFZYIiViS0 VxD2NQq0OmK1JaKW43vLajieHpSEpuZY3TKH8cHGJt KWRRGL6HzDYkhV5guuXkPhTdTCCZNkImK26uzVJqRVSnAHZ4VXPrKo8OFXQuO3OjwaXtlVmnvgFaTKGq IPOLEP0QYYubqpVytXIfaVkrNS60wMheYI5DYq0XTvErUK3edh8FqCKhCi7XILFdYU8ZMUUfVCSrXAVj PYT0FKAoBaCwEBzyZPDzLCFlGZI3BSQrHEPgAI1CKb IyOZXaPnmaJWNePRLgMDIjey9PMHSrMKIbTNHmNAZwKDZeRQIpITqrHKQdFVLgSRI0GYIsUPPkEU4HDz SyKWLgBPX7XmDpNTMaOKPcuh9VUSOyUOVqYgOzBwJiTTMlJQZmOWktTQCoKWV2RRbdPRQsVGEwUV9KBo JfGGAnXMVuNOIwVDNqCNLvyo7TACBeLBQtWEw9VALo AMBfORCqOLdfZXYeXVI6MDE5CESzVQYgED2TCjApCHTqZVGyNGYrPVOaBEWiti4ZBULePSEwAeLfVXRt NIEdYCTgGNfgWHDiRYN7NQU1PUAvXGSsJI8BYiQaDBKmTVOiUtOfWQHpBUAhej2TNNGeNNIkEQL6QBDh QWWvUMFdTLipNMSyLFB5Byh6FVOtXKKwTV1LKlUgNH IjOND0VqGaDKFqFVLrta7QISNaTFGgTqOrMVYdJCGjSTYrWYpzWFHyAND9BxZrIKAuHSPwTU6NFcVzWZ VhMTJ3MyJkLBNbOJAnle7UNLCvQRQrNOZ2ONTwFUDnATAvQPevCOCwGSY8Ckt3UINtZIBbQW8TMgTkGF AkSly6VYJdEGHcLVOczx1MGUNxADBeCLYfQQJvTRIl FQCeAOqhHWZbLNH1EztbEJGoQLHpCO3FYaAxKKIeQcb6QUZsXGIyINLttd6YJCNyIVNkJOX5CBIgLYGl PTZeSZskHBYiAHFjArR3ZTBjJKDoZT0MNoYjJZIiHyRdYblaHECyXTIqwo2MqWDzhHhtua6EHGcGPn4B mLsaKSNfEVhqFp3auGGeZWGbYZFJCv9UetFoCVZwLV CFIBvjBWZyOYi0CpMrWMO3WoJlQ9XmZwpyZsGbMlf5LGUaWODyTRu3IhT0HKi9HCSaCDyqCfP0OeOjB6 GkDfB4CMoxUYUfFHGwPQL+EP5eOPt+Pk0Ps8GkoxT6yaVqKLcdXWZaWI4NYANCM3ETNr== ID Date Data Source [id number] 03/28/2019 09:57:00 AM EST MARK ANTHONY ([facility]) Name Value Range Interpretation Code Description Data Janis rce(s) Supporting Document(s) Reported Physicians See Note Reported Physicians MARK ANTHONY ([facility]) Note: Reported Physicians:Ordering: Mabel Peters LAttending: Mabel Peters ID Date Data Source [id number] 03/28/2019 09:57:00 AM EST MARK ANTHONY ([facility]) Name Value Range Interpretation Code Description Data Janis rce(s) Supporting Document(s) Magnesium [Mass/volume] in Urine collected for unspecified durat ion 1.9 mg/dl Normal MAGNESIUM MARK ANTHONY ([facility]) Note: Responsible Observer: MG MAGNESIUM 300.2350 (A) ID Date Data Source [id number] 03/28/2019 09:57:00 AM EST MARK ANTHONY ([facility]) Name Value Range Interpretation Code Description Data Janis rce(s) Supporting Document(s) Albumin [Mass/volume] in Synovial fluid 4.0 G/DL Normal ALBUMIN MARK ANTHONY ([facility]) Note: Responsible Observer: ALB ALBUMIN 300.3900 (A) Alkaline phosphatase isoenzyme [Units/volume] in Serum or Plasma 60 U/L Normal ALKALINE PHOSPHATASE MARK ANTHONY ([facility]) Note: Responsible Observer: ALK PHOS ALK JACI PHOSPHATASE 300.3110 (A) Albumin/Globulin [Mass Ratio] in Amniotic fluid 2.4 G/DL Normal ALB/GLOB RATIO MARK ANTHONY ([facility]) Note: Responsible Observer: A/G RATIO AL B/GLOB RATIO 300.4100 (A) Aspartate aminotransferase [Enzymatic activity/volume] in Serum or Plasma 11 U/L Normal AST MARK ANTHONY ([facility]) Note: Responsible Observer: AST/SGOT AST 300.3050 (A) Alanine aminotransferase [Enzymatic activity/volume] in Seru m or Plasma 16 U/L Normal ALT MARK ANTHONY ([facility]) Note: Responsible Observer: ALT/SGPT ALT 300.3100 (A) Urea nitrogen/Creatinine [Mass Ratio] in Serum or Plasma 11 Normal BUN/CREAT RATIO MARK ANTHONY ([facility]) Note: Responsible Observer: BUN/CREAT RA TREVER BUN/CREAT RATIO 300.0450 (A) CA 9.2 MG/DL Normal CA MARK ANTHONY ([facility]) Note: Responsible Observer: CA CALCIUM 300.2200 (A) Chloride [Moles/volume] in Serum, Plasma or Blood 108 MEQ/L Normal CHLORIDE MARK ANTHONY ([facility]) Note: Responsible Observer: CL CHLORIDE 300.0200 (A) Bilirubin.total [Mass/volume] in Serum or Plasma 0.4 MG/DL Normal BILIRUBIN,TOTAL [place] ([facility]) Note: Responsible Observer: TOTAL BILI T OTAL BILIRUBIN 300.2700 (A) BLOOD UREA NITRO 7 MG/DL Normal BLOOD UREA NITRO [facility] ([facility]) Note: Responsible Observer: BUN BLOOD UR EA NITROGEN 300.0350 (A) Creatine/Creatinine [Mass Ratio] in Urine 0.6 MG/DL Dena l CREATININE [place] ([facility]) Note: Responsible Observer: CREAT CREATI NINE 300.0400 (A) GFR > 90.0 ML/MIN GFR [place] ([facility]) Note: Stage G1 - Normal or high [...] gap in Blood 11 Normal ANION GAP [place] ([facility]) Note: Responsible Observer: ANION GAP AN ION GAP 300.0300 (A) Carbon dioxide, total [Moles/volume] in Serum or Plasma 27 MEQ/L Normal CARBON DIOXIDE [place] ([facility]) Note: Responsible Observer: CO2 CARBON D IOXIDE 300.0250 (A) Globulin [Mass/volume] in Serum by calculation 1.7 G/DL Normal GLOBULIN [place] ([facility]) Note: Responsible Observer: GLOB GLOBULI N 300.4050 (A) Glucose [Presence] in Urine 100 MG/DL Normal GLUCOSE [facility] ([facility]) Note: Responsible Observer: GLU GLUCOSE 300.0500 (A) Sodium [Moles/volume] in Serum, Plasma or Blood 142 MEQ/L Normal SODIUM [place] ([facility]) Note: Responsible Observer: NA SODIUM 3 00.0100 (A) Potassium [Mass/volume] in Blood 4.1 MEQ/L Normal POT ASSIUM MARK ANTHONY ([facility]) Note: Responsible Observer: K POTASSIUM 300.0150 (A) Protein [Mass/volume] in Synovial fluid 5.7 G/DL B elow low normal TOTAL PROTEIN MARK ANTHONY ([facility]) Note: Responsible Observer: TP TOTAL PRO TEIN 300.3750 (A) ID Date Data Source [id number] 03/28/2019 09:57:00 AM EST MARK ANTHONY ([facility]) Name Value Range Interpretation Code Description Data Janis rce(s) Supporting Document(s) BASO % (AUTO) 1.3 % Normal BASO % (AUTO) MARK ANTHONY ([facility]) Note: Responsible Observer: BASO % (AUTO ) BASO % (AUTO) 100.1250 (A) BASO # (AUTO) 0.05 10\\^3/uL Normal BASO # (AUTO) MARK ANTHONY ([facility]) Note: Responsible Observer: BASO # (AUTO ) BASO # (AUTO) 100.1500 (A) EOS % (AUTO) 5.2 % Normal EOS % (AUTO) MARK ANTHONY ([facility]) Note: Responsible Observer: EOS % (AUTO) EOS % (AUTO) 100.1200 (A) GRAN # (AUTO) 2.31 10\\^3/uL Normal GRAN # (AUTO) MARK ANTHONY ([facility]) Note: Responsible Observer: GRAN # (AUTO ) GRAN #(AUTO) 100.1325 (A) EOS # (AUTO) 0.20 10\\^3/uL Normal EOS # (AUTO) MARK ANTHONY ( [facility]) Note: Responsible Observer: EOS # (AUTO) EOS # (AUTO) 100.1450 (A) Hematocrit [Volume Fraction] of Blood by Automated count 36.8 % Normal HEMATOCRIT MARK ANTHONY ([facility]) Note: Responsible Observer: HCT HEMATOCR IT 100.0400 (A) GRAN % (AUTO) 59.6 % Normal GRAN % (AUTO) MARK ANTHONY ([facility]) Note: Responsible Observer: GRAN % (AUTO ) GRAN % (AUTO) 100.1000 (A) Hemoglobin [Mass/volume] in Blood 12.8 G/DL Normal HE MOGLOBIN MARK ANTHONY ([facility]) Note: Responsible Observer: HGB HEMOGLOB IN 100.0300 (A) IG # (AUTO) 0.0 10\\^3/uL IG # (AUTO) MARK ANTHONY ([facility]) Note: Responsible Observer: IG # (AUTO) IG # (AUTO) 100.1260 (A) IG % (AUTO) 0.3 % IG % (AUTO) MARK ANTHONY ([facility]) Note: Responsible Observer: IG % (AUTO) IG % (AUTO) 100.1255 (A) LYMPH # (AUTO) 1.0 k/uL Normal LYMPH # (AUTO) MARK ANTHONY ( [facility]) Note: Responsible Observer: LYMPH # (AUT O) LYMPH # (AUTO) 100.1350 (A) Erythrocyte mean corpuscular hemoglobin [Entitic mass] by Automated count 30.2 PG Normal MCH MARK ANTHONY ([facility]) Note: Responsible Observer: MCH MCH 100 .0600 (A) LYMPH % (AUTO) 25.8 % Normal LYMPH % (AUTO) MARK ANTHONY ( [facility]) Note: Responsible Observer: LYMPH % (AUT O) LYMPH % (AUTO) 100.1100 (A) Erythrocyte mean corpuscular hemoglobin concentration [Mass/volume] by Automated count 34.8 G/DL Normal MCHC MARK ANTHONY ([facility]) Note: Responsible Observer: MCHC MCHC 1 00.0650 (A) Erythrocyte mean corpuscular volume [Entitic volume] by Auto mated count 86.8 FL Normal MCV MARK ANTHONY ([facility]) Note: Responsible Observer: MCV MCV 100 .0550 (A) MONO # (AUTO) 0.30 k/uL Normal MONO # (AUTO) MARK ANTHONY ([facility]) Note: Responsible Observer: MONO # (AUTO ) MONO # (AUTO) 100.1400 (A) MPV 10.6 FL Normal MPV MARK ANTHONY ([facility]) Note: Responsible Observer: MPV MPV 100 .0950 (A) MONO % (AUTO) 7.8 % Normal MONO % (AUTO) [facility] Note: Responsible Observer: MONO % (AUTO ) MONO% (AUTO) 100.1150 (A) Platelets [#/volume] in Plasma by Automated count 256 10\\^3/uL Normal PLATELET COUNT MARK ANTHONY ([facility]) Note: Responsible Observer: PLT PLATELET COUNT 100.0850 (A) Erythrocytes [#/volume] in Blood by Automated count 4.24 10\\^6/uL Normal RED BLOOD COUNT MARK ANTHONY ([facility]) Note: Responsible Observer: RBC RED BLOO D COUNT 100.0250 (A) Erythrocyte distribution width [Ratio] by Automated count 11.9 % Normal RDW [place] ([facility]) Note: Responsible Observer: RDW RDW 100 .0700 (A) Leukocytes [#/volume] in Blood by Automated count 3.87 10\\^3/uL Below low normal WHITE BLOOD COUNT MARK ANTHONY ([facility]) Note: Responsible Observer: WBC WHITE BL OOD COUNT 100.0150 (A) ID Date Data Source [id number] 03/28/2019 01:02:00 PM EST [facility] Has Patient Fasted For The Past 12 Hour s? N Has Patient Fasted For The Past 12 Hour s? N Name Value Range Interpretation Code Description Data Janis rce(s) Supporting Document(s) WHITE BLOOD COUNT 3.87 10^3/uL 4.00-10.50 L [facility] ealt RED BLOOD COUNT 4.24 10^6/uL 3.90-5.20 N [facility] th HEMOGLOBIN 12.8 G/DL 11.5-15.6 N [facility] HEMATOCRIT 36.8 % 35.0-46.0 N [facility] MCV 86.8 FL 80.0-100.0 N [facility] MCH 30.2 PG 27.0-34.0 N [facility] MCHC 34.8 G/DL 32-36 N [facility] RDW 11.9 % 11.5-14.5 [facility] PLATELET COUNT 256 10^3/uL 130-400 N [facility] MPV 10.6 FL 8.7-13.2 N [facility] GRAN % (AUTO) 59.6 % 42.0-75.0 [facility] LYMPH % (AUTO) 25.8 % 20.0-51.0 N [facility] MONO % (AUTO) 7.8 % 2.0-15.0 N [facility] EOS % (AUTO) 5.2 % 0.0-11.0 N [facility] BASO % (AUTO) 1.3 % 0.0-2.0 N [facility] IG % (AUTO) 0.3 % 1.00-5.00 [facility] IG # (AUTO) 0.0 10^3/uL <0.5 [facility] GRAN # (AUTO) 2.31 10^3/uL 1.50-6.50 N [facility] LYMPH # (AUTO) 1.0 k/uL 1.0-5.0 N [facility] MONO # (AUTO) 0.30 k/uL 0.20-1.50 N [facility] EOS # (AUTO) 0.20 10^3/uL 0.00-1.10 [facility] BASO # (AUTO) 0.05 10^3/uL 0.00-0.20 N [facility] ID Date Data Source [id number] 03/28/2019 01:25:00 PM EST [facility] Has Patient Fasted For The Past 12 Hour s? N Has Patient Fasted For The Past 12 Hour s? N Name Value Range Interpretation Code Description Data Janis rce(s) Supporting Document(s) SODIUM 142 MEQ/L 135-145 N [facility] POTASSIUM 4.1 MEQ/L 3.5-5.3 N [facility] CHLORIDE 108 MEQ/L 94-110 [facility] CARBON DIOXIDE 27 MEQ/L 22-33 [facility] ANION GAP 11 5-16 N [facility] BLOOD UREA NITRO 7 MG/DL 7-25 N [facility] CREATININE 0.6 MG/DL 0.6-1.4 N [facility] GFR > 90.0 ML/MIN [facility] Stage G1 - Normal or high kidney functi on GFR normal is >=90 The MDRD GFR calculation is considered valid between the ages of 18 and 75 years only. The GFR is an estimate of the Glomerular Filtration Rate. It is considered accurate in evaluating patients with Chronic Kidney Disease,but may underestimate kidney function in Healthy Patients. BUN/CREAT RATIO 11 8-36 N [facility] GLUCOSE 100 MG/DL 70-100 N [facility] CA 9.2 MG/DL 8.7-10.5 N [facility] BILIRUBIN,TOTAL 0.4 MG/DL 0.1-1.3 N [facility] AST 11 U/L 5-40 N [facility] ALT 16 U/L 5-48 N [facility] ALKALINE PHOSPHATASE 60 U/L 40-140 N [facility] alth TOTAL PROTEIN 5.7 G/DL 5.9-8.3 L [facility] ALBUMIN 4.0 G/DL 3.0-5.1 N [facility] GLOBULIN 1.7 G/DL 1.5-3.5 N [facility] ALB/GLOB RATIO 2.4 G/DL 1.0-2.7 N [facility] ID Date Data Source [id number] 03/28/2019 01:25:00 PM EST [facility] Has Patient Fasted For The Past 12 Hour s? N Has Patient Fasted For The Past 12 Hour s? N Name Value Range Interpretation Code Description Data Janis rce(s) Supporting Document(s) MAGNESIUM 1.9 mg/dl 1.8-2.4 N [facility] Procedure Social History Code Duration Value Status Description Data Source(s ) Smoking 04/20/2020 12:00:00 AM EST Former Smoker completed Former Smoker [email or web address] ([facility]) Smoking 02/25/2020 12:00:00 AM EST Ex-smoker (finding) [facility] Ex-smoker (finding) [place] ([facility]) Smoking 02/17/2020 12:00:00 AM EST Ex-smoker (finding) [facility] ed Ex-smoker (finding) [place] ([facility]) Alcohol intake 12/29/2019 12:00:00 AM EDT Ex-drinker (finding) comp leted Ex- drinker (finding) [facility] Tobacco use and exposure 12/29/2019 12:00:00 AM EDT Never used co mpleted Never used [facility] Smoking 12/29/2019 12:00:00 AM EDT Never smoker completed Never s [facility] Alcohol intake 12/05/2019 12:00:00 AM EDT Not Currently completed [facility] Smoking 12/05/2019 12:00:00 AM EDT Never smoker completed Never s [facility] Alcohol intake 11/28/2019 12:00:00 AM EDT Not Currently completed [facility] Smoking 11/28/2019 12:00:00 AM EDT Never smoker completed Never [facility] Alcohol intake 10/20/2019 12:00:00 AM EDT Ex-drinker (finding) comp leted Ex- drinker (finding) [facility] Smoking 10/20/2019 12:00:00 AM EDT Never smoker completed Never s [facility] Alcohol intake 09/17/2019 12:00:00 AM EDT Ex-drinker (finding) comp leted Ex- drinker (finding) [facility] Smoking 09/17/2019 12:00:00 AM EDT Never smoker completed Never s [facility] Smoking 09/16/2019 12:00:00 AM EDT Never smoked [...] Ex-drinker (finding) comp leted Ex- drinker (finding) [facility] Smoking 08/20/2019 12:00:00 AM EDT Never smoker completed Never s [facility] Smoking 07/16/2019 12:00:00 AM EDT Ex-smoker (finding) complet ed Ex-smoker (finding) MARK ANTHONY ([facility]) Smoking 06/11/2019 12:00:00 AM EDT Ex-smoker (finding) complet ed Ex-smoker (finding) MARK ANTHONY ([facility]) Alcohol intake 06/06/2019 12:00:00 AM EDT Ex-drinker (finding) comp leted Ex- drinker (finding) [facility] Smoking 06/06/2019 12:00:00 AM EDT Never smoker completed Never s [facility] Smoking 05/08/2019 12:00:00 AM EST Ex-smoker (finding) complet ed Ex-smoker (finding) MARK ANTHONY ([facility]) Vital Signs ID Date Data Source UNK Name Value Range Interpretation Code Description Data Source(s) Diastolic blood pressure 73 mm[Hg] 73 mm[Hg] W1 ([facility]) Systolic blood pressure 104 mm[Hg] 104 mm[Hg] e CW1 ([facility]) Body mass index (BMI) [Ratio] 18.65 kg/m2 18.65 kg/m2 W1 ([facility]) Body height 62 [in_i] 62 [in_i] eCW1 ([facility]) Body weight 46.27 kg 46.27 kg eCW1 ([facility]) Body weight 102 [lb_av] 102 [lb_av] eCW1 ([facility]) Inhaled oxygen concentration 21 % 21 % MARK ANTHONY ([facility]) Inhaled oxygen flow rate 0 L/min 0 L/min MARK ANTHONY ([facility]) Oxygen saturation in Arterial blood by Pulse oximetry 99 % 99 % [facility] PhenX - pain, abdominal - type and intensity protocol 0 0 [facility] Body weight 107 [lb_av] 107 [lb_av] MARK ANTHONY ([facility]) Body temperature 98.5 [degF] 98.5 [degF] GREENW AY [facility] Respiratory rate 17 /min 17 /min [facility] Heart rate 80 /min 80 /min [facility] ([facility]) Diastolic blood pressure 70 mm[Hg] 70 mm[Hg] [facility]) Systolic blood pressure 110 mm[Hg] 110 mm[Hg] G REENWAY [facility] PhenX - pain, abdominal - type and intensity protocol 0 0 MARK ANTHONY ([facility]) Unable to obtain all vitals due to covid 19 pandemic Inhaled oxygen concentration 21 % 21 % MARK ANTHONY [facility] Inhaled oxygen flow rate 0 L/min 0 L/min [facility] ([facility] Oxygen saturation in Arterial blood by Pulse oximetry 99 % 99 % MARK ANTHONY [facility] PhenX - pain, abdominal - type and intensity protocol 0 0 MARK [facility]ONY ([facility] Body weight 103.5 [lb_av] 103.5 [lb_av] GREENWA Y [facility] Body temperature 97.4 [degF] 97.4 [degF] GREENW AY [facility] Respiratory rate 18 /min 18 /min MARK [facility]ONY ([facility] Heart rate rhythm 1 1 GREENWA Y [facility] Heart rate 92 /min 92 /min MARK [facility]THONY ([facility]) Diastolic blood pressure 80 mm[Hg] 80 mm[Hg] [facility] Systolic blood pressure 118 mm[Hg] 118 mm[Hg] G REENWAY ([facility]) Inhaled oxygen concentration 21 % 21 % MARK ANTHONY ([facility]) Temperature assessed by melter supervisor electric [employer]. [employer] Inhaled oxygen flow rate 0 L/min 0 L/min MARK ANTHONY ([facility]) Temperature assessed by melter supervisor electric arc furnace. [employer] Oxygen saturation in Arterial blood by Pulse oximetry 97 % 97 % MARK ANTHONY ([facility]) Temperature assessed by melter supervisor electric arc furnace. PLewis CYCLE DIRECTOR PhenX - pain, abdominal - type and intensity protocol 5 5 MARK ANTHONY ([facility]) Temperature assessed by melter supervisor electric arc furnace. PLewis CYCLE DIRECTOR Body weight 107 [lb_av] 107 [lb_av] MARK ANTHONY ([facility]) Temperature assessed by melter supervisor electric arc furnace. PLewis CYCLE DIRECTOR Body temperature 97.6 [degF] 97.6 [degF] [place] A[place] ([facility]) Temperature assessed by melter supervisor electric arc furnace. PLewis CYCLE DIRECTOR Respiratory rate 16 /min 16 /min MARK ANTHONY ([facility]) Temperature assessed by melter supervisor electric arc furnace. PLewis CYCLE DIRECTOR Heart rate 81 /min 81 /min MARK ANTHONY ([facility]) Temperature assessed by melter supervisor electric arc furnace. PLewis CYCLE DIRECTOR Diastolic blood pressure 78 mm[Hg] 78 mm[Hg] MARK ANTHONY ([facility]) Temperature assessed by melter supervisor electric arc furnace. PLewis CYCLE DIRECTOR Systolic blood pressure 116 mm[Hg] 116 mm[Hg] G REENWAY ([facility]) Temperature assessed by melter supervisor electric arc furnace. PLewis CYCLE DIRECTOR Body mass index (BMI) [Ratio] 20.5 kg/m2 [...] Diastolic blood pressure 90 mm[Hg] 90 mm[Hg] [facility] Systolic blood pressure 142 mm[Hg] 142 mm[Hg] [facility] Respiratory rate 12 /min 12 /min [facility] Body temperature 36.67 Estelle 36.67 Estelle [facility] Heart rate 87 /min 87 /min [facility] Oxygen saturation in Arterial blood by Pulse oximetry 96 % 96 % [facility] Body mass index (BMI) [Ratio] 19.13 kg/m2 19.13 kg/m2 [facility] Body weight 48.988 kg 48.988 kg [facility] Body height 160 cm 160 cm [facility] Oxygen saturation in Arterial blood by Pulse oximetry 97 % 97 % [facility] Body mass index (BMI) [Ratio] 19.13 kg/m2 19.13 kg/m2 [facility] Body weight 48.988 kg 48.988 kg [facility] Body height 160 cm 160 cm [facility] Heart rate 89 /min 89 /min [facility] Diastolic blood pressure 76 mm[Hg] 76 mm[Hg] [facility] Systolic blood pressure 113 mm[Hg] 113 mm[Hg] [facility] Body mass index (BMI) [Ratio] 20.5 [...] mm[Hg] M EDENT ([facility]) Inhaled oxygen concentration 21 % 21 % [place] ([facility]) Temperature assessment done by Bo ravi LPN Inhaled oxygen flow rate 0 L/min 0 L/min [place] ([facility]) Temperature assessment done by Sandipl trav KHAN Oxygen saturation in Arterial blood by Pulse oximetry 97 % 97 % [place] ([facility]) Temperature assessment done by Farida.Kenal l CYCLE DIRECTOR PhenX - pain, abdominal - type and intensity protocol 4 4 [place] ([facility]) Temperature assessment done by Sandipl trav KHAN Body surface area Derived from formula 1.51 m2 1.51 m2 [place] ([facility]) Temperature assessment done by Sandipl trav [place] Body mass index (BMI) [Ratio] 20.5 kg/m2 20.5 k g/m2 [place] ([facility]) Temperature assessment done by Sandipl l CYCLE DIRECTOR Body weight 114 [lb_av] 114 [lb_av] [place] ([facility]) Temperature assessment done by Farida.Kenal l CYCLE DIRECTOR Body height 62.5 [in_i] 62.5 [in_i] [place] ([facility]) Temperature assessment done by Sandipl l CYCLE DIRECTOR Body temperature 97.4 [degF] 97.4 [degF] [facility] ([facility]) Temperature assessment done by Farida.Saaddal l CYCLE DIRECTOR Respiratory rate 16 /min 16 /min [place] ([facility]) Temperature assessment done by E.Crandal l CYCLE DIRECTOR Heart rate 78 /min 78 /min [place] ([facility]) Temperature assessment done by Sandipl l CYCLE DIRECTOR Diastolic blood pressure 88 mm[Hg] 88 mm[Hg] [place] ([facility]) Temperature assessment done by E.Saaddal l CYCLE DIRECTOR Systolic blood pressure 124 mm[Hg] 124 mm[Hg] [facility]) Temperature assessment done by Sandipl l BILL PhenX - pain, abdominal - type and intensity protocol 7 7 [place] ([facility]) Inhaled oxygen concentration 21 % 21 % MARK ANTHONY ([facility]) Inhaled oxygen flow rate 0 L/min 0 L/min MARK ANTHONY ([facility]) Oxygen saturation in Arterial blood by Pulse oximetry 99 % 99 % [place] ([facility]) PhenX - pain, abdominal - type and intensity protocol 0 0 MARK ANTHONY ([facility]) Body weight 108 [lb_av] 108 [lb_av] MARK ANTHONY ([facility]) Body temperature 98.5 [degF] 98.5 [degF] [facility] ([facility]) Respiratory rate 18 /min 18 /min MARK ANTHONY ([facility]) Heart rate rhythm 1 1 [place] ([facility]) Heart rate 83 /min 83 /min MARK ANTHONY ([facility]) Diastolic blood pressure 78 mm[Hg] 78 mm[Hg] MARK ANTHONY ([facility]) Systolic blood pressure 128 mm[Hg] 128 mm[Hg] G [facility] ([facility]) Inhaled oxygen concentration 21 % 21 % [place] ([facility]) Inhaled oxygen flow rate 0 L/min 0 L/min [place] ([facility]) Oxygen saturation in Arterial blood by Pulse oximetry 98 % 98 % [place] ([facility]) PhenX - pain, abdominal - type and intensity protocol 0 0 [place] ([facility]) Body weight 113 [lb_av] 113 [lb_av] MARK ANTHONY ([facility]) Body temperature 98 [degF] 98 [degF] MARK ANTHONY ([facility]) Respiratory rate 18 /min 18 /min MARK ANTHONY ([facility]) Heart rate 83 /min 83 /min [place] ([facility]) Diastolic blood pressure 84 mm[Hg] 84 mm[Hg] MARK ANTHONY ([facility]) Systolic blood pressure 112 mm[Hg] 112 mm[Hg] G [facility] ([facility]) Inhaled oxygen concentration 21 % 21 % MARK ANTHONY ([facility]) Inhaled oxygen flow rate 0 L/min 0 L/min [place] ([facility]) Oxygen saturation in Arterial blood by Pulse oximetry 98 % 98 % [place] ([facility]) PhenX - pain, abdominal - type and intensity protocol 0 0 MARK ANTHONY ([facility]) Body weight 120.6 [lb_av] 120.6 [lb_av] [place] [facility] Body temperature 98.3 [degF] 98.3 [degF] [place] A[facility] ([facility] Respiratory rate 18 /min 18 /min MARK [facility]THONY [facility] Heart rate 87 /min 87 /min MARK [facility]ON[facility] Diastolic blood pressure 78 mm[Hg] 78 mm[Hg] MARK [facility]ONY [facility] Systolic blood pressure 128 mm[Hg] 128 mm[Hg] G REENWAY ([facility] ID Date Data Source [id number] 04/28/2020 09:39:14 AM [facility] Name Value Range Interpretation Code Description Data Source(s) PREFERRED NAME Hal Madden [facility] ID Date Data Source [id number] 04/02/2020 02:25:36 PM [facility] Value Range Interpretation Code Description Data Source(s) PREFERRED NAME Hal Madden [facility] ID Date Data Source [id number] 12/29/2019 10:50:26 AM [facility] Value Range Interpretation Code Description Data Source(s) WEIGHT RECORDED 102 lb 102 lb [facility] Body height Measured 63 in 63 in [facility] ID Date Data Source [id number] 10/20/2019 10:10:06 AM [facility] Value Range Interpretation Code Description Data Source(s) WEIGHT RECORDED 115 lb 115 lb [facility] Body height Measured 63 in 63 in [facility] ID Date Data Source [id number] 09/17/2019 01:54:22 PM [facility] Name Value Range Interpretation Code Description Data Source(s) WEIGHT RECORDED 114 lb 114 lb [facility] Body height Measured 63 in 63 in [facility] ID Date Data Source [id number] 08/29/2019 02:54:56 PM [facility] Value Range Interpretation Code Description Data Source(s) WEIGHT RECORDED 107 lb 107 lb [facility] Body height Measured 63 in 63 in [facility] ID Date Data Source [id number] 07/14/2019 09:53:34 AM [facility] Name Value Range Interpretation Code Description Data Source(s) WEIGHT RECORDED 105 lb 105 lb [facility] Body height Measured 63 in 63 in [facility] ID Date Data Source [id number] 06/06/2019 10:38:05 AM [facility] Name Value Range Interpretation Code Description Data Source(s) WEIGHT RECORDED 108 lb 108 lb [facility] Body height Measured 63 in 63 in [facility] Patient Treatment Plan of Care Planned Activity Planned Date Details Description Data Source (s) Ciprofloxacin 500 MG Oral Tablet [Cipro] 04/20/2020 12:00:00 AM [facility] eC1 ([facility]) Amphetamine aspartate 2.5 MG / Amphetami ne Sulfate 2.5 MG / Dextroamphetamine saccharate 2.5 MG / Dextroamphetamine Sulfate 2.5 MG Oral Tablet 04/02/2020 12:00:00 AM [facility] Solriamfetol HCl 150 MG Oral Tablet (SUNOSI) 03/12/2020 12:00:00 AM [facility] 24 HR Amphetamine aspartate 7.5 MG / Amp hetamine Sulfate 7.5 MG / Dextroamphetamine saccharate 7.5 MG / Dextroamphetamine Sulfate 7.5 MG Extended Release Oral Capsule 03/02/2020 12:00:00 AM [facility] Amphetamine aspartate 5 MG / Amphetamine Sulfate 5 MG / Dextroamphetamine saccharate 5 MG / Dextroamphetamine Sulfate 5 MG Oral Tablet 03/02/2020 12:00:00 AM [facility] Solriamfetol HCl 75 MG Oral Tablet (SUNOSI) 03/02/2020 12:00:00 AM [facility] Ondansetron 8 MG Disintegrating Oral Tablet 02/25/2020 12:00:00 AM [facility] MARK ANTHONY ([facility]) Sublocade 100 MG/0.5ML Subcutaneous Solution Prefilled Syringe 02/25/2020 12:00:00 AM EST MARK ANTHONY ([facility]) Sumatriptan 25 MG Oral Tablet [Imitrex] 02/25/2020 12:00:00 AM EST MARK ANTHONY ([facility]) Amlodipine 5 MG Oral Tablet 02/17/2020 12:00:00 AM EST MARK ANTHONY ([facility]) Methylphenidate HCl ER ([place]) 30 MG Oral C apsule Extended Release 24 Hour (RITALIN [place]) 01/17/2020 12:00:00 AM EDT [facility] Betamethasone 0.5 MG/ML Topical Cream 01/13/2020 12:00:00 AM EDT [place] ([facility] Sumatriptan 25 MG Oral Tablet [Imitrex] 01/13/2020 12:00:00 AM EDT [place] ([facility]) Ondansetron 8 MG Disintegrating Oral Tablet 01/13/2020 12:00:00 AM EDT [place] ([facility]) Sublocade 300 MG/1.5ML Subcutaneous Solution Prefilled Syringe 01/12/2020 12:00:00 AM [facility] Methylphenidate Hydrochloride 10 MG Oral Tablet 01/09/2020 12:00:00 AM [facility] Methylphenidate HCl ER ([place]) 20 MG Oral C apsule Extended Release 24 Hour (Ritalin [place]) 01/09/2020 12:00:00 AM EDT [facility] Buprenorphine 8 MG / Naloxone 2 MG Oral Strip [Suboxon e] 01/08/2020 12:00:00 AM EDT [place] ([facility] Methylphenidate Hydrochloride 10 MG Oral Tablet 12/22/2019 12:00:00 AM [facility] 24 HR Amphetamine aspartate 7.5 MG / Amp hetamine Sulfate 7.5 MG / Dextroamphetamine saccharate 7.5 MG / Dextroamphetamine Sulfate 7.5 MG Extended Release Oral Capsule 12/22/2019 12:00:00 AM [facility] Amphetamine aspartate 5 MG / Amphetamine Sulfate 5 MG / Dextroamphetamine saccharate 5 MG / Dextroamphetamine Sulfate 5 MG Oral Tablet 12/15/2019 12:00:[address] [facility] Ondansetron 8 MG Disintegrating Oral Tablet 12/09/2019 12:00:00 AM T [place] ([facility]) Ibuprofen 600 MG Oral Tablet 12/06/2019 12:00:00 AM EDT [facility] Docusate Sodium 100 MG Oral Capsule 12/06/2019 12:00:00 AM EDT [facility] Acetaminophen 325 MG / Oxycodone Hydrochloride 5 MG Or al Tablet 12/06/2019 12:00:00 AM EDT [facility] Acetaminophen 325 MG Oral Tablet 12/06/2019 12:00:00 AM EDT [facility] Iron 325 (65 Fe) MG Oral Tablet 11/25/2019 12:00:00 AM [facility] ([facility]) Amphetamine aspartate 2.5 MG / Amphetami ne Sulfate 2.5 MG / Dextroamphetamine saccharate 2.5 MG / Dextroamphetamine Sulfate 2.5 MG Oral Tablet 10/20/2019 12:00:[address] [facility] Methylphenidate Hydrochloride 10 MG Oral Tablet 10/20/2019 12:00:00 AM [facility] 24 HR Amphetamine aspartate 7.5 MG / Amp hetamine Sulfate 7.5 MG / Dextroamphetamine saccharate 7.5 MG / Dextroamphetamine Sulfate 7.5 MG Extended Release Oral Capsule 09/25/2019 12:00:00 AM [facility] Amphetamine aspartate 2.5 MG / Amphetami ne Sulfate 2.5 MG / Dextroamphetamine saccharate 2.5 MG / Dextroamphetamine Sulfate 2.5 MG Oral Tablet 09/17/2019 12:00:[address] [facility] Ondansetron 8 MG Disintegrating Oral Tablet 09/17/2019 12:00:00 AM [facility] ([facility]) Sumatriptan 25 MG Oral Tablet [Imitrex] 09/17/2019 12:00:00 AM [facility] ([facility]) Amphetamine aspartate 2.5 MG / Amphetami ne Sulfate 2.5 MG / Dextroamphetamine saccharate 2.5 MG / Dextroamphetamine Sulfate 2.5 MG Oral Tablet 08/20/2019 12:00:[address] [facility] Protriptyline Hydrochloride 5 MG Oral Tablet 08/20/2019 12:00:00 AM [facility] 24 HR Amphetamine aspartate 7.5 MG / Amp hetamine Sulfate 7.5 MG / Dextroamphetamine saccharate 7.5 MG / Dextroamphetamine Sulfate 7.5 MG Extended Release Oral Capsule 08/13/2019 12:00:00 AM [facility] [employer] 17.8 MG Oral Tablet 08/08/2019 12:00:00 AM [facility] Amphetamine aspartate 5 MG / Amphetamine Sulfate 5 MG / Dextroamphetamine saccharate 5 MG / Dextroamphetamine Sulfate 5 MG Oral Tablet 07/25/2019 12:00:00 AM T [facility] Betamethasone 0.5 MG/ML Topical Cream 07/16/2019 12:00:00 AM EDT [place] ([facility] 24 HR Amphetamine aspartate 5 MG / Amphe tamine Sulfate 5 MG / Dextroamphetamine saccharate 5 MG / Dextroamphetamine Sulfate 5 MG Extended Release Oral Capsule [Adderall] 07/03/2019 12:00:00 AM EDT [facility] Albuterol Sulfate HFA 108 (90 Base) MCG/ ACT Inhalation Aerosol Solution (PROVENTIL HFA) 06/11/2019 12:00:00 AM EDT [facility] 200 ACTUAT Albuterol 0.09 MG/ACTUAT Metered Dose Inhal er [Ventolin] 06/11/2019 12:00:00 AM EDT [place] ([facility]) Ondansetron 8 MG Disintegrating Oral Tablet 05/30/2019 12:00:00 AM [facility] MARK ANTHONY ([facility]) 24 HR Amphetamine aspartate 5 MG / Amphe tamine Sulfate 5 MG / Dextroamphetamine saccharate 5 MG / Dextroamphetamine Sulfate 5 MG Extended Release Oral Capsule [Adderall] 05/29/2019 12:00:00 AM EST [employer] ([facility]) 24 HR Amphetamine aspartate 5 MG / Amphe tamine Sulfate 5 MG / Dextroamphetamine saccharate 5 MG / Dextroamphetamine Sulfate 5 MG Extended Release Oral Capsule [Adderall] 05/06/2019 12:00:00 AM EST [employer] ([facility]) 24 HR Amphetamine aspartate 5 MG / Amphe tamine Sulfate 5 MG / Dextroamphetamine saccharate 5 MG / Dextroamphetamine Sulfate 5 MG Extended Release Oral Capsule [Adderall] 04/08/2019 12:00:00 AM EST [employer] ([facility]) Methylphenidate Hydrochloride 20 MG Oral Tablet [Rital in] 03/28/2019 12:00:00 AM EST MARK ANTHONY ([facility] 24 HR Amphetamine aspartate 5 MG / Amphe tamine Sulfate 5 MG / Dextroamphetamine saccharate 5 MG / Dextroamphetamine Sulfate 5 MG Extended Release Oral Capsule [Adderall] 02/26/2019 12:00:00 AM EST [employer] ([facility]) Sublocade 100 MG/0.5ML Subcutaneous Solution Prefilled Syringe 12/25/2018 12:00:00 AM EDT MARK ANTHONY ([facility]) Loratadine 10 MG Oral Capsule [Claritin] 11/20/2018 12:00:00 AM EDT [place] ([facility]) Ibuprofen 800 MG Oral Tablet 04/12/2018 12:00:00 AM EST [place] ([facility]) [place] Saline Nasal Gel 01/10/2017 12:00:00 AM EDT [place] ([facility]) 24 HR Amphetamine aspartate 5 MG / Amphe tamine Sulfate 5 MG / Dextroamphetamine saccharate 5 MG / Dextroamphetamine Sulfate 5 MG Extended Release Oral Capsule [facility]
[2020-05-20] MEDS ORDERED: CYCL-707 PO (13:46)
[2020-05-20 13:56] VITALS: BP 127/82
== END 2020-05-20 14:01 | disposition home or self-care (01) ==
LOC: M ED 12:23 → MERGE 12:23 → M ED 14:01
DX: S06.0X0A Concussion without loss of consciousness, initial encounter (principal); S13.4XXA Sprain of ligaments of cervical spine, initial encounter; V49.40XA Driver injured in collision with unspecified motor vehicles in traffic accident, initial encounter; Z79.899 Other long term (current) drug therapy

== ENCOUNTER 2021-04-24 13:44 | Emergency (ER) | payer BC, OTHER ==
[~2021-04-24] VITALS: Ht 160 cm; Wt 50.4 kg
[~2021-04-24 13:44] MED LIST changes: +ADDE20CA3 PO; +ADDERRALL; +CYCL-707 PO; -FLUO10CA16 PO; +FLUO10CA18 PO; +SOLR150T PO; +SUMA25TA3 PO
[2021-04-24] MEDS ORDERED: ALBU8.5H (13:58)
[2021-04-24] MEDS ORDERED: BUPR1FIL (13:58)
[2021-04-24 14:05] VITALS: O2SAT 92
[2021-04-24 15:16] LABS: BASO % 0.8 % (0.0-1.0); EOS # 0.3 10^3/uL (0.0-0.5); EOS % 8.1 % (0.0-3.0); HEMATOCRIT 38.8 % (36.0-47.0); LYMPH % 26.3 % (24.0-44.0); MEAN CORPUSCULAR HEMOGLOBIN 29.7 pg (27.0-33.0); MEAN CORPUSCULAR HGB CONC 33.5 g/dl (32.0-36.5); MEAN CORPUSCULAR VOLUME 88.8 fl (80.0-96.0); MONO # 0.3 10^3/uL (0.0-0.8); NEUTROPHILS # 2.2 10^3/uL (1.5-8.5); NEUTROPHILS % 57.8 % (36.0-66.0); PLATELET COUNT, AUTOMATED 252 10^3/uL (150-450); RED BLOOD COUNT 4.37 10^6/uL (4.00-5.40); WHITE BLOOD COUNT 3.8 10^3/uL (4.0-10.0)
[2021-04-24 15:27] LABS: INR 0.98; PROTHROMBIN TIME 13.4 SECONDS (12.7-14.5)
[2021-04-24 15:38] LABS: ALBUMIN 3.2 GM/DL (3.2-5.2); ALT/SGPT 19 U/L (12-78); BILIRUBIN,DIRECT < 0.1 MG/DL (0.0-0.2); BILIRUBIN,TOTAL 0.3 MG/DL (0.2-1.0); BLOOD UREA NITROGEN 6 MG/DL (7-18); CALCIUM LEVEL 8.3 MG/DL (8.5-10.1); CARBON DIOXIDE LEVEL 28 MEQ/L (21-32); CHLORIDE LEVEL 111 MEQ/L (98-107); CREATININE FOR GFR 0.48 MG/DL (0.55-1.30); GLOMERULAR FILTRATION RATE > 60.0 (>58); GLUCOSE, FASTING 96 MG/DL (70-100); POTASSIUM SERUM 4.4 MEQ/L (3.5-5.1); SODIUM LEVEL 142 MEQ/L (136-145); TOTAL PROTEIN 5.9 GM/DL (6.4-8.2)
[2021-04-24] MEDS ORDERED: ISOVUE-370 76% 100ML VIAL As Ordered ONE (15:49)
[2021-04-24] MEDS ORDERED: KETOROLAC 30 MG/ML 1ML VIAL IV ONE (16:20)
[2021-04-24] MEDS ORDERED: KETO10TAB PO (16:37)
[2021-04-24 17:00] VITALS: BP 123/84
== END 2021-04-24 17:09 | disposition home or self-care (01) ==
LOC: M ED 13:44
DX: U07.1 COVID-19 (principal); R09.1 Pleurisy; J45.909 Unspecified asthma, uncomplicated; D64.9 Anemia, unspecified; B18.2 Chronic viral hepatitis C; Z87.891 Personal history of nicotine dependence
CPT/HCPCS: 71275; 80048; 80076; 83605; 85025; 85610; 87040; 93041; 94760; 96374; 99285; J1885; Q9967

== ENCOUNTER → 2021-05-27 | Outpatient (REF) | payer BC ==
[~2021-05-27] MED LIST changes: +ALBU8.5H; +BUPR1FIL; +KETO10TAB PO
== END ==
LOC: M PLALAB 13:41
PROVIDERS: ATTEND Advanced Practice Midwife
DX: R87.610 Atypical squamous cells of undetermined significance on cytologic smear of cervix (ASC-US) (principal); Z12.4 Encounter for screening for malignant neoplasm of cervix

== ENCOUNTER → 2021-06-13 | Outpatient (CLI) | payer BC | LOC: M WHC 09:51 | PROVIDERS: ATTEND Advanced Practice Midwife | DX: N92.0 Excessive and frequent menstruation with regular cycle (principal); D25.9 Leiomyoma of uterus, unspecified; N63.20 Unspecified lump in the left breast, unspecified quadrant | CPT/HCPCS: 76642; 76830; 76856; 77066; G0279 ==

== ENCOUNTER → 2021-09-05 | Outpatient (CLI) | payer BC ==
[~2021-09-05] MED LIST changes: +METH-1022 PO; +ONDA8TAB8 SL; +PANT40TA29 PO; +SUBL100I SC
== END ==
LOC: M LABSMTC 09:35
PROVIDERS: ATTEND Anesthesiology
DX: Z01.818 Encounter for other preprocedural examination (principal); Z11.52 Encounter for screening for COVID-19

== ENCOUNTER 2021-09-09 05:59 | Day surgery (SDC) | payer BC ==
[~2021-09-09] VITALS: Ht 160 cm; Wt 49.0 kg
[2021-09-09] MEDS ORDERED: LR 1,000 ML IV SCH ×2 (06:50→09:00)
[2021-09-09] MEDS ORDERED: DESFLURANE 240 ML INHALANT As Ordered ONE (07:08)
[2021-09-09] MEDS ORDERED: ONDANSETRON 4MG/2ML VIAL As Ordered ONE (07:13)
[2021-09-09] MEDS ORDERED: ROCURONIUM BROMIDE 50 MG/5 ML VIAL As Ordered ONE ×2 (07:13→08:35)
[2021-09-09] MEDS ORDERED: propofoL 200 MG/20 ML VIAL As Ordered ONE ×2 (07:13→08:47)
[2021-09-09] MEDS ORDERED: dexameTHASONE 4 MG/ML 1ML VIAL (J1100 PER 1MG) As Ordered ONE (07:13)
[2021-09-09] MEDS ORDERED: LIDOCAINE 2% 100MG/5ML SDV (FOR ANES.) As Ordered ONE ×2 (07:13→07:14)
[2021-09-09] MEDS ORDERED: MIDAZOLAM INJ 2MG/2ML VIAL (J2250 PER 1MG) As Ordered ONE (07:14)
[2021-09-09] MEDS ORDERED: fentaNYL 100 MCG/2 ML INJECTION As Ordered ONE (07:14)
[2021-09-09] MEDS ORDERED: BUPIVACAINE HCL 0.25% 10ML VIAL As Ordered ONE (07:18)
[2021-09-09] MEDS ORDERED: ceFAZolin SOD 2 GM in IV 1 EA IV ONE (07:25)
[2021-09-09] MEDS ORDERED: KETOROLAC 60MG 2ML VIAL As Ordered ONE (08:43)
[2021-09-09] MEDS ORDERED: SUGAMMADEX SODIUM 500 MG/5 ML VIAL (BRIDION) As Ordered ONE (08:43)
[2021-09-09] MEDS ORDERED: ACETAMINOPHEN 1000MG 100ML IV BTL (OFIRMEV) (J0131 PER 10MG) As Ordered ONE (08:50)
[2021-09-09] MEDS ORDERED: METOCLOPRAMIDE INJ 10MG/2ML VIAL (J2765 PER 1) As Ordered ONE (08:53)
[2021-09-09] MEDS ORDERED: oxyCODONE 5MG TAB PO PRN (09:00)
[2021-09-09] MEDS ORDERED: fentaNYL 100 MCG/2 ML INJECTION IV PRN (09:00)
[2021-09-09] MEDS ORDERED: HYDROMORPHONE HCL 0.5 MG/ 0.5 ML SYRINGE (J1170 PER 1) IV PRN (09:00)
[2021-09-09] MEDS ORDERED: ONDANSETRON 4MG/2ML VIAL IV PRN (09:00)
[2021-09-09] MEDS ORDERED: PERCOCET 5MG/325MG TAB PO PRN (10:50)
[2021-09-09] MEDS ORDERED: OXYC1TAB23 PO (11:13)
[2021-09-09] MEDS ORDERED: IBUP-1022 PO (11:13)
[2021-09-09 11:27] VITALS: BP 100/66
== END 2021-09-09 11:36 | disposition home or self-care (01) ==
LOC: M SDC 05:59
PROVIDERS: ATTEND Specialist
DX: N73.6 Female pelvic peritoneal adhesions (postinfective) (principal); N87.9 Dysplasia of cervix uteri, unspecified; D64.9 Anemia, unspecified; F33.9 Major depressive disorder, recurrent, unspecified; F41.9 Anxiety disorder, unspecified; F43.10 Post-traumatic stress disorder, unspecified; G40.909 Epilepsy, unspecified, not intractable, without status epilepticus; G43.909 Migraine, unspecified, not intractable, without status migrainosus; G47.30 Sleep apnea, unspecified; G47.419 Narcolepsy without cataplexy; I73.00 Raynaud's syndrome without gangrene; K90.0 Celiac disease; L30.9 Dermatitis, unspecified; D86.9 Sarcoidosis, unspecified; Z87.09 Personal history of other diseases of the respiratory system; Z87.2 Personal history of diseases of the skin and subcutaneous tissue; F11.21 Opioid dependence, in remission; Z79.899 Other long term (current) drug therapy
CPT/HCPCS: 58570; 88307; J0131; J0690; J1100; J1885; J2250; J2405; J2765; J3010; S2900

== ENCOUNTER → 2022-03-13 | Outpatient (REF) ==
[2022-03-13 13:58] LABS: RSV AMPLIFICATION NEGATIVE (NEGATIVE)
== END ==
LOC: M LABSMTC 10:06
PROVIDERS: ATTEND Family Medicine
DX: Z20.818 Contact with and (suspected) exposure to other bacterial communicable diseases (principal)

== ENCOUNTER → 2022-12-08 | Outpatient (CLI) | payer BC ==
[~2022-12-08] MED LIST changes: -AMIT25TA17 PO; +AMIT25TA19 PO
[2022-12-08 11:39] LABS: BASO # 0.1 10^3/uL (0.0-0.2); BASO % 1.6 % (0.0-1.0); EOS % 18.3 % (0.0-3.0); HEMATOCRIT 41.7 % (36.0-47.0); HEMOGLOBIN 13.9 g/dl (12.0-15.5); LYMPH % 17.8 % (24.0-44.0); MEAN CORPUSCULAR HEMOGLOBIN 29.7 pg (27.0-33.0); MEAN CORPUSCULAR HGB CONC 33.3 g/dl (32.0-36.5); MEAN CORPUSCULAR VOLUME 89.1 fl (80.0-96.0); MONO # 0.4 10^3/uL (0.0-0.8); MONO % 7.7 % (2.0-8.0); NEUTROPHILS % 54.4 % (36.0-66.0); PLATELET COUNT, AUTOMATED 322 10^3/uL (150-450); RED BLOOD COUNT 4.68 10^6/uL (4.00-5.40); WHITE BLOOD COUNT 5.6 10^3/uL (4.0-10.0)
[2022-12-08 12:00] LABS: ALBUMIN 3.4 G/DL (3.2-5.2); ALKALINE PHOSPHATASE 65 U/L (46-116); ALT/SGPT 16 U/L (7.0-40); AST/SGOT 8 U/L (<34); BILIRUBIN,TOTAL 0.6 MG/DL (0.3-1.2); BLOOD UREA NITROGEN 6 MG/DL (9-23); CALCIUM LEVEL 8.9 MG/DL (8.5-10.1); CARBON DIOXIDE LEVEL 32 MMOL/L (20-31); CHLORIDE LEVEL 105 MMOL/L (98-107); CHOLESTEROL LEVEL 187 MG/DL (<200); CHOLESTEROL RISK RATIO 3.19 (<5); CREATININE FOR GFR 0.75 MG/DL (0.55-1.30); GLOMERULAR FILTRATION RATE > 60.0 (>58); GLUCOSE, FASTING 80 MG/DL (60-100); HDL CHOLESTEROL 58.6 MG/DL (>40); IRON (FE) 56 UG/DL (50-170); LDL CHOLESTEROL 116.6 MG/DL (<100); NON-HDL-C 128.4 MG/DL; POTASSIUM SERUM 4.3 MMOL/L (3.5-5.1); SODIUM LEVEL 141 MMOL/L (136-145); TOTAL PROTEIN 6.1 G/DL (5.7-8.2); TRIGLYCERIDES LEVEL 59 MG/DL (<150)
[2022-12-08 12:03] LABS: THYROID STIMULATING HORMONE 3.642 uIU/ML (0.55-4.78); TOTAL 25(OH) VITAMIN D 21.3 NG/ML (20.0-100.0)
== END ==
LOC: M PLALAB 07:49
PROVIDERS: ATTEND Physical Therapist
DX: D50.9 Iron deficiency anemia, unspecified (principal); K21.9 Gastro-esophageal reflux disease without esophagitis; E78.5 Hyperlipidemia, unspecified; E55.9 Vitamin D deficiency, unspecified

== ENCOUNTER → 2023-04-23 | Outpatient (REF) | LOC: M EMP 08:14 | PROVIDERS: ATTEND Family Medicine | DX: Z53.9 Procedure and treatment not carried out, unspecified reason (principal) ==

== ENCOUNTER → 2023-07-09 | Outpatient (REF) ==
[2023-07-09 11:04] LABS: RSV AMPLIFICATION NEGATIVE (NEGATIVE)
== END ==
LOC: M EMP 09:19
PROVIDERS: ATTEND Family Medicine
DX: Z20.828 Contact with and (suspected) exposure to other viral communicable diseases (principal)

== ENCOUNTER → 2023-10-14 | Outpatient (CLI) | payer BC ==
[~2023-10-14] MED LIST changes: +FLUO-290 PO; -FLUO10CA18 PO; +ONDA-282; +ONDA-284 SL; -ONDA4TAB6; -ONDA8TAB8 SL
== END ==
LOC: M RAD 14:07
PROVIDERS: ATTEND Physician Assistant Medical
DX: M25.561 Pain in right knee (principal)

== ENCOUNTER → 2024-04-03 | Outpatient (REF) | payer BC ==
[~2024-04-03] MED LIST changes: +AMPH1CAP5 PO; +DIPH50CA PO; +PEPC1TAB5 PO; +SUMA25TA3; +[UNRECOGNIZED DRUG - OTHER] IM
== END ==
LOC: M LAB REF 16:05
PROVIDERS: ATTEND Student in an Organized Health Care Education/Training Program
DX: R30.0 Dysuria (principal)

== ENCOUNTER → 2024-04-07 | Outpatient (REF) | LOC: M EMP 08:11 | PROVIDERS: ATTEND Family Medicine | DX: Z01.89 Encounter for other specified special examinations (principal) ==

== ENCOUNTER 2024-05-15 07:11 | Emergency (ER) | payer BC ==
[~2024-05-15] VITALS: Ht 160 cm; Wt 47.7 kg
[2024-05-15 08:44] LABS: BASO # 0.1 10^3/uL (0.0-0.2); BASO % 1.4 % (0.0-1.0); EOS # 0.3 10^3/uL (0.0-0.5); EOS % 8.3 % (0.0-3.0); HEMATOCRIT 38.7 % (36.0-47.0); HEMOGLOBIN 13.3 g/dl (12.0-15.5); LYMPH # 0.7 10^3/uL (1.5-5.0); LYMPH % 20.2 % (24.0-44.0); MEAN CORPUSCULAR HEMOGLOBIN 30.2 pg (27.0-33.0); MEAN CORPUSCULAR HGB CONC 34.4 g/dl (32.0-36.5); MONO # 0.3 10^3/uL (0.0-0.8); MONO % 8.6 % (2.0-8.0); NEUTROPHILS # 2.2 10^3/uL (1.5-8.5); NEUTROPHILS % 61.2 % (36.0-66.0); PLATELET COUNT, AUTOMATED 245 10^3/uL (150-450); WHITE BLOOD COUNT 3.6 10^3/uL (4.0-10.0)
[2024-05-15 09:16] LABS: LIPASE 25 U/L (12-53)
[2024-05-15 09:18] LABS: ALBUMIN 3.2 G/DL (3.2-5.2); ALKALINE PHOSPHATASE 57 U/L (35-104); ALT/SGPT 19 U/L (7.0-40); AST/SGOT 15 U/L (<34); BILIRUBIN,DIRECT 0.2 MG/DL (<0.4); BILIRUBIN,TOTAL 0.6 MG/DL (0.3-1.2); BLOOD UREA NITROGEN 6 MG/DL (9-23); CALCIUM LEVEL 8.5 MG/DL (8.5-10.1); CARBON DIOXIDE LEVEL 29 MMOL/L (20-31); CHLORIDE LEVEL 108 MMOL/L (98-107); CREATININE FOR GFR 0.56 MG/DL (0.55-1.30); GLOMERULAR FILTRATION RATE > 60.0 (>58); GLUCOSE, FASTING 103 MG/DL (60-100); POTASSIUM SERUM 4.5 MMOL/L (3.5-5.1); SODIUM LEVEL 143 MMOL/L (136-145); TOTAL PROTEIN 5.9 G/DL (5.7-8.2)
[2024-05-15] MEDS: ONDANSETRON 4MG 2ML VIAL IV ONE (09:34)
[2024-05-15] MEDS: KETOROLAC 30 MG/ML 1ML VIAL IV ONE (09:34)
[2024-05-15] MEDS ORDERED: ISOVUE-370 76% 100ML VIAL As Ordered ONE (10:03)
[2024-05-15] MEDS: MORPHINE 4 MG/ML 1ML VIAL IV ONE (10:52)
[2024-05-15 11:15] VITALS: BP 129/86; O2SAT 93
[2024-05-15 11:35] VITALS: TEMP 97.3
[2024-05-15] MEDS ORDERED: COLA100C5 PO (11:40)
[2024-05-15] MEDS ORDERED: MIRA3350 PO (11:40)
== END 2024-05-15 11:55 | disposition home or self-care (01) ==
LOC: M ED 07:11
DX: K59.00 Constipation, unspecified (principal); N20.0 Calculus of kidney; K76.0 Fatty (change of) liver, not elsewhere classified; J45.909 Unspecified asthma, uncomplicated; Z90.49 Acquired absence of other specified parts of digestive tract; Z90.710 Acquired absence of both cervix and uterus; Z79.899 Other long term (current) drug therapy
CPT/HCPCS: 74177; 80048; 80076; 83690; 85025; 96374; 96375; 99284; J1885; J2405; Q9967

== ENCOUNTER → 2024-06-30 | Outpatient (REF) | LOC: M EMP 09:22 | PROVIDERS: ATTEND Family Medicine | DX: Z11.52 Encounter for screening for COVID-19 (principal) ==

== ENCOUNTER → 2025-03-20 | Outpatient (REF) ==
[~2025-03-20] MED LIST changes: -DIPH50CA PO; +DIPH50CA31 PO; -IBUP-1022 PO; +IBUP600T42 PO
== END ==
LOC: M EMP 08:40
PROVIDERS: ATTEND Family Medicine
DX: Z01.89 Encounter for other specified special examinations (principal)